=== PATIENT | female | born 1945 | race Caucasian/White ===

== ENCOUNTER → 2016-12-29 | Outpatient (CLI) | payer OTHER ==
[~2016-12-29] MED LIST: ALBUAER2 INH; BP PILL; CALCTAB5 PO; FSMUNK; LVTUNK; MCRKUNK; MULT-506 PO
--- NOTE | 2016-12-29 13:45 | MAMMOGRAPHY REPORT ---
BILATERAL DIGITAL SCREENING MAMMOGRAM WITH CAD: 12/29/2016 CLINICAL HISTORY: Routine screening. Patient has no complaints. TECHNIQUE: Current study was also evaluated with a Computer Aided Detection (CAD) system. Bilatera l CC and MLO views were obtained. COMPARISON: Comparison is made to exams dated: 12/24/2013 mammogram, 12/17/2012 mammogram, 12/14/2011 ma mmogram, and 12/08/2009 mammogram - [facility]. BREAST COMPOSITION: The tissue of both breasts is almost entirely fatty. FINDINGS: No suspicious masses, calcifications, or areas of architectural distortion are noted in e ither breast. There has been no significant interval change compared to prior exams. Scattered bilat eral benign-appearing calcifications are not significantly changed. IMPRESSION: ACR BI-RADS CATEGORY 2: BENIGN There is no mammographic evidence of malignancy. A 1 year screening mammogram is recommended. The p atient will receive written notification of the results. Approximately 10% of breast cancers are not detected with mammography. A negative mammographic repor t should not delay biopsy if a clinically suggestive mass is present. Adrienne Teran M.D. /:12/29/2016 11:15:11 Mangle Operator Garments: Eva Augustin, [facility] letter sent: Normal 1/2 BI-RADS Code: ACR BI-RADS Category 2: Benign
== END | disposition home or self-care (01) ==
LOC: C.MAMM 10:45
PROVIDERS: ATTEND Internal Medicine
DX: Z12.31 Encounter for screening mammogram for malignant neoplasm of breast (principal)

== ENCOUNTER → 2018-01-01 | Outpatient (CLI) | payer OTHER ==
--- NOTE | 2018-01-02 15:25 | MAMMOGRAPHY REPORT ---
BILATERAL DIGITAL SCREENING MAMMOGRAM TOMOSYNTHESIS WITH CAD: 01/01/2018 CLINICAL HISTORY: Routine screening. Patient has no complaints. TECHNIQUE: Breast tomosynthesis in addition to standard 2D mammography was performed. Current study was also evaluated with a Computer Aided Detection (CAD) system. COMPARISON: Comparison is made to exams dated: 12/29/2016 mammogram, 12/25/2014 mammogram, 12/24/2013 m ammogram, 12/17/2012 mammogram, 12/14/2011 mammogram, and 12/08/2009 mammogram - [facility]. BREAST COMPOSITION: The tissue of both breasts is almost entirely fatty. FINDINGS: There are moderate vascular calcifications in the breasts, and scattered benign coarse calc ifications. No suspicious mass, architectural distortion or cluster of suspicious microcalcification s is seen. IMPRESSION: ACR BI-RADS CATEGORY 1: NEGATIVE There is no mammographic evidence of malignancy. A 1 year screening mammogram is recommended. The pa tient will receive written notification of the results. Approximately 10% of breast cancers are not detected with mammography. A negative mammographic report should not delay biopsy if a clinically suggestive mass is present. Steph Leal M.D. ay/:01/01/2018 16:57:17 Plastics Repairer: Brianna SANON(R)(M), [facility] letter sent: Normal 1/2 BI-RADS Code: ACR BI-RADS Category 1: Negative
== END ==
LOC: C.MAMM 12:24
PROVIDERS: ATTEND Internal Medicine
DX: Z12.31 Encounter for screening mammogram for malignant neoplasm of breast (principal)

== ENCOUNTER 2020-06-02 16:35 | Inpatient (IN) ==
[2020-06-02] MEDS ORDERED: ALBUT/IPRATROP 3MG/0.5MG NEB 3 ML VIAL NEB STA (17:10)
[2020-06-02] MEDS ORDERED: methylPREDNISolone 125 MG/2 ML VIAL IV STA (17:12)
--- NOTE | 2020-06-02 17:16 | Emergency Department Note ---
ED Visit Note This patient was seen in concert with Dr. Haddad and we discussed and agreed upon the history, physical, assessment and plan. See attending's note for details. Resident Activity Tracking Resident Involvement: Resident Care Provided Care Provided: Adult ED
--- NOTE | 2020-06-02 17:20 | XRay Report ---
XR chest 1V portable HISTORY: Dyspnea COMPARISON: None. FINDINGS: The heart is normal in size. Mild emphysema. Bibasilar interstitial thickening and hazy air space opacities are noted. The upper lung zones remain clear. No pleural effusions. No pneumothorax. IMPRESSION: 1. Bibasilar interstitial thickening and hazy airspace opacities. This is concerning for a pneumonia and may be secondary to a viral process. 2. Emphysema. ACT 112: Negative or not required by law. Electronically signed by: Juan M Duggan M.D. 06/02/2020 5:18 PM
--- NOTE | 2020-06-02 17:25 | Emergency Department Note ---
Impression & Plan Community acquired pneumonia, Hypoxia ED Provider Note NAME: DARELL LARA AGE: 75 SEX: F : 1945 ARRIVES VIA: Walk-In INFORMANT: Patient ED PROVIDER(S): Nickolas Haddad DO CHIEF COMPLAINT: Shortness of breath HPI: Patient is a 75-year-old female who presents the ER for shortness of breath with past medical history of asthma and bronchiectasis. She notes the shortness of breath has been worsening over the past 3 weeks. She has no cardiac history. She notes she started prednisone about a week ago and did have some improvement but has been getting worse today. She follows-up with her PCP and obtain a chest x-ray with a questionable pneumonia. She was sent in for further evaluation here. She denies any fevers. She does have a cough and some mild congestion but notes that is fairly typical for her. No recent trips or travel. She notes she has been staying home. No exposure to anyone with coronavirus. ROS: See above HPI for pertinent positives & negatives. A total of 10 systems reviewed and were otherwise negative. PAST MEDICAL HISTORY:See Below PAST SURGICAL HISTORY:See Below FAMILY HISTORY:See Below SOCIAL HISTORY:See Below HOME MEDICATIONS:See Below ALLERGIES:See Below VITALS:See Below PHYSICAL EXAMINATION: GENERAL: Sitting up in bed, alert, chronically ill-appearing, disheveled, nontoxic EYE EXAM: normal conjunctiva. OROPHARYNX: no exudate, no erythema, lips, buccal mucosa, and tongue normal and mucous membranes are moist NECK: supple, no nuchal rigidity, no adenopathy, non-tender LUNGS: Diminished at bases. Normal chest wall mechanics HEART: no murmurs, S1 normal and S2 normal ABDOMEN: abdomen soft, non-tender, normo-active bowel sounds, no masses, no rebound or guarding. BACK: Back is symmetrical on inspection and there is no deformity, no midline tenderness, no CVA tenderness. SKIN: no rashes and no bruising UPPER EXTREMITIES: upper extremities are grossly normal. LOWER EXTREMITIES: No pitting edema. Calves are equal bilateral NEURO EXAM: Normal sensorium, cranial nerves II-XII grossly intact, normal speech, no gross weakness of arms, no gross weakness of legs. MEDICAL DECISION MAKING: Patient is a 75-year-old female referred in for shortness of breath which is been worsening for the past 3 weeks. Had an x-ray done as an outpatient which showed a possible pneumonia. Upon arrival here she is found to be hypoxic. She was placed on 2 L nasal cannula. Remainder of vitals are stable. She is not tachycardic. No recent trips or travel, swelling of calves, coughing up blood, history of blood clots, history of clotting disorders. Labs show a mild leukocytosis of 12,000. No significant anemia. INR was unremarkable. BMP with mild hyponatremia. LFTs bilirubin and troponin was negative. Chest x-ray with focal infiltrate. Patient was given IV fluids and IV Levaquin. Patient was given neb treatments. Discussed with hospitalist for admission due to pneumonia and hypoxia. [place] with testing was sent. Triage Nursing notes reviewed. Prior medical records reviewed Vital Signs: reviewed and remarkable for hypoxic Differential diagnosis: Differential diagnoses includes but is not limited to pneumonia, bronchitis, COPD/Asthma exacerbation, pneumothorax, pulmonary embolism, congestive heart failure, acute coronary syndrome ER treatment provided: See below Diagnostics interpreted by me: ECG: Sinus rhythm rate of 62 Left axis No PVCs Normal QTC Poor baseline in the inferior leads Cardiac Monitoring: An order was placed for continuous cardiac monitoring. The monitor shows a rate of 65 with sinus rhythm. Laboratory studies: As stated above and show below. Imaging studies: Portable view of the chest shows infiltrates Consultation(s): Discussed with the hospital this for admission ED COURSE: Procedures: none Critical Care: I have personally spent 32 minutes of critical care time in the direct management of this patient. This includes bedside care, interpretation of diagnostic studies, and testing, discussion with consultants, patient, and family members, and other required patient management activities. This 32 minutes is in excess of all separately billable procedures. Past Med/Surg History Social History Smoking Status: Former smoker Preferred Language: Angolan Feels Safe at Home: Yes Allergies Allergies Allergy/AdvReac Type Severity Reaction Status Date / Time lisinopril AdvReac Intermediate Cough Verified 06/02/20 17:28 Home Meds Home Medications Medication Instructions Recorded Confirmed albuterol sulfate [Ventolin HFA] 2 puff INHALATION Q4H PRN 06/02/20 06/02/20 alendronate 70 mg PO WK 06/02/20 06/02/20 atenolol 100 mg PO QAM 06/02/20 06/02/20 atorvastatin 10 mg PO QAM 06/02/20 06/02/20 calcium carbonate-vitamin D3 1 tab PO BID 06/02/20 06/02/20 [Caltrate 600 plus D] cetirizine 10 mg PO QAM 06/02/20 06/02/20 diltiazem HCl 300 mg PO QAM 06/02/20 06/02/20 famotidine 20 mg PO BID 06/02/20 06/02/20 fluticasone propion-salmeterol 1 inh INHALATION BID 06/02/20 06/02/20 [Wixela Inhub] fluticasone propionate 1 spray INTRANASAL HS 06/02/20 06/02/20 guaifenesin [Mucinex] 600 mg PO QAM 06/02/20 06/02/20 levothyroxine 75 mcg PO DAILYBB 06/02/20 06/02/20 montelukast 10 mg PO QPM 06/02/20 06/02/20 sertraline 25 mg PO QAM 06/02/20 06/02/20 Results & Data (ED) Vital Signs Vital Signs - 24 hr 06/02/20 16:44 06/02/20 16:51 06/02/20 17:14 Temperature 36.5 C Temperature Source Oral Pulse Rate 65 64 Pulse Rate [Right Finger] Pulse Rate from SpO2 Sensor 65 Pulse Rhythm Regular Respiratory Rate 22 22 Respiratory Effort / Characteristics Non-Labored Labored Short of Breath SOB on Exertion Respiratory Depth Normal Normal Respiratory Pattern Regular Tachypnea Blood Pressure 113/70 Blood Pressure Mean 84 Blood Pressure Position Sitting Pulse Oximetry 86 L 94 95 Oxygen Delivery Method Room Air Nasal Cannula Oxygen Flow Rate 2 Sepsis Recent Fever Within 48 Hours No Sepsis New/Unexplained Change in Mental Status No Sepsis Action Taken by Nursing No Action Required 06/02/20 17:15 06/02/20 17:30 06/02/20 17:43 Temperature Temperature Source Pulse Rate 64 61 Pulse Rate [Right Finger] 59 L Pulse Rate from SpO2 Sensor 64 61 Pulse Rhythm Respiratory Rate 24 17 18 Respiratory Effort / Characteristics Non-Labored Spontaneous Respiratory Depth Respiratory Pattern Blood Pressure Blood Pressure Mean Blood Pressure Position Pulse Oximetry 96 94 95 Oxygen Delivery Method Nasal Cannula Oxygen Flow Rate 2 Sepsis Recent Fever Within 48 Hours Sepsis New/Unexplained Change in Mental Status Sepsis Action Taken by Nursing 06/02/20 17:45 Temperature Temperature Source Pulse Rate 59 L Pulse Rate [Right Finger] Pulse Rate from SpO2 Sensor 58 L Pulse Rhythm Respiratory Rate 16 Respiratory Effort / Characteristics Respiratory Depth Respiratory Pattern Blood Pressure Blood Pressure Mean Blood Pressure Position Pulse Oximetry 98 Oxygen Delivery Method Oxygen Flow Rate Sepsis Recent Fever Within 48 Hours Sepsis New/Unexplained Change in Mental Status Sepsis Action Taken by Nursing Laboratory Data Result diagrams: 06/02/20 17:30 06/02/20 17:30 Lab Results 06/02/20 06/02/20 06/02/20 Range/Units 17:30 17:30 17:30 WBC 12.07 H (4.8-10.8) K/uL RBC 4.31 (4.2-5.4) M/uL Hgb 14.1 (12.0-16.0) g/dL Hct 39.6 (37-47) % MCV 91.9 (80-100) fL MCH 32.7 (25-34) pg MCHC 35.6 (32-36) g/dL RDW Std Deviation 43.1 (36.4-46.3) fL RDW Coeff of Fan 12.9 (11.5-14.5) % Plt Count 352 (130-400) K/uL MPV 8.9 (7.4-10.4) fL Immature Gran % (Auto) 0.1 % Neut % (Auto) 73.4 % Lymph % (Auto) 15.1 % [place] % (Auto) 10.9 % Eos % (Auto) 0.3 % Baso % (Auto) 0.2 % Neut # (Auto) 8.86 H (1.4-6.5) K/uL Lymph # (Auto) 1.82 (1.2-3.4) K/uL [place] # (Auto) 1.31 H (0.11-0.59) K/uL Eos # (Auto) 0.04 (0-0.5) K/uL Baso # (Auto) 0.03 (0-0.2) K/uL Immature Gran # (Auto) 0.01 (0.00-0.02) K/uL PT 10.3 (9.0-12.0) Seconds INR 1.0 (0.9-1.1) APTT 26.8 (21.0-31.0) Seconds PTT Ratio 1.0 Sodium 130 L (136-145) mmol/L Potassium 3.9 (3.5-5.1) mmol/L Chloride 98 (98-107) mmol/L Carbon Dioxide 25 (21-32) mmol/L Anion Gap 7.0 (3-11) BUN 14 (7-18) mg/dl Creatinine 0.61 (0.6-1.2) mg/dl Est Cr Clr Drug Dosing 62.2 ml/min Est GFR ( Amer) 102.1 Est GFR (Non-Af Amer) 88.1 BUN/Creatinine Ratio 23.1 H (10-20) Glucose 97 (70-99) mg/dl Calcium 9.3 (8.5-10.1) mg/dl Magnesium 1.9 (1.8-2.4) mg/dl Total Bilirubin 0.5 (0.2-1) mg/dl AST 12 L (15-37) U/L ALT 15 (12-78) U/L Alkaline Phosphatase 57 (45-117) U/L Troponin I < 0.015 (0-0.045) ng/ml NT-Pro-B Natriuret Pep 288 (0-1800) pg/ml Total Protein 8.0 (6.4-8.2) gm/dl Albumin 3.3 L (3.4-5.0) gm/dl Globulin 4.7 H (2.5-4.0) gm/dl Albumin/Globulin Ratio 0.7 L (0.9-2) Administered Medications Discontinued Medications Albuterol (Duoneb) 3 ml NEB NOW STA Stop: 06/02/20 17:11 Last Admin: 06/02/20 17:43 Dose: 3 ml Documented by: [id number] Methylprednisolone (Solumedrol) 125 mg IV NOW STA Stop: 06/02/20 17:13 Last Admin: 06/02/20 17:30 Dose: 125 mg Documented by: [id number] Discharge Plan Visit Data Chief Complaint: Shortness of Breath/Dyspnea Stated Complaint: CHEST IS TIGHT - SENT BY DOC ED Provider: Nickolas Haddad ED Midlevel Provider: Jenny Billy Discharge Problem: Community acquired pneumonia, Hypoxia Forms Stand Alone Forms: My [facility] Prescriptions Prescriptions: No Action cetirizine 10 mg Tablet 10 mg PO QAM RF: 0 atorvastatin 10 mg tablet 10 mg PO QAM RF: 0 atenolol 100 mg tablet 100 mg PO QAM RF: 0 alendronate 70 mg tablet 70 mg PO WK RF: 0 levothyroxine 75 mcg tablet 75 mcg PO DAILYBB RF: 0 famotidine 20 mg tablet 20 mg PO BID RF: 0 diltiazem HCl 300 mg capsule,extended release 24hr 300 mg PO QAM RF: 0 fluticasone propion-salmeterol [Wixela Inhub] 500-50 mcg/dose blister with device 1 inh INHALATION BID RF: 0 sertraline 25 mg tablet 25 mg PO QAM RF: 0 montelukast 10 mg tablet 10 mg PO QPM RF: 0 albuterol sulfate [Ventolin HFA] 90 mcg/actuation Hfa Aerosol Inhaler 2 puff INHALATION Q4H PRN (Reason: Shortness Of Breath Or Wheezing) RF: 0 fluticasone propionate 50 mcg/actuation spray,suspension 1 spray INTRANASAL HS RF: 0 Caltrate 600 plus D 600 mg (1,500 mg)-800 unit Tablet,Chewable 1 tab PO BID RF: 0 guaifenesin [Mucinex] 600 mg Tablet Extended Release 12hr 600 mg PO QAM RF: 0 Discharge Problem: Community acquired pneumonia Qualifiers: Laterality: unspecified laterality Qualified Code(s): J18.9 - Pneumonia, unspecified organism
[2020-06-02 17:44] LABS: Basophils # (auto) 0.03 K/uL (0-0.2); Basophils % (auto) 0.2 %; Eosinophils # (auto) 0.04 K/uL (0-0.5); Eosinophils % (auto) 0.3 %; Hematocrit (blood only) 39.6 % (37-47); Hemoglobin 14.1 g/dL (12.0-16.0); Immature Granulocytes # (auto) 0.01 K/uL (0.00-0.02); Immature Granulocytes % (auto) 0.1 %; Lymphocytes # (auto) 1.82 K/uL (1.2-3.4); Lymphocytes % (auto) 15.1 %; Mean Corpuscular Hemoglobin 32.7 pg (25-34); Mean Corpuscular Hgb Conc 35.6 g/dL (32-36); Mean Corpuscular Volume 91.9 fL (80-100); Mean Platelet Volume 8.9 fL (7.4-10.4); Monocytes # (auto) 1.31 K/uL (0.11-0.59); Monocytes % (auto) 10.9 %; Neutrophils # (auto) 8.86 K/uL (1.4-6.5); Neutrophils % (auto) 73.4 %; Platelet Count 352 K/uL (130-400); RDW Coefficient of Variation 12.9 % (11.5-14.5); RDW Standard Deviation 43.1 fL (36.4-46.3); Red Blood Count 4.31 M/uL (4.2-5.4); White Blood Count 12.07 K/uL (4.8-10.8)
[2020-06-02 17:54] LABS: Partial Thromboplastin Time 26.8 Seconds (21.0-31.0); Prothrombin Time 10.3 Seconds (9.0-12.0)
[2020-06-02 18:05] LABS: Alanine Aminotransferase 15 U/L (12-78); Albumin Level 3.3 gm/dl (3.4-5.0); Aspartate Aminotransferase 12 U/L (15-37); BUN Creatinine Ratio 23.1 (10-20); Blood Urea Nitrogen 14 mg/dl (7-18); Calcium 9.3 mg/dl (8.5-10.1); Carbon Dioxide 25 mmol/L (21-32); Chloride 98 mmol/L (98-107); Creatinine Clr Calc Pharmacy 62.2 ml/min; Est GFR (African American) 102.1; Est GFR (Non-African American) 88.1; Glucose 97 mg/dl (70-99); Magnesium 1.9 mg/dl (1.8-2.4); Potassium 3.9 mmol/L (3.5-5.1); Sodium 130 mmol/L (136-145)
[2020-06-02 18:10] LABS: Albumin Globulin Ratio 0.7 (0.9-2); Alkaline Phosphatase 57 U/L (45-117); Bilirubin,Total 0.5 mg/dl (0.2-1); Globulin 4.7 gm/dl (2.5-4.0); NT Pro B Type Natriuretic Pept 288 pg/ml (0-1800); Troponin I < 0.015 ng/ml (0-0.045)
[2020-06-02] MEDS ORDERED: LEVOFLOXACIN/D5W 750 MG/150 ML BAG IV SCH (18:15)
[2020-06-02] MEDS ORDERED: MAGNESIUM SULFATE / D5W 1 GM/100 ML BAG IV ONE (19:44)
--- NOTE | 2020-06-02 20:20 | History & Physical Report ---
Date of Service June 02, 2020 Assessment & Plan (1) Acute hypoxemic respiratory failure: Secondary to COPD exacerbation (history of bronchiectasis as per records) secondary to CAP Possible sepsis hypertension, stable past tobacco abuse Medical telemetry Supplemental O2 Baseline ABG Levaquin, nebs, prednisone course Pulmonary consult in a.m. if without improvement DVT prophylaxis per Lovenox subcu Full code Text document was generated using [employer] voice recognition software. It may contain grammatical or spelling errors. Kindly contact undersigned for clarification of any documentation item in question. History of Present Illness Chief Complaint: Cough, S OB Primary Care Provider: Sanjana Reyes DO History obtained from patient and records. Medical history significant for COPD/asthma/bronchiectasis, hypertension, past tobacco abuse. 3 weeks history of congestion, junky cough and wheezing. No aspiration. No known COVID-19 sick contacts. Minimal response to outpatient prednisone course prescribed by pulmonology provider. Persistent junky cough symptoms without chest pain. Worsening shortness of breath over the last few weeks. Poor appetite. Patient seen at PCPs office today. O2 sats noted to be 88 on room air. Chest x-ray showed possible pneumonia. Patient sent to the ER for evaluation. Patient received Solu-Medrol, neb treatment, Levaquin for possible COPD exacerbation. Patient currently feeling better. Medical History as above Surgical History : Cataract surgery, breast cyst drainage, tonsillectomy/adenoidectomy, BTL Family History : Heart disease, colon cancer Personal/Social history : Past tobacco abuse, occasional EtOH intake, retired school janitor Allergies Allergy/AdvReac Type Severity Reaction Status Date / Time lisinopril AdvReac Intermediate Cough Verified 06/02/20 17:28 Home Medications Home Medications Medication Instructions Recorded Confirmed Type albuterol sulfate [Ventolin HFA] 2 puff INHALATION Q4H PRN 06/02/20 06/02/20 History alendronate 70 mg PO WK 06/02/20 06/02/20 History atenolol 100 mg PO QAM 06/02/20 06/02/20 History atorvastatin 10 mg PO QAM 06/02/20 06/02/20 History calcium carbonate-vitamin D3 1 tab PO BID 06/02/20 06/02/20 History [Caltrate 600 plus D] cetirizine 10 mg PO QAM 06/02/20 06/02/20 History diltiazem HCl 300 mg PO QAM 06/02/20 06/02/20 History famotidine 20 mg PO BID 06/02/20 06/02/20 History fluticasone propion-salmeterol 1 inh INHALATION BID 06/02/20 06/02/20 History [Wixela Inhub] fluticasone propionate 1 spray INTRANASAL HS 06/02/20 06/02/20 History guaifenesin [Mucinex] 600 mg PO QAM 06/02/20 06/02/20 History levothyroxine 75 mcg PO DAILYBB 06/02/20 06/02/20 History montelukast 10 mg PO QPM 06/02/20 06/02/20 History sertraline 25 mg PO QAM 06/02/20 06/02/20 History Past Med/Surg History Social History Smoking Status: Former smoker Smoking End Date: 1969; Hx Alcohol Use: No Hx Substance Use: No Preferred Language: Australian Type Proof Reproducer Required: No Beliefs That Will Affect Care: None Current Living Situation: Spouse Other Information That Helps Us Care for You: No Feels Safe at Home: Yes Safety Concerns: Feels Safe At This Time Review of Systems Review of Systems: As per HPI, all 10 systems reviewed, all other ROS negative Physical Exam Physical Exam: GENERAL: Slightly uncomfortable, pleasant, minimal respiratory distress SKIN: Normal color, warm HEENT: [place] palpebral conjunctivae, no ptosis, dry buccal mucosa, nasal cannula in place NECK : Supple, no tenderness CHEST : Decreased breath sounds, expiratory wheezes, no tenderness HEART : RRR, no obvious murmurs ABDOMEN: Some distention, nontender EXTREMITIES : No LE swelling/tenderness, no other conspicuous deformities noted NEUROLOGIC : Coherent, no facial asymmetry, no other gross focality Results & Data Results & Data ([facility]) Vital Signs (Past 12 Hours) Vital Signs Temp Pulse Pulse Resp BP BP Pulse Ox 06/02/20 19:13 62 20 158/76 H 93 06/02/20 17:45 59 L 16 98 06/02/20 17:43 59 L 18 95 06/02/20 17:30 61 17 94 06/02/20 17:15 64 24 96 06/02/20 17:14 64 22 95 06/02/20 16:51 94 06/02/20 16:44 36.5 C 65 22 113/70 86 L Laboratory Results Laboratory Results WBC 12.07 K/uL (4.8-10.8) H 06/02/20 17:30 RBC 4.31 M/uL (4.2-5.4) 06/02/20 17:30 Hgb 14.1 g/dL (12.0-16.0) 06/02/20 17:30 Hct 39.6 % (37-47) 06/02/20 17:30 MCV 91.9 fL (80-100) 06/02/20 17:30 MCH 32.7 pg (25-34) 06/02/20 17:30 MCHC 35.6 g/dL (32-36) 06/02/20 17:30 RDW Std Deviation 43.1 fL (36.4-46.3) 06/02/20 17:30 RDW Coeff of Fan 12.9 % (11.5-14.5) 06/02/20 17:30 Plt Count 352 K/uL (130-400) 06/02/20 17:30 MPV 8.9 fL (7.4-10.4) 06/02/20 17:30 Immature Gran % (Auto) 0.1 % 06/02/20 17:30 Neut % (Auto) 73.4 % 06/02/20 17:30 Lymph % (Auto) 15.1 % 06/02/20 17:30 [place] % (Auto) 10.9 % 06/02/20 17:30 Eos % (Auto) 0.3 % 06/02/20 17:30 Baso % (Auto) 0.2 % 06/02/20 17:30 Neut # (Auto) 8.86 K/uL (1.4-6.5) H 06/02/20 17:30 Lymph # (Auto) 1.82 K/uL (1.2-3.4) 06/02/20 17:30 [place] # (Auto) 1.31 K/uL (0.11-0.59) H 06/02/20 17:30 Eos # (Auto) 0.04 K/uL (0-0.5) 06/02/20 17:30 Baso # (Auto) 0.03 K/uL (0-0.2) 06/02/20 17:30 Immature Gran # (Auto) 0.01 K/uL (0.00-0.02) 06/02/20 17:30 PT 10.3 Seconds (9.0-12.0) 06/02/20 17:30 INR 1.0 (0.9-1.1) 06/02/20 17:30 APTT 26.8 Seconds (21.0-31.0) 06/02/20 17:30 PTT Ratio 1.0 06/02/20 17:30 Sodium 130 mmol/L (136-145) L 06/02/20 17:30 Potassium 3.9 mmol/L (3.5-5.1) 06/02/20 17:30 Chloride 98 mmol/L (98-107) 06/02/20 17:30 Carbon Dioxide 25 mmol/L (21-32) 06/02/20 17:30 Anion Gap 7.0 (3-11) 06/02/20 17:30 BUN 14 mg/dl (7-18) 06/02/20 17:30 Creatinine 0.61 mg/dl (0.6-1.2) 06/02/20 17:30 Est Cr Clr Drug Dosing 62.2 ml/min 06/02/20 17:30 Est GFR ( Amer) 102.1 06/02/20 17:30 Est GFR (Non-Af Amer) 88.1 06/02/20 17:30 BUN/Creatinine Ratio 23.1 (10-20) H 06/02/20 17:30 Glucose 97 mg/dl (70-99) 06/02/20 17:30 Osmolality 281 mOsm/kg (280-300) 06/02/20 17:30 Calcium 9.3 mg/dl (8.5-10.1) 06/02/20 17:30 Magnesium 1.9 mg/dl (1.8-2.4) 06/02/20 17:30 Total Bilirubin 0.5 mg/dl (0.2-1) 06/02/20 17:30 AST 12 U/L (15-37) L 06/02/20 17:30 ALT 15 U/L (12-78) 06/02/20 17:30 Alkaline Phosphatase 57 U/L (45-117) 06/02/20 17:30 Troponin I < 0.015 ng/ml (0-0.045) 06/02/20 17:30 NT-Pro-B Natriuret Pep 288 pg/ml (0-1800) 06/02/20 17:30 Total Protein 8.0 gm/dl (6.4-8.2) 06/02/20 17:30 Albumin 3.3 gm/dl (3.4-5.0) L 06/02/20 17:30 Globulin 4.7 gm/dl (2.5-4.0) H 06/02/20 17:30 Albumin/Globulin Ratio 0.7 (0.9-2) L 06/02/20 17:30 TSH 2.770 uIu/ml (0.300-4.500) 06/02/20 17:30 Diagnostic Findings Chest x-ray : 1. Bibasilar interstitial thickening and hazy airspace opacities. This is concerning for a pneumonia and may be secondary to a viral process. 2. Emphysema. EKG as per my interpretation : Rate 60, NSR, LAD, LAFB, no ischemia
[2020-06-02 20:24] LABS: Allen Test Pos (Pos); Base Excess ABG -0.4 mEq/L (-9-1.8); HCO3 ABG 23 mmol/L (19-24); PCO2 ABG 34 mmHg (35-46); PO2 ABG 78 mmHg (80-95); pH ABG 7.45 (7.35-7.45)
[2020-06-02] MEDS ORDERED: NSS + 20MEQ KCL 20 MEQ/1,000 ML BAG IV ONE (21:45)
[2020-06-02] MEDS ORDERED: ACETAMINOPHEN 325 MG TAB PO PRN (21:48)
[2020-06-02] MEDS: MONTELUKAST SODIUM 10 MG TABLET PO SCH (22:26)
[2020-06-02] MEDS: FAMOTIDINE 20 MG TAB PO SCH (22:26)
[2020-06-02] MEDS: FLUTICASONE PROPIONATE NA SPR 16 GM BTL SCH (22:26)
[2020-06-03] MEDS: ALBUT/IPRATROP 3MG/0.5MG NEB 3 ML VIAL NEB SCH ×5 (00:49→19:07)
[2020-06-03 06:05] LABS: Hematocrit (blood only) 37.1 % (37-47); Hemoglobin 12.6 g/dL (12.0-16.0); Immature Granulocytes # (auto) 0.02 K/uL (0.00-0.02); Immature Granulocytes % (auto) 0.3 %; Lymphocytes # (auto) 0.82 K/uL (1.2-3.4); Lymphocytes % (auto) 12.2 %; Mean Corpuscular Volume 91.4 fL (80-100); Mean Platelet Volume 8.9 fL (7.4-10.4); Monocytes # (auto) 0.06 K/uL (0.11-0.59); Monocytes % (auto) 0.9 %; Neutrophils # (auto) 5.82 K/uL (1.4-6.5); Neutrophils % (auto) 86.6 %; Platelet Count 324 K/uL (130-400); RDW Coefficient of Variation 12.7 % (11.5-14.5); RDW Standard Deviation 42.6 fL (36.4-46.3); Red Blood Count 4.06 M/uL (4.2-5.4); White Blood Count 6.72 K/uL (4.8-10.8)
[2020-06-03] MEDS: LEVOTHYROXINE SODIUM 75 MCG TABLET PO SCH (06:18)
[2020-06-03 06:42] LABS: BUN Creatinine Ratio 21.7 (10-20); Calcium 8.3 mg/dl (8.5-10.1); Creatinine Clr Calc Pharmacy 70.2 ml/min; Est GFR (African American) 106.2; Est GFR (Non-African American) 91.7; Potassium 3.9 mmol/L (3.5-5.1)
--- NOTE | 2020-06-03 07:54 | Hospitalist Progress Note ---
Date of Service June 03, 2020 Assessment & Plan (1) Acute hypoxemic respiratory failure: Secondary to COPD exacerbation (history of bronchiectasis as per records) secondary to CAP on Levaquin and Prednisone No sepsis Hypertension, stable Past tobacco abuse Medical telemetry Supplemental O2 Baseline ABG Levaquin, nebs, prednisone course DVT prophylaxis per Lovenox subcu Full code DC home later today or am Labs checked ROS-No Headache, No Visual Changes, No Nausea, No Vomiting, No Fever, No Chills, No Neck Pain or Stiffness, No Chest Pain, No Palpitations, No SOB, No MAHONEY, No Cough, No Sputum, No Wheezing, No Abdominal Pain, No Diarrhea, No Hematemesis, N o Hemoptysis, No Unexpected Weight Loss, No Flank pain, No Melena, No Hematochezia, No Frequency, No Urgency, No Burning, No Hematuria, No Rashes, No Diaphoresis. Appetite is Normal, feels a lot better Physical Exam Gen-AAO x 3, NAD, Afebrile Head-NCAT, EOMI, PERRLA, Anicteric Sclera, No Posterior Pharyngeal Erythema Neck-Supple, No JVD, No Thyromegaly, No Masses, No LAD, No Bruits Lungs-Clear to Auscultation Bilaterally, No Rales, No Rhonchi, No Wheezing, No Crepitus Chest-No S4, +S1, +S2, No S3, No Murmurs, No Rubs, No Gallops, No Ectopy Abdomen-Soft, Bowel Sounds Present, Non Tender, Non Distended, No Hepatomegaly, No Splenomegaly, No Palpable Masses, No Rebound, No Rigidity, No Guarding Musculoskeletal-Full Range of Motion Bilaterally, No CVAT Extremities-No Cyanosis, No Clubbing, No Edema Nuero-Cranial Nerves II-XII grossly intact, Motor WNL, DTRs WNL, Strength WNL, Non Focal Psych-Normal Mood Admission and Anticipated Discharge Date Admission Date: June 02, 2020 Results & Data Results & Data ([facility]) Vital Signs (Past 12 Hours) Vital Signs Temp Pulse Pulse Pulse Resp BP BP 06/03/20 07:34 80 06/03/20 07:22 36.5 C 74 16 06/03/20 07:03 74 14 06/03/20 03:57 36.9 C 73 18 114/67 06/03/20 01:29 63 07/22/20 00:49 65 16 06/02/20 23:00 36.5 C 64 18 110/53 L 06/02/20 22:03 67 06/02/20 21:53 36.4 C L 67 22 06/02/20 21:01 62 20 118/68 BP Pulse Ox 06/03/20 07:34 06/03/20 07:22 142/71 H 92 06/03/20 07:03 92 06/03/20 03:57 94 06/03/20 01:29 06/03/20 00:49 95 06/02/20 23:00 93 06/02/20 22:03 06/02/20 21:53 128/73 91 06/02/20 21:01 94
[2020-06-03] MEDS: predniSONE 20 MG TAB PO SCH (08:55)
[2020-06-03] MEDS: guaiFENesin 600 MG TABCR PO SCH (08:55)
[2020-06-03] MEDS: FAMOTIDINE 20 MG TAB PO SCH ×2 (08:56→20:41)
[2020-06-03] MEDS: dilTIAZem HCL 300 MG CAPCR PO SCH (08:56)
[2020-06-03] MEDS: ATENOLOL 50 MG TABLET PO SCH (08:56)
[2020-06-03] MEDS: ATORVASTATIN 10 MG TAB PO SCH (08:56)
[2020-06-03] MEDS: CETIRIZINE HCL 10 MG TABLET PO SCH (08:56)
[2020-06-03] MEDS: ENOXAPARIN INJ 30 MG/0.3 ML SYR SQ SCH (08:57)
[2020-06-03] MEDS: SERTRALINE HCL 50 MG TABLET PO SCH (09:01)
[2020-06-03] MEDS ORDERED: Nursing to Pharmacy Communication SCH (10:15)
[2020-06-03] MEDS ORDERED: COUGH DROP (SUGAR FREE) LOZ 24 LOZ/1 BOX BUCCAL PRN (10:20)
--- NOTE | 2020-06-03 12:30 | Electrocardiogram Report ---
Test Reason : Blood Pressure : / mmHG Vent. Rate : 062 BPM Atrial Rate : 062 BPM P-R Int : 172 ms QRS Dur : 094 ms QT Int : 406 ms P-R-T Axes : 067 -51 044 degrees QTc Int : 412 ms Poor data quality, interpretation may be adversely affected Normal sinus rhythm Left anterior fascicular block Abnormal ECG No previous ECGs available Confirmed by Tony Aguilar ([id number]) on 06/03/2020 12:29:50 PM Referred By: Maria Luisa Perez Confirmed By:Tony Aguilar
[2020-06-03] MEDS: FLUTICASONE PROPIONATE NA SPR 16 GM BTL SCH (20:41)
[2020-06-03] MEDS: MONTELUKAST SODIUM 10 MG TABLET PO SCH (20:41)
[2020-06-03] MEDS ORDERED: levoFLOXacin 500 MG TAB PO SCH (21:00)
[2020-06-04] MEDS: LEVOTHYROXINE SODIUM 75 MCG TABLET PO SCH (05:44)
[2020-06-04 06:43] LABS: Hematocrit (blood only) 36.1 % (37-47); Hemoglobin 12.2 g/dL (12.0-16.0); Mean Corpuscular Hemoglobin 31.4 pg (25-34); Mean Corpuscular Hgb Conc 33.8 g/dL (32-36); Mean Platelet Volume 8.8 fL (7.4-10.4); Platelet Count 328 K/uL (130-400); RDW Standard Deviation 43.7 fL (36.4-46.3); Red Blood Count 3.88 M/uL (4.2-5.4); White Blood Count 14.92 K/uL (4.8-10.8)
--- NOTE | 2020-06-04 06:52 | Hospitalist Progress Note ---
Date of Service June 04, 2020 Assessment & Plan (1) Acute hypoxemic respiratory failure: Secondary to COPD exacerbation (history of bronchiectasis as per records) secondary to CAP on Levaquin and Prednisone, Sats still low, CTC today, Rocephin and Zmax ordered No sepsis Hypertension, stable Past tobacco abuse Medical/Surg Supplemental O2, 2 Step DVT prophylaxis per Lovenox subcu Full code DC home later today or am Labs checked ROS-No Headache, No Visual Changes, No Nausea, No Vomiting, No Fever, No Chills, No Neck Pain or Stiffness, No Chest Pain, No Palpitations, No SOB, No MAHONEY, No Cough, No Sputum, No Wheezing, No Abdominal Pain, No Diarrhea, No Hematemesis, No Hemoptysis, No Unexpected Weight Loss, No Flank pain, No Melena, No Hematochezia, No Frequency, No Urgency, No Burning, No Hematuria, No Rashes, No Diaphoresis. Appetite is Normal, feels a lot better Physical Exam Gen-AAO x 3, NAD, Afebrile Head-NCAT, EOMI, PERRLA, Anicteric Sclera, No Posterior Pharyngeal Erythema Neck-Supple, No JVD, No Thyromegaly, No Masses, No LAD, No Bruits Lungs-Clear to Auscultation Bilaterally, No Rales, No Rhonchi, No Wheezing, No Crepitus Chest-No S4, +S1, +S2, No S3, No Murmurs, No Rubs, No Gallops, No Ectopy Abdomen-Soft, Bowel Sounds Present, Non Tender, Non Distended, No Hepatomegaly, No Splenomegaly, No Palpable Masses, No Rebound, No Rigidity, No Guarding Musculoskeletal-Full Range of Motion Bilaterally, No CVAT Extremities-No Cyanosis, No Clubbing, No Edema Nuero-Cranial Nerves II-XII grossly intact, Motor WNL, DTRs WNL, Strength WNL, Non Focal Psych-Normal Mood Admission and Anticipated Discharge Date Admission Date: June 02, 2020 Results & Data Results & Data ([facility]) Vital Signs (Past 12 Hours) Vital Signs Temp Pulse Pulse Resp BP BP Pulse Ox 06/04/20 04:00 36.6 C 58 L 18 115/52 L 95 06/03/20 23:30 60 06/03/20 23:00 36.4 C L 55 L 18 122/50 L 92 06/03/20 20:07 36.2 C L 64 18 129/70 95 06/03/20 19:07 69 16 90
[2020-06-04] MEDS ORDERED: AZITHROMYCIN 500 MG in DEXTROSE 5% 250 ML IV SCH (07:00)
[2020-06-04] MEDS: ALBUT/IPRATROP 3MG/0.5MG NEB 3 ML VIAL NEB SCH ×4 (07:07→19:30)
[2020-06-04 07:13] LABS: BUN Creatinine Ratio 18.8 (10-20); Calcium 8.2 mg/dl (8.5-10.1); Creatinine Clr Calc Pharmacy 63.6 ml/min; Est GFR (African American) 102.6; Est GFR (Non-African American) 88.5; Potassium 4.4 mmol/L (3.5-5.1)
[2020-06-04] MEDS: cefTRIAXone SODIUM 1,000 MG in DEXTROSE 5% 50 ML IV SCH (07:51)
[2020-06-04] MEDS: dilTIAZem HCL 300 MG CAPCR PO SCH (07:56)
[2020-06-04] MEDS: CETIRIZINE HCL 10 MG TABLET PO SCH (07:56)
[2020-06-04] MEDS: predniSONE 20 MG TAB PO SCH (07:56)
[2020-06-04] MEDS: FAMOTIDINE 20 MG TAB PO SCH ×2 (07:56→20:57)
[2020-06-04] MEDS: guaiFENesin 600 MG TABCR PO SCH (07:57)
[2020-06-04] MEDS: ENOXAPARIN INJ 30 MG/0.3 ML SYR SQ SCH (07:57)
[2020-06-04] MEDS: ATENOLOL 50 MG TABLET PO SCH (07:57)
[2020-06-04] MEDS: SERTRALINE HCL 50 MG TABLET PO SCH (07:57)
[2020-06-04] MEDS: ATORVASTATIN 10 MG TAB PO SCH (07:57)
--- NOTE | 2020-06-04 08:59 | CT Scan Report ---
CT OF THE CHEST WITHOUT IV CONTRAST CLINICAL HISTORY: Suspected PNA, Hypoxia not improving COMPARISON STUDY: Chest radiograph June 02, 2020. CT DOSE: 329.94 mGycm TECHNIQUE: Axial images of the chest were obtained without IV contrast. Images were reviewed in the axial, sagittal, and coronal planes. IV contrast was not administered for this examination. Automat ed exposure control was utilized for the study. A dose lowering technique was utilized adhering to t he principles of ALARA. FINDINGS: No enlarged axillary, mediastinal or hilar lymph nodes are present. Size of the heart is n ormal. There is no pericardial effusion. There is moderate coronary artery calcification. No pneumoth orax or pleural effusion is noted. Central airways are patent. Note is made of moderate bronchiectasi s within the lower lobes and right middle lobe. Right middle lobe airspace opacity is likely chronic. Extensor tree-in-bud nodules are noted within the lungs, most evident within the bilateral lower lob es. Bilateral lower lobe subpleural opacity favors atelectasis. There is no cavitation. Bony thorax is un remarkable with the exception of several old healed rib fractures. A small hiatal hernia is present. A 2.8 cm left hepatic lobe cyst contains a partially calcified thin septation. A 4.1 cm subcapsular s egment 7 hepatic focus either reflects a corticated cyst or postsurgical change. There is a probable cyst within the midpole of the left kidney which is suboptimally assessed on this unenhanced exam. 2 mm right renal calculus is noted. 1.1 cm cyst focus within the pancreatic neck likely reflects a side branch IPMN. Old T2 and T3 compression fractures are incidentally noted. IMPRESSION: Extensive tree-in-bud nodular opacities throughout the lungs with moderate right middle lobe and bila teral lower lobe bronchiectasis. The findings represent an infectious process and raise the possibili ty of an atypical mycobacterial infection. Right middle lobe airspace opacity is chronic. Subpleural bilateral lower lobe airspace opacities are probably chronic although superimposed consolidation coul d appear similar. ACT 112: Negative or not required by law. Electronically signed by: Devon Valero M.D. 06/04/2020 8:58 AM
[2020-06-04] MEDS ORDERED: cefTRIAXone SODIUM 1,000 MG in DEXTROSE 5% 50 ML IV SCH (09:00)
[2020-06-04] MEDS ORDERED: SODIUM CHLORIDE 0.65% NA SOLN 45 ML (OCEAN) PRN (13:40)
--- NOTE | 2020-06-04 14:07 | Pulmonary Consultation ---
Date of Consultation June 04, 2020 Assessment & Plan (1) Acute hypoxemic respiratory failure: Most likely multifactorial to pneumonia and bronchiectatic exacerbation Patient is currently on azithromycin and Rocephin and 40 mg of prednisone daily No procalcitonin is been collected Will check a sputum culture and Gram stain Check an AFB Continue titrate supplemental oxygen as tolerated (2) Idiopathic bronchiectasis: Follows with [facility] pulmonology team Typically sees DESILVERIZER and has seen Dr. Cisneros in the past Negative IG levels, IGG subtypes, Alpha-AT levels No history of bronchoscopy We will add pulmonary pneumonic vest, flutter valve with nebulizer treatments No indication for bronchoscopy at this time We will need follow-up after discharge with [facility] pulmonary (3) Pulmonary nodule, left: Stable left lower lobe pulmonary nodule being followed by pulmonary group at [facility] (4) Community acquired pneumonia: Check a sputum Gram stain and culture Check an AFB to rule out mycoplasma component Currently on azithromycin and ceftriaxone Afebrile Clinically improved since admission Laterality: unspecified laterality Qualified Code(s): J18.9 - Pneumonia, unspecified organism (5) Moderate persistent asthma: Patient does have bronchospasms at the time my examination Currently on 40 mg daily of prednisone. Would use short term of no more than 5 days and then discontinue without taper Home regimen of medications include Wexela (Fluticasone/Salmeterol), Singulair, nebulizer treatments 2-4 times per day, Flonase, and guaifenesin Patient may either use her Wexela from home or consider adding Breo Ellipta (6) Hypoxia: No history of supplemental home oxygen use May require oxygen for short period after discharge as she continues on 3 L/min via nasal cannula If patient is discharged in the next day or so we will check a 6-minute walk test (two-step) Have patient follow-up with outpatient pulmonary clinic at [facility] Thank you very much for including us in the care of this patient. We will continue to follow along with you. Please refer to Dr. Messer's addendum for further recommendations. Supervising Physician Co-Signing Physician Notes Patient seen and examined. Discussed with NOHEMI. Agree with assessment and plan as noted. Interviewed patient and spouse at bedside. 75-year-old female followed at [facility] pulmonology for diffuse bronchiectasis of unclear etiology. She is admitted with an exacerbation hypoxemia. Prior sputum culture at [facility] showed pansensitive Pseudomonas but this was sometime ago. Last PFTs demonstrated mild restriction. IgG subclasses, alpha-1 antitrypsin unremarkable. The patient appears to be clinically improving currently. It is likely that she may require supplemental oxygen to go home with. Recommend continued aggressive pulmonary toilet including flutter valve, hypertonic saline, and vest therapy. Will recheck sputum culture for AFB/NTM as well as routine respiratory pathogens to see if antibiotics need to be tailored at all. She is currently on prednisone and I would not favor continuing this in the long-term but will defer to her outpatient mathematical physicist. May be appropriate for discharge but again will likely require supplemental oxygen History of Present Illness Attending Physician: Surinder Coon DO History of Present Illness Attending: Dr. Messer This is a 75-year-old female that presented to the emergency department on 06/02/2020 with worsening shortness of breath. She was admitted to the [facility] hospitalist service on telemetry for acute hypoxemic respiratory failure secondary to community-acquired pneumonia and bronchiectasis. The patient has a past medical history including idiopathic bronchiectasis, stable l eft lower lobe pulmonary nodule, hemoptysis, hypothyroidism, moderate persistent asthma, history of tobacco abuse, hypertension, dyslipidemia, nonallergic rhinitis, anxiety and depression, GERD. The patient follows with [facility] pulmonary medicine and was last seen via telemedicine 03/05/2020. Home medications include Wixela,, Flonase, duo nebs, Singulair 10 mg daily, and guaifenesin. Patient uses a flutter valve with each nebulizer treatment for clearance. She has been negative in the past for IgG subclasses as well as hemoglobins and alpha antitrypsin 1. AFB in the past has been negative as well. 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 She has been following with PRAF[facility] Deluca of the pulmonology department. Her last visit with a mathematical physicist was with Dr. Jesus Cisneros 09/19/2018. Patient was on Dulera since that time and then switched to Wixela about 1 year ago secondary to cost. Other than that, medications have not been adjusted. Patient states that she has never had a bronchoscopy in the past. She also denies pneumo vest, [id number], or other pulmonary clearance tools other than flutter valve. She seems to have worsening symptoms in the summer secondary to seasonal allergies. She has never been on home oxygen. She has a 5-pack-year smoking history and quit smoking in 1972. The patient denies any chest pain or tightness. She has no fever chills. Sputum has been thick and whitish to yellow. She denies any green or foul-smel ling sputum. She has no exertional dyspnea with exertion. She denies any significant hemoptysis. She is still requiring 3 L/min via nasal cannula and has not mobilized significantly. She has no other acute complaints. She has no recent travel. She has no sick contacts. She has no contact with any COVID positive patients. She has not been in contact with anyone from an endemic area. Most recent pulmonary function testing was completed 02/02/2017: FVC 2.27 96% of predicted FEV1 1.36 or 77% of predicted FEV1/FVC 60% of predicted FEF 25-75% 0.74 Allergies Allergy/AdvReac Type Severity Reaction Status Date / Time lisinopril AdvReac Intermediate Cough Verified 06/02/20 17:28 Home Medications Home Medications Medication Instructions Recorded Confirmed Type albuterol sulfate [Ventolin HFA] 2 puff INHALATION Q4H PRN 06/02/20 06/02/20 History alendronate 70 mg PO WK 06/02/20 06/02/20 History atenolol 100 mg PO QAM 06/02/20 06/02/20 History atorvastatin 10 mg PO QAM 06/02/20 06/02/20 History calcium carbonate-vitamin D3 1 tab PO BID 06/02/20 06/02/20 History [Caltrate 600 plus D] cetirizine 10 mg PO QAM 06/02/20 06/02/20 History diltiazem HCl 300 mg PO QAM 06/02/20 06/02/20 History famotidine 20 mg PO BID 06/02/20 06/02/20 History fluticasone propion-salmeterol 1 inh INHALATION BID 06/02/20 06/02/20 History [Wixela Inhub] fluticasone propionate 1 spray INTRANASAL HS 06/02/20 06/02/20 History guaifenesin [Mucinex] 600 mg PO QAM 06/02/20 06/02/20 History levothyroxine 75 mcg PO DAILYBB 06/02/20 06/02/20 History montelukast 10 mg PO QPM 06/02/20 06/02/20 History sertraline 25 mg PO QAM 06/02/20 06/02/20 History Patient History Medical History (Updated 06/04/20 @ 14:38 by Nima Samuels PA-C) Acquired hypothyroidism Anxiety and depression Dyslipidemia GERD (gastroesophageal reflux disease) History of tobacco abuse 5-pack-year history Quit smoking in 1972 Hypertension Idiopathic bronchiectasis Moderate persistent asthma Osteoporosis Pulmonary nodule, left Surgical History (Updated 06/04/20 @ 14:41 by Nima Samuels PA-C) H/O cataract removal with insertion of prosthetic lens Bilateral H/O colonoscopy H/O pulmonary function tests S/P tonsillectomy and adenoidectomy Family History (Updated 06/04/20 @ 14:41 by Nima Samuels PA-C) Other Medical history non-contributory Social History (Updated 06/04/20 @ 14:43 by Nima Samuels PA-C) Smoking Status: Former smoker packs per day: 0.5; Years Smoked: 10; Smoking End Date: 11/13/1972; Hx Alcohol Use: No Hx Substance Use: No Preferred Language: [place] Communication Ability: Effective Software Installer Required: No Beliefs That Will Affect Care: None Current Living Situation: Spouse Other Information That Helps Us Care for You: No Feels Safe at Home: Yes Safety Concerns: Feels Safe At This Time Review of Systems Review of Systems: All systems reviewed & are unremarkable except as noted in HPI & below Physical Exam Physical Exam: GENERAL : No acute distress EYES: No icterus, gaze conjugate NOSE: No evidence of epistaxis MOUTH: No lesions or candidiasis NECK: Supple LUNGS: Diffuse bronchospasm. No rhonchi. Good inspiratory effort. HEART: Regular, rate controlled ABDOMEN: Soft, NT, ND, BS Present EXTREMITIES: No LE edema, pedal pulses intact NEURO: A&OX3 Results & Data Results & Data ([facility]) Vital Signs (Past 12 Hours) Vital Signs Temp Pulse Pulse Pulse Resp BP Pulse Ox 06/04/20 11:42 36.3 C L 61 18 128/72 90 06/04/20 10:52 58 L 20 97 06/04/20 07:39 65 07/23/20 07:11 36.7 C 59 L 20 144/68 H 95 06/04/20 07:07 60 18 96 06/04/20 04:00 36.6 C 58 L 18 115/52 L 95 Laboratory Results 06/04/20 06:18 06/04/20 06:[address] OF THE CHEST WITHOUT IV CONTRAST CLINICAL HISTORY: Suspected PNA, Hypoxia not improving COMPARISON STUDY: Chest radiograph June 02, 2020. CT DOSE: 329.94 mGycm TECHNIQUE: Axial images of the chest were obtained without IV contrast. Images were reviewed in the axial, sagittal, and coronal planes. IV contrast was not administered for this examination. Automated exposure control was utilized for the study. A dose lowering technique was utilized adhering to the principles of ALARA. FINDINGS: No enlarged axillary, mediastinal or hilar lymph nodes are present. Size of the heart is normal. There is no pericardial effusion. There is moderate coronary artery calcification. No pneumothorax or pleural effusion is noted. Central airways are patent. Note is made of moderate bronchiectasis within the lower lobes and right middle lobe. Right middle lobe airspace opacity is likely chronic. Extensor tree-in-bud nodules are noted within the lungs, most evident within the bilateral lower lobes. Bilateral lower lobe subpleural opacity favors atelectasis. There is no cavitation. Bony thorax is unremarkable with the exception of several old healed rib fractures. A small hiatal hernia is present. A 2.8 cm left hepatic lobe cyst contains a partially calcified thin septation. A 4.1 cm subcapsular segment 7 hepatic focus either reflects a corticated cyst or postsurgical change. There is a probable cyst within the midpole of the left kidney which is suboptimally assessed on this unenhanced exam. 2 mm right renal calculus is noted. 1.1 cm cyst focus within the pancreatic neck likely reflects a side branch IPMN. Old T2 and T3 compression fractures are incidentally noted. IMPRESSION: Extensive tree-in-bud nodular opacities throughout the lungs with moderate right middle lobe and bilateral lower lobe bronchiectasis. The findings represent an infectious process and raise the possibility of an atypical mycobacterial infection. Right middle lobe airspace opacity is chronic. Subpleural bilateral lower lobe airspace opacities are probably chronic although superimposed consolidation could appear similar. Electronically signed by: Devon Valero M.D. 06/04/2020 8:58 AM PG Care Time/CCT Total # of Minutes Spent Total Time Spent with Patient: Total time spent is greater than 50% in coordination of care (as documented) at patient's floor/unit and/or counseling patient: 50 minutes including discussion with other providers and with patient's Coding Level of Care Code 69251 Inpt Consult Level 5 Diagnoses Acute hypoxemic respiratory failure J96.01 Idiopathic bronchiectasis J47.9 Pulmonary nodule, left R91.1 Community acquired pneumonia J18.9 Laterality: unspecified laterality Moderate persistent asthma J45.40 Hypoxia R09.02
[2020-06-04] MEDS: SODIUM CHLOR 7% 4 ML NEB NEB SCH (19:30)
[2020-06-04] MEDS: FLUTICASONE PROPIONATE NA SPR 16 GM BTL SCH (20:56)
[2020-06-04] MEDS: MONTELUKAST SODIUM 10 MG TABLET PO SCH (20:57)
[2020-06-05 06:23] LABS: Hematocrit (blood only) 37.2 % (37-47); Hemoglobin 12.3 g/dL (12.0-16.0); Mean Corpuscular Hemoglobin 31.1 pg (25-34); Mean Corpuscular Hgb Conc 33.1 g/dL (32-36); Mean Corpuscular Volume 93.9 fL (80-100); Mean Platelet Volume 9.1 fL (7.4-10.4); Platelet Count 332 K/uL (130-400); RDW Coefficient of Variation 13.2 % (11.5-14.5); RDW Standard Deviation 45.2 fL (36.4-46.3); Red Blood Count 3.96 M/uL (4.2-5.4)
[2020-06-05] MEDS: LEVOTHYROXINE SODIUM 75 MCG TABLET PO SCH (06:28)
--- NOTE | 2020-06-05 06:40 | Hospitalist Progress Note ---
Date of Service June 05, 2020 Assessment & Plan (1) Acute hypoxemic respiratory failure: Secondary to COPD exacerbation (history of bronchiectasis as per records) secondary to CAP on Levaquin and Prednisone, Sats still low, CTC revealed Extensive tree-in-bud nodular opacities throughout the lungs with moderate right middle lobe and bilateral lower lobe bronchiectasis. The findings represent an infectious process and raise the possibility of an atypical mycobacterial infection. Right middle lobe airspace opacity is chronic. Subpleural bilateral lower lobe airspace opacities are probably chronic although superimposed consolidation could appear similar. Rocephin and Zmax for now, Sputum C&S AFB smears, Not septic, Pulm on case Hypertension Past tobacco abuse Medical/Surg Supplemental O2, 2 Step DVT prophylaxis per Lovenox subcu Full code DC home 2-3 days Labs checked ROS-No Headache, No Visual Changes, No Nausea, No Vomiting, No Fever, No Chills, No Neck Pain or Stiffness, No Chest Pain, No Palpitations, No SOB, No MAHONEY, No Cough, No Sputum, No Wheezing, No Abdominal Pain, No Diarrhea, No Hematemesis, No Hemoptysis, No Unexpected Weight Loss, No Flank pain, No Melena, No Hematochezia, No Frequency, No Urgency, No Burning, No Hematuria, No Rashes, No Diaphoresis. Appetite is Normal, feels better Physical Exam Gen-AAO x 3, NAD, Afebrile Head-NCAT, EOMI, PERRLA, Anicteric Sclera, No Posterior Pharyngeal Erythema Neck-Supple, No JVD, No Thyromegaly, No Masses, No LAD, No Bruits Lungs-Clear to Auscultation Bilaterally, Faint R Rales, No Rhonchi, No Wheezing, No Crepitus Chest-No S4, +S1, +S2, No S3, No Murmurs, No Rubs, No Gallops, No Ectopy Abdomen-Soft, Bowel Sounds Present, Non Tender, Non Distended, No Hepatomegaly, No Splenomegaly, No Palpable Masses, No Rebound, No Rigidity, No Guarding Musculoskeletal-Full Range of Motion Bilaterally, No CVAT Extremities-No Cyanosis, No Clubbing, No Edema Nuero-Cranial Nerves II-XII grossly intact, Motor WNL, DTRs WNL, Strength WNL, Non Focal Psych-Normal Mood Admission and Anticipated Discharge Date Admission Date: June 02, 2020 Results & Data Results & Data ([facility]) Vital Signs (Past 12 Hours) Vital Signs Temp Pulse Pulse Pulse Resp BP Pulse Ox 06/05/20 04:13 66 06/05/20 03:58 37.0 C 75 19 131/64 90 06/04/20 23:12 36.8 C 57 L 18 131/65 92 06/04/20 19:32 65 18 92 06/04/20 19:18 36.5 C 61 18 127/77 93
[2020-06-05] MEDS: SODIUM CHLOR 7% 4 ML NEB NEB SCH ×2 (06:51→19:16)
[2020-06-05] MEDS: ALBUT/IPRATROP 3MG/0.5MG NEB 3 ML VIAL NEB SCH ×4 (06:51→19:16)
[2020-06-05 07:14] LABS: BUN Creatinine Ratio 28.8 (10-20); Calcium 7.9 mg/dl (8.5-10.1); Creatinine Clr Calc Pharmacy 86.5 ml/min; Est GFR (African American) 113.6; Est GFR (Non-African American) 98.1; Potassium 3.8 mmol/L (3.5-5.1)
[2020-06-05] MEDS: dilTIAZem HCL 300 MG CAPCR PO SCH (08:34)
[2020-06-05] MEDS: ENOXAPARIN INJ 30 MG/0.3 ML SYR SQ SCH (08:34)
[2020-06-05] MEDS: guaiFENesin 600 MG TABCR PO SCH ×2 (08:34→20:07)
[2020-06-05] MEDS: FAMOTIDINE 20 MG TAB PO SCH ×2 (08:35→20:08)
[2020-06-05] MEDS: ATORVASTATIN 10 MG TAB PO SCH (08:35)
[2020-06-05] MEDS: SERTRALINE HCL 50 MG TABLET PO SCH (08:35)
[2020-06-05] MEDS: predniSONE 20 MG TAB PO SCH (08:35)
[2020-06-05] MEDS: AZITHROMYCIN 250 MG TAB PO SCH (08:35)
[2020-06-05] MEDS: CETIRIZINE HCL 10 MG TABLET PO SCH (08:35)
[2020-06-05] MEDS: cefTRIAXone SODIUM 1,000 MG in DEXTROSE 5% 50 ML IV SCH (08:35)
[2020-06-05] MEDS: ATENOLOL 50 MG TABLET PO SCH (08:35)
--- NOTE | 2020-06-05 09:14 | Pulmonology Progress Note ---
Date of Service June 05, 2020 Assessment & Plan (1) Idiopathic bronchiectasis: Impression: 75-year-old female with bronchiectasis of unclear etiology followed at [facility] pulmonology admitted with hypoxemic respiratory failure and possible exacerbation of bronchiectasis. Recommendations: 1. Acute exacerbation of bronchiectasis: The patient sputum production is improving clinically. She is currently receiving duo nebs every 4 hours as well as Rocephin and azithromycin (day #3). Continue Mucinex and hypertonic saline. She is on prednisone at 40 mg daily. We will add Perforomist and budesonide to her regiment. Hopefully can start to wean her prednisone. Await sputum cultures including AFB cultures. Previous cultures through [facility] did demonstrate adams sensitive Pseudomonas. Hold on inhaled tobramycin in light of her clinical improvement and pending sputum culture results. Will defer additional work-up for bronchiectasis as this is apparently been performed in the outpatient setting but those records are not available to review. 2. Hypoxemic respiratory failure: Multifactorial. The patient has significant structural lung disease at baseline. Continue oxygen titrated to keep saturations at or above 88%. It is possible the patient will require supplemental oxygen prior to discharge and will need continued follow-up with her outpatient pulmonary providers at [facility] to determine long-term strategy. 3. Management of patient's sinus issues per primary service. 4. Patient may be eligible to be dismissed home when she feels like she is improving. She may require a more prolonged course of antibiotics depending on clinical course and sputum cultures. (2) Acute hypoxemic respiratory failure: (3) Hypoxia: Admission and Anticipated Discharge Date Admission Date: June 02, 2020 Subjective Patient seen and examined. She is complaining of some nasal congestion today. She is coughing and expectorating small amounts of clear phlegm. No hemoptysis. No chest pain or palpitations. No fevers chills or night sweats. Review of Systems Review of Systems: All systems reviewed & are unremarkable except as noted in HPI & below Physical Exam Constitutional: WD/WN, vitals as above Neck: trachea midline, no thyromegaly Respiratory: normal respiratory effort Auscultation: + rales and + wheezes Cardiovascular: RRR, no murmur, no edema Gastrointestinal (Abdomen): normal bowel sounds, soft, nontender, no hepatosplenomegaly Musculoskeletal: Extremities: extremities normal to inspection Skin: no rashes, warm and dry Neurologic: Nonfocal exam Lymphatic: no cervical lymphadenopathy Results & Data Results & Data ([facility]) Vital Signs (Past 12 Hours) Vital Signs Temp Pulse Pulse Resp BP Pulse Ox 06/05/20 08:33 74 06/05/20 07:44 57 L 06/05/20 07:30 36.7 C 56 L 18 133/75 94 06/05/20 06:53 74 18 95 06/05/20 04:13 66 06/05/20 03:58 37.0 C 75 19 131/64 90 06/04/20 23:12 36.8 C 57 L 18 131/65 92 Laboratory Results 06/05/20 05:15 06/05/20 05:15 Respiratory culture pending Diagnostic Findings No new imaging PG Care Time/CCT Total # of Minutes Spent Total Time Spent with Patient: Total time spent is greater than 50% in coordination of care (as documented) at patient's floor/unit and/or counseling patient: Coding Level of Care Code 54441 Subseq Hosp Care Lvl 3 Diagnoses Idiopathic bronchiectasis J47.9 Acute hypoxemic respiratory failure J96.01 Hypoxia R09.02
[2020-06-05] MEDS: FORMOTEROL 20 MCG/2 ML VIAL NEB SCH ×2 (10:57→19:15)
[2020-06-05] MEDS: BUDESONIDE 0.5 MG/2 ML VIAL (PULMICORT) NEB SCH (19:15)
[2020-06-05] MEDS: FLUTICASONE PROPIONATE NA SPR 16 GM BTL SCH (20:06)
[2020-06-05] MEDS: MONTELUKAST SODIUM 10 MG TABLET PO SCH (20:08)
[2020-06-06] MEDS: LEVOTHYROXINE SODIUM 75 MCG TABLET PO SCH (05:29)
[2020-06-06] MEDS: ALBUT/IPRATROP 3MG/0.5MG NEB 3 ML VIAL NEB SCH ×4 (07:17→19:10)
[2020-06-06] MEDS: FORMOTEROL 20 MCG/2 ML VIAL NEB SCH ×2 (07:17→19:07)
[2020-06-06] MEDS: BUDESONIDE 0.5 MG/2 ML VIAL (PULMICORT) NEB SCH ×2 (07:17→19:07)
[2020-06-06] MEDS: SODIUM CHLOR 7% 4 ML NEB NEB SCH ×2 (07:17→19:07)
--- NOTE | 2020-06-06 07:20 | Hospitalist Progress Note ---
Date of Service June 06, 2020 Assessment & Plan (1) Acute hypoxemic respiratory failure: Secondary to COPD exacerbation (history of bronchiectasis as per records) secondary to CAP was on Levaquin and Prednisone, CTC revealed Extensive tree-in-bud nodular opacities throughout the lungs with moderate right middle lobe and bilateral lower lobe bronchiectasis. The findings represent an infectious process and raise the possibility of an atypical mycobacterial infection. Right middle lobe airspace opacity is chronic. Subpleural bilateral lower lobe airspace opacities are probably chronic although superimposed consolidation could appear similar. Rocephin and Zmax for now, Sputum C&S AFB smears, Not septic, Pulm on case, may need home O2, feeling better Hypertension Past tobacco abuse Medical/Surg Supplemental O2 DVT prophylaxis per Lovenox subcu Full code DC home 1-2 days and f/u c [facility]m Labs checked ROS-No Headache, No Visual Changes, No Nausea, No Vomiting, No Fever, No Chills, No Neck Pain or Stiffness, No Chest Pain, No Palpitations, No SOB, No MAHONEY, No Cough, No Sputum, No Wheezing, No Abdominal Pain, No Diarrhea, No Hematemesis, No Hemoptysis, No Unexpected Weight Loss, No Flank pain, No Melena, No Hematoch ezia, No Frequency, No Urgency, No Burning, No Hematuria, No Rashes, No Diaphoresis. Appetite is Normal, feels better Physical Exam Gen-AAO x 3, NAD, Afebrile Head-NCAT, EOMI, PERRLA, Anicteric Sclera, No Posterior Pharyngeal Erythema Neck-Supple, No JVD, No Thyromegaly, No Masses, No LAD, No Bruits Lungs-Clear to Auscultation Bilaterally, Faint R Rales still present, No Rhonchi, No Wheezing, No Crepitus Chest-No S4, +S1, +S2, No S3, No Murmurs, No Rubs, No Gallops, No Ectopy Abdomen-Soft, Bowel Sounds Present, Non Tender, Non Distended, No Hepatomegaly, No Splenomegaly, No Palpable Masses, No Rebound, No Rigidity, No Guarding Musculoskeletal-Full Range of Motion Bilaterally, No CVAT Extremities-No Cyanosis, No Clubbing, No Edema Nuero-Cranial Nerves II-XII grossly intact, Motor WNL, DTRs WNL, Strength WNL, Non Focal Psych-Normal Mood Admission and Anticipated Discharge Date Admission Date: June 02, 2020 Results & Data Results & Data ([facility]) Vital Signs (Past 12 Hours) Vital Signs Temp Pulse Pulse Resp BP Pulse Ox 06/06/20 03:00 36.7 C 61 19 131/69 95 06/06/20 00:09 58 L 06/05/20 23:22 36.7 C 65 19 128/65 95 06/05/20 19:59 36.5 C 64 20 134/76 93 06/05/20 19:22 71 18 94
[2020-06-06] MEDS: dilTIAZem HCL 300 MG CAPCR PO SCH (08:22)
[2020-06-06] MEDS: ATORVASTATIN 10 MG TAB PO SCH (08:22)
[2020-06-06] MEDS: ENOXAPARIN INJ 30 MG/0.3 ML SYR SQ SCH (08:22)
[2020-06-06] MEDS: ATENOLOL 50 MG TABLET PO SCH (08:23)
[2020-06-06] MEDS: FAMOTIDINE 20 MG TAB PO SCH ×2 (08:23→20:40)
[2020-06-06] MEDS: guaiFENesin 600 MG TABCR PO SCH ×2 (08:23→20:40)
[2020-06-06] MEDS: AZITHROMYCIN 250 MG TAB PO SCH (08:24)
[2020-06-06] MEDS: SERTRALINE HCL 50 MG TABLET PO SCH (08:24)
[2020-06-06] MEDS: CETIRIZINE HCL 10 MG TABLET PO SCH (08:24)
[2020-06-06] MEDS: predniSONE 10 MG TABLET PO SCH (09:06)
[2020-06-06] MEDS: cefTRIAXone SODIUM 1,000 MG in DEXTROSE 5% 50 ML IV SCH (09:07)
[2020-06-06 10:35] LABS: Hematocrit (blood only) 36.6 % (37-47); Mean Corpuscular Hemoglobin 31.2 pg (25-34); Mean Corpuscular Hgb Conc 32.8 g/dL (32-36); Mean Corpuscular Volume 95.1 fL (80-100); Platelet Count 305 K/uL (130-400); RDW Coefficient of Variation 13.3 % (11.5-14.5); RDW Standard Deviation 45.8 fL (36.4-46.3); Red Blood Count 3.85 M/uL (4.2-5.4); White Blood Count 14.71 K/uL (4.8-10.8)
--- NOTE | 2020-06-06 10:41 | Pulmonology Progress Note ---
Date of Service June 06, 2020 Assessment & Plan (1) Idiopathic bronchiectasis: Impression: 75-year-old female with bronchiectasis of unclear etiology followed at [facility] pulmonology admitted with hypoxemic respiratory failure and possible exacerbation of bronchiectasis. Recommendations: 1. Acute exacerbation of bronchiectasis: The patient sputum production is improving clinically. She is currently receiving duo nebs every 4 hours as well as Rocephin and azithromycin (day #4). Continue Mucinex and hypertonic saline. She is on prednisone at 40 mg daily. She appears improved with the addition of Perforomist and budesonide to her regiment. Start prednisone wean, recommend decreasing by 5 mg every 3 days until off. Await sputum cultures including AFB cultures. Previous cultures through [facility] did demonstrate adams sensitive Pseudomonas. Hold on inhaled tobramycin in light of her clinical improvement and pending sputum culture results. Will defer additional work-up for bronchiectasis as this is apparently been performed in the outpatient setting but those records are not available to review. 2. Hypoxemic respiratory failure: Multifactorial. The patient has significant structural lung disease at baseline. Continue oxygen titrated to keep saturations at or above 88%. It is possible the patient will require supplemental oxygen prior to discharge and will need continued follow-up with her outpatient pulmonary providers at [facility] to determine long-term strategy. 3. Management of patient's sinus issues per primary service. Unclear if she has been evaluated for primary ciliary dyskinesia which would be a unifying diagnosis given her bronchiectasis and sinus complaints Patient appears to be approaching hospital discharge. She will require supplemental oxygen and outpatient pulmonary follow-up. Call if we can be of additional assistance (2) Acute hypoxemic respiratory failure: Most likely multifactorial to pneumonia and bronchiectatic exacerbation Patient is currently on azithromycin and Rocephin and 40 mg of prednisone daily No procalcitonin is been collected Will check a sputum culture and Gram stain Check an AFB Continue titrate supplemental oxygen as tolerated (3) Hypoxia: No history of supplemental home oxygen use May require oxygen for short period after discharge as she continues on 3 L/min via nasal cannula If patient is discharged in the next day or so we will check a 6-minute walk test (two-step) Have patient follow-up with outpatient pulmonary clinic at [facility] Thank you very much for including us in the care of this patient. We will continue to follow along with you. Please refer to Dr. Messer's addendum for further recommendations. Admission and Anticipated Discharge Date Admission Date: June 02, 2020 Subjective Patient seen and examined. She states she is feeling better. She is less dyspneic. Her wheezing is resolving. She is not bringing up as much phlegm. No chest pain palpitations. She feels like she is approaching being able to go home. She continues to use supplemental oxygen. No hemoptysis. Review of Systems Review of Systems: All systems reviewed & are unremarkable except as noted in HPI & below Physical Exam Constitutional: WD/WN, vitals as above Neck: trachea midline, no thyromegaly Respiratory: normal respiratory effort Auscultation: no rales and no wheezes Cardiovascular: RRR, no murmur, no edema Gastrointestinal (Abdomen): normal bowel sounds, soft, nontender, no hepatosplenomegaly Musculoskeletal: Extremities: extremities normal to inspection Skin: no rashes, warm and dry Lymphatic: no cervical lymphadenopathy Results & Data Results & Data ([facility]) Vital Signs (Past 12 Hours) Vital Signs Temp Pulse Pulse Resp BP Pulse Ox 06/06/20 07:23 37.2 C 72 22 147/75 H 90 06/06/20 07:21 72 18 98 06/06/20 03:00 36.7 C 61 19 131/69 95 06/06/20 00:09 58 L 06/05/20 23:22 36.7 C 65 19 128/65 95 Laboratory Results 06/06/20 10:18 Sputum culture: Rare white blood cells with rare gram-negative rods and gram- positive cocci Sputum AFB pending Diagnostic Findings No new imaging PG Care Time/CCT Total # of Minutes Spent Total Time Spent with Patient: Total time spent is greater than 50% in coordination of care (as documented) at patient's floor/unit and/or counseling patient: Coding Level of Care Code 95146 Subseq Hosp Care Lvl 2 Diagnoses Idiopathic bronchiectasis J47.9 Acute hypoxemic respiratory failure J96.01 Hypoxia R09.02
[2020-06-06 10:58] LABS: BUN Creatinine Ratio 30.2 (10-20); Calcium 7.9 mg/dl (8.5-10.1); Creatinine Clr Calc Pharmacy 76.1 ml/min; Potassium 3.3 mmol/L (3.5-5.1)
--- NOTE | 2020-06-06 12:35 | Cardiology Consultation ---
Date of Consultation June 06, 2020 Assessment & Plan (1) SVT (supraventricular tachycardia): (2) Acute hypoxemic respiratory failure: (3) Idiopathic bronchiectasis: (4) COPD (chronic obstructive pulmonary disease): The patient is already on atenolol and diltiazem which were home medicatio ns. I would not be inclined to start any additional medications at this time. She had a very brief run of SVT following a breathing treatment and vibration therapy which may have contributed. It was an asymptomatic event and for the most part she has been in sinus rhythm. I will order an echocardiogram to evaluate for pulmonary hypertension and valvular heart disease. Unless she starts to have frequent runs of SVT I would not treat her further. History of Present Illness Attending Physician: Surinder Coon DO History of Present Illness This is a 75-year-old female who was admitted with exacerbation of COPD with a longstanding history of cigarette smoking. She has no prior history of heart disease. She had been doing well and improving daily. This morning she received a breathing treatment followed by vibration therapy. She then had a very brief run of SVT that lasted for a few seconds and then she converted back to sinus rhythm. She was completely asymptomatic and unaware. Reviewing her telemetry she has been in continuous sinus mechanism and no other significant arrhythmias for several days. She has no cardiac complaints today. Allergies Allergy/AdvReac Type Severity Reaction Status Date / Time lisinopril AdvReac Intermediate Cough Verified 06/02/20 17:28 Home Medications Home Medications Medication Instructions Recorded Confirmed Type albuterol sulfate [Ventolin HFA] 2 puff INHALATION Q4H PRN 06/02/20 06/02/20 History alendronate 70 mg PO WK 06/02/20 06/02/20 History atenolol 100 mg PO QAM 06/02/20 06/02/20 History atorvastatin 10 mg PO QAM 06/02/20 06/02/20 History calcium carbonate-vitamin D3 1 tab PO BID 06/02/20 06/02/20 History [Caltrate 600 plus D] cetirizine 10 mg PO QAM 06/02/20 06/02/20 History diltiazem HCl 300 mg PO QAM 06/02/20 06/02/20 History famotidine 20 mg PO BID 06/02/20 06/02/20 History fluticasone propion-salmeterol 1 inh INHALATION BID 06/02/20 06/02/20 History [Wixela Inhub] fluticasone propionate 1 spray INTRANASAL HS 06/02/20 06/02/20 History guaifenesin [Mucinex] 600 mg PO QAM 06/02/20 06/02/20 History levothyroxine 75 mcg PO DAILYBB 06/02/20 06/02/20 History montelukast 10 mg PO QPM 06/02/20 06/02/20 History sertraline 25 mg PO QAM 06/02/20 06/02/20 History Patient History Medical History Acquired hypothyroidism Anxiety and depression Dyslipidemia GERD (gastroesophageal reflux disease) History of tobacco abuse 5-pack-year history Quit smoking in 1972 Hypertension Idiopathic bronchiectasis Moderate persistent asthma Osteoporosis Pulmonary nodule, left Surgical History H/O cataract removal with insertion of prosthetic lens Bilateral H/O colonoscopy H/O pulmonary function tests S/P tonsillectomy and adenoidectomy Family History Other Medical history non-contributory Social History Smoking Status: Former smoker packs per day: 0.5; Years Smoked: 10; Smoking End Date: 11/13/1972; Hx Alcohol Use: No Hx Substance Use: No Preferred Language: Chilean Communication Ability: Effective Bodybuilder Required: No Beliefs That Will Affect Care: None Current Living Situation: Spouse Other Information That Helps Us Care for You: No Feels Safe at Home: Yes Safety Concerns: Feels Safe At This Time Review of Systems Review of Systems: All systems reviewed & are unremarkable except as noted in HPI & below Nothing additional to add. Physical Exam Physical Exam: General: no acute distress and stated age Head: normocephalic, no masses, lesions, tenderness or abnormalities Eyes: conjunctiva are pink and non-injected, sclera clear Neck: supple, no adenopathy, no bruits, normal jugular venous pulse, no hepatojugular reflux Chest: normal shape and normal respiratory effort Lungs: clear to auscultation and percussion Cardiac Exam: - regular rate & rhythm, no murmurs gallops or rubs - normal S1, normal S2 Pulses: 2(+) throughout Abdomen: abdomen soft, non-tender, no abnormal masses and no hepatosplenomegaly Musculoskeletal: no gait disturbance, no joint inflammation, no deforming arthritis Extremities: no edema and no cyanosis Neuro: grossly normal exam Results & Data ([facility]) Vital Signs (Past 12 Hours) Vital Signs Temp Pulse Pulse Resp BP Pulse Ox 06/06/20 11:44 36.4 C L 56 L 18 118/63 95 06/06/20 11:14 87 18 95 06/06/20 09:10 56 L 06/06/20 07:23 37.2 C 72 22 147/75 H 90 06/06/20 07:21 72 18 98 06/06/20 03:00 36.7 C 61 19 131/69 95 Laboratory Results Laboratory Results - last 24 hr 06/06/20 06/06/20 10:18 10:18 WBC 14.71 H RBC 3.85 L Hgb 12.0 Hct 36.6 L MCV 95.1 MCH 31.2 MCHC 32.8 RDW Std Deviation 45.8 RDW Coeff of Fan 13.3 Plt Count 305 MPV 9.0 Sodium 134 L Potassium 3.3 L Chloride 100 Carbon Dioxide 29 Anion Gap 5.0 BUN 15 Creatinine 0.50 L Est Cr Clr Drug Dosing 76.1 Est GFR ( Amer) 109.0 Est GFR (Non-Af Amer) 94.0 BUN/Creatinine Ratio 30.2 H Glucose 116 H Calcium 7.9 L Diagnostic Findings EKG on admission reveals a sinus rhythm with a left anterior hemiblock Medications Administered Current Inpatient Medications Acetaminophen (Tylenol) 650 mg PO Q4H PRN PRN Reason: Pain or Fever Stop: 07/02/20 21:47 Last Admin: 06/03/20 20:41 Dose: 650 mg Documented by: Albuterol (Duoneb) 3 ml NEB Q4RWA [facility] Stop: 07/03/20 18:59 Last Admin: 06/06/20 11:11 Dose: 3 ml Documented by: Atenolol (Tenormin) 100 mg PO QAM [facility] Stop: 07/03/20 08:59 Last Admin: 06/06/20 08:23 Dose: 100 mg Documented by: Atorvastatin Cal[facility]) [facility] [place]: 07/03/20 08:59 Last Admin: 06/06/20 08:22 Dose: 10 mg Documented by: Azithromycin (Zithromax) 250 mg PO QAM [facility] Stop: 06/12/20 08:59 Last Admin: 06/06/20 08:24 Dose: 250 mg Documented by: Budesonide (Pulmicort Respules) 0.5 mg NEB BIDR [facility] Stop: 07/05/20 18:59 Last Admin: 06/06/20 07:17 Dose: 0.5 mg Documented by: Cetirizine HCl (Zyrtec) [facility] Stop: 07/03/20 08:59 Last Admin: 06/06/20 08:24 Dose: 10 mg Documented by: Diltiazem HCl (Cardizem Cd) [facility] Stop: 07/03/20 08:59 Last Admin: 06/06/20 08:22 Dose: 300 mg Documented by: Enoxaparin Sodium (Lovenox) 30 mg SQ [facility] Stop: 07/03/20 08:59 Last Admin: 06/06/20 08:22 Dose: 30 mg Documented by: Famotidine (Pepcid) 20 mg PO BID [facility] Stop: 07/02/20 21:47 Last Admin: 06/06/20 08:23 Dose: 20 mg Documented by: Fluticasone Propionate (Flonase) 1 sprays NA [facility] Stop: 07/02/20 21:47 Last Admin: 06/05/20 20:06 Dose: Not Given Documented by: Formoterol Fumarate (Perforomist) 20 mcg NEB BIDR [facility] Stop: 07/05/20 09:29 Last Admin: 06/06/20 07:17 Dose: 20 mcg Documented by: Guaifenesin (Mucinex) 1,200 mg PO BID [facility] Stop: 07/05/20 20:59 Last Admin: 06/06/20 08:23 Dose: 1,200 mg Documented by: Ceftriaxone Sodium 1,000 mg/ (Dextrose) 60 mls @ 100 mls/hr IV Q24H [facility]; Protocol Stop: 06/11/20 07:59 Last Infusion: 06/06/20 10:49 Dose: Infused Documented by: Levothyroxine Sodium (Synthroid) [facility] Stop: 07/03/20 06:29 Last Admin: 06/06/20 05:29 Dose: 75 mcg Documented by: Menthol (Nice) 1 sol BUCCAL PRN PRN PRN Reason: Cough Stop: 07/03/20 10:19 Last Admin: 06/03/20 10:26 Dose: 1 sol Documented by: Montelukast Sodium (Singulair) 10 mg PO QPM [facility] Stop: 07/02/20 21:47 Last Admin: 06/05/20 20:08 Dose: 10 mg Documented by: Potassium Chloride (Klor-Con M20) 20 meq PO BID [facility] Stop: 07/06/20 20:59 Prednisone (Prednisone) 30 mg PO DAILY [facility] Stop: 06/10/20 08:59 Last Admin: 06/06/20 09:06 Dose: 30 mg Documented by: Sertraline HCl (Zoloft) 25 mg PO QAM [facility] Stop: 07/03/20 08:59 Last Admin: 06/06/20 08:24 Dose: 25 mg Documented by: Sodium Chloride ([place]ford Nasal) 2 sprays NA Q1H PRN PRN Reason: Dryness Stop: 07/04/20 13:39 Sodium Chloride (Sodium Chlor 7% Neb Solution) 4 ml NEB BIDR [facility] Stop: 07/04/20 18:59 Last Admin: 06/06/20 07:17 Dose: 4 ml Documented by:
[2020-06-06] MEDS: FLUTICASONE PROPIONATE NA SPR 16 GM BTL SCH (20:38)
[2020-06-06] MEDS: POTASSIUM CHLORIDE 20 MEQ TABCR PO SCH (20:39)
[2020-06-06] MEDS: MONTELUKAST SODIUM 10 MG TABLET PO SCH (20:39)
[2020-06-07] MEDS ORDERED: CEFDINIR 300 MG CAP PO SCH
[2020-06-07] MEDS ORDERED: predniSONE 10 MG TABLET PO SCH
[2020-06-07 06:04] LABS: Hematocrit (blood only) 37.4 % (37-47); Hemoglobin 12.2 g/dL (12.0-16.0); Mean Corpuscular Hemoglobin 30.7 pg (25-34); Mean Corpuscular Hgb Conc 32.6 g/dL (32-36); Platelet Count 317 K/uL (130-400); RDW Standard Deviation 44.6 fL (36.4-46.3); Red Blood Count 3.98 M/uL (4.2-5.4); White Blood Count 9.05 K/uL (4.8-10.8)
[2020-06-07] MEDS: LEVOTHYROXINE SODIUM 75 MCG TABLET PO SCH (06:04)
[2020-06-07 06:23] LABS: BUN Creatinine Ratio 29.4 (10-20); Calcium 8.2 mg/dl (8.5-10.1); Creatinine Clr Calc Pharmacy 77.3 ml/min; Est GFR (African American) 109.7; Est GFR (Non-African American) 94.6; Potassium 3.6 mmol/L (3.5-5.1)
[2020-06-07] MEDS: BUDESONIDE 0.5 MG/2 ML VIAL (PULMICORT) NEB SCH (07:17)
[2020-06-07] MEDS: FORMOTEROL 20 MCG/2 ML VIAL NEB SCH (07:17)
[2020-06-07] MEDS: ALBUT/IPRATROP 3MG/0.5MG NEB 3 ML VIAL NEB SCH ×3 (07:28→15:13)
[2020-06-07] MEDS: SODIUM CHLOR 7% 4 ML NEB NEB SCH (07:31)
[2020-06-07] MEDS: cefTRIAXone SODIUM 1,000 MG in DEXTROSE 5% 50 ML IV SCH (08:13)
[2020-06-07] MEDS: guaiFENesin 600 MG TABCR PO SCH (08:13)
[2020-06-07] MEDS: predniSONE 10 MG TABLET PO SCH (08:15)
[2020-06-07] MEDS: ATENOLOL 50 MG TABLET PO SCH (08:15)
[2020-06-07] MEDS: POTASSIUM CHLORIDE 20 MEQ TABCR PO SCH (08:15)
[2020-06-07] MEDS: CETIRIZINE HCL 10 MG TABLET PO SCH (08:16)
[2020-06-07] MEDS: SERTRALINE HCL 50 MG TABLET PO SCH (08:16)
[2020-06-07] MEDS: AZITHROMYCIN 250 MG TAB PO SCH (08:17)
[2020-06-07] MEDS: FAMOTIDINE 20 MG TAB PO SCH (08:17)
[2020-06-07] MEDS: dilTIAZem HCL 300 MG CAPCR PO SCH (08:18)
[2020-06-07] MEDS: ENOXAPARIN INJ 30 MG/0.3 ML SYR SQ SCH (08:19)
[2020-06-07] MEDS: ATORVASTATIN 10 MG TAB PO SCH (08:19)
--- NOTE | 2020-06-07 10:10 | Pulmonology Progress Note ---
Date of Service June 07, 2020 Assessment & Plan (1) Idiopathic bronchiectasis: Impression: 75-year-old female with bronchiectasis of unclear etiology followed at [facility] pulmonology admitted with hypoxemic respiratory failure and possible exacerbation of bronchiectasis. Recommendations: 1. Acute exacerbation of bronchiectasis: The patient sputum production is improving clinically. She is completed a course of azithromycin and recommend she transition to Ceftin to complete 10 days total antimicrobial therapy. Continue Mucinex and hypertonic saline. She is on prednisone at 40 mg daily. She appears improved with the addition of Perforomist and budesonide to her regiment. Continue prednisone wean, recommend decreasing by 5 mg every 3 days until off. Sputum cultures here have shown no growth to date. Previous cultures through [facility] did demonstrate adams sensitive Pseudomonas. Hold on inhaled tobramycin in light of her clinical improvement and pending sputum culture results. Will defer additional work-up for bronchiectasis as this is apparently been performed in the outpatient setting but those records are not available to review. 2. Hypoxemic respiratory failure: Multifactorial. The patient has significant structural lung disease at baseline. Continue oxygen titrated to keep saturations at or above 88%. It is likely the patient will require supplemental oxygen prior to discharge and will need continued follow-up with her outpatient pulmonary providers at [facility] to determine long-term strategy. 3. 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 Given the fact that her right ventricle shows normal size and systolic function, not particularly worried about it. At this point time I would recommend correction of her underlying pulmonary issues including hypoxemic respiratory failure with supplemental oxygen and potentially repeating her echocardiogram in 3 to 6 months. 4. SVT: Per cardiology. If the percussive vest therapy is felt to trigger this, it can likely be discontinued and we will continue with flutter valve, hypertonic saline, Mucinex, and incentive spirometry. Ok to discharge from pulmonary perspective. Call if questions. (2) Acute hypoxemic respiratory failure: (3) Hypoxia: Admission and Anticipated Discharge Date Admission Date: June 02, 2020 Subjective Patient reports some cough during the night which resolved with drinking some water. She is not producing any phlegm. No fevers chills or night sweats. She did develop an episode of SVT yesterday associated with percussive chest therapy. This was self-limited. A cardiology consultation was obtained. They recommended continuing her beta-itz and calcium channel itz. Echocardiogram was obtained which demonstrated mild pulmonary hypertension but no other significant abnormalities. Review of Systems Review of Systems: All systems reviewed & are unremarkable except as noted in HPI & below Physical Exam Constitutional: WD/WN, vitals as above Neck: trachea midline, no thyromegaly Respiratory: normal respiratory effort Auscultation: no rales and no wheezes Cardiovascular: RRR, no murmur, no edema Gastrointestinal (Abdomen): normal bowel sounds, soft, nontender, no hepatosplenomegaly Musculoskeletal: Extremities: extremities normal to inspection Skin: no rashes, warm and dry Lymphatic: no cervical lymphadenopathy Results & Data Results & Data ([facility]) Vital Signs (Past 12 Hours) Vital Signs Temp Pulse Pulse Pulse Resp BP BP 06/07/20 07:25 73 18 06/07/20 07:21 36.6 C 68 20 155/81 H 06/07/20 02:51 36.5 C 60 18 136/71 06/06/20 23:40 36.7 C 60 18 146/77 H 06/06/20 23:24 57 L Pulse Ox 06/07/20 07:25 92 06/07/20 07:21 92 06/07/20 02:51 96 06/06/20 23:40 96 06/06/20 23:24 Laboratory Results 06/07/20 05:44 06/07/20 05:44 Diagnostic Findings Echocardiogram from 06/07/2020 showed an EF of 60 to 65% with normal right v entricular size and systolic function. Aortic sclerosis without stenosis was noted. Mild mitral insufficiency with moderate TR and mild pulmonary hypertension PG Care Time/CCT Total # of Minutes Spent Total Time Spent with Patient: Total time spent is greater than 50% in coordination of care (as documented) at patient's floor/unit and/or counseling patient: Coding Level of Care Code 40903 Subseq Hosp Care Lvl 2 Diagnoses Idiopathic bronchiectasis J47.9 Acute hypoxemic respiratory failure J96.01 Hypoxia R09.02
--- NOTE | 2020-06-07 11:35 | Cardiology Progress Note ---
Date of Service June 07, 2020 Assessment & Plan (1) SVT (supraventricular tachycardia): (2) Acute hypoxemic respiratory failure: (3) Idiopathic bronchiectasis: (4) COPD (chronic obstructive pulmonary disease): The patient has had no additional arrhythmias in the past 24 hours on telemetry. She is maintaining sinus rhythm. At this point I would recommend no additional cardiac testing. The patient may be discharged per the hospitalist service. Subjective The patient had an uneventful night. No new cardiac complaints today. Review of Systems Review of Systems: All systems reviewed & are unremarkable except as noted in HPI & below Nothing additional to add. Physical Exam Physical Exam: General: no acute distress and stated age Head: normocephalic, no masses, lesions, tenderness or abnormalities Eyes: conjunctiva are pink and non-injected, sclera clear Neck: supple, no adenopathy, no bruits, normal jugular venous pulse, no hepatojugular reflux Chest: normal shape and normal respiratory effort Lungs: clear to auscultation and percussion Cardiac Exam: - regular rate & rhythm, no murmurs gallops or rubs - normal S1, normal S2 Pulses: 2(+) throughout Abdomen: abdomen soft, non-tender, no abnormal masses and no hepatosplenomegaly Musculoskeletal: no gait disturbance, no joint inflammation, no deforming arthritis Extremities: no edema and no cyanosis Neuro: grossly normal exam Results & Data Vital Signs (Past 12 Hours) Vital Signs Temp Pulse Pulse Resp BP BP Pulse Ox 06/07/20 11:25 67 16 96 06/07/20 07:25 73 18 92 06/07/20 07:21 36.6 C 68 20 155/81 H 92 06/07/20 02:51 36.5 C 60 18 136/71 96 06/06/20 23:40 36.7 C 60 18 146/77 H 96 Laboratory Results Laboratory Results - last 24 hr 06/07/20 06/07/20 05:44 05:44 WBC 9.05 RBC 3.98 L Hgb 12.2 Hct 37.4 MCV 94.0 MCH 30.7 MCHC 32.6 RDW Std Deviation 44.6 RDW Coeff of Fan 13.0 Plt Count 317 MPV 9.0 Sodium 135 L Potassium 3.6 Chloride 101 Carbon Dioxide 30 Anion Gap 4.0 BUN 14 Creatinine 0.49 L Est Cr Clr Drug Dosing 77.3 Est GFR ( Amer) 109.7 Est GFR (Non-Af Amer) 94.6 BUN/Creatinine Ratio 29.4 H Glucose 80 Calcium 8.2 L Medications Administered Current Inpatient Medications Acetaminophen (Tylenol) 650 mg PO Q4H PRN PRN Reason: Pain or Fever Stop: 07/02/20 21:47 Last Admin: 06/03/20 20:41 Dose: 650 mg Documented by: Albuterol (Duoneb) 3 ml NEB Q4RWA [facility] Stop: 07/03/20 18:59 Last Admin: 06/07/20 11:25 Dose: 3 ml Documented by: [facility]ten[facility] ([facility]ormin) [facility] Stop: 07/03/20 08:59 Last Admin: 06/07/20 08:15 Dose: 100 mg Documented by: Atorvastatin Calcium (Lipitor) 10 [facility] Stop: 07/03/20 08:59 Last Admin: 06/07/20 08:19 Dose: 10 mg Documented by: Azithromycin (Zithromax) 250 mg PO [facility] Stop: 06/12/20 08:59 Last Admin: 06/07/20 08:17 Dose: 250 mg Documented by: Budesonide (Pulmicort Respules) 0.5 mg NEB BIDR [facility] Stop: 07/05/20 18:59 Last Admin: 06/07/20 07:17 Dose: 0.5 mg Documented by: Cetirizine HCl (Zyrtec) 10 mg PO [facility] Stop: 07/03/20 08:59 Last Admin: 06/07/20 08:16 Dose: 10 mg Documented by: Diltiazem HCl (Cardizem Cd) 300 mg PO [facility] Stop: 07/03/20 08:59 Last Admin: 06/07/20 08:18 Dose: 300 mg Documented by: Enoxaparin Sodium (Lovenox) 30 mg SQ [facility] Stop: 07/03/20 08:59 Last Admin: 06/07/20 08:19 Dose: 30 mg Documented by: Famotidine (Pepcid) 20 mg PO BID [facility] Stop: 07/02/20 21:47 Last Admin: 06/07/20 08:17 Dose: 20 mg Documented by: Fluticasone Propionate (Flonase) 1 sprays NA [facility] Stop: 07/02/20 21:47 Last Admin: 06/06/20 20:38 Dose: Not Given Documented by: Formoterol Fumarate (Perforomist) 20 mcg NEB BIDR [facility] Stop: 07/05/20 09:29 Last Admin: 06/07/20 07:17 Dose: 20 mcg Documented by: Guaifenesin (Mucinex) 1,200 mg PO BID [facility] Stop: 07/05/20 20:59 Last Admin: 06/07/20 08:13 Dose: 1,200 mg Documented by: Ceftriaxone Sodium 1,000 mg/ (Dextrose) 60 mls @ 100 mls/hr IV Q24H [facility]; Protocol Stop: 06/11/20 07:59 Last Infusion: 06/07/20 09:53 Dose: Infused Documented by: Levothyroxine Sodium (Synthroid) 75 mcg PO DAILYBB [facility] Stop: 07/03/20 06:29 Last Admin: 06/07/20 06:04 Dose: 75 mcg Documented by: Menthol (Nice) 1 sol BUCCAL PRN PRN PRN Reason: Cough Stop: 07/03/20 10:19 Last Admin: 06/03/20 10:26 Dose: 1 sol Documented by: Montelukast Sodium (Singulair) 10 mg PO QPM [facility] Stop: 07/02/20 21:47 Last Admin: 06/06/20 20:39 Dose: 10 mg Documented by: Potassium Chloride (Klor-Con M20) 20 meq PO BID [facility] Stop: 07/06/20 20:59 Last Admin: 06/07/20 08:15 Dose: 20 meq Documented by: Prednisone (Prednisone) 30 mg PO DAILY [facility] Stop: 06/10/20 08:59 Last Admin: 06/07/20 08:15 Dose: 30 mg Documented by: Sertraline HCl (Zoloft) 25 mg PO QAM [facility] Stop: 07/03/20 08:59 Last Admin: 06/07/20 08:16 Dose: 25 mg Documented by: Sodium Chloride (Bailey Nasal) 2 sprays NA Q1H PRN PRN Reason: Dryness Stop: 07/04/20 13:39 Sodium Chloride (Sodium Chlor 7% Neb Solution) 4 ml NEB BIDR [facility] Stop: 07/04/20 18:59 Last Admin: 06/07/20 07:31 Dose: 4 ml Documented by:
--- NOTE | 2020-06-07 16:30 | Discharge Summary ---
Date of Service June 07, 2020 Admission HPI Per Admitting Provider History obtained from patient and records. Medical history significant for COPD/asthma/bronchiectasis, hypertension, past tobacco abuse. 3 weeks history of congestion, junky cough and wheezing. No aspiration. No known COVID-19 sick contacts. Minimal response to outpatient prednisone course prescribed by pulmonology provider. Persistent junky cough symptoms without chest pain. Worsening shortness of breath over the last few weeks. Poor appetite. Patient seen at PCPs office today. O2 sats noted to be 88 on room air. Chest x-ray showed possible pneumonia. Patient sent to the ER for evaluation. Patient received Solu-Medrol, neb treatment, Levaquin for possible COPD exacerbation. Patient currently feeling better. Medical History as above Surgical History : Cataract surgery, breast cyst drainage, tonsillectomy/adenoidectomy, BTL Family History : Heart disease, colon cancer Personal/Social history : Past tobacco abuse, occasional EtOH intake, retired elementary school social worker Admission Exam Per Admitting Provider GENERAL: Slightly uncomfortable, pleasant, minimal respiratory distress SKIN: Normal color, warm HEENT: [place] palpebral conjunctivae, no ptosis, dry buccal mucosa, nasal cannula in place NECK : Supple, no tenderness CHEST : Decreased breath sounds, expiratory wheezes, no tenderness HEART : RRR, no obvious murmurs ABDOMEN: Some distention, nontender EXTREMITIES : No LE swelling/tenderness, no other conspicuous deformities noted NEUROLOGIC : Coherent, no facial asymmetry, no other gross focality Principal Diagnosis Acute hypoxemic respiratory failure Community-acquired pneumonia COPD Pulmonary nodule, left Idiopathic bronchiectasis Moderate persistent asthma Pulmonary Hypertension Discharge Data Allergies Allergy/AdvReac Type Severity Reaction Status Date / Time lisinopril AdvReac Intermediate Cough Verified 06/02/20 17:28 Consultations 06/02/20 18:07 ED Decision to Admit Stat 06/04/20 11:20 Consult Pulmonology Routine 06/06/20 09:09 Consult Cardiology Routine Ordered Studies 06/04/20 08:30 CT chest wo con Urgent Hospital Course (1) Acute hypoxemic respiratory failure: (2) Community acquired pneumonia: (3) COPD (chronic obstructive pulmonary disease): (4) Pulmonary nodule, left: (5) Idiopathic bronchiectasis: (6) Moderate persistent asthma: 75-year-old female presented to the ER with shortness of breath. She notably has a past medical history of asthma and bronchiectasis and had been worsening over the past three weeks despite having an outpatient prednisone course. A follow-up with her primary care doctor prompted a chest x-ray with a question of pneumonia so she was sent to the ER from the primary care doctor's office. In the ER she was found to be hypoxic and was placed on 2 L nasal can nula. The remainder of her vitals were stable and she was not tachycardic. She denied any recent travel swelling of the calves coughing up blood history of blood clots or other clotting disorders. Labs revealed a mild leukocytosis of 12,000 with no significant anemia. INR was unremarkable. BMP revealed mild hyponatremia. LFTs, bilirubin and troponin were negative. Chest x-ray revealed a focal infiltrate and she was given IV fluids and IV Levaquin. She was given neb treatments and admitted to the hospitalist service. She was started on steroids with improvement. Pulmonary was consulted and felt her hypoxemic respiratory failure was most likely multifactorial secondary to pneumonia and bronchiectatic exacerbation. She has been switched to Rocephin and azithromycin and was continued on this in addition to prednisone therapy. Pulmonary toilet including a pulmonary pneumatic vest, flutter valve with nebulizer treatments was started. A sputum Gram stain and culture was collected and negative at time of discharge. An AFB sputum was collected to rule out mycoplasma component. No acid-fast bacilli was seen with the AFB culture pending at time of discharge. Over the next couple of days her sputum production was improving clinically and she had completed a course of azithromycin. She was transitioned to oral Ceftin to complete 10 days total of antimicrobial therapy. Mucinex and hypertonic saline were continued. She appeared improved with the addition of Perforomist and budesonide to her regimen. Her prednisone was tapered with a recommendation to decrease by 5 mg every 3 days until completely off. Additional work-up for bronchiectasis was deferred to the outpatient setting and she is notably followed by [facility] pulmonology. She underwent a formal two-step evaluation and was found to need 2 LPM consistently at rest and with exertion. An echocardiogram was performed during this hospitalization revealing EF of 60%, mild TR, mild pulmonary hypertension. Per pulmonology, the recommendation was to correct her underlying pulmonary issues including hypoxemic respiratory failure with supplemental oxygen and then potentially repeating her echocardiogram in 3 months as opposed to treating the pulmonary hypertension directly at this time. While on telemetry she did have a short episode of SVT that would did not recur. Cardiology evaluated her and felt this may have been secondary to the percussive vest therapy. She was continued to be monitored for another 24 hours without any return of arrhythmia. No further cardiac work-up was recommended at this time. Pulmonary toilet efforts may be continued with flutter valve, hypertonic saline, Mucinex and incentive spirometry. At time of discharge she was mentating and ambulating at baseline and tolerating p.o. Physical and occupational therapy had evaluated her and recommended she was safe to return home. Close primary care follow-up was recommended as well as close [facility] pulmonology follow-up. Total Time Total Time Spent Total Time Spent (In Minutes): 60 Total Time Includes: Examination of the Patient, Discharge Planning, Medication Reconciliation and Communication With Other Providers Discharge Plan Discharge Items Patient Disposition: Home - Self-Care Reason For Visit: RESP FAILURE,COVID NEG,DC ISOL PREC Discharge Diagnosis: Acute hypoxemic respiratory failure Community-acquired pneumonia COPD Pulmonary nodule, left Idiopathic bronchiectasis Moderate persistent asthma Pulmonary Hypertension Condition on Discharge: Good Activity: Resume your previous activity Non-emergency contact: Primary Care Provider Call non-emergency contact if: you have any medication questions Follow-up/Referrals: Sanjana Reyes, [Primary Care Provider] - 06/09/20 12:00 am (With Dr Reyes's Partner) Diet: Regular Addtl Attending Provider Instructions: Please take all medications as instructed on discharge list below. You are being given an antibiotic to continue for another 5 days. You are being continued on PREDNISONE per the following taper instructions: Take the 30mg given to you for tomorrow morning (06/08) Then, on 06/09 start 25mg daily (2.5 pills) Decrease by 5 mg every 3 days until off. It is recommended that you follow-up with your primary care physician within one week of hospital discharge. You are currently scheduled for: 06/09/2020 12:00 PM Jenn Montes De Oca MD Internal Medicine [facility] Please follow-up with [facility] Pulmonology within 4-6 weeks to update them on how you are post-discharge, and review and new medications with them. Please have your primary care physician or plumbing engineering draftsperson repeat an echocardiogram in 3-6 months to re-evaluate your pulmonary hypertension. Repeat chest imaging is recommended in 4 weeks time to ensure you have improved/resolved to baseline. You were found to have a pulmonary nodule that should be followed by your PCP or plumbing engineering draftsperson with repeat imaging. It was a pleasure taking care of you! Please call if you have any questions or problems. You can reach a [facility] hospitalist on duty at [facility] 24 hours a day by calling [phone]. Take care of yourself. Taniya Callejas, [facility] Center[facility] Pending Studies at Discharge: Yes Stand-Alone Forms: My [facility], Smoking Cessation Medications and DC Order Prescriptions: New cefdinir 300 mg capsule 300 mg PO BID Qty: 10 RF: 0 prednisone 10 mg tablet 10 mg PO UD Qty: 25 RF: 0 Continued cetirizine 10 mg Tablet 10 mg PO QAM RF: 0 atorvastatin 10 mg tablet 10 mg PO QAM RF: 0 atenolol 100 mg tablet 100 mg PO QAM RF: 0 alendronate 70 mg tablet 70 mg PO WK RF: 0 levothyroxine 75 mcg tablet 75 mcg PO DAILYBB RF: 0 famotidine 20 mg tablet 20 mg PO BID RF: 0 diltiazem HCl 300 mg capsule,extended release 24hr 300 mg PO QAM RF: 0 fluticasone propion-salmeterol [Wixela Inhub] 500-50 mcg/dose blister with device 1 inh INHALATION BID RF: 0 sertraline 25 mg tablet 25 mg PO QAM RF: 0 montelukast 10 mg tablet 10 mg PO QPM RF: 0 albuterol sulfate [Ventolin HFA] 90 mcg/actuation Hfa Aerosol Inhaler 2 puff INHALATION Q4H PRN (Reason: Shortness Of Breath Or Wheezing) RF: 0 fluticasone propionate 50 mcg/actuation spray,suspension 1 spray INTRANASAL HS RF: 0 Caltrate 600 plus D 600 mg (1,500 mg)-800 unit Tablet,Chewable 1 tab PO BID RF: 0 guaifenesin [Mucinex] 600 mg Tablet Extended Release 12hr 600 mg PO QAM RF: 0 Discharge Orders: Discharge Order (Routine); Ordered 06/07/20 Ordered By: Taniya Callejas Admission Data Admit Date/Time: 06/02/20 20:30 Attending Provider: Taniya Callejas Admit Provider: Jamie Burnett Primary Care Provider: Sanjana Reyes Other Providers: Jose Lorenzo ; Neil Messer ; Dominick Keane ; Kentrell De Jesus ; Ankit Reed ; Tye Cespedes ; Elliot Gilmore ; Raphael Justice ; Kacie Archibald ; Alea Wooten ; Jose Rafael Lopes Other Interventions: Discharge Summary Assessment (RN) Last Done: 06/07/20 17:30 DC Date/Time DO NOT enter until pt leaves facility: 06/07/20 18:36
== END 2020-06-07 18:36 | disposition home or self-care (01) | DRG 193 ==
LOC: ED 16:35 → SUATTDRO 20:30 → 2N 20:30

== ENCOUNTER 2022-05-10 13:48 | Inpatient (IN) ==
--- NOTE | 2022-05-10 13:59 | Emergency Department Note ---
Impression & Plan Respiratory failure, acute, Asthma exacerbation, Acute hyponatremia, Hypomagnesemia ED Provider Note NAME: DARELL LARA AGE: 77 SEX: F : 1945 ARRIVES VIA: Walk-In INFORMANT: Patient, ED PROVIDER(S): Jorge Talley MD Chief Complaint: Shortness of breath HPI: Patient does present with shortness of breath which is been ongoing for several weeks but has been acutely worse since Monday. The patient has complained of exertional dyspnea and increased work of breathing. The patient does have a history of asthma and is a former smoker last smoking 40 years ago. Patient denies any chest pains. The patient has noted some right lower extremity swelling. No prior history of DVT or PE. Patient has been trying her inhalers but this does not seem to improve her symptoms. The patient denies any trauma. The patient does follow with Dr. Peng with pulmonology. The patient states that she had been on steroids and Levaquin at the end of March and that when this was discontinued that is when a lot of her symptoms seem to return. Patient denies any abdominal pain or nausea or vomiting. The patient did take her morning medications. Patient does wear chronic oxygen is typically on 3 L but is increased to 6 L. Patient's most recent echocardiogram from May 2020 showed left ventricle normal size with an EF of 60 to 65%. Aortic valve sclerosis moderate but without significant stenosis. Mild mitral regurg tricuspid regurg and pulmonary hypertension. ROS: See HPI for pertinent positives and negatives. A total of 10 systems were reviewed and otherwise negative. Past medical history: See below Surgical history: See below Social history: See below Physical Exam: GENERAL: Mildly ill in appearance, nasal cannula in place. Tachypneic. EYE EXAM: Normal conjunctiva. PERRL, no anisocoria and EOM's grossly intact w/o pain. [OROPHARYNX: Moist mucus membranes. Grossly normal dentition. No exudate, posterior pharynx is clear, no tonsillar/uvular deviation or swelling. No cervical adenopathy, no submental, submandibular, or sublingual swelling.] NECK: Supple, no nuchal rigidity, no adenopathy, non-tender. No signs of meningismus. FROM of the neck with good chin to chest and neck extension. No stridor. LUNGS: Diffuse wheezing throughout with associated crackles HEART: NSR, no MRG. ABDOMEN: Abdomen soft, non-tender, normo-active bowel sounds, no masses, no rebound or guarding. BACK: No CVA TTP. SKIN: No rashes and no bruising. UPPER EXTREMITIES: Upper extremities are grossly normal. LOWER EXTREMITIES: Mild right greater than left lower extremity swelling but without obvious calf pain, no crepitus and no overlying skin changes or erythema. NEURO EXAM: A&O x3, cranial nerves II-XII grossly intact, normal speech, moves all 4 extremities on command w/o issue. Differential diagnoses: Reactive airway disease, pneumonia, pneumothorax, COPD, CHF, infections, cardiac ischemia, pulmonary embolism, musculoskeletal, gastrointestinal, as well as other pathologies. Course: Patient was seen and evaluated the bedside. Full history physical exam was performed. EKG interpreted by Sinus, rate of 64, normal intervals, left axis deviation, no obvious ST changes. Imaging Studies: See Below Cardiac monitoring: An order was placed for continuous cardiac monitoring. The monitor shows a rate of 72 with sinus rhythm. MDM: Patient did present with obvious conversational dyspnea and was tachypneic with associated wheezing and crackles. Blood work is obtained along with an EKG troponin chest x-ray. The patient was ordered an hour-long DuoNeb in addition to IV fluids and steroids. Magnesium also ordered. Chest x-ray Show concern for chronic lung disease with multifocal patchy airspace consolidation. The patient did have blood cultures Zosyn lactic added. At time of the patient reportedly had been repositioned for x-ray the patient did have an episode of coughing and worsening shortness of breath. Patient was trialed on CPAP. The patient was unsure as well and should tolerate this and was given some Ativan. Patient did have significant work of breathing at the time that she was placed on CPAP. Upon subsequent reassessment thereafter the patient did have improvement in symptoms. The patient had been reassessed multiple times during her period of respiratory distress. Patient does appear much more comfortable and at ease after the Ativan and CPAP. Blood work did show a white count of 13. The patient's hemoglobin is worse than normal with hemoglobin 11.9. Thrombocytosis noted at 513. Kidney function is grossly unremarkable. VBG was obtained with PCO2 of 53 with a compensated pH of 7.4. The patient does have some hyponatremia. Hypomagnesemia is noted but the patient was ordered magnesium for her chronic lung disease. Patient's troponin is not elevated. Did attempt to have the patient undergo a portable right lower extremity venous Doppler but was unable to do this as this was during the bout of her respiratory distress. This was still pending. I did speak the on-call hospitalist PRAFUL Williamson and the patient was admitted by Dr. Guerra. Given the patient's improvement in symptoms believe PE to be less likely at this time. DVT ultrasound still pending at the time of admission. When I did speak with the hospitalist service they stated that I would likely order an ABG, procalcitonin as well as a CT angiography of the chest which may also further help evaluate the patient's chronic lung disease. Critical Care: I have personally spent 75 minutes of critical care time in direct management of this patient. This includes bedside care, interpretation of diagnostic studies, and testing, discussion with consultants, patient, and family members, and other require inpatient management activities. This 75 minutes is in excess of all separately billable procedures. Past Med/Surg History Medical History (Updated 05/10/22 @ 17:14 by Jorge Talley MD) Acquired hypothyroidism Anxiety and depression Dyslipidemia GERD (gastroesophageal reflux disease) History of tobacco abuse 5-pack-year history Quit smoking in 1972 Hypertension Idiopathic bronchiectasis Moderate persistent asthma Osteoporosis Pulmonary nodule, left Surgical History H/O cataract removal with insertion of prosthetic lens Bilateral H/O colonoscopy H/O pulmonary function tests S/P tonsillectomy and adenoidectomy Family History Other Medical history non-contributory Social History Smoking Status: Former smoker packs per day: 0.5; Years Smoked: 10; Hx Alcohol Use: No Hx Substance Use: No Preferred Language: Bermudian Communication Ability: Effective Associate Professor Of Biostatistics Required: No Beliefs That Will Affect Care: None Current Living Situation: Spouse Feels Safe at Home: Yes Assistive Devices: Oxygen - Continuous Allergies Allergies Allergy/AdvReac Type Severity Reaction Status Date / Time lisinopril AdvReac Intermediate Cough Verified 05/10/22 16:20 ENVIRONMENTAL Allergy RUNNY NOSE Uncoded 05/10/22 16:22 & CONGESTION Home Meds Home Medications Medication Instructions Recorded Confirmed albuterol sulfate 90 mcg/actuation 2 puff INHALATION Q4H PRN 06/02/20 05/10/22 aerosol inhaler (Ventolin HFA) alendronate 70 mg tablet 70 mg PO WK 06/02/20 05/10/22 atenolol 100 mg tablet 100 mg PO QAM 06/02/20 05/10/22 atorvastatin 10 mg tablet 10 mg PO QAM 06/02/20 05/10/22 calcium carbonate 600 mg-vitamin 1 tab PO BID 06/02/20 05/10/22 D3 20 mcg (800 unit) chewable tablet (Caltrate 600 plus D) cetirizine 10 mg tablet 10 mg PO QAM 06/02/20 05/10/22 diltiazem HCl 300 mg 300 mg PO QAM 06/02/20 05/10/22 capsule,extended release 24 hr fluticasone 500 mcg-salmeterol 50 1 inh INHALATION BID 06/02/20 05/10/22 mcg/dose blistr powdr for inhalation (Wixela Inhub) guaifenesin 600 mg tablet, 600 mg PO BID 06/02/20 05/10/22 extended release 12 hr (Mucinex) levothyroxine 75 mcg tablet 75 mcg PO DAILYBB 06/02/20 05/10/22 montelukast 10 mg tablet 10 mg PO QPM 06/02/20 05/10/22 sertraline 25 mg tablet 25 mg PO QAM 06/02/20 05/10/22 albuterol sulfate 1.25 mg/3 mL 1.25 mg CONTINUOUS NEBULIZATION Q4 05/10/22 05/10/22 solution for nebulization PRN cimetidine 400 mg tablet 400 mg PO HS 05/10/22 05/10/22 furosemide 20 mg tablet 20 mg PO Q OTHER DAY 05/10/22 05/10/22 tiotropium bromide 2.5 2 puff INHALATION DAILY 05/10/22 05/10/22 mcg/actuation mist for inhalation (Spiriva Respimat) Results & Data (ED) Vital Signs Vital Signs - 24 hr 05/10/22 13:53 05/10/22 14:31 05/10/22 14:33 Temperature 36.5 C Temperature Source Temporal Artery Scan Pulse Rate 62 Pulse Rate [Right Finger] 78 62 Pulse Rhythm [Right Finger] Regular Pulse Strength [Right Finger] Normal Respiratory Rate 20 20 30 H Respiratory Effort / Characteristics Spontaneous Respiratory Depth Respiratory Pattern Blood Pressure 117/68 Blood Pressure [Left Arm] 110/60 Blood Pressure Mean 84 Blood Pressure Mean [Left Arm] 76 Blood Pressure Position Sitting Blood Pressure Position [Left Arm] Lying Pulse Oximetry 95 93 97 Oxygen Delivery Method Nasal Cannula Nasal Cannula Nasal Cannula Oxygen Flow Rate 6 6 5 Fraction of Inspired Oxygen Sepsis Recent Fever Within 48 Hours No Sepsis New/Unexplained Change in Mental Status No Sepsis Action Taken by Nursing No Action Required 05/10/22 14:46 05/10/22 15:38 05/10/22 16:00 Temperature Temperature Source Pulse Rate Pulse Rate [Right Finger] 98 H Pulse Rhythm [Right Finger] Pulse Strength [Right Finger] Respiratory Rate 33 H Respiratory Effort / Characteristics Spontaneous Labored Short of Breath Respiratory Depth Normal Respiratory Pattern Regular Blood Pressure Blood Pressure [Left Arm] 111/76 Blood Pressure Mean Blood Pressure Mean [Left Arm] 87 Blood Pressure Position Blood Pressure Position [Left Arm] Pulse Oximetry 97 99 94 Oxygen Delivery Method Nasal Cannula BiPAP Oxygen Flow Rate 5 Fraction of Inspired Oxygen 35 Sepsis Recent Fever Within 48 Hours Sepsis New/Unexplained Change in Mental Status Sepsis Action Taken by [facility] Medications Current Medication List: was personally reviewed by me Laboratory Data Attestation: I reviewed the patient's lab results. Result diagrams: 05/10/22 14:35 05/10/22 14:35 Lab Results 05/10/22 05/10/22 05/10/22 Range/Units 14:35 14:35 14:37 WBC 13.00 H (4.8-10.8) K/uL RBC 3.90 L (4.2-5.4) M/uL Hgb 11.9 L (12.0-16.0) g/dL Hct 35.1 L (37-47) % MCV 90.0 (80-100) fL MCH 30.5 (25-34) pg MCHC 33.9 (32-36) g/dL RDW Std Deviation 43.1 (36.4-46.3) fL RDW Coeff of Fan 13.4 (11.5-14.5) % Plt Count 513 H (130-400) K/uL MPV 8.9 (7.4-10.4) fL Immature Gran % (Auto) 0.6 % Neut % (Auto) 72.1 % Lymph % (Auto) 15.2 % [place] % (Auto) 11.8 % Eos % (Auto) 0.1 % Baso % (Auto) 0.2 % Neut # (Auto) 9.36 H (1.4-6.5) K/uL Lymph # (Auto) 1.98 (1.2-3.4) K/uL [place] # (Auto) 1.54 H (0.11-0.59) K/uL Eos # (Auto) 0.01 (0-0.5) K/uL Baso # (Auto) 0.03 (0-0.2) K/uL Immature Gran # (Auto) 0.08 H (0.00-0.02) K/uL ABG pH (7.35-7.45) ABG pCO2 (35-46) mmHg ABG pO2 (80-95) mmHg ABG HCO3 (19-24) mmol/L ABG O2 Saturation (90-95) % ABG Base Excess (-9-1.8) mEq/L Edgardo Test (Pos) VBG pH (7.36-7.41) VBG pCO2 (38-50) mmHg VBG pO2 mmHg VBG HCO3 mmol/L VBG O2 Saturation % VBG Base Excess mEq/L Oxygen Given Sodium 128 L (136-145) mmol/L Potassium 3.9 (3.5-5.1) mmol/L Chloride 87 L (98-107) mmol/L Carbon Dioxide 34 H (21-32) mmol/L Anion Gap 7 (3-11) BUN 10 (6-23) mg/dl Creatinine 0.45 L (0.6-1.2) mg/dl Est Cr Clr Drug Dosing Not Reportable Est GFR ( Amer) 111.2 ml/min Est GFR (Non-Af Amer) 96.0 ml/min BUN/Creatinine Ratio 22.2 H (10-20) Glucose 110 H (70-99(Fasting)) mg/dl Lactate (0.4-2.0) mmol/L Calcium 9.4 (8.5-10.1) mg/dl Magnesium 1.6 L (1.7-2.4) mg/dl Total Bilirubin 0.5 (0.2-1.0) mg/dl AST 14 (13-39) U/L ALT 10 (7-52) U/L Alkaline Phosphatase 61 (34-104) U/L Troponin I High Sens 5.6 (0-14) pg/ml Total Protein 7.0 (6.0-8.3) gm/dl Albumin 3.2 L (3.4-5.0) gm/dl Globulin 3.8 (2.5-4.0) gm/dl Albumin/Globulin Ratio 0.8 L (0.9-2) SARS-CoV-2, RNA, NAAT NEGATIVE (NEGATIVE) 05/10/22 05/10/22 05/10/22 Range/Units 15:03 16:17 16:17 WBC (4.8-10.8) K/uL RBC (4.2-5.4) M/uL Hgb (12.0-16.0) g/dL Hct (37-47) % MCV (80-100) fL MCH (25-34) pg MCHC (32-36) g/dL RDW Std Deviation (36.4-46.3) fL RDW Coeff of Fan (11.5-14.5) % Plt Count (130-400) K/uL MPV (7.4-10.4) fL Immature Gran % (Auto) % Neut % (Auto) % Lymph % (Auto) % [place] % (Auto) % Eos % (Auto) % Baso % (Auto) % Neut # (Auto) (1.4-6.5) K/uL Lymph # (Auto) (1.2-3.4) K/uL [place] # (Auto) (0.11-0.59) K/uL Eos # (Auto) (0-0.5) K/uL Baso # (Auto) (0-0.2) K/uL Immature Gran # (Auto) (0.00-0.02) K/uL ABG pH 7.43 (7.35-7.45) ABG pCO2 54 H (35-46) mmHg ABG pO2 81 (80-95) mmHg ABG HCO3 36 H (19-24) mmol/L ABG O2 Saturation 97.4 H (90-95) % ABG Base Excess 9.6 H (-9-1.8) mEq/L Edgardo Test Pos (Pos) VBG pH 7.44 H (7.36-7.41) VBG pCO2 53 H (38-50) mmHg VBG pO2 66 mmHg VBG HCO3 36 mmol/L VBG O2 Saturation 92.7 % VBG Base Excess 9.9 mEq/L Oxygen Given 5 Sodium (136-145) mmol/L Potassium (3.5-5.1) mmol/L Chloride (98-107) mmol/L Carbon Dioxide (21-32) mmol/L Anion Gap (3-11) BUN (6-23) mg/dl Creatinine (0.6-1.2) mg/dl Est Cr Clr Drug Dosing Est GFR ( Amer) ml/min Est GFR (Non-Af Amer) ml/min BUN/Creatinine Ratio (10-20) Glucose (70-99(Fasting)) mg/dl Lactate 0.5 (0.4-2.0) mmol/L Calcium (8.5-10.1) mg/dl Magnesium (1.7-2.4) mg/dl Total Bilirubin (0.2-1.0) mg/dl AST (13-39) U/L ALT (7-52) U/L Alkaline Phosphatase (34-104) U/L Troponin I High Sens (0-14) pg/ml Total Protein (6.0-8.3) gm/dl Albumin (3.4-5.0) gm/dl Globulin (2.5-4.0) gm/dl Albumin/Globulin Ratio (0.9-2) SARS-CoV-2, RNA, NAAT (NEGATIVE) Administered Medications Discontinued Medications Albuterol (Albut/Ipratrop 3mg/0.5mg Neb 3 Ml Vial) 12 ml INH ONE STA Stop: 05/10/22 14:13 Last Admin: 05/10/22 14:31 Dose: 12 ml Documented by: [id number] Sodium Chloride (Nss 1000ml) 1,000 mls @ 999 mls/hr IV .Q1H1M MICAELA Stop: 05/10/22 15:15 Last Admin: 05/10/22 14:32 Dose: 999 mls/hr Documented by: [id number] Magnesium Sulfate/Dextrose (Magnesium Sulfate / D5w) 1 gm in 100 mls @ 100 mls/hr IV NOW STA Stop: 05/10/22 16:03 Last Admin: 05/10/22 15:27 Dose: 100 mls/hr Documented by: [id number] Piperacillin Sod/Tazobactam Sod (Zosyn) 4.5 gm in 120 mls @ 240 mls/hr IV NOW ONE Stop: 05/10/22 15:33 Last Admin: 05/10/22 16:45 Dose: 240 mls/hr Documented by: [id number] Lorazepam 0.5 mg/ Syringe 0.5 mls @ 2 mls/min IV NOW STA Stop: 05/10/22 15:11 Last Admin: 05/10/22 15:26 Dose: 2 mls/min Documented by: [id number] Lorazepam (Lorazepam 2 Mg/1 Ml Vial) Confirm Administered Dose 1 mg .ROUTE .STK- MED ONE Stop: 05/10/22 15:23 Last Admin: 05/10/22 15:29 Dose: Not Given Documented by: [id number] Methylprednisolone (Methylprednisolone 125 Mg/2 Ml Vial) 60 mg IV NOW STA Stop: 05/10/22 14:13 Last Admin: 05/10/22 14:32 Dose: 60 mg Documented by: [id number] Imaging Data Radiologist's Impression: Chest X-Ray 05/10/22 14:13 SINGLE VIEW CHEST CLINICAL HISTORY: Dyspnea. FINDINGS: An AP, portable, upright chest radiograph is compared to study dated 06/02/2020 and correlated with chest CT dated 06/04/2020. The heart is mildly enlarged noting atherosclerotic calcification of the thoracic aorta. The pulmonary vasculature is noncongested. Foci of parenchymal scarring are seen throughout both lungs with a lower lobe bronchiectasis. Multifocal airspace consolidation is seen throughout both lungs, greatest at the lung bases. No large pleural effusion or pneumothorax is identified. The skeletal structures are osteopenic. The bony thorax is grossly intact. IMPRESSION: 1. Findings of chronic lung disease with multifocal patchy airspace consolidation. This is greatest at the lung bases and may represent a superimposed infectious/inflammatory pneumonitis. Clinical correlation will be required and radiographic follow-up to resolution is recommended. 2. No pleural effusion is seen. 3. Cardiomegaly without radiographic evidence of congestive failure. ACT 112: Negative or not required by law. Electronically signed by: Nima Foster M.D. 05/10/2022 3:04 PM Discharge Plan Visit Data Chief Complaint: Respiratory Problems Stated Complaint: HAVING TROUBLE BREATHING, REF BY DOC ED Provider: Jorge Talley Discharge Problem: Respiratory failure, acute, Asthma exacerbation, Acute hyponatremia, Hypomagnesemia Patient Disposition: Admitted As Inpatient Forms Stand Alone Forms: [facility] Prescriptions Prescriptions: No Action cetirizine 10 mg Tablet 10 mg PO QAM RF: 0 atorvastatin 10 mg tablet 10 mg PO QAM RF: 0 atenolol 100 mg tablet 100 mg PO QAM RF: 0 alendronate 70 mg tablet 70 mg PO WK RF: 0 levothyroxine 75 mcg tablet 75 mcg PO DAILYBB RF: 0 diltiazem HCl 300 mg capsule,extended release 24hr 300 mg PO QAM RF: 0 fluticasone propion-salmeterol [Wixela Inhub] 500-50 mcg/dose blister with device 1 inh INHALATION BID RF: 0 sertraline 25 mg tablet 25 mg PO QAM RF: 0 montelukast 10 mg tablet 10 mg PO QPM RF: 0 albuterol sulfate [Ventolin HFA] 90 mcg/actuation Hfa Aerosol Inhaler 2 puff INHALATION Q4H PRN (Reason: Shortness Of Breath Or Wheezing) RF: 0 Caltrate 600 plus D 600 mg (1,500 mg)-800 unit Tablet,Chewable 1 tab PO BID RF: 0 guaifenesin [Mucinex] 600 mg Tablet Extended Release 12hr 600 mg PO BID RF: 0 cimetidine 400 mg tablet 400 mg PO HS RF: 0 albuterol sulfate 1.25 mg/3 mL solution for nebulization 1.25 mg continuous nebulization Q4 PRN (Reason: Wheezing) RF: 0 furosemide 20 mg tablet 20 mg PO Q OTHER DAY RF: 0 Spiriva Respimat 2.5 mcg/actuation mist 2 puff INHALATION DAILY RF: 0 Referrals Referrals: Sanjana Reyes DO [Primary Care Provider] -
[2022-05-10] MEDS ORDERED: ALBUT/IPRATROP 3MG/0.5MG NEB 3 ML VIAL INH STA (14:12)
[2022-05-10] MEDS ORDERED: methylPREDNISolone 125 MG/2 ML VIAL IV STA (14:12)
[2022-05-10] MEDS ORDERED: SODIUM CHLORIDE 0.9% 1000ML 1,000 ML IV SCH (14:15)
[2022-05-10 14:58] LABS: Basophils # (auto) 0.03 K/uL (0-0.2); Basophils % (auto) 0.2 %; Eosinophils # (auto) 0.01 K/uL (0-0.5); Eosinophils % (auto) 0.1 %; Hematocrit (blood only) 35.1 % (37-47); Hemoglobin 11.9 g/dL (12.0-16.0); Immature Granulocytes # (auto) 0.08 K/uL (0.00-0.02); Immature Granulocytes % (auto) 0.6 %; Lymphocytes # (auto) 1.98 K/uL (1.2-3.4); Lymphocytes % (auto) 15.2 %; Mean Corpuscular Hemoglobin 30.5 pg (25-34); Mean Corpuscular Hgb Conc 33.9 g/dL (32-36); Mean Platelet Volume 8.9 fL (7.4-10.4); Monocytes # (auto) 1.54 K/uL (0.11-0.59); Monocytes % (auto) 11.8 %; Neutrophils # (auto) 9.36 K/uL (1.4-6.5); Neutrophils % (auto) 72.1 %; Platelet Count 513 K/uL (130-400); RDW Coefficient of Variation 13.4 % (11.5-14.5); RDW Standard Deviation 43.1 fL (36.4-46.3)
[2022-05-10] MEDS ORDERED: PIPERACILLIN/TAZOBACTAM 4.5 GM/120 ML BAG IV ONE (15:04)
[2022-05-10] MEDS ORDERED: MAGNESIUM SULFATE / D5W 1 GM/100 ML BAG IV STA (15:04)
--- NOTE | 2022-05-10 15:06 | XRay Report ---
SINGLE VIEW CHEST CLINICAL HISTORY: Dyspnea. FINDINGS: An AP, portable, upright chest radiograph is compared to study dated 06/02/2020 and correlat ed with chest CT dated 06/04/2020. The heart is mildly enlarged noting atherosclerotic calcification o f the thoracic aorta. The pulmonary vasculature is noncongested. Foci of parenchymal scarring are see n throughout both lungs with a lower lobe bronchiectasis. Multifocal airspace consolidation is seen t hroughout both lungs, greatest at the lung bases. No large pleural effusion or pneumothorax is identi fied. The skeletal structures are osteopenic. The bony thorax is grossly intact. IMPRESSION: 1. Findings of chronic lung disease with multifocal patchy airspace consolidation. This is greatest a t the lung bases and may represent a superimposed infectious/inflammatory pneumonitis. Clinical corre lation will be required and radiographic follow-up to resolution is recommended. 2. No pleural effusion is seen. 3. Cardiomegaly without radiographic evidence of congestive failure. ACT 112: Negative or not required by law. Electronically signed by: Nima Foster M.D. 05/10/2022 3:04 PM
[2022-05-10] MEDS ORDERED: LORazepam 0.5 MG in SYRINGE 0.25 ML IV STA (15:10)
[2022-05-10 15:17] LABS: Alanine Aminotransferase 10 U/L (7-52); Albumin Globulin Ratio 0.8 (0.9-2); Albumin Level 3.2 gm/dl (3.4-5.0); Alkaline Phosphatase 61 U/L (34-104); Anion Gap 7 (3-11); Aspartate Aminotransferase 14 U/L (13-39); BUN Creatinine Ratio 22.2 (10-20); Bilirubin,Total 0.5 mg/dl (0.2-1.0); Blood Urea Nitrogen 10 mg/dl (6-23); Calcium 9.4 mg/dl (8.5-10.1); Carbon Dioxide 34 mmol/L (21-32); Chloride 87 mmol/L (98-107); Est GFR (African American) 111.2 ml/min; Globulin 3.8 gm/dl (2.5-4.0); Glucose 110 mg/dl (70-99(Fasting)); Magnesium 1.6 mg/dl (1.7-2.4); Potassium 3.9 mmol/L (3.5-5.1); Sodium 128 mmol/L (136-145)
[2022-05-10 15:19] LABS: Base Excess VBG 9.9 mEq/L; HCO3 VBG 36 mmol/L; Oxygen Saturation VBG 92.7 %; PCO2 VBG 53 mmHg (38-50); PO2 VBG 66 mmHg; pH VBG 7.44 (7.36-7.41)
[2022-05-10 15:22] LABS: Troponin I High Sensitivity 5.6 pg/ml (0-14)
[2022-05-10] MEDS ORDERED: LORazepam 2 MG/1 ML VIAL ONE (15:22)
[2022-05-10 16:27] LABS: Allen Test Pos (Pos); Base Excess ABG 9.6 mEq/L (-9-1.8); HCO3 ABG 36 mmol/L (19-24); Oxygen Saturation ABG 97.4 % (90-95); PCO2 ABG 54 mmHg (35-46); PO2 ABG 81 mmHg (80-95); pH ABG 7.43 (7.35-7.45)
[2022-05-10] MEDS ORDERED: OPTIRAY 320 125ml IV ONE (18:19)
[2022-05-10] MEDS ORDERED: ONDANSETRON INJ 2 MG/ML 2 ML VIAL IV PRN (18:41)
--- NOTE | 2022-05-10 19:08 | CT Scan Report ---
CT ANGIOGRAM OF THE CHEST CLINICAL HISTORY: Dyspnea. COMPARISON STUDY: Chest x-ray dated 05/10/2022. Chest CT dated 06/04/2020. TECHNIQUE: Following the IV administration of 119 cc of Optiray 320, CT angiogram of the chest was pe rformed from the upper abdomen to the thoracic inlet utilizing the pulmonary embolus protocol. Images are reviewed in the axial, sagittal, and coronal planes. 3-D MIPS images are created and assessed. I V contrast was administered without complication. A dose lowering technique was utilized adhering to the principles of ALARA. CT DOSE: 251.69 mGy.cm FINDINGS: Thyroid: Atrophic and heterogeneous. Thoracic aorta: There is atherosclerotic calcification of the thoracic aorta, which is normal in [place] and demonstrates bovine variant arch anatomy. No dissection is seen. Pulmonary vasculature: The pulmonary trunk is dilated, measuring 3.6 cm in diameter. This suggests pu lmonary artery hypertension. There are no filling defects identified in main, lobar, or segmental pul monary branches to suggest pulmonary embolus. Evaluation of the segmental and subsegmental branches i s degraded by motion artifact. Heart: The heart is enlarged and and without pericardial effusion. The coronary arteries are densely calcified. Lungs and pleural spaces: Evaluation of the lung parenchyma is degraded by motion artifact. There is moderate bronchiectasis seen throughout both lungs with a lower lobe predominance. Fibrotic changes n oted in the right middle lobe. Extensive mucus plugging/intraluminal debris is seen within the lower lobe airways. The trachea appears clear. Extensive nodularity and groundglass consolidation is seen t hroughout both lungs with a lower lobe predominance. Dense airspace consolidation is seen at the lung bases. There is trace right pleural effusion. Mediastinum: There are numerous mildly enlarged mediastinal lymph nodes. Prevascular nodes measure up to 7 mm in short axis. A precarinal node measures 12 mm in short axis. [place]ir[place]: Mildly enlarged hilar lymph nodes measure up to 12 mm in short axis. Axillae: There is no axillary lymphadenopathy. Upper abdomen: There is a small hiatal hernia. A peripherally calcified lesion in the right lobe of t he liver is unchanged from 2020 and measures up to 3.4 cm. This may represent post surgical change. T here is a 1.2 cm left lobe hepatic cyst. This is decreased in size from 2020. There is a 3 mm nonobst ructing left renal calculus. Reflux of contrast into the IVC and hepatic veins suggests cardiac dysfu nction. Skeletal structures: The skeletal structures are osteopenic. Degenerative change is noted in the shou lders and thoracic spine. No lytic or blastic bony lesions are seen. There are chronic/healed left-si ded rib fractures. IMPRESSION: 1. There is no evidence of pulmonary embolus in the main, lobar, or segmental pulmonary arteries. 2. Cardiomegaly with evidence of pulmonary artery hypertension. 3. There is moderate bronchiectasis throughout both lungs with a lower lobe predominance and signific ant intraluminal debris/mucus plugging. This has progressed from 2020. 4. There is extensive nodularity seen throughout both lungs with mild patchy groundglass change. Ther e is fibrosis of the right middle lobe, with denser consolidation at both lung bases. The appearance favors a chronic infectious/inflammatory process such as atypical mycobacterium. There may be superim posed bibasilar pneumonia/aspiration pneumonitis. Clinical correlation will be essential and [facility]. Nonemergent follow-up with pulmonology is also advised. 5. Trace right pleural effusion. 6. Mildly enlarged mediastinal and hilar lymph nodes are nonspecific and likely related to chronic liliya ng disease. This is similar to previous. 7. Additional findings as above. ACT 112: Negative or not required by law. Electronically signed by: Nima Foster M.D. 05/10/2022 7:06 PM
--- NOTE | 2022-05-10 19:08 | History & Physical Report ---
Date of Service May 10, 2022 Assessment & Plan (1) Respiratory failure, acute: (2) Asthma exacerbation: (3) Idiopathic bronchiectasis: (4) Pneumonia: Plan: Admit to telemetry Patient presenting from home with reports of worsening shortness of breath, cough, sputum production x 3 weeks Typically on 4 L of oxygen at home however increased to 6 L recently, was saturating well on 6 L in the ED however became acutely short of breath and was subsequently placed on CPAP ABG-pH 7.43, PCO2 54, PO2 81, HCO3 36 Possible early sepsis with WBC 13 K, tachypnea. HR and BP stable. Lactic acid normal. Procalcitonin negative CXR showing multifocal airspace opacity. Will obtain CTA chest to r/o pulmonary embolism and to further evaluate for pneumonia S/p Zosyn in the ED, will continue with given history of previous sputum culture positive for Pseudomonas. Add doxycycline for atypical coverage. Follow blood and sputum cultures S/p IV Solu-Medrol in the ED, continue with IV Solu-Medrol 40 mg q8h Attempt to wean off CPAP back to nasal cannula Aggressive pulmonary toilet with DuoNebs, hypertonic saline nebs, flutter valve, incentive spirometer, percussion vest, inhaled corticosteroid Low threshold for pulmonary consult (5) Acute hyponatremia: Plan: Na+ 128, likely hypovolemic hyponatremia due to poor p.o. intake IVF, follow BMP (6) Hypomagnesemia: Plan: Mg +1.6, received replacement in the ED, follow-up in a.m. (7) Acquired hypothyroidism: Plan: Continue levothyroxine (8) Hypertension: Plan: BP controlled, continue diltiazem and atenolol (9) GERD (gastroesophageal reflux disease): Plan: Continue cimetidine (10) Anxiety and depression: Plan: Stable, continue sertraline (11) Dyslipidemia: Plan: Continue statin (12) DVT prophylaxis: Plan: SQ Lovenox Admission and Anticipated Discharge Date Admission Date: May 10, 2022 History of Present Illness Chief Complaint: Cough, shortness of breath Primary Care Provider: Sanjana Reyes DO 77-year-old female with PMH chronic hypoxic respiratory failure on 4 L of oxygen, hypothyroidism, IPMN, bronchiectasis, severe persistent asthma, pulmonary hypertension, HTN, GERD, osteoporosis, anxiety, depression, and other problems listed below who presents to the ED for evaluation of cough and shortness of breath. Patient reports being on a course of Cipro and prednisone in March for pneumonia. Patient reports that she was feeling well for a couple of weeks following the course of those medications. A few weeks ago, patient noted worsening shortness of breath, cough, sputum production. Symptoms have been progressively getting worse. She reports shortness of breath with minimal exertion and has increased her oxygen to 6 L. She reports a cough productive for yellow sputum. She reports that she felt feverish last week however did not take her temperature. Denies chills and rigors. Reports some chest tightness that she attributes to her asthma, no chest pain or palpitations. Reports some occasional episodes of lightheadedness and dizziness with standing however no syncopal event. She has had a very poor appetite with a few episodes of vomiting. Vomiting seems to be triggered by harsh coughing. Denies hematemesis status, coffee-ground emesis, bright red bleeding per rectum, dark tarry stools. No abdominal pain. She denies urinary symptoms. In the ED, patient was saturating well on 6 L of oxygen via nasal cannula. She had an episode where she became acutely short of breath and was subsequently placed on CPAP. Labs show WBC 13 K, Na+ 128, Mg +1.6. CXR shows multifocal patchy airspace consolidation. She was given nebulizer treatment, lorazepam, magnesium replacement, IV Zosyn, IVF. Allergies Allergy/AdvReac Type Severity Reaction Status Date / Time lisinopril AdvReac Intermediate Cough Verified 05/10/22 16:20 ENVIRONMENTAL Allergy RUNNY NOSE Uncoded 05/10/22 16:22 & CONGESTION Home Medications Medication Instructions Recorded Confirmed Type albuterol sulfate 90 mcg/actuation 2 puff INHALATION Q4H PRN 06/02/20 05/10/22 History aerosol inhaler (Ventolin HFA) alendronate 70 mg tablet 70 mg PO WK 06/02/20 05/10/22 History atenolol 100 mg tablet 100 mg PO QAM 06/02/20 05/10/22 History atorvastatin 10 mg tablet 10 mg PO QAM 06/02/20 05/10/22 History calcium carbonate 600 mg-vitamin 1 tab PO BID 06/02/20 05/10/22 History D3 20 mcg (800 unit) chewable tablet (Caltrate 600 plus D) cetirizine 10 mg tablet 10 mg PO QAM 06/02/20 05/10/22 History diltiazem HCl 300 mg 300 mg PO QAM 06/02/20 05/10/22 History capsule,extended release 24 hr fluticasone 500 mcg-salmeterol 50 1 inh INHALATION BID 06/02/20 05/10/22 History mcg/dose blistr powdr for inhalation (Wixela Inhub) guaifenesin 600 mg tablet, 600 mg PO BID 06/02/20 05/10/22 History extended release 12 hr (Mucinex) levothyroxine 75 mcg tablet 75 mcg PO DAILYBB 06/02/20 05/10/22 History montelukast 10 mg tablet 10 mg PO QPM 06/02/20 05/10/22 History sertraline 25 mg tablet 25 mg PO QAM 06/02/20 05/10/22 History albuterol sulfate 1.25 mg/3 mL 1.25 mg CONTINUOUS NEBULIZATION Q4 05/10/22 05/10/22 History solution for nebulization PRN cimetidine 400 mg tablet 400 mg PO HS 05/10/22 05/10/22 History furosemide 20 mg tablet 20 mg PO Q OTHER DAY 05/10/22 05/10/22 History tiotropium bromide 2.5 2 puff INHALATION DAILY 05/10/22 05/10/22 History mcg/actuation mist for inhalation (Spiriva Respimat) Past Med/Surg History Medical History Acquired hypothyroidism Anxiety and depression Dyslipidemia GERD (gastroesophageal reflux disease) History of tobacco abuse 5-pack-year history Quit smoking in 1972 Hypertension Idiopathic bronchiectasis Osteoporosis Pulmonary nodule, left Severe persistent asthma Surgical History H/O cataract removal with insertion of prosthetic lens Bilateral H/O colonoscopy H/O pulmonary function tests S/P tonsillectomy and adenoidectomy Family History Father Heart disease Social History Smoking Status: Former smoker packs per day: 0.5; Years Smoked: 10; Hx Alcohol Use: No Hx Substance Use: No Preferred Language: Sudanese Communication Ability: Effective Heel Sewer Required: No Beliefs That Will Affect Care: None Current Living Situation: Spouse Feels Safe at Home: Yes Safety Concerns: Feels Safe At This Time Assistive Devices: Oxygen - Continuous Review of Systems Review of Systems: ROS per HPI, all other systems reviewed and negative Physical Exam Constitutional: + thin; no acute distress Vitals as above Eyes: PERRL, conjunctivae normal, anicteric sclerae ENMT: external ear and nose normal, oropharynx normal Respiratory: normal respiratory effort; no respiratory distress Auscultation: + diminished lung sounds (Poor air entry noted bilaterally) On CPAP Cardiovascular: Rate/Rhythm: regular rate and regular rhythm Vessels: normal peripheral pulses Extremities: + edema (+2 edema RLE) Gastrointestinal (Abdomen): normal bowel sounds, soft, nontender, no hepatosplenomegaly Musculoskeletal: no cyanosis or clubbing, extremities motor strength 5/5 Skin: no rashes, warm and dry Neurologic: PERRL, EOMI, accommodation nl, no face palsy, no dysarthria Psychiatric: A+Ox3, euthymic affect Results & Data Results & Data ([facility]) Vital Signs (Past 12 Hours) Vital Signs Temp Pulse Pulse Resp BP BP Pulse Ox 05/10/22 18:00 61 23 111/81 93 05/10/22 16:00 98 H 33 H 111/76 94 05/10/22 15:38 99 05/10/22 14:46 97 05/10/22 14:33 62 30 H 110/60 97 05/10/22 14:31 78 20 93 05/10/22 13:53 36.5 C 62 20 117/68 95 Laboratory Results Short CBC 05/10/22 Range/Units 14:35 WBC 13.00 H (4.8-10.8) K/uL Hgb 11.9 L (12.0-16.0) g/dL Hct 35.1 L (37-47) % Plt Count 513 H (130-400) K/uL BMP 05/10/22 14:35 Sodium 128 L Potassium 3.9 Chloride 87 L Carbon Dioxide 34 H BUN 10 Creatinine 0.45 L Glucose 110 H Calcium 9.4 Liver Function 05/10/22 Range/Units 14:35 Total Bilirubin 0.5 (0.2-1.0) mg/dl AST 14 (13-39) U/L ALT 10 (7-52) U/L Alkaline Phosphatase 61 (34-104) U/L Albumin 3.2 L (3.4-5.0) gm/dl Diagnostic Findings Chest X-Ray 05/10/22 14:13 SINGLE VIEW CHEST CLINICAL HISTORY: Dyspnea. FINDINGS: An AP, portable, upright chest radiograph is compared to study dated 06/02/2020 and correlated with chest CT dated 06/04/2020. The heart is mildly enlarged noting atherosclerotic calcification of the thoracic aorta. The pulmonary vasculature is noncongested. Foci of parenchymal scarring are seen throughout both lungs with a lower lobe bronchiectasis. Multifocal airspace consolidation is seen throughout both lungs, greatest at the lung bases. No large pleural effusion or pneumothorax is identified. The skeletal structures a re osteopenic. The bony thorax is grossly intact. IMPRESSION: 1. Findings of chronic lung disease with multifocal patchy airspace consolidation. This is greatest at the lung bases and may represent a superimposed infectious/inflammatory pneumonitis. Clinical correlation will be required and radiographic follow-up to resolution is recommended. 2. No pleural effusion is seen. 3. Cardiomegaly without radiographic evidence of congestive failure. ACT 112: Negative or not required by law. Electronically signed by: Nima Foster M.D. 05/10/2022 3:04 PM Code Status & VTE Plan Code Status Patient is a full code as per my discussion with her. VTE Prophylaxis Plan VTE Prophylaxis will be ordered: Yes Supervising Physician Co-Signing Physician Notes Attending addendum: The patient was seen and examined in telemetry unit in presence of the family members History of COPD on home oxygen has been complaining of increasing shortness of breath for the last 3 weeks Associated with fever and productive of yellowish phlegm without any hemoptysis Has been requiring more oxygen recently without much improvement Denies any chest pain On examination Moderate shortness of breath at rest Hemodynamically stable Chestdiminished breath sounds all over with widespread crackles especially at the bases and wheezing anteriorly and wheezing anteriorly Heart-S1, S2 regular Abdomen-benign Extremities-trace edema bilaterally RADIOLOGY INTERVENTIONAL PHYSICIAN-alert and awake. Cannot finish a sentence with difficulty Her admission labs, EKG and imaging studies reviewed CTA did not show any pulmonary embolism but did show copious secretions Agree with assessment and plan as outlined above by Raquel magana [employer]TER [employer] (CAD) Has been started on intravenous antibiotic with Zosyn and doxycycline Intravenous Solu-Medrol Nebulized bronchodilator Pulmonary consult for possible bronchoscopy Dr Taisha Guerra (1) Asthma exacerbation Asthma persistence: unspecified Asthma severity: severe Qualified Code(s): J45.901 - Unspecified asthma with (acute) exacerbation (2) Respiratory failure, acute Respiratory failure complication: unspecified whether with hypoxia or hypercapnia Qualified Code(s): J96.00 - Acute respiratory failure, unspecified whether with hypoxia or hypercapnia
[2022-05-10] MEDS: ALBUT/IPRATROP 3MG/0.5MG NEB 3 ML VIAL NEB SCH ×2 (19:21→22:43)
[2022-05-10] MEDS: SODIUM CHLORIDE 0.9% 1000ML 1,000 ML IV SCH (19:27)
[2022-05-10] MEDS: DOXYCYCLINE HYCLATE 100 MG in DEXTROSE 5% 100 ML IV SCH (19:37)
[2022-05-10] MEDS: ENOXAPARIN INJ 40 MG/0.4 ML SYR SQ SCH (19:37)
[2022-05-10] MEDS: SODIUM CHLOR 7% 4 ML NEB NEB SCH (19:39)
[2022-05-10] MEDS: FAMOTIDINE 20 MG TAB PO SCH (20:11)
[2022-05-10] MEDS: guaiFENesin 600 MG TABCR PO SCH (20:11)
[2022-05-10] MEDS: MONTELUKAST SODIUM 10 MG TABLET PO SCH (20:12)
--- NOTE | 2022-05-10 20:52 | Ultrasound Report ---
ULTRASOUND RIGHT LOWER EXTREMITY VENOUS CLINICAL HISTORY: Right leg swelling. COMPARISON STUDY: No priors. TECHNIQUE: Real-time, grayscale, and color Doppler sonography of the deep veins of the right lower ex tremity was performed from the inguinal crease to the calf. Compression and augmentation were utilize d. FINDINGS: There is no sonographic evidence of deep venous thrombosis identified in the right lower ex tremity. The common femoral, superficial femoral, and popliteal veins are patent and normally stacey sible. The greater saphenous vein and the profunda femoris vein at the junction with the common femor al vein are clear. The visualized calf veins are patent. A popliteal cyst measures 2.9 x 1.0 x 2.3 cm . IMPRESSION: 1. There is no sonographic evidence of deep venous thrombosis identified in the right lower extremity . 2. Bishop's cyst. ACT 112: Negative or not required by law. Electronically signed by: Nima Foster M.D. 05/10/2022 8:50 PM
[2022-05-10] MEDS ORDERED: CIMETIDINE 400 MG PO SCH (21:00)
[2022-05-10] MEDS: PIPERACILLIN/TAZOBACTAM 3.375 GM in DEXTROSE 5% 100 ML IV SCH (21:51)
[2022-05-10] MEDS: methylPREDNISolone 40 MG in SYRINGE 0 ML IV SCH (21:51)
[2022-05-11] MEDS: ALBUT/IPRATROP 3MG/0.5MG NEB 3 ML VIAL NEB SCH ×6 (03:32→23:00)
[2022-05-11] MEDS: methylPREDNISolone 40 MG in SYRINGE 0 ML IV SCH ×3 (05:11→20:55)
[2022-05-11] MEDS: PIPERACILLIN/TAZOBACTAM 3.375 GM in DEXTROSE 5% 100 ML IV SCH ×3 (05:11→20:57)
[2022-05-11] MEDS: LEVOTHYROXINE SODIUM 75 MCG TABLET PO SCH (05:33)
[2022-05-11 06:25] LABS: Hematocrit (blood only) 31.7 % (37-47); Hemoglobin 10.6 g/dL (12.0-16.0); Mean Corpuscular Hemoglobin 30.1 pg (25-34); Mean Corpuscular Hgb Conc 33.4 g/dL (32-36); Mean Corpuscular Volume 90.1 fL (80-100); Mean Platelet Volume 8.7 fL (7.4-10.4); Platelet Count 453 K/uL (130-400); RDW Coefficient of Variation 13.5 % (11.5-14.5); RDW Standard Deviation 43.5 fL (36.4-46.3); Red Blood Count 3.52 M/uL (4.2-5.4); White Blood Count 7.55 K/uL (4.8-10.8)
[2022-05-11 06:41] LABS: BUN Creatinine Ratio 16.7 (10-20); Calcium 7.9 mg/dl (8.5-10.1); Creatinine Clr Calc Pharmacy 75.3 ml/min; Est GFR (African American) 113.8 ml/min; Est GFR (Non-African American) 98.2 ml/min; Magnesium 1.8 mg/dl (1.7-2.4); Potassium 3.8 mmol/L (3.5-5.1)
[2022-05-11] MEDS: DOXYCYCLINE HYCLATE 100 MG in DEXTROSE 5% 100 ML IV SCH ×2 (06:41→18:22)
[2022-05-11] MEDS: SODIUM CHLOR 7% 4 ML NEB NEB SCH ×2 (07:12→19:37)
[2022-05-11] MEDS: SODIUM CHLORIDE 0.9% 1000ML 1,000 ML IV SCH ×2 (07:37→20:35)
[2022-05-11] MEDS: ATORVASTATIN 10 MG TAB PO SCH (08:36)
[2022-05-11] MEDS: ATENOLOL 50 MG TABLET PO SCH (08:36)
[2022-05-11] MEDS: CETIRIZINE HCL 10 MG TABLET PO SCH (08:36)
[2022-05-11] MEDS: guaiFENesin 600 MG TABCR PO SCH ×2 (08:37→20:54)
[2022-05-11] MEDS: SERTRALINE HCL 50 MG TABLET PO SCH (08:37)
[2022-05-11] MEDS: dilTIAZem HCL 300 MG CAPCR PO SCH (08:37)
[2022-05-11] MEDS: FLUTICASONE/VILANTEROL 200/25MCG 14 PUFFS/INHALER INH SCH (08:38)
[2022-05-11] MEDS ORDERED: FAMOTIDINE 20 MG TAB PO SCH (09:00)
--- NOTE | 2022-05-11 09:48 | Electrocardiogram Report ---
Test Reason : Blood Pressure : / mmHG Vent. Rate : 064 BPM Atrial Rate : 061 BPM P-R Int : 000 ms QRS Dur : 080 ms QT Int : 398 ms P-R-T Axes : 000 -61 079 degrees QTc Int : 410 ms Poor data quality, interpretation may be adversely affected Sinus rhythm Left anterior fascicular block Possible Old Septal infarct Abnormal ECG When compared with ECG of 02-JUN-2020 17:12, Borderline Criteria for Septal infarct now present Otherwise no significant change Confirmed by Aleksander Mendes ([id number]) on 05/11/2022 9:47:38 AM Referred By: Sury Lovell Confirmed By:Aleksander Mendes
--- NOTE | 2022-05-11 12:50 | Pulmonary Consultation ---
Date of Consultation May 11, 2022 Assessment & Plan (1) Idiopathic bronchiectasis: (2) Pneumonia: (3) Pulmonary nodule, left: (4) Acute and chronic respiratory failure with hypoxia: Attending: Dr. Garces Impression: 77-year-old female followed by [facility] pulmonary group for chronic bronchiectasis and severe persistent asthma. Patient with no history of bronchoscopy. As required hospitalization in the past for mucoid impaction. Patient does have flutter valve and percussion vest at home. Has required multiple courses of antibiotics and steroids in the past for shortness of breath. Most recent visit with [facility] pulmonology was March 2022. Patient was feeling ill and requested outpatient appointment with pulmonology this week but they were unable to fit her in. They proposed a video appointment. Patient was unable to facilitate that from a technological standpoint. Patient presented to the emergency department and was admitted for shortness of breath and acute on chronic respiratory failure with increased oxygen requirements. Patient does use 4 L of supplemental oxygen at home at rest and 5 to 6 L with exertion. Patient is currently oxygenating well on 5 L/min via nasal cannula. She denies any fever. She denies any hemoptysis. Complaints are similar to prior acute exacerbation of bronchiectasis. Recommendations: 1. Exacerbation of bronchiectasis * Continue with flutter valve and percussion vest * Patient will be started on hypertonic saline. Continue doxycycline and Zosyn for now. Trend procalcitonin. * Will check a AFB in the morning to rule out YULIYA or MAC * Will increase Mucinex from 600 mg p.o. twice daily to 1200 mg p.o. twice daily * Continue with steroids and plan on taper upon discharge * No indication for bronchoscopy at this time. We will repeat chest x-ray in the morning. 2. Acute on chronic respiratory failure with hypoxia * Continue with supplemental oxygen to maintain SPO2 greater than 90% * Patient reports that she follows SaO2 at home. The lowest it has been has been 85% and quickly corrected to above 90% * Continue with bronchodilators and treatment as above for bronchiectasis * Arterial blood gas shows stable pH at 7.43. PCO2 slightly elevated at 54 mmHg PaO2 adequate at 81 mmHg 3. Severe persistent asthma: * Pulmonary function testing in 2020 as above in HPI * Patient on Wixela and Spiriva as an outpatient * Continue inpatient and discharge on home meds 4. Pneumonia: * Continue antibiotics including Doxy and Zosyn (Day # 2) * Hx of pansensitive pseudomonas 05/20/21 with sputum culture * No AFB on sputum culture 05/20/2021 * Calcitonin is negative at less than 0.05 * Patient is afebrile Thank you for including us in the care of this patient. We will continue to follow along with you at this time. Please refer to Dr. Garces's addendum for further recommendations. Pulmonary function testing 07/21/2021: * FVC 1.56 L, 71% * FEV1 0.75 L, 44% * FEV1/FVC 48% * TLC 6.01 L, 139% * RV 4.5 L, 216% * RV/TLC 75% * DLCO 47% Supervising Physician Co-Signing Physician Notes I saw and evaluated the patient with Nima Samuels, and agree with findings and plan as documented in the note. 77-year-old female with known history of chronic bronchiectasis presented to the hospital for worsening shortness of breath CT chest which was personally reviewed by me showed diffuse bilateral tree-in-bud opacities along with patchy groundglass opacities on top of chronic bronchiectatic changes that the patient has Patient is chronically on 3 L oxygen at home but she was using 4-5 L recently. At the time of examination patient was saturating 87% while talking to the family. It went up to 93-94% on 5 L and he was able to gradually titrate down to 4 L. She says she is feeling better after coming to the hospital Denies any chest pain Having difficulty bringing up the phlegm. Constitutional: No acute distress, frail-appearing HEENT: EOMI, PERRLA Respiratory system: Decreased air entry bilaterally, no rhonchi, positive crackles bilaterally, mild expiratory wheeze CVS: S1-S2 positive, no murmurs or gallops Abdomen: Soft, nontender, nondistended, positive bowel sounds x4 Extremities: +2 pulses bilaterally radialis/ dorsalis pedis, no cyanosis, no edema Neuro: Awake alert oriented x3 Psych: Normal mood and affect G/U: No Anderson Plan: Patient has history of pansensitive Pseudomonas in the phlegm. Continue with Zosyn to cover for pseudomonal infection. Sputum culture as well as AFB sputum culture to see if the patient has YULIYA Interestingly patient has never had a bronchoscopy done in the past. No indication for bronchoscopy right now. Will defer to outpatient trim master operator Add hypertonic saline nebulized twice a day, increased guaifenesin to 1200 mg twice daily Change nasal cannula to humidified oxygen as she is complaining of nasal congestion Plan was discussed with RN as well as family Please note the above document was generated using voice recognition software. It may contain grammatical, syntax or spelling errors.Any formal questions or concerns about the content, text or information contained within the body of this dictation should be directly addressed to the provider for clarification. History of Present Illness Reason for Consultation: Bronchiectasis, mucoid impaction, hypoxia Attending Physician: Taniya Callejas DO History of Present Illness Attending: Dr. Garces This is a 77-year-old female with idiopathic bronchiectasis and follows with [facility] pulmonology. Patient reports that she has had worsening shortness of breath for the last several days. She contacted [facility] pulmonology and requested an antibiotic and steroid pack. Patient was told that she could do a video conference with PRAFUL Pantoja but instead presented to the emergency department at [facility] where she was admitted. CTA of the chest was completed to rule out pulmonary emboli. Patient was found to have bronchiectasis and was started on IV Solu-Medrol, doxycycline, Zosyn. Patient was also started on guaifenesin 600 mg p.o. twice daily and placed on Breo Ellipta. Home medications include Spiriva and Wixela. A pneumo vest was also ordered twice daily for chest percussion. Patient does have a past medical history of bronchiectasis and was most recently admitted at [facility] 2 years ago in 2019 for similar symptoms. The patient follows with Dr. Peng at [facility] pulmonology. She also sees PRAFUL Desai. Most recent appointment was 03/30/2022 for similar complaints. At that time the patient had recently seen PCP and was placed on Cipro and prednisone taper for similar complaints. Pulmonary work-up at [facility] includes: * 2015 alpha-1 negative * 2020 positive any RAST to grasses and dust mites, he was signed and feels 210, IgE 41.7 * 2020 positive for Pseudomonas sputum culture * Patient is on oxygen 4 L/min at rest and 5 to 6 L with exertion * Patient is a former smoker. She has a 69-[id number] history * Patient does have a flutter valve and chest percussion vest at home that she uses regularly * Home medications include Wixela 500 and Spiriva Respimat. Pulmonary function tests performed in July [address] Reid shows severe obstructive ventilatory import impairment. Lung volumes suggestive of hyperinflation. Severe decrease in uncorrected diffusion capacity. Echocardiogram in December 2021 shows preserved left ventricular ejection fraction of 60 to 64%. Estimated pulmonary artery systolic pressure is 40 mmHg No significant valvular abnormality. No change as compared to echocardiogram from 09/10/2020 Patient is also being followed for multiple lung nodules which are less than 6 mm. Notes indicate that these are unchanged and stable as compared to previous CT scans Patient follows with rheumatology with Dr. Chino for osteoporosis. No other rheumatological findings reported No evidence of previous bronchoscopy on epic report Allergies Allergy/AdvReac Type Severity Reaction Status Date / Time lisinopril AdvReac Intermediate Cough Verified 05/10/22 16:20 ENVIRONMENTAL Allergy RUNNY NOSE Uncoded 05/10/22 16:22 & CONGESTION Home Medications Medication Instructions Recorded Confirmed Type albuterol sulfate 90 mcg/actuation 2 puff INHALATION Q4H PRN 06/02/20 05/10/22 History aerosol inhaler (Ventolin HFA) alendronate 70 mg tablet 70 mg PO WK 06/02/20 05/10/22 History atenolol 100 mg tablet 100 mg PO QAM 06/02/20 05/10/22 History atorvastatin 10 mg tablet 10 mg PO QAM 06/02/20 05/10/22 History calcium carbonate 600 mg-vitamin 1 tab PO BID 06/02/20 05/10/22 History D3 20 mcg (800 unit) chewable tablet (Caltrate 600 plus D) cetirizine 10 mg tablet 10 mg PO QAM 06/02/20 05/10/22 History diltiazem HCl 300 mg 300 mg PO QAM 06/02/20 05/10/22 History capsule,extended release 24 hr fluticasone 500 mcg-salmeterol 50 1 inh INHALATION BID 06/02/20 05/10/22 History mcg/dose blistr powdr for inhalation (Wixela Inhub) guaifenesin 600 mg tablet, 600 mg PO BID 06/02/20 05/10/22 History extended release 12 hr (Mucinex) levothyroxine 75 mcg tablet 75 mcg PO DAILYBB 06/02/20 05/10/22 History montelukast 10 mg tablet 10 mg PO QPM 06/02/20 05/10/22 History sertraline 25 mg tablet 25 mg PO QAM 06/02/20 05/10/22 History albuterol sulfate 1.25 mg/3 mL 1.25 mg CONTINUOUS NEBULIZATION Q4 05/10/22 05/10/22 History solution for nebulization PRN cimetidine 400 mg tablet 400 mg PO HS 05/10/22 05/10/22 History furosemide 20 mg tablet 20 mg PO Q OTHER DAY 05/10/22 05/10/22 History tiotropium bromide 2.5 2 puff INHALATION DAILY 05/10/22 05/10/22 History mcg/actuation mist for inhalation (Spiriva Respimat) Patient History Medical History (Updated 05/11/22 @ 16:23 by Nima Samuels PA-C) Acquired hypothyroidism Acute and chronic respiratory failure with hypoxia Anxiety and depression Dyslipidemia GERD (gastroesophageal reflux disease) History of tobacco abuse 5-pack-year history Quit smoking in 1972 Hypertension Idiopathic bronchiectasis Osteoporosis Pulmonary nodule, left Severe persistent asthma Surgical History H/O cataract removal with insertion of prosthetic lens Bilateral H/O colonoscopy H/O pulmonary function tests S/P tonsillectomy and adenoidectomy Family History Father Heart disease Social History Smoking Status: Former smoker packs per day: 0.5; Years Smoked: 10; Hx Alcohol Use: No Hx Substance Use: No Preferred Language: Arabic Communication Ability: Effective Geomorphology Teacher Required: No Beliefs That Will Affect Care: None marital status: Current Living Situation: Spouse Feels Safe at Home: Yes Safety Concerns: Feels Safe At This Time Assistive Devices: Cane, Nebulizer, Oxygen - Continuous and Walker Review of Systems Review of Systems: A total of 10 systems was reviewed and is negative other than as listed in the HPI Physical Exam Physical Exam: GENERAL : No acute distress EYES: No icterus, gaze conjugate NOSE: No evidence of epistaxis MOUTH: No lesions or candidiasis NECK: Supple LUNGS: Patient with diffuse bronchospasm. No overt rales or rhonchi. HEART: Regular, rate controlled ABDOMEN: Soft, NT, ND, BS Present EXTREMITIES: No LE edema, pedal pulses intact and equal bilaterally NEURO: A&OX3 Results & Data Results & Data ([facility]) Vital Signs (Past 12 Hours) Vital Signs Temp Pulse Resp BP Pulse Ox 05/11/22 10:53 72 18 94 05/11/22 08:16 36.5 C 85 20 120/71 93 05/11/22 07:12 80 22 91 05/11/22 03:33 65 18 95 05/11/22 02:57 36.5 C 68 18 119/64 95 Critical Care Results & Data Vital Signs (Past 12 Hours) Vital Signs Temp Pulse Resp BP Pulse Ox 05/11/22 15:14 36.7 C 79 20 128/77 95 05/11/22 10:53 72 18 94 05/11/22 08:16 36.5 C 85 20 120/71 93 05/11/22 07:12 80 22 91 05/11/22 03:33 65 18 95 Lab & Micro Results (Past 24 Hours) RBC 3.52 M/uL (4.2-5.4) L 05/11/22 WBC 7.55 K/uL (4.8-10.8) 05/11/22 Hgb 10.6 g/dL (12.0-16.0) L 05/11/22 Hct 31.7 % (37-47) L 05/11/22 MCV 90.1 fL (80-100) 05/11/22 MCH 30.1 pg (25-34) 05/11/22 MCHC 33.4 g/dL (32-36) 05/11/22 RDW Standard Deviation 43.5 fL (36.4-46.3) 05/11/22 RDW Coefficient of Variation 13.5 % (11.5-14.5) 05/11/22 Plt Count 453 K/uL (130-400) H 05/11/22 MPV 8.7 fL (7.4-10.4) 05/11/22 Na 129 mmol/L (136-145) L 05/11/22 K 3.8 mmol/L (3.5-5.1) 05/11/22 Cl 93 mmol/L (98-107) L 05/11/22 CO2 30 mmol/L (21-32) 05/11/22 Anion Gap 6 (3-11) 05/11/22 BUN 7 mg/dl (6-23) 05/11/22 Creatinine 0.42 mg/dl (0.6-1.2) L 05/11/22 Estimated GFR ( Amer) 113.8 ml/min 05/11/22 Estimated GFR (Non-Af Amer) 98.2 ml/min 05/11/22 BUN/Creatinine Ratio 16.7 (10-20) 05/11/22 Glu 129 mg/dl (70-99(Fasting)) H 05/11/22 Ca 7.9 mg/dl (8.5-10.1) L 05/11/22 Mg 1.8 mg/dl (1.7-2.4) 05/11/22 05:41 05/11/22 Calcium Level 7.9 mg/dl (8.5-10.1) L 05/11/22 05:41 05/11/22 Microbiology 05/11/22 05:15 Gram Stain - Final Sputum, Expectorated Diagnostic Findings (Past 24 Hours) Venous Doppler Study 05/10/22 14:13 ULTRASOUND RIGHT LOWER EXTREMITY VENOUS CLINICAL HISTORY: Right leg swelling. COMPARISON STUDY: No priors. TECHNIQUE: Real-time, grayscale, and color Doppler sonography of the deep veins of the right lower extremity was performed from the inguinal crease to the calf. Compression and augmentation were utilized. FINDINGS: There is no sonographic evidence of deep venous thrombosis identified in the right lower extremity. The common femoral, superficial femoral, and popliteal veins are patent and normally compressible. The greater saphenous vein and the profunda femoris vein at the junction with the common femoral vein are clear. The visualized calf veins are patent. A popliteal cyst measures 2.9 x 1.0 x 2.3 cm. IMPRESSION: 1. There is no sonographic evidence of deep venous thrombosis identified in the right lower extremity. 2. Bishop's cyst. ACT 112: Negative or not required by law. Electronically signed by: Nima Foster M.D. 05/10/2022 8:50 PM Chest CTA 05/10/22 16:56 CT ANGIOGRAM OF THE CHEST CLINICAL HISTORY: Dyspnea. COMPARISON STUDY: Chest x-ray dated 05/10/2022. Chest CT dated 06/04/2020. TECHNIQUE: Following the IV administration of 119 cc of Optiray 320, CT angiogram of the chest was performed from the upper abdomen to the thoracic inlet utilizing the pulmonary embolus protocol. Images are reviewed in the axial, sagittal, and coronal planes. 3-D MIPS images are created and assessed. IV contrast was administered without complication. A dose lowering technique was utilized adhering to the principles of ALARA. CT DOSE: 251.69 mGy.cm FINDINGS: Thyroid: Atrophic and heterogeneous. Thoracic aorta: There is atherosclerotic calcification of the thoracic aorta, which is normal in caliber and demonstrates bovine variant arch anatomy. No dissection is seen. Pulmonary vasculature: The pulmonary trunk is dilated, measuring 3.6 cm in diameter. This suggests pulmonary artery hypertension. There are no filling defects identified in main, lobar, or segmental pulmonary branches to suggest pulmonary embolus. Evaluation of the segmental and subsegmental branches is degraded by motion artifact. Heart: The heart is enlarged and and without pericardial effusion. The coronary arteries are densely calcified. Lungs and pleural spaces: Evaluation of the lung parenchyma is degraded by motion artifact. There is moderate bronchiectasis seen throughout both lungs with a lower lobe predominance. Fibrotic changes noted in the right middle lobe. Extensive mucus plugging/intraluminal debris is seen within the lower lobe airways. The trachea appears clear. Extensive nodularity and groundglass consolidation is seen throughout both lungs with a lower lobe predominance. Dense airspace consolidation is seen at the lung bases. There is trace right pleural effusion. Mediastinum: There are numerous mildly enlarged mediastinal lymph nodes. Prevascular nodes measure up to 7 mm in short axis. A precarinal node measures 12 mm in short axis. Amirah: Mildly enlarged hilar lymph nodes measure up to 12 mm in short axis. Axillae: There is no axillary lymphadenopathy. Upper abdomen: There is a small hiatal hernia. A peripherally calcified lesion in the right lobe of the liver is unchanged from 2019 and measures up to 3.4 cm. This may represent post surgical change. There is a 1.2 cm left lobe hepatic cyst. This is decreased in size from 2020. There is a 3 mm nonobstructing left renal calculus. Reflux of contrast into the IVC and hepatic veins suggests cardiac dysfunction. Skeletal structures: The skeletal structures are osteopenic. Degenerative change is noted in the shoulders and thoracic spine. No lytic or blastic bony lesions are seen. There are chronic/healed left-sided rib fractures. IMPRESSION: 1. There is no evidence of pulmonary embolus in the main, lobar, or segmental pulmonary arteries. 2. Cardiomegaly with evidence of pulmonary artery hypertension. 3. There is moderate bronchiectasis throughout both lungs with a lower lobe predominance and significant intraluminal debris/mucus plugging. This has progressed from 2020. 4. There is extensive nodularity seen throughout both lungs with mild patchy groundglass change. There is fibrosis of the right middle lobe, with denser consolidation at both lung bases. The appearance favors a chronic infectious/inflammatory process such as atypical mycobacterium. There may be superimposed bibasilar pneumonia/aspiration pneumonitis. Clinical correlation will be essential and radiographic follow-up is recommended. Nonemergent follow- up with pulmonology is also advised. 5. Trace right pleural effusion. 6. Mildly enlarged mediastinal and hilar lymph nodes are nonspecific and likely related to chronic lung disease. This is similar to previous. 7. Additional findings as above. ACT 112: Negative or not required by law. Electronically signed by: Nima Foster M.D. 05/10/2022 7:06 PM I & O Totals 24 Hours 05/10/22 05/11/22 05/12/22 06:59 06:59 06:59 Intake Total 1545 / 1545 1678.333 / 1678.333 Balance 1545 / 1545 1678.333 / 1678.333 Cumulative 05/10/22 13:48 thru 05/11/22 15:11 Intake Total 3223.333 Balance 3223.333 RT Ventilator Mngmt (Last Documented) Ventilator Ordered Settings Respiratory Rate 20 05/11/22 15:14 Fraction of Inspired Oxygen 6 05/11/22 10:53 Ventilator - PT Measurements Respiratory Rate 20 PG Care Time/CCT Total # of Minutes Spent Total Time Spent with Patient: Total time spent is greater than 50% in coordination of care (as documented) at patient's floor/unit and/or counseling patient: 50 minutes Coding Level of Care Code 92795 Inpt Consult Level 5 Diagnoses Idiopathic bronchiectasis J47.9 Pneumonia J18.9 Pulmonary nodule, left R91.1 Acute and chronic respiratory failure with hypoxia J96.21 Time Spent (min) 50
--- NOTE | 2022-05-11 15:09 | Hospitalist Progress Note ---
Date of Service May 11, 2022 Assessment & Plan (1) Respiratory failure, acute: (2) Asthma exacerbation: (3) Idiopathic bronchiectasis: (4) Pneumonia: Plan: Admit to telemetry Patient presenting from home with reports of worsening shortness of breath, cough, sputum production x 3 weeks Typically on 4 L of oxygen at home however increased to 6 L recently, was saturating well on 6 L in the ED however became acutely short of breath and was subsequently placed on CPAP ABG-pH 7.43, PCO2 54, PO2 81, HCO3 36 Possible early sepsis with WBC 13 K, tachypnea. HR and BP stable. Lactic acid normal. Procalcitonin negative CXR showing multifocal airspace opacity. CTA chest was negative for pulmonary embolism S/p Zosyn in the ED, will continue with given history of previous sputum culture positive for Pseudomonas. Add doxycycline for atypical coverage. Follow blood and sputum cultures S/p IV Solu-Medrol in the ED, continue with IV Solu-Medrol 40 mg q8h Currently on nasal canula at her baseline settings. Aggressive pulmonary toilet with DuoNebs, hypertonic saline nebs, flutter valve, incentive spirometer, percussion vest, inhaled corticosteroid Pulm consulted and doing additional workup. (5) Acute hyponatremia: Plan: Na+ 128, likely hypovolemic hyponatremia due to poor p.o. intake IVF, follow BMP (6) Acquired hypothyroidism: Plan: chronic, stable-Continue levothyroxine (7) Hypertension: Plan: BP controlled, continue diltiazem and atenolol (8) Anxiety and depression: Plan: Stable, continue sertraline (9) DVT prophylaxis: Plan: SQ Lovenox Full Dispo-cont PCU for now. Taniya Callejas DO [facility] Hospitalist Admission and Anticipated Discharge Date Admission Date: May 10, 2022 Subjective 77 yo F with h/o chronic bronchiectasis and severe persistent asthma on home oxygen presents with progressively worsened shortness of breeath over 3 weeks time. she is improving on abx started yesterday she is still coughing a productive yellow cough denies chest pain maintains at baseline oxygen needs including 4LPM continuously and more for exertion Review of Systems Review of Systems: All systems were reviewed and negative except as indicated on subjective above. Physical Exam Physical Exam: CONSTITUTIONAL: WNWD, vitals as above, generally NAD EYES: normal conjunctivae ENT: external ear and nose normal, MMM NECK: trachea midline, RESPIRATORY: +rales in bilateral bases, no crackles or rales. normal respiratory effort CARDIOVASCULAR: regular rate and rhythm, S1 and 2 heard without murmurs, gallops or rubs, no JVD, no peripheral edema, GASTROINTESTINAL: soft, nontender, no guarding MUSCULOSKELETAL: strength 5/5 throughout, no gross focal deficits. SKIN: warm and dry NEUROLOGIC: no facial palsy, no dysarthria. CN 2-12 grossly intact, no sensory deficit, normal cognition, normal speech, no tremor, no gross focal deficits. PSYCHIATRIC: alert cooperative and oriented to person, place and time. Results & Data Results & Data ([facility]) Vital Signs (Past 12 Hours) Vital Signs Temp Pulse Resp BP Pulse Ox 05/11/22 10:53 72 18 94 05/11/22 08:16 36.5 C 85 20 120/71 93 05/11/22 07:12 80 22 91 05/11/22 03:33 65 18 95 Laboratory Results Short CBC 05/11/22 Range/Units 05:41 WBC 7.55 (4.8-10.8) K/uL Hgb 10.6 L (12.0-16.0) g/dL Hct 31.7 L (37-47) % Plt Count 453 H (130-400) K/uL BMP 05/10/22 05/11/22 14:35 05:41 Sodium 128 L 129 L Potassium 3.9 3.8 Chloride 87 L 93 L Carbon Dioxide 34 H 30 BUN 10 7 Creatinine 0.45 L 0.42 L Glucose 110 H 129 H Calcium 9.4 7.9 L Liver Function 05/10/22 Range/Units 14:35 Total Bilirubin 0.5 (0.2-1.0) mg/dl AST 14 (13-39) U/L ALT 10 (7-52) U/L Alkaline Phosphatase 61 (34-104) U/L Albumin 3.2 L (3.4-5.0) gm/dl Medications Administered Current Inpatient Medications Acetaminophen (Acetaminophen 325 Mg Tab) 650 mg PO Q4H PRN PRN Reason: Pain or Fever Stop: 06/09/22 18:40 Albuterol (Albut/Ipratrop 3mg/0.5mg Neb 3 Ml Vial) 3 ml NEB Q4R [facility]; Protocol Stop: 06/09/22 18:59 Last Admin: 05/11/22 10:51 Dose: 3 ml Documented by: Atenolol (Atenolol 50 Mg Tablet) 100 mg PO QAM [facility] Stop: 06/10/22 08:59 Last Admin: 05/11/22 08:36 Dose: 100 mg Documented by: Atorvastatin Calcium (Atorvastatin 10 Mg Tab) 10 mg PO QAM [facility] Stop: 06/10/22 08:59 Last Admin: 05/11/22 08:36 Dose: 10 mg Documented by: Cetirizine HCl (Cetirizine Hcl 10 Mg Tablet) 10 mg PO QAM [facility] Stop: 06/10/22 08:59 Last Admin: 05/11/22 08:36 Dose: 10 mg Documented by: Diltiazem HCl (Diltiazem Hcl 300 Mg Capcr) [facility] Stop: 06/10/22 08:59 Last Admin: 05/11/22 08:37 Dose: 300 mg Documented by: Enoxaparin Sodium (Enoxaparin Inj 40 Mg/0.4 Ml Syr) 40 mg SQ Q24H [facility] Stop: 06/09/22 18:59 Last Admin: 05/10/22 19:37 Dose: 40 mg Documented by: Famotidine (Famotidine 20 Mg Tab) 20 mg PO HS [facility]; Protocol Stop: 06/09/22 20:59 Last Admin: 05/10/22 20:11 Dose: 20 mg Documented by: Fluticasone/Vilanterol (Fluticasone/Vilanterol 200/25mcg 14 Puffs/Inhaler) 1 puffs INH DAILY [facility]; Protocol Stop: 06/10/22 08:59 Last Admin: 05/11/22 08:38 Dose: 1 puffs Documented by: Guaifenesin (Guaifenesin 600 Mg Tabcr) 1,200 mg PO BID [facility] Stop: 06/10/22 20:59 Sodium Chloride (Nss 1000ml) 1,000 mls @ 80 mls/hr IV .[id number] [facility] Stop: 06/09/22 18:40 Last Admin: 05/11/22 07:37 Dose: 80 mls/hr Documented by: Piperacillin Sod/Tazobactam (Sod 3.375 gm/ Dextrose) 115 mls @ 28.75 mls/hr IV Q8H [facility]; Protocol Stop: 05/17/22 21:59 Last Admin: 05/11/22 14:52 Dose: 28.8 mls/hr Documented by: Doxycycline Hyclate 100 mg/ (Dextrose) 110 mls @ 50 mls/hr IV Q12H [facility] Stop: 05/17/22 18:59 Last Infusion: 05/11/22 08:53 Dose: Infused Documented by: Methylprednisolone 40 mg/ (Syringe) 0.64 mls @ 1.5 mls/min IV Q8H [facility] Stop: 06/09/22 21:59 Last Admin: 05/11/22 14:52 Dose: 1.5 mls/min Documented by: Levothyroxine Sodium (Levothyroxine Sodium 75 Mcg Tablet) 75 mcg PO DAILYBB [facility] Stop: 06/10/22 06:29 Last Admin: 05/11/22 05:33 Dose: 75 mcg Documented by: Montelukast Sodium (Montelukast Sodium 10 Mg Tablet) 10 mg PO QPM [facility] Stop: 06/09/22 20:59 Last Admin: 05/10/22 20:12 Dose: 10 mg Documented by: Ondansetron HCl (Ondansetron Inj 2 Mg/Ml 2 Ml Vial) 4 mg IV Q6H PRN PRN Reason: Nausea Stop: 06/09/22 18:40 Sertraline HCl (Sertraline Hcl 50 Mg Tablet) 25 mg PO QAM [facility] Stop: 06/10/22 08:59 Last Admin: 05/11/22 08:37 Dose: 25 mg Documented by: Sodium Chloride (Sodium Chlor 7% 4 Ml Neb) 4 ml NEB BIDR [facility] Stop: 06/09/22 18:59 Last Admin: 05/11/22 07:12 Dose: 4 ml Documented by: (1) Asthma exacerbation Asthma persistence: unspecified Asthma severity: severe Qualified Code(s): J45.901 - Unspecified asthma with (acute) exacerbation (2) Respiratory failure, acute Respiratory failure complication: unspecified whether with hypoxia or hypercapnia Qualified Code(s): J96.00 - Acute respiratory failure, unspecified whether with hypoxia or hypercapnia
[2022-05-11] MEDS ORDERED: SALINE NASAL 225 SPRAYS, GENTAMICIN SULFATE 60 MG, BARCODE IDENTIFIER 0 EACH PRN (17:09)
[2022-05-11] MEDS ORDERED: SODIUM CHLORIDE 0.65% NA SOLN 45 ML (OCEAN) ONE (17:12)
[2022-05-11] MEDS ORDERED: SODIUM CHLORIDE 0.65% NA SOLN 45 ML (OCEAN) PRN (18:27)
[2022-05-11] MEDS ORDERED: SODIUM CHLOR 7% 4 ML NEB NEB SCH (19:00)
[2022-05-11] MEDS: ENOXAPARIN INJ 40 MG/0.4 ML SYR SQ SCH (20:53)
[2022-05-11] MEDS: MONTELUKAST SODIUM 10 MG TABLET PO SCH (20:54)
[2022-05-11] MEDS: FAMOTIDINE 20 MG TAB PO SCH (20:55)
[2022-05-12] MEDS: PIPERACILLIN/TAZOBACTAM 3.375 GM in DEXTROSE 5% 100 ML IV SCH ×3 (05:40→21:10)
[2022-05-12] MEDS: DOXYCYCLINE HYCLATE 100 MG in DEXTROSE 5% 100 ML IV SCH (05:43)
[2022-05-12] MEDS: LEVOTHYROXINE SODIUM 75 MCG TABLET PO SCH (05:44)
[2022-05-12] MEDS: methylPREDNISolone 40 MG in SYRINGE 0 ML IV SCH ×3 (06:12→21:03)
[2022-05-12] MEDS: SODIUM CHLOR 7% 4 ML NEB NEB SCH ×2 (06:57→23:19)
[2022-05-12] MEDS: ALBUT/IPRATROP 3MG/0.5MG NEB 3 ML VIAL NEB SCH ×2 (07:13→11:07)
[2022-05-12] MEDS: FLUTICASONE/VILANTEROL 200/25MCG 14 PUFFS/INHALER INH SCH (08:25)
[2022-05-12] MEDS: SERTRALINE HCL 50 MG TABLET PO SCH (08:26)
[2022-05-12] MEDS: guaiFENesin 600 MG TABCR PO SCH ×2 (08:26→21:04)
[2022-05-12] MEDS: dilTIAZem HCL 300 MG CAPCR PO SCH (08:26)
[2022-05-12] MEDS: ATORVASTATIN 10 MG TAB PO SCH (08:26)
[2022-05-12] MEDS: CETIRIZINE HCL 10 MG TABLET PO SCH (08:26)
[2022-05-12] MEDS: ATENOLOL 50 MG TABLET PO SCH (08:27)
--- NOTE | 2022-05-12 13:11 | Hospitalist Progress Note ---
Date of Service May 12, 2022 Assessment & Plan (1) Acute and chronic respiratory failure with hypoxia: (2) Idiopathic bronchiectasis: (3) Pneumonia: Plan: Patient presenting from home with reports of worsening shortness of breath, cough, sputum production x 3 weeks Typically on 4 L of oxygen at home however increased to 6 L recently, was saturating well on 6 L in the ED however became acutely short of breath and was subsequently placed on CPAP Possible early sepsis with WBC 13 K, tachypnea. HR and BP stable. Lactic acid normal. Procalcitonin negative CXR showing multifocal airspace opacity. CTA chest was negative for pulmonary embolism S/p Zosyn in the ED, will continue with given history of previous sputum culture positive for Pseudomonas. Add doxycycline for atypical coverage. Follow blood and sputum cultures--sputum now growing GNB, cont Zosyn Will de-escalate solumedrol to prednisone as patient has improved and taper this down Currently on nasal canula at her baseline settings. Aggressive pulmonary toilet with DuoNebs, hypertonic saline nebs, flutter valve, incentive spirometer, percussion vest, inhaled corticosteroid Pulm consulted and doing additional workup. (4) Acute hyponatremia: Plan: Na+ 128, likely hypovolemic hyponatremia due to poor p.o. intake She is eating better and now off IVF. Na still <130. Normal Na last September per outpatient records review. Urine studies in am and trend BMP. SSRI may be contributing. (5) Acquired hypothyroidism: Plan: chronic, stable-Continue levothyroxine (6) Hypertension: Plan: BP controlled, continue diltiazem and atenolol (7) Anxiety and depression: Plan: Stable, continue sertraline (8) DVT prophylaxis: Plan: SQ Lovenox Full Dispo-cont PCU for now. DO [facility] Admission and Anticipated Discharge Date Admission Date: May 10, 2022 Subjective 77 yo F with h/o chronic bronchiectasis and severe persistent asthma on home oxygen presents with progressively worsened shortness of breeath over 3 weeks time. she is improving on abx and steroids coughing is improved and so is her wheezing she reports ambulating with assistance today and still with some dyspnea on exertion denies chest pain afebrile Review of Systems Review of Systems: All systems were reviewed and negative except as indicated on subjective above. Physical Exam Physical Exam: CONSTITUTIONAL: WNWD, vitals as above, generally NAD EYES: normal conjunctivae ENT: external ear and nose normal, MMM NECK: trachea midline, RESPIRATORY: +wheezes in bilateral bases, no crackles or rales. normal respiratory effort, NC in place. CARDIOVASCULAR: regular rate and rhythm, S1 and 2 heard without murmurs, gallops or rubs, no JVD, no peripheral edema, GASTROINTESTINAL: soft, nontender, no guarding MUSCULOSKELETAL: strength 5/5 throughout, no gross focal deficits. SKIN: warm and dry NEUROLOGIC: no facial palsy, no dysarthria. CN 2-12 grossly intact, no sensory deficit, normal cognition, normal speech, no tremor, no gross focal deficits. PSYCHIATRIC: alert cooperative and oriented to person, place and time. Results & Data Results & Data ([facility]) Vital Signs (Past 12 Hours) Vital Signs Temp Pulse Resp BP BP Pulse Ox 05/12/22 11:32 36.6 C 60 22 109/65 97 05/12/22 11:08 60 18 94 05/12/22 08:12 36.3 C L 66 22 119/58 L 92 05/12/22 06:59 65 18 96 05/12/22 03:55 36.8 C 62 18 110/58 L 93 Medications Administered Current Inpatient Medications Acetaminophen (Acetaminophen 325 Mg Tab) 650 mg PO Q4H PRN PRN Reason: Pain or Fever Stop: 06/09/22 18:40 Albuterol (Albut/Ipratrop 3mg/0.5mg Neb 3 Ml Vial) 3 ml NEB QIDR [facility]; Protocol Stop: 06/11/22 06:59 Last Admin: 05/12/22 11:07 Dose: 3 ml Documented by: Atenolol (Atenolol 50 Mg Tablet) 100 mg PO [facility] Stop: 06/10/22 08:59 Last Admin: 05/12/22 08:27 Dose: 100 mg Documented by: Atorvastatin Calcium (Atorvastatin 10 Mg Tab) 10 mg PO [facility] Stop: 06/10/22 08:59 Last Admin: 05/12/22 08:26 Dose: 10 mg Documented by: Benzonatate (Benzonatate 100 Mg Capsule) 100 mg PO TID PRN PRN Reason: Cough Stop: 06/11/22 00:39 Cetirizine HCl (Cetirizine Hcl 10 Mg Tablet) 10 mg PO QAM [facility] Stop: 06/10/22 08:59 Last Admin: 05/12/22 08:26 Dose: 10 mg Documented by: Diltiazem HCl (Diltiazem Hcl 300 Mg Capcr) 300 mg PO QAM [facility] Stop: 06/10/22 08:59 Last Admin: 05/12/22 08:26 Dose: 300 mg Documented by: Enoxaparin Sodium (Enoxaparin Inj 40 Mg/0.4 Ml Syr) 40 mg SQ Q24H [facility] Stop: 06/09/22 18:59 Last Admin: 05/11/22 20:53 Dose: 40 mg Documented by: Famotidine (Famotidine 20 Mg Tab) 20 mg PO HS [facility]; Protocol Stop: 06/09/22 20:59 Last Admin: 05/11/22 20:55 Dose: 20 mg Documented by: Fluticasone/Vilanterol (Fluticasone/Vilanterol 200/25mcg 14 Puffs/Inhaler) 1 puffs INH DAILY [facility]; Protocol Stop: 06/10/22 08:59 Last Admin: 05/12/22 08:25 Dose: 1 puffs Documented by: Guaifenesin (Guaifenesin 600 Mg Tabcr) 1,200 mg PO BID [facility] Stop: 06/10/22 20:59 Last Admin: 05/12/22 08:26 Dose: 1,200 mg Documented by: Piperacillin Sod/Tazobactam (Sod 3.375 gm/ Dextrose) 115 mls @ 28.75 mls/hr IV Q8H [facility]; Protocol Stop: 05/17/22 21:59 Last Infusion: 05/12/22 09:47 Dose: Infused Documented by: Doxycycline Hyclate 100 mg/ (Dextrose) 110 mls @ 50 mls/hr IV Q12H [facility] Stop: 05/17/22 18:59 Last Infusion: 05/12/22 08:43 Dose: Infused Documented by: Methylprednisolone 40 mg/ (Syringe) 0.64 mls @ 1.5 mls/min IV Q8H [facility] Stop: 06/09/22 21:59 Last Admin: 05/12/22 06:12 Dose: 1.5 mls/min Documented by: Levothyroxine Sodium (Levothyroxine Sodium 75 Mcg Tablet) 75 mcg PO DAILYBB [facility] Stop: 06/10/22 06:29 Last Admin: 05/12/22 05:44 Dose: 75 mcg Documented by: Montelukast Sodium (Montelukast Sodium 10 Mg Tablet) 10 mg PO QPM [facility] Stop: 06/09/22 20:59 Last Admin: 05/11/22 20:54 Dose: 10 mg Documented by: Ondansetron HCl (Ondansetron Inj 2 Mg/Ml 2 Ml Vial) 4 mg IV Q6H PRN PRN Reason: Nausea Stop: 06/09/22 18:40 Sertraline HCl (Sertraline Hcl 50 Mg Tablet) 25 mg PO QAM [facility] Stop: 06/10/22 08:59 Last Admin: 05/12/22 08:26 Dose: 25 mg Documented by: Sodium Chloride (Sodium Chlor 7% 4 Ml Neb) 4 ml NEB BIDR [facility] Stop: 06/09/22 18:59 Last Admin: 05/12/22 06:57 Dose: 4 ml Documented by: Sodium Chloride (Sodium Chloride 0.65% Na Soln 45 Ml (Merna)) 1 sprays NA NOW PRN PRN Reason: Nasal Congestion Stop: 06/10/22 18:26
--- NOTE | 2022-05-12 17:37 | Pulmonology Progress Note ---
Date of Service May 12, 2022 Assessment & Plan (1) Idiopathic bronchiectasis: (2) Pneumonia: (3) Pulmonary nodule, left: (4) Acute and chronic respiratory failure with hypoxia: Plan: Attending: Dr. Garces Impression: 77-year-old female followed by [facility] pulmonary group for chronic bronchiectasis and severe persistent asthma. Patient with no history of bronchoscopy. As required hospitalization in the past for mucoid impaction. Patient does have flutter valve and percussion vest at home. Has required multiple courses of antibiotics and steroids in the past for shortness of breath. Most recent visit with [facility] pulmonology was March 2022. Patient was feeling ill and requested outpatient appointment with pulmonology this week but they were unable to fit her in. They proposed a video appointment. Patient was unable to facilitate that from a technological standpoint. Patient presented to the emergency department and was admitted for shortness of breath and acute on chronic respiratory failure with increased oxygen requirements. Patient does use 4 L of supplemental oxygen at home at rest and 5 to 6 L with exertion. Patient is currently oxygenating well on 5 L/min via nasal cannula. She denies any fever. She denies any hemoptysis. Complaints are similar to prior acute exacerbation of bronchiectasis. Recommendations: 1. Exacerbation of bronchiectasis * Continue with flutter valve and percussion vest * Continue on hypertonic saline. Continue doxycycline and Zosyn. Trend procalcitonin. * AFB is pending to rule out YULIYA or MAC. AFB at [facility] in 05/2021 was negative * Continue Mucinex 1200 mg p.o. twice daily * Continue with steroids and plan on taper upon discharge * No indication for bronchoscopy at this time. We will repeat chest x-ray in the morning. 2. Acute on chronic respiratory failure with hypoxia * Continue with supplemental oxygen to maintain SPO2 greater than 90% * Patient reports that she follows SaO2 at home. The lowest it has been has been 85% and quickly corrected to above 90% * Continue with bronchodilators and treatment as above for bronchiectasis * Arterial blood gas shows stable pH at 7.43. PCO2 slightly elevated at 54 mmHg PaO2 adequate at 81 mmHg 3. Severe persistent asthma: * Pulmonary function testing in 2020 as above in HPI * Patient on Wixela and Spiriva as an outpatient * Continue inpatient and discharge on home meds 4. Pneumonia: * Continue antibiotics including Doxy and Zosyn (Day # 3) * Hx of pansensitive pseudomonas 05/20/21 with sputum culture * No AFB on sputum culture 05/20/2021. Repeat sputum is pending * Calcitonin is negative at less than 0.05 * Patient is afebrile Thank you for including us in the care of this patient. We will sign off at this time. Patient appears to be at baseline. Please call with any other questions or needs. Pulmonary function testing 07/21/2021: * FVC 1.56 L, 71% * FEV1 0.75 L, 44% * FEV1/FVC 48% * TLC 6.01 L, 139% * RV 4.5 L, 216% * RV/TLC 75% * DLCO 47% Admission and Anticipated Discharge Date Admission Date: May 10, 2022 Supervising Physician Co-Signing Physician Notes I saw and evaluated the patient with Nima Samuels, and agree with findings and plan as documented in the note. Patient seen and examined at bedside. No acute distress, no delusions overnight She was saturating 95-96% on 5 L nasal cannula I was able to go down to 4 L he was still saturating 92-93% Says that she is doing better. Has been getting hypertonic saline nebulized and is able to bring up the phlegm Denies any chest pain No headache Fair appetite Constitutional: No acute distress, frail-appearing HEENT: EOMI, PERRLA Respiratory system: Decreased air entry bilaterally, no rhonchi, positive crackles bilaterally, minimal expiratory wheeze bilaterally improved from yesterday CVS: S1-S2 positive, no murmurs or gallops Abdomen: Soft, nontender, nondistended, positive bowel sounds x4 Extremities: +2 pulses bilaterally radialis/ dorsalis pedis, no cyanosis, no edema Neuro: Awake alert oriented x3 Psych: Normal mood and affect G/U: No Anderson Plan: Continue with airway clearance technique with hypertonic saline, flutter valve as well as chest vest therapy Continue with antibiotics with antipseudomonal coverage Follow-up AFB sputum Clinically patient is improving Recommend tapering off prednisone. No further recommendation from pulmonary perspective. We will sign off. Call directly with any questions Please note the above document was generated using voice recognition software. It may contain grammatical, syntax or spelling errors.Any formal questions or concerns about the content, text or information contained within the body of this dictation should be directly addressed to the provider for clarification. Subjective Attending: Dr. Garces Patient seen and examined in room 208. She seems to be doing much better regarding her breathing. She still does have some cough but her production of sputum was decreased. She has no chest pain or tightness. She denies any fever. She appears to be back to her baseline supplemental oxygen requirements. No other acute complaints. Review of Systems Review of Systems: A total of 10 systems was reviewed and is negative other than as listed above in the HPI Physical Exam Physical Exam: GENERAL : No acute distress EYES: No icterus, gaze conjugate NOSE: No evidence of epistaxis MOUTH: No lesions or candidiasis NECK: Supple LUNGS: Continues with mild scattered bronchospasm. Some minimal rales in the bases. No rhonchi. Deep breath induces cough. HEART: Regular, rate controlled ABDOMEN: Soft, NT, ND, BS Present EXTREMITIES: Slight right lower extremity edema secondary to leg hanging over bed. Patient states that frequently she has edema of the legs but when she puts them up at night swelling resolves. No calf tenderness. Resolves. pedal pulses intact and equal bilaterally NEURO: A&OX3 Results & Data Results & Data ([facility]) Vital Signs (Past 12 Hours) Vital Signs Temp Pulse Resp BP Pulse Ox 05/12/22 15:40 36.7 C 61 24 137/62 93 05/12/22 11:32 36.6 C 60 22 109/65 97 05/12/22 11:08 60 18 94 05/12/22 08:12 36.3 C L 66 22 119/58 L 92 05/12/22 06:59 65 18 96 Critical Care Results & Data Vital Signs (Past 12 Hours) Vital Signs Temp Pulse Resp BP Pulse Ox 05/12/22 15:40 36.7 C 61 24 137/62 93 05/12/22 11:32 36.6 C 60 22 109/65 97 05/12/22 11:08 60 18 94 05/12/22 08:12 36.3 C L 66 22 119/58 L 92 05/12/22 06:59 65 18 96 Lab & Micro Results (Past 24 Hours) No Data to Display No Data to Display No Data to Display Microbiology 05/10/22 15:57 Aerobic Blood Culture - Preliminary Blood No growth in Aerobic bottle after 48 hours. Anaerobic Blood Culture - Preliminary No growth in Anaerobic bottle after 48 hours. 05/10/22 16:17 Aerobic Blood Culture - Preliminary Blood No growth in Aerobic bottle after 48 hours. Anaerobic Blood Culture - Preliminary No growth in Anaerobic bottle after 48 hours. 05/11/22 05:15 Gram Stain - Final Sputum, Expectorated Sputum Culture - Preliminary Gram negative bacilli Gram negative bacilli#2 I & O Totals 24 Hours 05/11/22 05/12/22 05/13/22 06:59 06:59 06:59 Intake Total 1545 / 1545 3186.666 / 3186.666 225 / 225 Balance 1545 / 1545 3186.666 / 3186.666 225 / 225 Cumulative 05/10/22 13:48 thru 05/12/22 10:54 Intake Total 4956.666 Balance 4956.666 RT Ventilator Mngmt (Last Documented) Ventilator Ordered Settings Respiratory Rate 24 05/12/22 15:40 Fraction of Inspired Oxygen 6 05/11/22 10:53 Ventilator - PT Measurements Respiratory Rate 24 PG Care Time/CCT Total # of Minutes Spent Total Time Spent with Patient: Total time spent is greater than 50% in coordination of care (as documented) at patient's floor/unit and/or counseling patient:20 minutes Coding Level of Care Code 24210 Subseq Hosp Care Lvl 2 Diagnoses Idiopathic bronchiectasis J47.9 Pneumonia J18.9 Pulmonary nodule, left R91.1 Acute and chronic respiratory failure with hypoxia J96.21
[2022-05-12] MEDS: ENOXAPARIN INJ 40 MG/0.4 ML SYR SQ SCH (18:07)
[2022-05-12] MEDS: DOXYCYCLINE HYCLATE 100 MG CAP PO SCH (21:03)
[2022-05-12] MEDS: FAMOTIDINE 20 MG TAB PO SCH (21:04)
[2022-05-12] MEDS: MONTELUKAST SODIUM 10 MG TABLET PO SCH (21:07)
[2022-05-12] MEDS: ALBUT/IPRATROP 3MG/0.5MG NEB 3 ML VIAL NEB PRN (22:56)
[2022-05-13] MEDS: LEVOTHYROXINE SODIUM 75 MCG TABLET PO SCH (05:51)
[2022-05-13] MEDS: PIPERACILLIN/TAZOBACTAM 3.375 GM in DEXTROSE 5% 100 ML IV SCH ×3 (05:51→21:06)
[2022-05-13 06:32] LABS: Hematocrit (blood only) 30.1 % (37-47); Mean Corpuscular Hgb Conc 33.2 g/dL (32-36); Mean Corpuscular Volume 90.4 fL (80-100); Mean Platelet Volume 8.6 fL (7.4-10.4); Platelet Count 384 K/uL (130-400); RDW Coefficient of Variation 13.5 % (11.5-14.5); RDW Standard Deviation 44.1 fL (36.4-46.3); Red Blood Count 3.33 M/uL (4.2-5.4); White Blood Count 11.38 K/uL (4.8-10.8)
[2022-05-13 06:47] LABS: BUN Creatinine Ratio 34.1 (10-20); Calcium 7.7 mg/dl (8.5-10.1); Creatinine Clr Calc Pharmacy 84.8 ml/min; Est GFR (African American) 114.7 ml/min; Magnesium 1.9 mg/dl (1.7-2.4); Potassium 3.4 mmol/L (3.5-5.1)
[2022-05-13] MEDS: ALBUT/IPRATROP 3MG/0.5MG NEB 3 ML VIAL NEB PRN ×2 (07:08→19:43)
[2022-05-13] MEDS: SODIUM CHLOR 7% 4 ML NEB NEB SCH (07:11)
--- NOTE | 2022-05-13 07:15 | XRay Report ---
XR chest 1V portable HISTORY: 77 years-old Female Bronchiectasis follow-up study in a patient with shortness of breath COMPARISON: CTA chest and chest radiograph study 05/10/2022 TECHNIQUE: AP view of the chest FINDINGS: Cardiac silhouette is enlarged. No pneumothorax. Trace right pleural effusion. Atherosclerosis of the thoracic aorta. Saccular nodular opacities with right greater than left bibasilar consolidation. The right basilar consolidation appears to have mildly progressed. Right basilar predominant bronchiecta sis. Degenerative changes of the shoulders and spine. IMPRESSION: 1. Diffuse reticular nodular opacities redemonstrated with mildly progressed right basilar consolidat ion. These findings in conjunction with bronchiectasis are suggestive of a chronic infectious or infl ammatory pneumonitis such as atypical mycobacterium. 2. Trace right pleural effusion. ACT 112: Negative or not required by law. The above report was generated using voice recognition software. It may contain grammatical, syntax o r spelling errors. Electronically signed by: Efrem Norwood M.D. 05/13/2022 7:14 AM
[2022-05-13 07:56] LABS: Creatinine Urine Random 26.9 mg/dl
[2022-05-13] MEDS ORDERED: COUGH DROP (SUGAR FREE) LOZ 24 LOZ/1 BOX BUCCAL STA (09:31)
[2022-05-13] MEDS: CETIRIZINE HCL 10 MG TABLET PO SCH (09:32)
[2022-05-13] MEDS: ATORVASTATIN 10 MG TAB PO SCH (09:32)
[2022-05-13] MEDS: predniSONE 20 MG TAB PO SCH (09:33)
[2022-05-13] MEDS: DOXYCYCLINE HYCLATE 100 MG CAP PO SCH ×2 (09:33→21:05)
[2022-05-13] MEDS: dilTIAZem HCL 300 MG CAPCR PO SCH (09:33)
[2022-05-13] MEDS: SERTRALINE HCL 50 MG TABLET PO SCH (09:33)
[2022-05-13] MEDS: FLUTICASONE/VILANTEROL 200/25MCG 14 PUFFS/INHALER INH SCH (09:34)
[2022-05-13] MEDS: guaiFENesin 600 MG TABCR PO SCH ×2 (09:34→21:05)
[2022-05-13] MEDS: ATENOLOL 50 MG TABLET PO SCH (09:34)
[2022-05-13] MEDS ORDERED: POTASSIUM CHLORIDE CRTAB 20 MEQ TABCR PO ONE (11:36)
[2022-05-13] MEDS ORDERED: BENZONATATE 100 MG CAPSULE PO ONE (14:12)
[2022-05-13] MEDS ORDERED: CALCIUM CARBONATE 500 MG CHEWABLE TAB PO ONE (14:12)
--- NOTE | 2022-05-13 15:33 | Pulmonology Progress Note ---
Date of Service May 13, 2022 Assessment & Plan (1) Idiopathic bronchiectasis: (2) Pneumonia: (3) Pulmonary nodule, left: (4) Acute and chronic respiratory failure with hypoxia: Plan: Attending: Dr. Garces Impression: 77-year-old female followed by [facility] pulmonary group for chronic bronchiectasis and severe persistent asthma. Patient with no history of bronchoscopy. As required hospitalization in the past for mucoid impaction. Patient does have flutter valve and percussion vest at home. Has required multiple courses of antibiotics and steroids in the past for shortness of breath. Most recent visit with [facility] pulmonology was March 2022. Patient was feeling ill and requested outpatient appointment with pulmonology this week but they were unable to fit her in. They proposed a video appointment. Patient was unable to facilitate that from a technological standpoint. Patient presented to the emergency department and was admitted for shortness of breath and acute on chronic respiratory failure with increased oxygen requirements. P atient does use 4 L of supplemental oxygen at home at rest and 5 to 6 L with exertion. Patient is currently oxygenating well on 5 L/min via nasal cannula. She denies any fever. She denies any hemoptysis. Complaints are similar to prior acute exacerbation of bronchiectasis. Recommendations: 1. Exacerbation of bronchiectasis * Continue with flutter valve and percussion vest * We will discontinue hypertonic saline as patient was unable to tolerate. * Patient continues on doxycycline and Zosyn. * Sputum culture grew pansensitive Pseudomonas in the setting of negative procalcitonin but elevated white blood cells * Can de-escalate antibiotics but continue for total 7 to 10 days of total treatment * AFB smear is negative. Culture is pending to rule out YULIYA or MAC. (AFB at [facility] in 05/2021 was negative) * Continue Mucinex 1200 mg p.o. twice daily * Continue with steroids and plan on taper upon discharge * Patient seems to be back to baseline with oxygen requirements and seems to be improved. No bronchoscopy at this time. 2. Acute on chronic respiratory failure with hypoxia * Continue with supplemental oxygen to maintain SPO2 greater than 90% * Continue with bronchodilators and treatment as above for bronchiectasis * Arterial blood gas shows stable pH at 7.43. PCO2 slightly elevated at 54 mmHg PaO2 adequate at 81 mmHg 3. Severe persistent asthma: * Pulmonary function testing in 2020 as above in HPI * Patient on Wixela and Spiriva as an outpatient * Continue inpatient bronchodilators and discharge on home meds 4. Pneumonia: * Day #4 Doxy and Zosyn. Can de-escalate and treat for an additional 7 days * Hx of pansensitive pseudomonas 05/20/21 with sputum culture * No AFB on sputum culture 05/20/2021. Repeat sputum is negative for AFB smear. Cultures pending * Calcitonin is negative at less than 0.05 * Patient is afebrile Thank you for including us in the care of this patient. We will sign off at this time. Patient appears to be at baseline. We will continue to be available if patient is status changes Pulmonary function testing 07/21/2021: * FVC 1.56 L, 71% * FEV1 0.75 L, 44% * FEV1/FVC 48% * TLC 6.01 L, 139% * RV 4.5 L, 216% * RV/TLC 75% * DLCO 47% Admission and Anticipated Discharge Date Admission Date: May 10, 2022 Supervising Physician Co-Signing Physician Notes I saw and evaluated the patient with Nima Samuels, and agree with findings and plan as documented in the note. Patient seen and examined at bedside. No acute distress, no adverse events overnight. Patient says she is doing better when it comes to her breathing She did have fit of coughing when she got the hypertonic saline. No hemoptysis. Denies any chest pain. Fair appetite. Constitutional: No acute distress, frail-appearing HEENT: EOMI, PERRLA Respiratory system: Decreased air entry bilaterally, no rhonchi, positive crackles bilaterally, no wheezing CVS: S1-S2 positive, no murmurs or gallops Abdomen: Soft, nontender, nondistended, positive bowel sounds x4 Extremities: +2 pulses bilaterally radialis/ dorsalis pedis, no cyanosis, no edema Neuro: Awake alert oriented x3 Psych: Normal mood and affect G/U: No Anderson Plan: Continue with flutter valve and chest vest therapy. DC hypertonic saline Continue with Mucinex Continue with tapering prednisone No further recommendation from pulmonary perspective. We will sign off. Call directly with any questions Please note the above document was generated using voice recognition software. It may contain grammatical, syntax or spelling errors.Any formal questions or concerns about the content, text or information contained within the body of this dictation should be directly addressed to the provider for clarification. Subjective Attending: Dr. Garces Patient seen and examined in room 208. She reports that this morning she had further exacerbation of her cough with mucus "trapping" after using hypertonic nebulizer treatments. She denies any hemoptysis. Sputum continues to be yellow to barr. It seems to be thinner. Aside from cough with hypertonic nebs, patient feels that she is improving. No fever. No other acute complaints Review of Systems Review of Systems: A total of 10 systems was reviewed and is negative other than as listed above in the HPI Physical Exam Physical Exam: GENERAL : No acute distress EYES: No icterus, gaze conjugate NOSE: No evidence of epistaxis MOUTH: No lesions or candidiasis NECK: Supple LUNGS: Improved aeration. Wheezes appreciated in the left basilar region. These dissipated with forced cough. HEART: Regular, rate controlled ABDOMEN: Soft, NT, ND, BS Present EXTREMITIES: No LE edema, pedal pulses intact NEURO: A&OX3 Results & Data Results & Data ([facility]) Vital Signs (Past 12 Hours) Vital Signs Temp Pulse Pulse Resp BP Pulse Ox 05/13/22 11:40 36.4 C L 62 12 121/71 98 05/13/22 07:15 36.5 C 61 16 147/62 H 96 05/13/22 07:11 67 26 H 89 L 05/13/22 06:15 64 05/13/22 05:47 61 17 134/78 98 Critical Care Results & Data Vital Signs (Past 12 Hours) Vital Signs Temp Pulse Pulse Resp BP Pulse Ox 05/13/22 11:40 36.4 C L 62 12 121/71 98 05/13/22 07:15 36.5 C 61 16 147/62 H 96 05/13/22 07:11 67 26 H 89 L 05/13/22 06:15 64 05/13/22 05:47 61 17 134/78 98 Lab & Micro Results (Past 24 Hours) RBC 3.33 M/uL (4.2-5.4) L 05/13/22 WBC 11.38 K/uL (4.8-10.8) H 05/13/22 Hgb 10.0 g/dL (12.0-16.0) L 05/13/22 Hct 30.1 % (37-47) L 05/13/22 MCV 90.4 fL (80-100) 05/13/22 MCH 30.0 pg (25-34) 05/13/22 MCHC 33.2 g/dL (32-36) 05/13/22 RDW Standard Deviation 44.1 fL (36.4-46.3) 05/13/22 RDW Coefficient of Variation 13.5 % (11.5-14.5) 05/13/22 Plt Count 384 K/uL (130-400) 05/13/22 MPV 8.6 fL (7.4-10.4) 05/13/22 Na 134 mmol/L (136-145) L 05/13/22 K 3.4 mmol/L (3.5-5.1) L 05/13/22 Cl 96 mmol/L (98-107) L 05/13/22 CO2 33 mmol/L (21-32) H 05/13/22 Anion Gap 5 (3-11) 05/13/22 BUN 14 mg/dl (6-23) 05/13/22 Creatinine 0.41 mg/dl (0.6-1.2) L 05/13/22 Estimated GFR ( Amer) 114.7 ml/min 05/13/22 Estimated GFR (Non-Af Amer) 99.0 ml/min 05/13/22 BUN/Creatinine Ratio 34.1 (10-20) H 05/13/22 Glu 117 mg/dl (70-99(Fasting)) H 05/13/22 Ca 7.7 mg/dl (8.5-10.1) L 05/13/22 Mg 1.9 mg/dl (1.7-2.4) 05/13/22 05:51 05/13/22 Calcium Level 7.7 mg/dl (8.5-10.1) L 05/13/22 05:51 05/13/22 Microbiology 05/11/22 14:55 Acid Fast Bacilli Smear - Final Sputum, Expectorated 05/11/22 05:15 Gram Stain - Final Sputum, Expectorated Sputum Culture - Preliminary Gram negative bacilli Pseudomonas aeruginosa 05/10/22 15:57 Aerobic Blood Culture - Preliminary Blood No growth in Aerobic bottle after 48 hours. Anaerobic Blood Culture - Preliminary No growth in Anaerobic bottle after 48 hours. 05/10/22 16:17 Aerobic Blood Culture - Preliminary Blood No growth in Aerobic bottle after 48 hours. Anaerobic Blood Culture - Preliminary No growth in Anaerobic bottle after 48 hours. Diagnostic Findings (Past 24 Hours) Chest X-Ray 05/13/22 07:00 XR chest 1V portable HISTORY: 77 years-old Female Bronchiectasis follow-up study in a patient with shortness of breath COMPARISON: CTA chest and chest radiograph study 05/10/2022 TECHNIQUE: AP view of the chest FINDINGS: Cardiac silhouette is enlarged. No pneumothorax. Trace right pleural effusion. Atherosclerosis of the thoracic aorta. Saccular nodular opacities with right greater than left bibasilar consolidation. The right basilar consolidation appears to have mildly progressed. Right basilar predominant bronchiectasis. Degenerative changes of the shoulders and spine. IMPRESSION: 1. Diffuse reticular nodular opacities redemonstrated with mildly progressed right basilar consolidation. These findings in conjunction with bronchiectasis are suggestive of a chronic infectious or inflammatory pneumonitis such as atypical mycobacterium. 2. Trace right pleural effusion. ACT 112: Negative or not required by law. The above report was generated using voice recognition software. It may contain grammatical, syntax or spelling errors. Electronically signed by: Efrem Norwood M.D. 05/13/2022 7:14 AM I & O Totals 24 Hours 05/12/22 05/13/22 05/14/22 06:59 06:59 06:59 Intake Total 3186.666 / 3186.666 455 / 455 630 / 630 Output Total 200 / 200 500 / 500 Balance 3186.666 / 3186.666 255 / 255 130 / 130 Cumulative 05/10/22 13:48 thru 05/13/22 14:23 Intake Total 5816.666 Output Total 700 Balance 5116.666 RT Ventilator Mngmt (Last Documented) Ventilator Ordered Settings Respiratory Rate 12 05/13/22 11:40 Fraction of Inspired Oxygen 05/11/22 10:53 Ventilator - PT Measurements Respiratory Rate 12 PG Care Time/CCT Total # of Minutes Spent Total Time Spent with Patient: Total time spent is greater than 50% in coordination of care (as documented) at patient's floor/unit and/or counseling patient:20 minutes Coding Level of Care Code 50065 Subseq Hosp Care Lvl 2 Diagnoses Idiopathic bronchiectasis J47.9 Pneumonia J18.9 Pulmonary nodule, left R91.1 Acute and chronic respiratory failure with hypoxia J96.21
[2022-05-13] MEDS: ENOXAPARIN INJ 40 MG/0.4 ML SYR SQ SCH (18:27)
--- NOTE | 2022-05-13 20:41 | Hospitalist Progress Note ---
Date of Service May 13, 2022 Assessment & Plan (1) Acute and chronic respiratory failure with hypoxia: (2) Idiopathic bronchiectasis: (3) Pneumonia: Plan: Patient presenting from home with reports of worsening shortness of breath, cough, sputum production x 3 weeks Typically on 4 L of oxygen at home however increased to 6 L recently, was saturating well on 6 L in the ED however became acutely short of breath and was subsequently placed on CPAP Possible early sepsis with WBC 13 K, tachypnea. HR and BP stable. Lactic acid normal. Procalcitonin negative CXR showing multifocal airspace opacity. CTA chest was negative for pulmonary embolism S/p Zosyn in the ED, will continue with given history of previous sputum culture positive for Pseudomonas. Add doxycycline for atypical coverage. Follow blood and sputum cultures--sputum now growing GNB, cont Zosyn Will de-escalate solumedrol to prednisone as patient has improved and taper this down Currently on nasal canula at her baseline settings. Aggressive pulmonary toilet with DuoNebs, hypertonic saline nebs, flutter valve, incentive spirometer, percussion vest, inhaled corticosteroid Pulm following-no bronchoscopy indicated at this time. (4) Acute hyponatremia: Plan: resolved, Na 134 today., likely hypovolemic hyponatremia due to poor p.o. intake She is eating better and now off IVF. (5) Acquired hypothyroidism: Plan: chronic, stable-Continue levothyroxine (6) Hypertension: Plan: BP controlled, continue diltiazem and atenolol (7) Anxiety and depression: Plan: Stable, continue sertraline (8) DVT prophylaxis: Plan: SQ Lovenox Full Dispo-cont PCU for now. DO Tulio Tuttle Hospitalist Admission and Anticipated Discharge Date Admission Date: May 10, 2022 Subjective 77 yo F with h/o chronic bronchiectasis and severe persistent asthma on home oxygen presents with progressively worsened shortness of breath over 3 weeks time. feels worse today increased coughing after hypertonic nebulizer therapy min to no wheezing no chest pain gave trial benzonatate and hypertonic saline nebs stopped by pulmonary although she was initially more hypoxic, shee is now back to her baseline oxygen needs Shee is speaking in full sentences and laughing/joking around Review of Systems Review of Systems: All systems were reviewed and negative except as indicated on subjective above. Physical Exam Physical Exam: CONSTITUTIONAL: WNWD, vitals as above, generally NAD EYES: normal conjunctivae ENT: external ear and nose normal, MMM NECK: trachea midline, RESPIRATORY: +wheezes in bilateral bases, no crackles or rales. normal respiratory effort, NC in place. CARDIOVASCULAR: regular rate and rhythm, S1 and 2 heard without murmurs, gallops or rubs, no JVD, no peripheral edema, GASTROINTESTINAL: soft, nontender, no guarding MUSCULOSKELETAL: strength 5/5 throughout, no gross focal deficits. SKIN: warm and dry NEUROLOGIC: no facial palsy, no dysarthria. CN 2-12 grossly intact, no sensory deficit, normal cognition, normal speech, no tremor, no gross focal deficits. PSYCHIATRIC: alert cooperative and oriented to person, place and time. Results & Data Results & Data ([facility]) Vital Signs (Past 12 Hours) Vital Signs Temp Pulse Pulse Resp BP Pulse Ox Pulse Ox 05/13/22 19:58 36.6 C 70 23 93 05/13/22 19:44 67 18 93 05/13/22 18:00 95 05/13/22 15:54 36.7 C 66 18 137/70 97 05/13/22 14:11 61 05/13/22 11:40 36.4 C L 62 12 121/71 98 Laboratory Results Short CBC 05/13/22 Range/Units 05:51 WBC 11.38 H (4.8-10.8) K/uL Hgb 10.0 L (12.0-16.0) g/dL Hct 30.1 L (37-47) % Plt Count 384 (130-400) K/uL BMP 05/13/22 05:51 Sodium 134 L Potassium 3.4 L Chloride 96 L Carbon Dioxide 33 H BUN 14 Creatinine 0.41 L Glucose 117 H Calcium 7.7 L Medications Administered Current Inpatient Medications Acetaminophen (Acetaminophen 325 Mg Tab) 650 mg PO Q4H PRN PRN Reason: Pain or Fever Stop: 06/09/22 18:40 Albuterol (Albut/Ipratrop 3mg/0.5mg Neb 3 Ml Vial) 3 ml NEB QIDR PRN; Protocol PRN Reason: SOB/wheezing Stop: 06/11/22 06:59 Last Admin: 05/13/22 19:43 Dose: 3 ml Documented by: Atenolol (Atenolol 50 Mg Tablet) [facility] [place]: 06/10/22 08:59 Last Admin: 05/13/22 09:34 Dose: 100 mg Documented by: Atorvastatin Calcium (Atorvastatin 10 Mg Tab) 10 mg PO QAM [facility] Stop: 06/10/22 08:59 Last Admin: 05/13/22 09:32 Dose: 10 mg Documented by: Benzonatate (Benzonatate 100 Mg Capsule) 100 mg PO TID PRN PRN Reason: Cough Stop: 06/11/22 00:39 Cetirizine HCl (Cetirizine Hcl 10 Mg Tablet) 10 mg PO [facility] Stop: 06/10/22 08:59 Last Admin: 05/13/22 09:32 Dose: 10 mg Documented by: Diltiazem HCl (Diltiazem Hcl 300 Mg Capcr) 300 mg PO [facility] Stop: 06/10/22 08:59 Last Admin: 05/13/22 09:33 Dose: 300 mg Documented by: Doxycycline Hyclate (Doxycycline Hyclate 100 Mg Cap) 100 mg PO BID [facility] Stop: 05/19/22 20:59 Last Admin: 05/13/22 09:33 Dose: 100 mg Documented by: Enoxaparin Sodium (Enoxaparin Inj 40 Mg/0.4 Ml Syr) 40 mg SQ Q24H [facility] Stop: 06/09/22 18:59 Last Admin: 05/13/22 18:27 Dose: 40 mg Documented by: Famotidine (Famotidine 20 Mg Tab) 20 mg PO HS [facility]; Protocol Stop: 06/09/22 20:59 Last Admin: 05/12/22 21:04 Dose: 20 mg Documented by: Fluticasone/Vilanterol (Fluticasone/Vilanterol 200/25mcg 14 Puffs/Inhaler) 1 puffs INH DAILY [facility]; Protocol Stop: 06/10/22 08:59 Last Admin: 05/13/22 09:34 Dose: 1 puffs Documented by: Guaifenesin (Guaifenesin 600 Mg Tabcr) 1,200 mg PO BID [facility] Stop: 06/10/22 20:59 Last Admin: 05/13/22 09:34 Dose: 1,200 mg Documented by: Piperacillin Sod/Tazobactam (Sod 3.375 gm/ Dextrose) 115 mls @ 28.75 mls/hr IV Q8H [facility]; Protocol Stop: 05/17/22 21:59 Last Infusion: 05/13/22 18:34 Dose: Infused Documented by: Levothyroxine Sodium (Levothyroxine Sodium 75 Mcg Tablet) 75 mcg PO DAILYBB [facility] Stop: 06/10/22 06:29 Last Admin: 05/13/22 05:51 Dose: 75 mcg Documented by: Montelukast Sodium (Montelukast Sodium 10 Mg Tablet) 10 mg PO QPM [facility] Stop: 06/09/22 20:59 Last Admin: 05/12/22 21:07 Dose: 10 mg Documented by: Ondansetron HCl (Ondansetron Inj 2 Mg/Ml 2 Ml Vial) 4 mg IV Q6H PRN PRN Reason: Nausea Stop: 06/09/22 18:40 Prednisone (Prednisone 20 Mg Tab) 40 mg PO [facility] Stop: 06/12/22 08:59 Last Admin: 05/13/22 09:33 Dose: 40 mg Documented by: Sertraline HCl (Sertraline Hcl 50 Mg Tablet) 25 mg PO [facility] Stop: 06/10/22 08:59 Last Admin: 05/13/22 09:33 Dose: 25 mg Documented by: Sodium Chloride (Sodium Chloride 0.65% Na Soln 45 Ml ([place])) 1 sprays NA NOW PRN PRN Reason: Nasal Congestion Stop: 06/10/22 18:26
[2022-05-13] MEDS: MONTELUKAST SODIUM 10 MG TABLET PO SCH (21:05)
[2022-05-13] MEDS: FAMOTIDINE 20 MG TAB PO SCH (21:05)
[2022-05-13] MEDS: BENZONATATE 100 MG CAPSULE PO PRN (21:06)
[2022-05-14] MEDS: LEVOTHYROXINE SODIUM 75 MCG TABLET PO SCH (05:37)
[2022-05-14] MEDS: PIPERACILLIN/TAZOBACTAM 3.375 GM in DEXTROSE 5% 100 ML IV SCH ×3 (05:38→22:34)
[2022-05-14] MEDS: CETIRIZINE HCL 10 MG TABLET PO SCH (08:05)
[2022-05-14] MEDS: ATENOLOL 50 MG TABLET PO SCH (08:05)
[2022-05-14] MEDS: predniSONE 20 MG TAB PO SCH (08:06)
[2022-05-14] MEDS: dilTIAZem HCL 300 MG CAPCR PO SCH (08:06)
[2022-05-14] MEDS: guaiFENesin 600 MG TABCR PO SCH ×2 (08:06→20:18)
[2022-05-14] MEDS: SERTRALINE HCL 50 MG TABLET PO SCH (08:06)
[2022-05-14] MEDS: DOXYCYCLINE HYCLATE 100 MG CAP PO SCH ×2 (08:07→20:19)
[2022-05-14] MEDS: ATORVASTATIN 10 MG TAB PO SCH (08:07)
[2022-05-14] MEDS: FLUTICASONE/VILANTEROL 200/25MCG 14 PUFFS/INHALER INH SCH (08:08)
[2022-05-14 10:08] LABS: Hematocrit (blood only) 34.6 % (37-47); Hemoglobin 11.1 g/dL (12.0-16.0); Mean Corpuscular Hemoglobin 28.8 pg (25-34); Mean Corpuscular Hgb Conc 32.1 g/dL (32-36); Mean Corpuscular Volume 89.9 fL (80-100); Mean Platelet Volume 8.6 fL (7.4-10.4); Platelet Count 381 K/uL (130-400); RDW Coefficient of Variation 14.1 % (11.5-14.5); RDW Standard Deviation 45.7 fL (36.4-46.3); Red Blood Count 3.85 M/uL (4.2-5.4); White Blood Count 17.52 K/uL (4.8-10.8)
[2022-05-14 10:34] LABS: BUN Creatinine Ratio 39.5 (10-20); Creatinine Clr Calc Pharmacy 92.5 ml/min; Est GFR (African American) 117.6 ml/min; Est GFR (Non-African American) 101.5 ml/min; Potassium 3.5 mmol/L (3.5-5.1)
--- NOTE | 2022-05-14 14:35 | Hospitalist Progress Note ---
Date of Service May 14, 2022 Assessment & Plan (1) Acute and chronic respiratory failure with hypoxia: (2) Idiopathic bronchiectasis: (3) Pneumonia: Plan: Patient presenting from home with reports of worsening shortness of breath, cough, sputum production x 3 weeks Typically on 4 L of oxygen at home however increased to 6 L recently, was saturating well on 6 L in the ED however became acutely short of breath and was subsequently placed on CPAP Possible early sepsis with WBC 13 K, tachypnea. HR and BP stable. Lactic acid normal. Procalcitonin negative CXR showing multifocal airspace opacity. CTA chest was negative for pulmonary embolism S/p Zosyn in the ED, will continue with given history of previous sputum culture positive for Pseudomonas. Add doxycycline for atypical coverage. Follow blood and sputum cultures--sputum now growing GNB, cont Zosyn Cont prednisone Currently on nasal canula at her baseline settings. Aggressive pulmonary toilet with DuoNebs, flutter valve, incentive spirometer, percussion vest, inhaled corticosteroid Pulm following-no bronchoscopy indicated at this time. (4) Acute hyponatremia: Plan: resolved, Na 134 today., likely hypovolemic hyponatremia due to poor p.o. intake She is eating better and now off IVF. (5) Acquired hypothyroidism: Plan: chronic, stable-Continue levothyroxine (6) Hypertension: Plan: BP controlled, continue diltiazem and atenolol (7) Anxiety and depression: Plan: Stable, continue sertraline (8) DVT prophylaxis: Plan: SQ Lovenox Full Dispo-cont PCU for now. Plan for home in next 1-2 days. Taniya Callejas DO [facility] Hospitalist Admission and Anticipated Discharge Date Admission Date: May 10, 2022 Subjective 77 yo F with h/o chronic bronchiectasis and severe persistent asthma on home oxygen presents with progressively worsened shortness of breath over 3 weeks time. reports still feeling bad today because she is fatigued sitting up on side of bed and moves around the bed with ease no chest pain benzonatate is helping her. although she was initially more hypoxic, she is now back to her baseline oxygen needs Review of Systems Review of Systems: All systems were reviewed and negative except as indicated on subjective above. Physical Exam Physical Exam: CONSTITUTIONAL: WNWD, vitals as above, generally NAD EYES: normal conjunctivae ENT: external ear and nose normal, MMM NECK: trachea midline, RESPIRATORY: CTA throughout, no crackles or rales. normal respiratory effort, NC in place. CARDIOVASCULAR: regular rate and rhythm, S1 and 2 heard without murmurs, gallops or rubs, no JVD, no peripheral edema, GASTROINTESTINAL: soft, nontender, no guarding MUSCULOSKELETAL: strength 5/5 throughout, no gross focal deficits. SKIN: warm and dry NEUROLOGIC: no facial palsy, no dysarthria. CN 2-12 grossly intact, no sensory deficit, normal cognition, normal speech, no tremor, no gross focal deficits. PSYCHIATRIC: alert cooperative and oriented to person, place and time. Results & Data Results & Data ([facility]) Vital Signs (Past 12 Hours) Vital Signs Temp Pulse Pulse Resp BP Pulse Ox 05/14/22 12:47 61 05/14/22 11:10 36.7 C 20 131/65 92 05/14/22 08:39 90 05/14/22 07:59 65 20 86 L 05/14/22 07:00 36.5 C 80 20 136/64 90 05/14/22 03:57 37.0 C 68 18 132/62 92 Laboratory Results Short CBC 05/14/22 Range/Units 09:49 WBC 17.52 H (4.8-10.8) K/uL Hgb 11.1 L (12.0-16.0) g/dL Hct 34.6 L (37-47) % Plt Count 381 (130-400) K/uL BMP 05/14/22 09:49 Sodium 134 L Potassium 3.5 Chloride 94 L Carbon Dioxide 38 H BUN 15 Creatinine 0.38 L Glucose 77 Calcium 8.0 L Medications Administered Current Inpatient Medications Acetaminophen (Acetaminophen 325 Mg Tab) 650 mg PO Q4H PRN PRN Reason: Pain or Fever Stop: 06/09/22 18:40 Albuterol (Albut/Ipratrop 3mg/0.5mg Neb 3 Ml Vial) 3 ml NEB QIDR PRN; Protocol PRN Reason: SOB/wheezing Stop: 06/11/22 06:59 Last Admin: 05/13/22 19:43 Dose: 3 ml Documented by: Atenolol (Atenolol 50 Mg Tablet) 100 mg PO QAM [facility] Stop: 06/10/22 08:59 Last Admin: 05/14/22 08:05 Dose: 100 mg Documented by: Atorvastatin Calcium (Atorvastatin 10 Mg Tab) 10 mg PO QAM [facility] Stop: 06/10/22 08:59 Last Admin: 05/14/22 08:07 Dose: 10 mg Documented by: Benzonatate (Benzonatate 100 Mg Capsule) 100 mg PO TID PRN PRN Reason: Cough Stop: 06/11/22 00:39 Last Admin: 05/13/22 21:06 Dose: 100 mg Documented by: Cetirizine HCl (Cetirizine Hcl 10 Mg Tablet) [facility] [place] Stop: 06/10/22 08:59 Last Admin: 05/14/22 08:05 Dose: 10 mg Documented by: Diltiazem HCl (Diltiazem Hcl 300 Mg Capcr) 300 mg PO [facility] Stop: 06/10/22 08:59 Last Admin: 05/14/22 08:06 Dose: 300 mg Documented by: Doxycycline Hyclate (Doxycycline Hyclate 100 Mg Cap) 100 mg PO BID [facility] Stop: 05/19/22 20:59 Last Admin: 05/14/22 08:07 Dose: 100 mg Documented by: Enoxaparin Sodium (Enoxaparin Inj 40 Mg/0.4 Ml Syr) 40 mg SQ Q24H [facility] Stop: 06/09/22 18:59 Last Admin: 05/13/22 18:27 Dose: 40 mg Documented by: Famotidine (Famotidine 20 Mg Tab) 20 mg PO HS [facility]; Protocol Stop: 06/09/22 20:59 Last Admin: 05/13/22 21:05 Dose: 20 mg Documented by: Fluticasone/Vilanterol (Fluticasone/Vilanterol 200/25mcg 14 Puffs/Inhaler) 1 puffs INH DAILY [facility]; Protocol Stop: 06/10/22 08:59 Last Admin: 05/14/22 08:08 Dose: 1 puffs Documented by: Guaifenesin (Guaifenesin 600 Mg Tabcr) 1,200 mg PO BID [facility] Stop: 06/10/22 20:59 Last Admin: 05/14/22 08:06 Dose: 1,200 mg Documented by: Piperacillin Sod/Tazobactam (Sod 3.375 gm/ Dextrose) 115 mls @ 28.75 mls/hr IV Q8H [facility]; Protocol Stop: 05/17/22 21:59 Last Infusion: 05/14/22 09:38 Dose: Infused Documented by: Levothyroxine Sodium (Levothyroxine Sodium 75 Mcg Tablet) [facility] Stop: 06/10/22 06:29 Last Admin: 05/14/22 05:37 Dose: 75 mcg Documented by: Montelukast Sodium (Montelukast Sodium 10 Mg Tablet) 10 mg PO QPM [facility] Stop: 06/09/22 20:59 Last Admin: 05/13/22 21:05 Dose: 10 mg Documented by: Ondansetron HCl (Ondansetron Inj 2 Mg/Ml 2 Ml Vial) 4 mg IV Q6H PRN PRN Reason: Nausea Stop: 06/09/22 18:40 Prednisone (Prednisone 20 Mg Tab) 40 mg PO [facility] Stop: 06/12/22 08:59 Last Admin: 05/14/22 08:06 Dose: 40 mg Documented by: Sertraline HCl (Sertraline Hcl 50 Mg Tablet) 25 mg PO [facility] Stop: 06/10/22 08:59 Last Admin: 05/14/22 08:06 Dose: 25 mg Documented by: Sodium Chloride (Sodium Chloride 0.65% Na Soln 45 Ml ([place])) 1 sprays NA NOW PRN PRN Reason: Nasal Congestion Stop: 06/10/22 18:26
[2022-05-14] MEDS ORDERED: CALCIUM CARBONATE 500 MG CHEWABLE TAB PO PRN (15:36)
[2022-05-14] MEDS: ENOXAPARIN INJ 40 MG/0.4 ML SYR SQ SCH (18:17)
[2022-05-14] MEDS: ALBUT/IPRATROP 3MG/0.5MG NEB 3 ML VIAL NEB PRN (19:39)
[2022-05-14] MEDS: BENZONATATE 100 MG CAPSULE PO PRN (20:18)
[2022-05-14] MEDS: MONTELUKAST SODIUM 10 MG TABLET PO SCH (20:19)
[2022-05-14] MEDS: FAMOTIDINE 20 MG TAB PO SCH (20:19)
[2022-05-15] MEDS: PIPERACILLIN/TAZOBACTAM 3.375 GM in DEXTROSE 5% 100 ML IV SCH ×3 (05:51→21:29)
[2022-05-15] MEDS: LEVOTHYROXINE SODIUM 75 MCG TABLET PO SCH (05:51)
[2022-05-15] MEDS: ALBUT/IPRATROP 3MG/0.5MG NEB 3 ML VIAL NEB PRN ×2 (07:19→19:19)
[2022-05-15] MEDS: BENZONATATE 100 MG CAPSULE PO PRN ×2 (08:00→21:24)
[2022-05-15] MEDS: DOXYCYCLINE HYCLATE 100 MG CAP PO SCH ×2 (08:36→21:25)
[2022-05-15] MEDS: ATORVASTATIN 10 MG TAB PO SCH (08:37)
[2022-05-15] MEDS: ATENOLOL 50 MG TABLET PO SCH (08:37)
[2022-05-15] MEDS: predniSONE 20 MG TAB PO SCH (08:37)
[2022-05-15] MEDS: CETIRIZINE HCL 10 MG TABLET PO SCH (08:37)
[2022-05-15] MEDS: SERTRALINE HCL 50 MG TABLET PO SCH (08:37)
[2022-05-15] MEDS: guaiFENesin 600 MG TABCR PO SCH ×2 (08:37→21:24)
[2022-05-15] MEDS: dilTIAZem HCL 300 MG CAPCR PO SCH (08:38)
[2022-05-15] MEDS: FLUTICASONE/VILANTEROL 200/25MCG 14 PUFFS/INHALER INH SCH (08:38)
[2022-05-15 09:28] LABS: Basophils # (auto) 0.01 K/uL (0-0.2); Basophils % (auto) 0.1 %; Eosinophils # (auto) 0.03 K/uL (0-0.5); Eosinophils % (auto) 0.2 %; Hematocrit (blood only) 34.8 % (37-47); Hemoglobin 11.4 g/dL (12.0-16.0); Immature Granulocytes # (auto) 0.16 K/uL (0.00-0.02); Immature Granulocytes % (auto) 1.3 %; Lymphocytes # (auto) 3.11 K/uL (1.2-3.4); Lymphocytes % (auto) 24.7 %; Mean Corpuscular Hemoglobin 29.9 pg (25-34); Mean Corpuscular Hgb Conc 32.8 g/dL (32-36); Mean Corpuscular Volume 91.3 fL (80-100); Mean Platelet Volume 8.8 fL (7.4-10.4); Monocytes # (auto) 1.39 K/uL (0.11-0.59); Neutrophils % (auto) 62.7 %; Platelet Count 374 K/uL (130-400); RDW Coefficient of Variation 14.1 % (11.5-14.5); RDW Standard Deviation 46.3 fL (36.4-46.3); Red Blood Count 3.81 M/uL (4.2-5.4)
[2022-05-15 09:37] LABS: BUN Creatinine Ratio 35.3 (10-20); Calcium 8.5 mg/dl (8.5-10.1); Creatinine Clr Calc Pharmacy 68.7 ml/min; Est GFR (African American) 106.7 ml/min; Est GFR (Non-African American) 92.1 ml/min; Potassium 3.3 mmol/L (3.5-5.1)
[2022-05-15 15:25] LABS: Appearance Urine Clear (Clear); Bacteria Urine Automated Negative (Negative); Bilirubin Urine Negative (Negative); Blood Urine Trace (Negative); Cast Urine Automated 0 /lpf (0-5); Color Urine Yellow; Epithelial Cell Urine Auto >30 /lpf (0-5); Glucose Urine UA Negative (Negative); Ketones Urine Negative (Negative); Leukocyte Esterase Urine Negative (Negative); Nitrite Urine Negative (Negative); Protein Urine Negative (Negative); RBC Urine Automated 0-4 /hpf (0-4); Specific Gravity Urine 1.011 (1.000-1.030); Urobilinogen Urine Negative (Negative)
[2022-05-15] MEDS: ENOXAPARIN INJ 40 MG/0.4 ML SYR SQ SCH (19:52)
[2022-05-15] MEDS: FAMOTIDINE 20 MG TAB PO SCH (21:26)
[2022-05-15] MEDS: MONTELUKAST SODIUM 10 MG TABLET PO SCH (21:26)
[2022-05-16] MEDS: PIPERACILLIN/TAZOBACTAM 3.375 GM in DEXTROSE 5% 100 ML IV SCH ×3 (05:50→22:24)
[2022-05-16] MEDS: LEVOTHYROXINE SODIUM 75 MCG TABLET PO SCH (05:50)
[2022-05-16] MEDS: ALBUT/IPRATROP 3MG/0.5MG NEB 3 ML VIAL NEB PRN ×2 (06:55→19:08)
[2022-05-16] MEDS: dilTIAZem HCL 300 MG CAPCR PO SCH (08:18)
[2022-05-16] MEDS: ATORVASTATIN 10 MG TAB PO SCH (08:19)
[2022-05-16] MEDS: ATENOLOL 50 MG TABLET PO SCH (08:19)
[2022-05-16] MEDS: predniSONE 20 MG TAB PO SCH (08:19)
[2022-05-16] MEDS: SERTRALINE HCL 50 MG TABLET PO SCH (08:19)
[2022-05-16] MEDS: guaiFENesin 600 MG TABCR PO SCH ×2 (08:19→19:44)
[2022-05-16] MEDS: CETIRIZINE HCL 10 MG TABLET PO SCH (08:19)
[2022-05-16] MEDS: DOXYCYCLINE HYCLATE 100 MG CAP PO SCH ×2 (08:19→19:45)
[2022-05-16] MEDS: FLUTICASONE/VILANTEROL 200/25MCG 14 PUFFS/INHALER INH SCH (08:20)
[2022-05-16] MEDS: ACETAMINOPHEN 325 MG TAB PO PRN (08:21)
[2022-05-16] MEDS ORDERED: POTASSIUM CHLORIDE CRTAB 20 MEQ TABCR PO STA (08:55)
--- NOTE | 2022-05-16 12:22 | Hospitalist Progress Note ---
Date of Service May 16, 2022 Assessment & Plan (1) Acute and chronic respiratory failure with hypoxia: Plan: Secondary to asthma exacerbation caused by pneumonia with history of bronchiectasis Typically on 4 L of oxygen at home however increased to 6 L recently, was saturating well on 6 L in the ED however became acutely short of breath and was subsequently placed on CPAP Possible early sepsis with WBC 13 K, tachypnea. HR and BP stable. Lactic acid normal. Procalcitonin negative Still requiring about 4 L of nasal cannula oxygen to maintain saturation Clinically not any better to be discharged (2) Idiopathic bronchiectasis: (3) Pneumonia: Plan: Patient presenting from home with reports of worsening shortness of breath, cough, sputum production x 3 weeks CXR showing multifocal airspace opacity. CTA chest was negative for pulmonary embolism S/p Zosyn in the ED, will continue with given history of previous sputum culture positive for Pseudomonas. Add doxycycline for atypical coverage. Follow blood and sputum cultures--sputum is growing Pseudomonas-continue with intravenous Zosyn for now Cont prednisone Currently on nasal canula at her baseline settings. Aggressive pulmonary toilet with DuoNebs, flutter valve, incentive spirometer, percussion vest, inhaled corticosteroid Pulm following-no bronchoscopy indicated at this time. Clinically not much better (4) Acute hyponatremia: Plan: resolved, Na 134 today., likely hypovolemic hyponatremia due to poor p.o. intake She is eating better and now off IVF. Sodium level has been around 133 (5) Acquired hypothyroidism: Plan: chronic, stable-Continue levothyroxine (6) Hypertension: Plan: BP controlled, continue diltiazem and atenolol (7) Anxiety and depression: Plan: Stable, continue sertraline (8) DVT prophylaxis: Plan: SQ Lovenox Full Dispo-cont PCU for now. Plan for home in next 1-2 days. Admission and Anticipated Discharge Date Admission Date: May 10, 2022 Subjective 05/16/2022 The patient was seen and examined in telemetry unit She remains very short of breath at rest and with minimal exertion Denies any chest pain and or palpitation No fever no chills Review of Systems Review of Systems: All systems reviewed and are unremarkable except as noted below Respiratory: Moderate shortness of breath at rest and with minimal exertion Physical Exam Physical Exam: Sitting at the edge of the bed with moderate shortness of breath Constitutional: well developed, well nourished, + ill appearing and average body habitus Eyes: PERRL, conjunctivae normal, anicteric sclerae ENMT: external ear and nose normal, oropharynx normal Neck: trachea midline, no thyromegaly Respiratory: + respiratory distress (Moderate shortness of breath at rest) Auscultation: + diminished lung sounds and + crackles (Minimal bibasilar crackles) Cardiovascular: Rate/Rhythm: regular rate and regular rhythm; not tachycardic Heart Sounds: normal S1 and normal S2; no murmur Extremities: no edema Gastrointestinal (Abdomen): Inspection/Auscultation: normal bowel sounds; abdomen not distended Percussion/Palpation: abdomen soft; abdomen nontender Musculoskeletal: No acute arthritis in any joint Neurologic: normal touch/pain/proprioception and moves all extremities Psychiatric: A+Ox3, euthymic affect Lymphatic: no cervical or axillary lymphadenopathy Results & Data Results & Data ([facility]) Vital Signs (Past 12 Hours) Vital Signs Temp Pulse Pulse Resp BP BP Pulse Ox 05/16/22 11:07 36.7 C 18 102/60 96 05/16/22 07:55 36.8 C 75 18 128/66 91 05/16/22 07:00 67 16 94 05/16/22 04:36 36.9 C 56 L 16 135/65 99 05/16/22 03:30 57 L Laboratory Results Urine 05/15/22 Range/Units 15:05 Urine Color Yellow Urine Appearance Clear (Clear) Urine pH 8.0 H (4.5-7.5) Ur Specific [place] 1.011 (1.000-1.030) Urine Protein Negative (Negative) Urine Glucose (UA) Negative (Negative) Medications Administered Current Inpatient Medications Acetaminophen (Acetaminophen 325 Mg Tab) 650 mg PO Q4H PRN PRN Reason: Pain or Fever Stop: 06/09/22 18:40 Last Admin: 05/16/22 08:21 Dose: 650 mg Documented by: Albuterol (Albut/Ipratrop 3mg/0.5mg Neb 3 Ml Vial) 3 ml NEB QIDR PRN; Protocol PRN Reason: SOB/wheezing Stop: 06/11/22 06:59 Last Admin: 05/16/22 06:55 Dose: 3 ml Documented by: Atenolol (Atenolol 50 Mg Tablet) 100 mg PO QAM [facility] Stop: 06/10/22 08:59 Last Admin: 05/16/22 08:19 Dose: 100 mg Documented by: Atorvastatin Calcium (Atorvastatin 10 Mg Tab) 10 mg PO QAM [facility] Stop: 06/10/22 08:59 Last Admin: 05/16/22 08:19 Dose: 10 mg Documented by: Benzonatate (Benzonatate 100 Mg Capsule) 100 mg PO TID PRN PRN Reason: Cough Stop: 06/11/22 00:39 Last Admin: 05/15/22 21:24 Dose: 100 mg Documented by: Calcium Carbonate (Calcium Carbonate 500 Mg Chewable Tab) 1,000 mg PO Q8H PRN PRN Reason: Indigestion Stop: 06/13/22 15:35 Cetirizine HCl (Cetirizine Hcl 10 Mg Tablet) 10 mg PO [facility] Stop: 06/10/22 08:59 Last Admin: 05/16/22 08:19 Dose: 10 mg Documented by: Diltiazem HCl (Diltiazem Hcl 300 Mg Capcr) 300 mg PO [facility] Stop: 06/10/22 08:59 Last Admin: 05/16/22 08:18 Dose: 300 mg Documented by: Doxycycline Hyclate (Doxycycline Hyclate 100 Mg Cap) 100 mg PO BID [facility] Stop: 05/19/22 20:59 Last Admin: 05/16/22 08:19 Dose: 100 mg Documented by: Enoxaparin Sodium (Enoxaparin Inj 40 Mg/0.4 Ml Syr) 40 mg SQ Q24H [facility] Stop: 06/09/22 18:59 Last Admin: 05/15/22 19:52 Dose: 40 mg Documented by: Famotidine (Famotidine 20 Mg Tab) 20 mg PO HS [facility]; Protocol Stop: 06/09/22 20:59 Last Admin: 05/15/22 21:26 Dose: 20 mg Documented by: Fluticasone/Vilanterol (Fluticasone/Vilanterol 200/25mcg 14 Puffs/Inhaler) 1 puffs INH DAILY [facility]; Protocol Stop: 06/10/22 08:59 Last Admin: 05/16/22 08:20 Dose: 1 puffs Documented by: Guaifenesin (Guaifenesin 600 Mg Tabcr) 1,200 mg PO BID [facility] Stop: 06/10/22 20:59 Last Admin: 05/16/22 08:19 Dose: 1,200 mg Documented by: Piperacillin Sod/Tazobactam (Sod 3.375 gm/ Dextrose) 115 mls @ 28.75 mls/hr IV Q8H [facility]; Protocol Stop: 05/17/22 21:59 Last Infusion: 05/16/22 09:38 Dose: Infused Documented by: Levothyroxine Sodium (Levothyroxine Sodium 75 Mcg Tablet) 75 mcg PO DAILYBB [facility] Stop: 06/10/22 06:29 Last Admin: 05/16/22 05:50 Dose: 75 mcg Documented by: Montelukast Sodium (Montelukast Sodium 10 Mg Tablet) 10 mg PO QPM [facility] Stop: 06/09/22 20:59 Last Admin: 05/15/22 21:26 Dose: 10 mg Documented by: Ondansetron HCl (Ondansetron Inj 2 Mg/Ml 2 Ml Vial) 4 mg IV Q6H PRN PRN Reason: Nausea Stop: 06/09/22 18:40 Prednisone (Prednisone 20 Mg Tab) 40 mg PO [facility] Stop: 06/12/22 08:59 Last Admin: 05/16/22 08:19 Dose: 40 mg Documented by: Sertraline HCl (Sertraline Hcl 50 Mg Tablet) 25 mg PO [facility] Stop: 06/10/22 08:59 Last Admin: 05/16/22 08:19 Dose: 25 mg Documented by: Sodium Chloride (Sodium Chloride 0.65% Na Soln 45 Ml ([place])) 1 sprays NA NOW PRN PRN Reason: Nasal Congestion Stop: 06/10/22 18:26
[2022-05-16] MEDS: ENOXAPARIN INJ 40 MG/0.4 ML SYR SQ SCH (18:08)
[2022-05-16] MEDS: FAMOTIDINE 20 MG TAB PO SCH (19:45)
[2022-05-16] MEDS: MONTELUKAST SODIUM 10 MG TABLET PO SCH (19:45)
[2022-05-17] MEDS: BENZONATATE 100 MG CAPSULE PO PRN ×2 (02:14→10:16)
[2022-05-17] MEDS: LEVOTHYROXINE SODIUM 75 MCG TABLET PO SCH (05:44)
[2022-05-17] MEDS: ACETAMINOPHEN 325 MG TAB PO PRN (05:44)
[2022-05-17] MEDS: PIPERACILLIN/TAZOBACTAM 3.375 GM in DEXTROSE 5% 100 ML IV SCH ×2 (05:45→14:08)
[2022-05-17] MEDS: ALBUT/IPRATROP 3MG/0.5MG NEB 3 ML VIAL NEB PRN ×2 (07:02→19:26)
[2022-05-17 07:42] LABS: Basophils # (auto) 0.01 K/uL (0-0.2); Basophils % (auto) 0.1 %; Eosinophils # (auto) 0.05 K/uL (0-0.5); Eosinophils % (auto) 0.5 %; Hematocrit (blood only) 34.1 % (37-47); Immature Granulocytes # (auto) 0.12 K/uL (0.00-0.02); Immature Granulocytes % (auto) 1.3 %; Lymphocytes % (auto) 23.7 %; Mean Corpuscular Hemoglobin 28.6 pg (25-34); Mean Corpuscular Hgb Conc 32.3 g/dL (32-36); Mean Corpuscular Volume 88.8 fL (80-100); Mean Platelet Volume 9.3 fL (7.4-10.4); Monocytes # (auto) 1.48 K/uL (0.11-0.59); Monocytes % (auto) 15.9 %; Neutrophils # (auto) 5.43 K/uL (1.4-6.5); Neutrophils % (auto) 58.5 %; Platelet Count 364 K/uL (130-400); RDW Coefficient of Variation 14.3 % (11.5-14.5); RDW Standard Deviation 44.9 fL (36.4-46.3); Red Blood Count 3.84 M/uL (4.2-5.4); White Blood Count 9.29 K/uL (4.8-10.8)
[2022-05-17 08:13] LABS: BUN Creatinine Ratio 42.9 (10-20); Calcium 8.5 mg/dl (8.5-10.1); Creatinine Clr Calc Pharmacy 70.4 ml/min; Est GFR (African American) 108.2 ml/min; Est GFR (Non-African American) 93.3 ml/min; Magnesium 1.7 mg/dl (1.7-2.4); Phosphorus 3.2 mg/dl (2.5-4.9); Potassium 3.7 mmol/L (3.5-5.1)
[2022-05-17] MEDS: predniSONE 20 MG TAB PO SCH (08:26)
[2022-05-17] MEDS: DOXYCYCLINE HYCLATE 100 MG CAP PO SCH (08:26)
[2022-05-17] MEDS: dilTIAZem HCL 300 MG CAPCR PO SCH (08:27)
[2022-05-17] MEDS: guaiFENesin 600 MG TABCR PO SCH ×2 (08:27→20:15)
[2022-05-17] MEDS: FLUTICASONE/VILANTEROL 200/25MCG 14 PUFFS/INHALER INH SCH (08:27)
[2022-05-17] MEDS: ATORVASTATIN 10 MG TAB PO SCH (08:27)
[2022-05-17] MEDS: SERTRALINE HCL 50 MG TABLET PO SCH (08:27)
[2022-05-17] MEDS: CETIRIZINE HCL 10 MG TABLET PO SCH (08:27)
[2022-05-17] MEDS: ATENOLOL 50 MG TABLET PO SCH (08:28)
--- NOTE | 2022-05-17 14:23 | Hospitalist Progress Note ---
Date of Service May 17, 2022 Assessment & Plan (1) Acute and chronic respiratory failure with hypoxia: Plan: Secondary to asthma exacerbation caused by pneumonia with history of bronchiectasis Typically on 4 L of oxygen at home however increased to 6 L recently, was saturating well on 6 L in the ED however became acutely short of breath and was subsequently placed on CPAP Possible early sepsis with WBC 13 K, tachypnea. HR and BP stable. Lactic acid normal. Procalcitonin negative Still requiring about 4 L of nasal cannula oxygen to maintain saturation Clinically not any better to be discharged A little bit better today and will ask for PT and OT evaluation (2) Idiopathic bronchiectasis: (3) Pneumonia: Plan: Patient presenting from home with reports of worsening shortness of breath, co ugh, sputum production x 3 weeks CXR showing multifocal airspace opacity. CTA chest was negative for pulmonary embolism S/p Zosyn in the ED, will continue with given history of previous sputum culture positive for Pseudomonas. Add doxycycline for atypical coverage. Follow blood and sputum cultures--sputum is growing Pseudomonas-continue with intravenous Zosyn for now Cont prednisone Currently on nasal canula at her baseline settings. Aggressive pulmonary toilet with DuoNebs, flutter valve, incentive spirometer, percussion vest, inhaled corticosteroid Pulm following-no bronchoscopy indicated at this time. Clinically not much better Doxycycline has been discontinued and will continue Zosyn for today She may be going home tomorrow (4) Acute hyponatremia: Plan: resolved, Na 134 today., likely hypovolemic hyponatremia due to poor p.o. intake She is eating better and now off IVF. Sodium level has been around 133 Sodium level remains around 131 (5) Acquired hypothyroidism: Plan: chronic, stable-Continue levothyroxine (6) Hypertension: Plan: BP controlled, continue diltiazem and atenolol (7) Anxiety and depression: Plan: Stable, continue sertraline (8) DVT prophylaxis: Plan: SQ Lovenox Full Dispo-cont PCU for now. Plan for home in next 1-2 days. Likely be discharged tomorrow Admission and Anticipated Discharge Date Admission Date: May 10, 2022 Subjective 05/16/2022 The patient was seen and examined in telemetry unit She remains very short of breath at rest and with minimal exertion Denies any chest pain and or palpitation No fever no chills 05/17/2022 The patient was seen and examined in telemetry unit She feels a little better but he still has severe cough with shortness of breath on exertion Denies any chest pain and/or palpitation Review of Systems Review of Systems: All systems reviewed and are unremarkable except as noted below Respiratory: Moderate shortness of breath at rest and with minimal exertion Physical Exam Physical Exam: Sitting at the edge of the bed with moderate shortness of breath Constitutional: well developed, well nourished, + ill appearing and average body habitus Eyes: PERRL, conjunctivae normal, anicteric sclerae ENMT: external ear and nose normal, oropharynx normal Neck: trachea midline, no thyromegaly Respiratory: + respiratory distress (Moderate shortness of breath at rest) Auscultation: + diminished lung sounds and + crackles (Minimal bibasilar crackles) Cardiovascular: Rate/Rhythm: regular rate and regular rhythm; not tachycardic Heart Sounds: normal S1 and normal S2; no murmur Extremities: no edema Gastrointestinal (Abdomen): Inspection/Auscultation: normal bowel sounds; abdomen not distended Percussion/Palpation: abdomen soft; abdomen nontender Musculoskeletal: No acute arthritis in any joint Neurologic: normal touch/pain/proprioception and moves all extremities Psychiatric: A+Ox3, euthymic affect Lymphatic: no cervical or axillary lymphadenopathy Results & Data Results & Data ([facility]) Vital Signs (Past 12 Hours) Vital Signs Temp Pulse Pulse Resp BP BP Pulse Ox 05/17/22 11:36 36.6 C 65 19 139/73 93 05/17/22 08:00 50 L 05/17/22 07:59 36.8 C 61 20 127/73 93 05/17/22 07:04 58 L 18 98 05/17/22 03:10 36.6 C 53 L 16 141/66 H 100 Laboratory Results Short CBC 05/17/22 Range/Units 06:49 WBC 9.29 (4.8-10.8) K/uL Hgb 11.0 L (12.0-16.0) g/dL Hct 34.1 L (37-47) % Plt Count 364 (130-400) K/uL BMP 05/17/22 06:49 Sodium 132 L Potassium 3.7 Chloride 93 L Carbon Dioxide 34 H BUN 21 Creatinine 0.49 L Glucose 85 Calcium 8.5 Medications Administered Current Inpatient Medications Acetaminophen (Acetaminophen 325 Mg Tab) 650 mg PO Q4H PRN PRN Reason: Pain or Fever Stop: 06/09/22 18:40 Last Admin: 05/17/22 05:44 Dose: 650 mg Documented by: Albuterol (Albut/Ipratrop 3mg/0.5mg Neb 3 Ml Vial) 3 ml NEB QIDR PRN; Protocol PRN Reason: SOB/wheezing Stop: 06/11/22 06:59 Last Admin: 05/17/22 07:02 Dose: 3 ml Documented by: Atenolol (Atenolol 50 Mg Tablet) 100 mg PO [facility] Stop: 06/10/22 08:59 Last Admin: 05/17/22 08:28 Dose: Not Given Documented by: Atorvastatin Calcium (Atorvastatin 10 Mg Tab) 10 mg PO [facility] Stop: 06/10/22 08:59 Last Admin: 05/17/22 08:27 Dose: 10 mg Documented by: Benzonatate (Benzonatate 100 Mg Capsule) 100 mg PO TID PRN PRN Reason: Cough Stop: 06/11/22 00:39 Last Admin: 05/17/22 10:16 Dose: 100 mg Documented by: Calcium Carbonate (Calcium Carbonate 500 Mg Chewable Tab) 1,000 mg PO Q8H PRN PRN Reason: Indigestion Stop: 06/13/22 15:35 Last Admin: 05/16/22 13:31 Dose: 1,000 mg Documented by: Cetirizine HCl (Cetirizine Hcl 10 Mg Tablet) 10 mg PO [facility] Stop: 06/10/22 08:59 Last Admin: 05/17/22 08:27 Dose: 10 mg Documented by: Diltiazem HCl (Diltiazem Hcl 300 Mg Capcr) 300 mg PO [facility] Stop: 06/10/22 08:59 Last Admin: 05/17/22 08:27 Dose: Not Given Documented by: Enoxaparin Sodium (Enoxaparin Inj 40 Mg/0.4 Ml Syr) 40 mg SQ Q24H [facility] Stop: 06/09/22 18:59 Last Admin: 05/16/22 18:08 Dose: 40 mg Documented by: Famotidine (Famotidine 20 Mg Tab) 20 mg PO [facility]; Protocol Stop: 06/09/22 20:59 Last Admin: 05/16/22 19:45 Dose: 20 mg Documented by: Fluticasone/Vilanterol (Fluticasone/Vilanterol 200/25mcg 14 Puffs/Inhaler) 1 puffs INH DAILY [facility]; Protocol Stop: 06/10/22 08:59 Last Admin: 05/17/22 08:27 Dose: 1 puffs Documented by: Guaifenesin (Guaifenesin 600 Mg Tabcr) 1,200 mg PO BID [facility] Stop: 06/10/22 20:59 Last Admin: 05/17/22 08:27 Dose: 1,200 mg Documented by: Piperacillin Sod/Tazobactam (Sod 3.375 gm/ Dextrose) 115 mls @ 28.75 mls/hr IV Q8H [facility]; Protocol Stop: 05/17/22 21:59 Last Admin: 05/17/22 14:08 Dose: 28.8 mls/hr Documented by: Levothyroxine Sodium (Levothyroxine Sodium 75 Mcg Tablet) [facility] Stop: 06/10/22 06:29 Last Admin: 05/17/22 05:44 Dose: 75 mcg Documented by: Montelukast Sodium (Montelukast Sodium 10 Mg Tablet) 10 mg PO QPM [facility] Stop: 06/09/22 20:59 Last Admin: 05/16/22 19:45 Dose: 10 mg Documented by: Ondansetron HCl (Ondansetron Inj 2 Mg/Ml 2 Ml Vial) 4 mg IV Q6H PRN PRN Reason: Nausea Stop: 06/09/22 18:40 Prednisone (Prednisone 20 Mg Tab) 40 mg PO [facility] Stop: 06/12/22 08:59 Last Admin: 05/17/22 08:26 Dose: 40 mg Documented by: Sertraline HCl (Sertraline Hcl 50 Mg Tablet) [facility] Stop: 06/10/22 08:59 Last Admin: 05/17/22 08:27 Dose: 25 mg Documented by: Sodium Chloride (Sodium Chloride 0.65% Na Soln 45 Ml ([place])) 1 sprays NA NOW PRN PRN Reason: Nasal Congestion Stop: 06/10/22 18:26
[2022-05-17] MEDS: ENOXAPARIN INJ 40 MG/0.4 ML SYR SQ SCH (18:36)
[2022-05-17] MEDS: MONTELUKAST SODIUM 10 MG TABLET PO SCH (20:18)
[2022-05-17] MEDS: FAMOTIDINE 20 MG TAB PO SCH (20:18)
[2022-05-18] MEDS: LEVOTHYROXINE SODIUM 75 MCG TABLET PO SCH (06:01)
[2022-05-18] MEDS: ALBUT/IPRATROP 3MG/0.5MG NEB 3 ML VIAL NEB PRN (07:07)
[2022-05-18] MEDS: ACETAMINOPHEN 325 MG TAB PO PRN (07:50)
[2022-05-18] MEDS: SERTRALINE HCL 50 MG TABLET PO SCH (07:51)
[2022-05-18] MEDS: ATENOLOL 50 MG TABLET PO SCH (07:52)
[2022-05-18] MEDS: ATORVASTATIN 10 MG TAB PO SCH (07:52)
[2022-05-18] MEDS: dilTIAZem HCL 300 MG CAPCR PO SCH (07:52)
[2022-05-18] MEDS: CETIRIZINE HCL 10 MG TABLET PO SCH (07:52)
[2022-05-18] MEDS: FLUTICASONE/VILANTEROL 200/25MCG 14 PUFFS/INHALER INH SCH (07:53)
[2022-05-18] MEDS: guaiFENesin 600 MG TABCR PO SCH (07:53)
[2022-05-18] MEDS: predniSONE 20 MG TAB PO SCH (07:53)
--- NOTE | 2022-05-18 14:29 | Hospitalist Progress Note ---
Date of Service May 18, 2022 Assessment & Plan (1) Acute and chronic respiratory failure with hypoxia: Plan: Secondary to asthma exacerbation caused by pneumonia with history of bronchiectasis Typically on 4 L of oxygen at home however increased to 6 L recently, was saturating well on 6 L in the ED however became acutely short of breath and was subsequently placed on CPAP Possible early sepsis with WBC 13 K, tachypnea. HR and BP stable. Lactic acid normal. Procalcitonin negative Still requiring about 4 L of nasal cannula oxygen to maintain saturation Clinically not any better to be discharged A little bit better today and will ask for PT and OT evaluation Clinically much better today and is back to her baseline Likely discharge this afternoon following PT and OT evaluation (2) Idiopathic bronchiectasis: (3) Pneumonia: Plan: Patient presenting from home with reports of worsening shortness of breath, cough, sputum production x 3 weeks CXR showing multifocal airspace opacity. CTA chest was negative for pulmonary embolism S/p Zosyn in the ED, will continue with given history of previous sputum culture positive for Pseudomonas. Add doxycycline for atypical coverage. Follow blood and sputum cultures--sputum is growing Pseudomonas-continue with intravenous Zosyn for now Cont prednisone Currently on nasal canula at her baseline settings. Aggressive pulmonary toilet with DuoNebs, flutter valve, incentive spirometer, percussion vest, inhaled corticosteroid Pulm following-no bronchoscopy indicated at this time. Clinically not much better Doxycycline has been discontinued and will continue Zosyn for today No fever and no chills and the cough has improved and no increasing shortness of breath Will discharge home this afternoon (4) Acute hyponatremia: Plan: resolved, Na 134 today., likely hypovolemic hyponatremia due to poor p.o. intake She is eating better and now off IVF. Sodium level has been around 133 Sodium level remains around 132 (5) Acquired hypothyroidism: Plan: chronic, stable-Continue levothyroxine (6) Hypertension: Plan: BP controlled, continue diltiazem and atenolol (7) Anxiety and depression: Plan: Stable, continue sertraline (8) DVT prophylaxis: Plan: SQ Lovenox Full Dispo-cont PCU for now. Plan for home in next 1-2 days. Likely be discharged today Admission and Anticipated Discharge Date Admission Date: May 10, 2022 Subjective 05/16/2022 The patient was seen and examined in telemetry unit She remains very short of breath at rest and with minimal exertion Denies any chest pain and or palpitation No fever no chills 05/17/2022 The patient was seen and examined in telemetry unit She feels a little better but he still has severe cough with shortness of breath on exertion Denies any chest pain and/or palpitation 05/18/2022 The patient was seen and examined in telemetry unit She has been feeling much better and back to her baseline He denies any other symptoms She will have PT and OT evaluation prior to discharge may be this evening Review of Systems Review of Systems: All systems reviewed and are unremarkable except as noted below Respiratory: Minimal shortness of breath at rest and with minimal exertion Physical Exam Physical Exam: Sitting at the edge of the bed with moderate shortness of breath Constitutional: well developed, well nourished, + ill appearing and average body habitus Eyes: PERRL, conjunctivae normal, anicteric sclerae ENMT: external ear and nose normal, oropharynx normal Neck: trachea midline, no thyromegaly Respiratory: + respiratory distress (Moderate shortness of breath at rest) Auscultation: + diminished lung sounds; no crackles (Minimal bibasilar crackles) Cardiovascular: Rate/Rhythm: regular rate and regular rhythm; not tachycardic Heart Sounds: normal S1 and normal S2; no murmur Extremities: no edema Gastrointestinal (Abdomen): Inspection/Auscultation: normal bowel sounds; abdomen not distended Percussion/Palpation: abdomen soft; abdomen nontender Musculoskeletal: No acute arthritis involving any joint Neurologic: normal touch/pain/proprioception and moves all extremities Psychiatric: A+Ox3, euthymic affect Lymphatic: no cervical or axillary lymphadenopathy Results & Data Results & Data ([facility]) Vital Signs (Past 12 Hours) Vital Signs Temp Pulse Pulse Resp BP BP Pulse Ox 05/18/22 12:13 36.8 C 61 22 95/46 L 93 05/18/22 09:36 70 05/18/22 07:37 36.8 C 75 20 124/79 93 05/18/22 07:08 64 17 94 05/18/22 03:18 36.6 C 68 16 155/86 H 99 Medications Administered Current Inpatient Medications Acetaminophen (Acetaminophen 325 Mg Tab) 650 mg PO Q4H PRN PRN Reason: Pain or Fever Stop: 06/09/22 18:40 Last Admin: 05/18/22 07:50 Dose: 650 mg Documented by: Albuterol (Albut/Ipratrop 3mg/0.5mg Neb 3 Ml Vial) 3 ml NEB QIDR PRN; Protocol PRN Reason: SOB/wheezing Stop: 06/11/22 06:59 Last Admin: 05/18/22 07:07 Dose: 3 ml Documented by: Atenolol (Atenolol 50 Mg Tablet) 100 mg PO [facility] Stop: 06/10/22 08:59 Last Admin: 05/18/22 07:52 Dose: 100 mg Documented by: Atorvastatin Calcium (Atorvastatin 10 Mg Tab) 10 mg PO [facility] Stop: 06/10/22 08:59 Last Admin: 05/18/22 07:52 Dose: 10 mg Documented by: Benzonatate (Benzonatate 100 Mg Capsule) 100 mg PO TID PRN PRN Reason: Cough Stop: 06/11/22 00:39 Last Admin: 05/17/22 10:16 Dose: 100 mg Documented by: Calcium Carbonate (Calcium Carbonate 500 Mg Chewable Tab) 1,000 mg PO Q8H PRN PRN Reason: Indigestion Stop: 06/13/22 15:35 Last Admin: 05/16/22 13:31 Dose: 1,000 mg Documented by: Cetirizine HCl (Cetirizine Hcl 10 Mg Tablet) 10 mg PO [facility] Stop: 06/10/22 08:59 Last Admin: 05/18/22 07:52 Dose: 10 mg Documented by: Diltiazem HCl (Diltiazem Hcl 300 Mg Capcr) 300 mg PO [facility] Stop: 06/10/22 08:59 Last Admin: 05/18/22 07:52 Dose: 300 mg Documented by: Enoxaparin Sodium (Enoxaparin Inj 40 Mg/0.4 Ml Syr) 40 mg SQ Q24H [facility] Stop: 06/09/22 18:59 Last Admin: 05/17/22 18:36 Dose: 40 mg Documented by: Famotidine (Famotidine 20 Mg Tab) 20 mg PO [facility]; Protocol Stop: 06/09/22 20:59 Last Admin: 05/17/22 20:18 Dose: 20 mg Documented by: Fluticasone/Vilanterol (Fluticasone/Vilanterol 200/25mcg 14 Puffs/Inhaler) 1 puffs INH DAILY [facility]; Protocol Stop: 06/10/22 08:59 Last Admin: 05/18/22 07:53 Dose: 1 puffs Documented by: Guaifenesin (Guaifenesin 600 Mg Tabcr) 1,200 mg PO BID [facility] Stop: 06/10/22 20:59 Last Admin: 05/18/22 07:53 Dose: 1,200 mg Documented by: Levothyroxine Sodium (Levothyroxine Sodium 75 Mcg Tablet) 75 mcg PO DAILYBB [facility] Stop: 06/10/22 06:29 Last Admin: 05/18/22 06:01 Dose: 75 mcg Documented by: Montelukast Sodium (Montelukast Sodium 10 Mg Tablet) 10 mg PO QPM [facility] Stop: 06/09/22 20:59 Last Admin: 05/17/22 20:18 Dose: 10 mg Documented by: Ondansetron HCl (Ondansetron Inj 2 Mg/Ml 2 Ml Vial) 4 mg IV Q6H PRN PRN Reason: Nausea Stop: 06/09/22 18:40 Prednisone (Prednisone 20 Mg Tab) 40 mg PO [facility] Stop: 06/12/22 08:59 Last Admin: 05/18/22 07:53 Dose: 40 mg Documented by: Sertraline HCl (Sertraline Hcl 50 Mg Tablet) [facility] [place] Stop: 06/10/22 08:59 Last Admin: 05/18/22 07:51 Dose: 25 mg Documented by: Sodium Chloride (Sodium Chloride 0.65% Na Soln 45 Ml ([place])) 1 sprays NA NOW PRN PRN Reason: Nasal Congestion Stop: 06/10/22 18:26
--- NOTE | 2022-05-18 18:38 | Discharge Summary ---
Date of Service May 18, 2022 Admission HPI Per Admitting Provider 77-year-old female with PMH chronic hypoxic respiratory failure on 4 L of oxygen, hypothyroidism, IPMN, bronchiectasis, severe persistent asthma, pulmonary hypertension, HTN, GERD, osteoporosis, anxiety, depression, and other problems listed below who presents to the ED for evaluation of cough and shortness of breath. Patient reports being on a course of Cipro and prednisone in March for pneumonia. Patient reports that she was feeling well for a couple of weeks following the course of those medications. A few weeks ago, patient noted worsening shortness of breath, cough, sputum production. Symptoms have been pro gressively getting worse. She reports shortness of breath with minimal exertion and has increased her oxygen to 6 L. She reports a cough productive for yellow sputum. She reports that she felt feverish last week however did not take her temperature. Denies chills and rigors. Reports some chest tightness that she attributes to her asthma, no chest pain or palpitations. Reports some occasional episodes of lightheadedness and dizziness with standing however no syncopal event. She has had a very poor appetite with a few episodes of vomiting. Vomiting seems to be triggered by harsh coughing. Denies hematemesis status, coffee-ground emesis, bright red bleeding per rectum, dark tarry stools. No abdominal pain. She denies urinary symptoms. In the ED, patient was saturating well on 6 L of oxygen via nasal cannula. She had an episode where she became acutely short of breath and was subsequently placed on CPAP. Labs show WBC 13 K, Na+ 128, Mg +1.6. CXR shows multifocal patchy airspace consolidation. She was given nebulizer treatment, lorazepam, magnesium replacement, IV Zosyn, IVF. Admission Exam Per Admitting Provider Constitutional: + thin; no acute distress Vitals as abo ve Eyes: PERRL, conjunctivae normal, anicteric sclerae ENMT: external ear and nose normal, oropharynx normal Respiratory: normal respiratory effort; no respiratory distress Auscultation: + diminished lung sounds (Poor air entry noted bilaterally) On CPAP Cardiovascular: Rate/Rhythm: regular rate and regular rhythm Vessels: normal peripheral pulses Extremities: + edema (+2 edema RLE) Gastrointestinal (Abdomen): normal bowel sounds, soft, nontender, no hepatosplenomegaly Musculoskeletal: no cyanosis or clubbing, extremities motor strength 5/5 Skin: no rashes, warm and dry Neurologic: PERRL, EOMI, accommodation nl, no face palsy, no dysarthria Psychiatric: A+Ox3, euthymic affect Principal Diagnosis Acute on chronic respiratory failure with bronchiectasis, community-acquired pneumonia, acute hyponatremia, hypertension, anxiety/depression Discharge Exam Sitting at the edge of the bed with moderate shortness of breath Constitutional well developed, well nourished, + ill appearing and average body habitus Eyes PERRL, conjunctivae normal, anicteric sclerae ENMT external ear and nose normal, oropharynx normal Neck trachea midline, no thyromegaly Respiratory + respiratory distress (Moderate shortness of breath at rest) Auscultation: + diminished lung sounds; no crackles (Minimal bibasilar crackles) Cardiovascular Rate/Rhythm: regular rate and regular rhythm; not tachycardic Heart Sounds: normal S1 and normal S2; no murmur Extremities: no edema Gastrointestinal (Abdomen) Inspection/Auscultation: normal bowel sounds; abdomen not distended Percussion/Palpation: abdomen soft; abdomen nontender Neurologic normal touch/pain/proprioception and moves all extremities Psychiatric A+Ox3, euthymic affect Lymphatic no cervical or axillary lymphadenopathy Discharge Data Allergies Allergy/AdvReac Type Severity Reaction Status Date / Time lisinopril AdvReac Intermediate Cough Verified 05/10/22 16:20 levofloxacin [From Levaquin] AdvReac Unknown numbness Verified 05/12/22 22:26 in hands and arms Consultations 05/10/22 16:05 ED Decision to Admit Stat 05/10/22 19:45 Consult Pulmonology Routine Ordered Studies 05/10/22 14:13 US venous doppler LE RT Stat 05/10/22 16:56 CT angio chest PE protocol Urgent Hospital Course (1) Acute and chronic respiratory failure with hypoxia: Secondary to asthma exacerbation caused by pneumonia with history of bronchiectasis Typically on 4 L of oxygen at home however increased to 6 L recently, was saturating well on 6 L in the ED however became acutely short of breath and was subsequently placed on CPAP Possible early sepsis with WBC 13 K, tachypnea. HR and BP stable. Lactic acid normal. Procalcitonin negative Still requiring about 4 L of nasal cannula oxygen to maintain saturation Clinically not any better to be discharged A little bit better today and will ask for PT and OT evaluation Clinically much better today and is back to her baseline Likely discharge this afternoon following PT and OT evaluation (2) Idiopathic bronchiectasis: (3) Pneumonia: Patient presenting from home with reports of worsening shortness of breath, cough, sputum production x 3 weeks CXR showing multifocal airspace opacity. CTA chest was negative for pulmonary embolism S/p Zosyn in the ED, will continue with given history of previous sputum culture positive for Pseudomonas. Add doxycycline for atypical coverage. Follow blood and sputum cultures--sputum is growing Pseudomonas-continue with intravenous Zosyn for now Cont prednisone Currently on nasal canula at her baseline settings. Aggressive pulmonary toilet with DuoNebs, flutter valve, incentive spirometer, percussion vest, inhaled corticosteroid Pulm following-no bronchoscopy indicated at this time. Clinically not much better Doxycycline has been discontinued and will continue Zosyn for today No fever and no chills and the cough has improved and no increasing shortness of breath Will discharge home this afternoon (4) Acute hyponatremia: resolved, Na 134 today., likely hypovolemic hyponatremia due to poor p.o. intake She is eating better and now off IVF. Sodium level has been around 133 Sodium level remains around 132 (5) Acquired hypothyroidism: chronic, stable-Continue levothyroxine (6) Hypertension: BP controlled, continue diltiazem and atenolol (7) Anxiety and depression: Stable, continue sertraline (8) DVT prophylaxis: SQ Lovenox Full Dispo-cont PCU for now. Plan for home in next 1-2 days. Likely be discharged today Total Time Total Time Spent Total Time Spent (In Minutes): 35 minutes Discharge Plan Discharge Items Patient Disposition: Home - Self-Care Reason For Visit: RESP FAILURE Discharge Diagnosis: Acute on chronic respiratory failure with bronchiectasis, community-acquired pneumonia, acute hyponatremia, hypertension, anxiety/depression Condition on Discharge: Fair Activity: Resume your previous activity Non-emergency contact: Primary Care Provider Call non-emergency contact if: you have any medication questions and your symptoms worsen Follow-up/Referrals: Sanjana Reyes DO [Primary Care Provider] - 05/20/22 11:50 am (Date & Time 05/20/2022 11:50 AM Provider Sanjana Reyes DO Department Family [facility] ) Diet: Heart Healthy Addtl Attending Provider Instructions: Please take precautions to avoid fall No change in new medications except prednisone to be tapered gradually as advised Please try to avoid the stimulants for bronchospasm as discussed Please keep appointments with your healthcare providers Pending Studies at Discharge: No Stand-Alone Forms: My [facility], Smoking Cessation Medications and DC Order Prescriptions: New prednisone 10 mg tablet 10 mg PO UD Qty: 42 RF: 0 Continued cetirizine 10 mg Tablet 10 mg PO QAM RF: 0 atorvastatin 10 mg tablet 10 mg PO QAM RF: 0 atenolol 100 mg tablet 100 mg PO QAM RF: 0 alendronate 70 mg tablet 70 mg PO WK RF: 0 levothyroxine 75 mcg tablet 75 mcg PO DAILYBB RF: 0 diltiazem HCl 300 mg capsule,extended release 24hr 300 mg PO QAM RF: 0 fluticasone propion-salmeterol [Wixela Inhub] 500-50 mcg/dose blister with device 1 inh INHALATION BID RF: 0 sertraline 25 mg tablet 25 mg PO QAM RF: 0 montelukast 10 mg tablet 10 mg PO QPM RF: 0 albuterol sulfate [Ventolin HFA] 90 mcg/actuation Hfa Aerosol Inhaler 2 puff INHALATION Q4H PRN (Reason: Shortness Of Breath Or Wheezing) RF: 0 Caltrate 600 plus D 600 mg (1,500 mg)-800 unit Tablet,Chewable 1 tab PO BID RF: 0 guaifenesin [Mucinex] 600 mg Tablet Extended Release 12hr 600 mg PO BID RF: 0 cimetidine 400 mg tablet 400 mg PO HS RF: 0 albuterol sulfate 1.25 mg/3 mL solution for nebulization 1.25 mg continuous nebulization Q4 PRN (Reason: Wheezing) RF: 0 furosemide 20 mg tablet 20 mg PO Q OTHER DAY RF: 0 Spiriva Respimat 2.5 mcg/actuation mist 2 puff INHALATION DAILY RF: 0 Discharge Orders: Discharge Order (Routine); Ordered 05/18/22 Ordered By: Warren Guerra Admission Data Admit Date/Time: 05/10/22 16:55 Attending Provider: Warren Guerra Admit Provider: Warren Guerra Primary Care Provider: Sanjana Reyes Other Providers: Warren Guerra ; Neil Messer ; Taniya Callejas Other Interventions: Discharge Summary Assessment (RN) Last Done: 05/18/22 16:16
--- NOTE | 2022-05-20 06:10 | Coding Query ---
Need to discuss. SEPSIS To promote full compliance with coding requirements relating to patient care, physician participation is requested in all cases of health care marketing manager uncertainty. Please assist us with the question(s) below: In responding to this query, please exercise your independent professional judgement. The fact that a question is asked does not imply that any particular answer is desired or expected. We appreciate your clarification on this issue. Throughout the medical record, you have clearly documented a localized infection and your patient has clinical evidence of a generalized sepsis or severe sepsis. The term urosepsis is a nonspecific entity and is coded as an UTI. If the patient has sepsis, severe sepsis, from an urinary source or some other source, please clarify in your response below. The medical record reflects the following clinical findings: Pt with severe persistent asthma admitted in exacerbation d/t pneumonia. DS & (05/17 )progress notes mention possible early sepsis. Please check below the phrase that applies. Thank you . [facility] ____ ( )Bacteremia (Nonspecific laboratory finding of bacteria in the blood) Specify Organism ( ) Present on Admission ( ) Not present on admission ( ) Unable to clinically determine ( ) Septicemia (Systemic disease associated with the presence of pathogenic microorganisms in the blood): Specify Organism ( ) Present on Admission ( ) Not present on admission ( ) Unable to clinically determine ( ) Sepsis Specify Organism Specify Associated Condition/Diagnosis ( ) Present on Admission ( ) Not present on admission ( ) Unable to clinically determine ( ) Severe Sepsis (Sepsis associated with acute organ dysfunction) Specify Organism Specify Associated Condition/Diagnosis ( ) Present on Admission ( ) Not present on admission ( ) Unable to clinically determine ( ) Septic Shock (Severe sepsis with acute circulatory failure, unexplained by other causes) ( ) Present on Admission ( ) Not present on admission ( ) Unable to clinically determine ( ) Other, patient has: ( ) Patient did not have Sepsis MTDD
== END 2022-05-18 17:56 | disposition home or self-care (01) | DRG 193 ==
LOC: ED 13:48 → 2E 16:55 → SUATTDRO 16:55 → 2E 18:35

== ENCOUNTER 2022-06-12 10:15 | Inpatient (IN) ==
[2022-06-12] MEDS ORDERED: ALBUT/IPRATROP 3MG/0.5MG NEB 3 ML VIAL ONE (10:23)
[2022-06-12] MEDS ORDERED: SODIUM CHLORIDE 0.9% 1000ML 1,000 ML IV SCH (10:30)
[2022-06-12 10:51] LABS: Hematocrit (blood only) 32.5 % (34.1-44.9); Hemoglobin 11.3 g/dl (12.0-16.0); Mean Corpuscular Hemoglobin 32.1 pg (25.0-34.0); Mean Corpuscular Hgb Conc 34.8 g/dL (32.0-36.0); Mean Corpuscular Volume 92.3 fL (80.0-100.0); Mean Platelet Volume 8.7 fL (9.4-12.3); Platelet Count 425 K/uL (130-400); RDW Coefficient of Variation 15.7 % (11.5-14.5); RDW Standard Deviation 51.8 fL (36.4-46.3); Red Blood Count 3.52 M/uL (3.93-5.22); White Blood Count 24.41 K/ul (4.8-10.8)
--- NOTE | 2022-06-12 11:02 | Emergency Department Note ---
History of Present Illness General Chief complaint: Respiratory Distress History of Present Illness Maximum Pain Intensity: 0 77-year-old female presents via EMS. The patient was brought in on BiPAP for shortness of breath. She received 2 nebulizer treatments in route as well as some IV Solu-Medrol by EMS. The patient states that she has been feeling short of breath for the past week as well as had a productive cough for brown sputum for a few weeks off and on. The patient denies any sick contacts. She denies any chest pains. Reports some occasional nausea but none now. She does use home oxygen for COPD at 4 L/h. The patient states that her symptoms are worse with exertion. She has had no appetite for 2 days. Home Medications Medication Instructions Recorded Confirmed Type albuterol sulfate 90 mcg/actuation 2 puff inhalation Q4H PRN 06/02/20 05/10/22 History aerosol inhaler (Ventolin HFA) Shortness Of Breath Or Wheezing alendronate 70 mg tablet 70 mg PO WK 06/02/20 05/10/22 History atenolol 100 mg tablet 100 mg PO QAM 06/02/20 05/10/22 History atorvastatin 10 mg tablet 10 mg PO QAM 06/02/20 05/10/22 History calcium carbonate 600 mg-vitamin 1 tab PO BID 06/02/20 05/10/22 History D3 20 mcg (800 unit) chewable tablet (Caltrate 600 plus D) cetirizine 10 mg tablet 10 mg PO QAM 06/02/20 05/10/22 History diltiazem HCl 300 mg 300 mg PO QAM 06/02/20 05/10/22 History capsule,extended release 24 hr fluticasone 500 mcg-salmeterol 50 1 inh inhalation BID 06/02/20 05/10/22 History mcg/dose blistr powdr for inhalation (Wixela Inhub) guaifenesin 600 mg tablet, 600 mg PO BID 06/02/20 05/10/22 History extended release 12 hr (Mucinex) levothyroxine 75 mcg tablet 75 mcg PO DAILYBB 06/02/20 05/10/22 History montelukast 10 mg tablet 10 mg PO QPM 06/02/20 05/10/22 History sertraline 25 mg tablet 25 mg PO QAM 06/02/20 05/10/22 History albuterol sulfate 1.25 mg/3 mL 1.25 mg continuous nebulization Q4 05/10/22 05/10/22 History solution for nebulization PRN Wheezing cimetidine 400 mg tablet 400 mg PO HS 05/10/22 05/10/22 History furosemide 20 mg tablet 20 mg PO Q OTHER DAY 05/10/22 05/10/22 History tiotropium bromide 2.5 2 puff inhalation DAILY 05/10/22 05/10/22 History mcg/actuation mist for inhalation (Spiriva Respimat) prednisone 10 mg tablet 10 mg PO UD #42 tabs 05/18/22 Rx Allergies Allergy/AdvReac Type Severity Reaction Status Date / Time lisinopril AdvReac Intermediate Cough Verified 05/10/22 16:20 levofloxacin [From Levaquin] AdvReac Unknown numbness Verified 05/12/22 22:26 in hands and arms Past Med/Surg History Medical History Acquired hypothyroidism Acute and chronic respiratory failure with hypoxia Anxiety and depression Dyslipidemia GERD (gastroesophageal reflux disease) History of tobacco abuse 5-pack-year history Quit smoking in 1972 Hypertension Idiopathic bronchiectasis Osteoporosis Pulmonary nodule, left Severe persistent asthma Surgical History H/O cataract removal with insertion of prosthetic lens Bilateral H/O colonoscopy H/O pulmonary function tests S/P tonsillectomy and adenoidectomy Family History Father Heart disease Social History Smoking Status: Former smoker packs per day: 0.5; Years Smoked: 10; Hx Alcohol Use: No Hx Substance Use: No Preferred Language: Wolof Communication Ability: Effective 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 Beliefs That Will Affect Care: None marital status: Current Living Situation: Spouse Feels Safe at Home: Yes Assistive Devices: Cane, Nebulizer, Oxygen - Continuous and Walker Review of Systems A total of 10 systems reviewed and were otherwise negative Physical Exam Vital Signs Vital Signs - 24 hr 06/12/22 10:20 06/12/22 10:20 06/12/22 10:26 Temperature 37.1 C Temperature Source Oral Pulse Rate 98 H 102 H Pulse Rate [Apical] Pulse Rate from SpO2 Sensor Respiratory Rate 26 H 45 H Respiratory Effort / Characteristics Labored Retracting Short of Breath Labored Spontaneous Accessory Muscle Use Labored Short of Breath Respiratory Depth Deep Respiratory Pattern Rapid/Shallow Tachypnea Blood Pressure 131/84 Blood Pressure [Right Arm] Blood Pressure Mean 99 Blood Pressure Mean [Right Arm] Pulse Oximetry 98 95 Oxygen Delivery Method BiPAP BiPAP Fraction of Inspired Oxygen 50 Sepsis Recent Fever Within 48 Hours No Sepsis New/Unexplained Change in Mental Status No Sepsis Action Taken by Nursing No Action Required End-Tidal CO2 06/12/22 10:45 06/12/22 10:21 06/12/22 10:21 Temperature Temperature Source Pulse Rate 106 H Pulse Rate [Apical] 104 H 105 H Pulse Rate from SpO2 Sensor Respiratory Rate 45 H 50 H 50 H Respiratory Effort / Characteristics Spontaneous Accessory Muscle Use Labored Short of Breath Respiratory Depth Respiratory Pattern Blood Pressure Blood Pressure [Right Arm] 133/69 Blood Pressure Mean Blood Pressure Mean [Right Arm] 90 Pulse Oximetry 95 95 96 Oxygen Delivery Method CPAP CPAP CPAP Fraction of Inspired Oxygen 50 Sepsis Recent Fever Within 48 Hours Sepsis New/Unexplained Change in Mental Status Sepsis Action Taken by Nursing End-Tidal CO2 06/12/22 10:32 06/12/22 10:17 06/12/22 10:18 Temperature Temperature Source Pulse Rate 104 H Pulse Rate [Apical] 98 H Pulse Rate from SpO2 Sensor Respiratory Rate 45 H 17 Respiratory Effort / Characteristics Labored Respiratory Depth Respiratory Pattern Blood Pressure 131/84 Blood Pressure [Right Arm] 146/88 H Blood Pressure Mean 99 Blood Pressure Mean [Right Arm] 107 Pulse Oximetry 95 Oxygen Delivery Method CPAP Fraction of Inspired Oxygen Sepsis Recent Fever Within 48 Hours Sepsis New/Unexplained Change in Mental Status Sepsis Action Taken by Nursing End-Tidal CO2 06/12/22 10:20 06/12/22 10:30 06/12/22 10:40 Temperature Temperature Source Pulse Rate 103 H 103 H 104 H Pulse Rate [Apical] Pulse Rate from SpO2 Sensor 100 H 99 H 104 H Respiratory Rate 17 24 19 Respiratory Effort / Characteristics Respiratory Depth Respiratory Pattern Blood Pressure Blood Pressure [Right Arm] Blood Pressure Mean Blood Pressure Mean [Right Arm] Pulse Oximetry 99 97 95 Oxygen Delivery Method Fraction of Inspired Oxygen Sepsis Recent Fever Within 48 Hours Sepsis New/Unexplained Change in Mental Status Sepsis Action Taken by Nursing End-Tidal CO2 06/12/22 10:48 06/12/22 10:48 06/12/22 10:50 Temperature Temperature Source Pulse Rate 106 H 103 H Pulse Rate [Apical] Pulse Rate from SpO2 Sensor 101 H 99 H Respiratory Rate 25 H 20 Respiratory Effort / Characteristics Respiratory Depth Respiratory Pattern Blood Pressure 133/69 Blood Pressure [Right Arm] Blood Pressure Mean 90 Blood Pressure Mean [Right Arm] Pulse Oximetry 96 96 Oxygen Delivery Method Fraction of Inspired Oxygen Sepsis Recent Fever Within 48 Hours Sepsis New/Unexplained Change in Mental Status Sepsis Action Taken by Nursing End-Tidal CO2 06/12/22 11:00 06/12/22 11:00 06/12/22 11:10 Temperature Temperature Source Pulse Rate 107 H 105 H Pulse Rate [Apical] Pulse Rate from SpO2 Sensor 105 H 102 H Respiratory Rate 28 H Respiratory Effort / Characteristics Respiratory Depth Respiratory Pattern Blood Pressure 146/88 H Blood Pressure [Right Arm] Blood Pressure Mean 107 Blood Pressure Mean [Right Arm] Pulse Oximetry 93 93 Oxygen Delivery Method Fraction of Inspired Oxygen Sepsis Recent Fever Within 48 Hours Sepsis New/Unexplained Change in Mental Status Sepsis Action Taken by Nursing End-Tidal CO2 06/12/22 11:11 06/12/22 11:11 06/12/22 11:20 Temperature Temperature Source Pulse Rate 109 H Pulse Rate [Apical] Pulse Rate from SpO2 Sensor 106 H Respiratory Rate 44 H Respiratory Effort / Characteristics Respiratory Depth Respiratory Pattern Blood Pressure 111/70 120/86 Blood Pressure [Right Arm] Blood Pressure Mean 83 97 Blood Pressure Mean [Right Arm] Pulse Oximetry 96 Oxygen Delivery Method Fraction of Inspired Oxygen Sepsis Recent Fever Within 48 Hours Sepsis New/Unexplained Change in Mental Status Sepsis Action Taken by Nursing End-Tidal CO2 06/12/22 11:20 06/12/22 11:30 06/12/22 11:30 Temperature Temperature Source Pulse Rate 105 H 93 H Pulse Rate [Apical] Pulse Rate from SpO2 Sensor 103 H 92 H Respiratory Rate 31 H 21 Respiratory Effort / Characteristics Respiratory Depth Respiratory Pattern Blood Pressure 126/73 Blood Pressure [Right Arm] Blood Pressure Mean 90 Blood Pressure Mean [Right Arm] Pulse Oximetry 93 98 Oxygen Delivery Method Fraction of Inspired Oxygen Sepsis Recent Fever Within 48 Hours Sepsis New/Unexplained Change in Mental Status Sepsis Action Taken by Nursing End-Tidal CO2 32 06/12/22 11:40 06/12/22 11:40 06/12/22 11:28 Temperature Temperature Source Pulse Rate 97 H 94 H Pulse Rate [Apical] Pulse Rate from SpO2 Sensor 111 H Respiratory Rate 17 21 Respiratory Effort / Characteristics Respiratory Depth Respiratory Pattern Blood Pressure 105/74 Blood Pressure [Right Arm] Blood Pressure Mean 84 Blood Pressure Mean [Right Arm] Pulse Oximetry 100 98 Oxygen Delivery Method Fraction of Inspired Oxygen 50 Sepsis Recent Fever Within 48 Hours Sepsis New/Unexplained Change in Mental Status Sepsis Action Taken by Nursing End-Tidal CO2 55 43 06/12/22 12:10 06/12/22 12:50 06/12/22 13:31 Temperature Temperature Source Pulse Rate 82 Pulse Rate [Apical] Pulse Rate from SpO2 Sensor Respiratory Rate 28 H 29 H Respiratory Effort / Characteristics Respiratory Depth Respiratory Pattern Blood Pressure Blood Pressure [Right Arm] Blood Pressure Mean Blood Pressure Mean [Right Arm] Pulse Oximetry 99 Oxygen Delivery Method Fraction of Inspired Oxygen 70 60 Sepsis Recent Fever Within 48 Hours Sepsis New/Unexplained Change in Mental Status Sepsis Action Taken by Nursing End-Tidal CO2 42 06/12/22 13:31 06/12/22 12:03 06/12/22 12:03 Temperature Temperature Source Pulse Rate 89 Pulse Rate [Apical] 82 Pulse Rate from SpO2 Sensor 88 Respiratory Rate 29 H 23 Respiratory Effort / Characteristics Mechanically Ventilated Respiratory Depth Respiratory Pattern Blood Pressure 82/57 L Blood Pressure [Right Arm] Blood Pressure Mean 65 Blood Pressure Mean [Right Arm] Pulse Oximetry 98 97 Oxygen Delivery Method Mechanical Vent Fraction of Inspired Oxygen 50 Sepsis Recent Fever Within 48 Hours Sepsis New/Unexplained Change in Mental Status Sepsis Action Taken by Nursing End-Tidal CO2 42 06/12/22 12:04 06/12/22 12:04 06/12/22 12:05 Temperature Temperature Source Pulse Rate 89 85 Pulse Rate [Apical] Pulse Rate from SpO2 Sensor 84 Respiratory Rate 22 24 Respiratory Effort / Characteristics Respiratory Depth Respiratory Pattern Blood Pressure 85/38 L Blood Pressure [Right Arm] Blood Pressure Mean 53 Blood Pressure Mean [Right Arm] Pulse Oximetry 97 Oxygen Delivery Method Fraction of Inspired Oxygen Sepsis Recent Fever Within 48 Hours Sepsis New/Unexplained Change in Mental Status Sepsis Action Taken by Nursing End-Tidal CO2 35 59 06/12/22 12:10 06/12/22 12:11 06/12/22 12:11 Temperature Temperature Source Pulse Rate 100 H 96 H Pulse Rate [Apical] Pulse Rate from SpO2 Sensor 92 H Respiratory Rate 24 18 Respiratory Effort / Characteristics Respiratory Depth Respiratory Pattern Blood Pressure 126/74 Blood Pressure [Right Arm] Blood Pressure Mean 91 Blood Pressure Mean [Right Arm] Pulse Oximetry 91 Oxygen Delivery Method Fraction of Inspired Oxygen Sepsis Recent Fever Within 48 Hours Sepsis New/Unexplained Change in Mental Status Sepsis Action Taken by Nursing End-Tidal CO2 77 51 06/12/22 12:15 06/12/22 12:20 06/12/22 12:20 Temperature Temperature Source Pulse Rate 95 H 91 H Pulse Rate [Apical] Pulse Rate from SpO2 Sensor 95 H 89 Respiratory Rate 28 H 29 H Respiratory Effort / Characteristics Respiratory Depth Respiratory Pattern Blood Pressure 120/69 Blood Pressure [Right Arm] Blood Pressure Mean 86 Blood Pressure Mean [Right Arm] Pulse Oximetry 89 L 87 L Oxygen Delivery Method Fraction of Inspired Oxygen Sepsis Recent Fever Within 48 Hours Sepsis New/Unexplained Change in Mental Status Sepsis Action Taken by Nursing End-Tidal CO2 44 45 06/12/22 12:25 06/12/22 12:27 06/12/22 12:27 Temperature Temperature Source Pulse Rate 86 87 Pulse Rate [Apical] Pulse Rate from SpO2 Sensor 86 Respiratory Rate 19 21 Respiratory Effort / Characteristics Respiratory Depth Respiratory Pattern Blood Pressure 101/68 Blood Pressure [Right Arm] Blood Pressure Mean 79 Blood Pressure Mean [Right Arm] Pulse Oximetry 89 L Oxygen Delivery Method Fraction of Inspired Oxygen Sepsis Recent Fever Within 48 Hours Sepsis New/Unexplained Change in Mental Status Sepsis Action Taken by Nursing End-Tidal CO2 48 50 06/12/22 12:30 06/12/22 12:30 06/12/22 12:35 Temperature Temperature Source Pulse Rate 84 Pulse Rate [Apical] Pulse Rate from SpO2 Sensor 86 Respiratory Rate 24 Respiratory Effort / Characteristics Respiratory Depth Respiratory Pattern Blood Pressure 90/60 L 87/56 L Blood Pressure [Right Arm] Blood Pressure Mean 70 66 Blood Pressure Mean [Right Arm] Pulse Oximetry 91 Oxygen Delivery Method Fraction of Inspired Oxygen Sepsis Recent Fever Within 48 Hours Sepsis New/Unexplained Change in Mental Status Sepsis Action Taken by Nursing End-Tidal CO2 44 06/12/22 12:35 06/12/22 12:40 06/12/22 12:40 Temperature Temperature Source Pulse Rate 87 83 Pulse Rate [Apical] Pulse Rate from SpO2 Sensor 81 83 Respiratory Rate 32 H 16 Respiratory Effort / Characteristics Respiratory Depth Respiratory Pattern Blood Pressure 79/50 L Blood Pressure [Right Arm] Blood Pressure Mean 59 Blood Pressure Mean [Right Arm] Pulse Oximetry 92 94 Oxygen Delivery Method Fraction of Inspired Oxygen Sepsis Recent Fever Within 48 Hours Sepsis New/Unexplained Change in Mental Status Sepsis Action Taken by Nursing End-Tidal CO2 35 41 06/12/22 12:43 06/12/22 12:43 06/12/22 12:45 Temperature Temperature Source Pulse Rate 83 Pulse Rate [Apical] Pulse Rate from SpO2 Sensor Respiratory Rate 28 H Respiratory Effort / Characteristics Respiratory Depth Respiratory Pattern Blood Pressure 87/57 L 75/55 L Blood Pressure [Right Arm] Blood Pressure Mean 67 61 Blood Pressure Mean [Right Arm] Pulse Oximetry Oxygen Delivery Method Fraction of Inspired Oxygen Sepsis Recent Fever Within 48 Hours Sepsis New/Unexplained Change in Mental Status Sepsis Action Taken by Nursing End-Tidal CO2 37 06/12/22 12:45 06/12/22 12:47 06/12/22 12:47 Temperature Temperature Source Pulse Rate 82 82 Pulse Rate [Apical] Pulse Rate from SpO2 Sensor 82 84 Respiratory Rate 30 H 28 H Respiratory Effort / Characteristics Respiratory Depth Respiratory Pattern Blood Pressure 100/65 Blood Pressure [Right Arm] Blood Pressure Mean 76 Blood Pressure Mean [Right Arm] Pulse Oximetry 96 94 Oxygen Delivery Method Fraction of Inspired Oxygen Sepsis Recent Fever Within 48 Hours Sepsis New/Unexplained Change in Mental Status Sepsis Action Taken by Nursing End-Tidal CO2 36 37 06/12/22 12:50 06/12/22 12:52 06/12/22 12:52 Temperature Temperature Source Pulse Rate 75 87 Pulse Rate [Apical] Pulse Rate from SpO2 Sensor 82 82 Respiratory Rate 6 L 30 H Respiratory Effort / Characteristics Respiratory Depth Respiratory Pattern Blood Pressure 97/70 L Blood Pressure [Right Arm] Blood Pressure Mean 79 Blood Pressure Mean [Right Arm] Pulse Oximetry 91 96 Oxygen Delivery Method Fraction of Inspired Oxygen Sepsis Recent Fever Within 48 Hours Sepsis New/Unexplained Change in Mental Status Sepsis Action Taken by Nursing End-Tidal CO2 43 39 06/12/22 12:55 06/12/22 12:57 06/12/22 12:57 Temperature Temperature Source Pulse Rate 88 86 Pulse Rate [Apical] Pulse Rate from SpO2 Sensor 85 87 Respiratory Rate 9 L 28 H Respiratory Effort / Characteristics Respiratory Depth Respiratory Pattern Blood Pressure 134/76 Blood Pressure [Right Arm] Blood Pressure Mean 95 Blood Pressure Mean [Right Arm] Pulse Oximetry 93 96 Oxygen Delivery Method Fraction of Inspired Oxygen Sepsis Recent Fever Within 48 Hours Sepsis New/Unexplained Change in Mental Status Sepsis Action Taken by Nursing End-Tidal CO2 47 48 06/12/22 13:00 06/12/22 13:01 06/12/22 13:01 Temperature Temperature Source Pulse Rate 86 85 Pulse Rate [Apical] Pulse Rate from SpO2 Sensor 87 85 Respiratory Rate 29 H 28 H Respiratory Effort / Characteristics Respiratory Depth Respiratory Pattern Blood Pressure 132/91 Blood Pressure [Right Arm] Blood Pressure Mean 104 Blood Pressure Mean [Right Arm] Pulse Oximetry 92 96 Oxygen Delivery Method Fraction of Inspired Oxygen Sepsis Recent Fever Within 48 Hours Sepsis New/Unexplained Change in Mental Status Sepsis Action Taken by Nursing End-Tidal CO2 56 48 06/12/22 13:05 06/12/22 13:05 06/12/22 13:10 Temperature Temperature Source Pulse Rate 84 Pulse Rate [Apical] Pulse Rate from SpO2 Sensor Respiratory Rate 28 H Respiratory Effort / Characteristics Respiratory Depth Respiratory Pattern Blood Pressure 115/66 103/63 Blood Pressure [Right Arm] Blood Pressure Mean 82 76 Blood Pressure Mean [Right Arm] Pulse Oximetry Oxygen Delivery Method Fraction of Inspired Oxygen Sepsis Recent Fever Within 48 Hours Sepsis New/Unexplained Change in Mental Status Sepsis Action Taken by Nursing End-Tidal CO2 42 06/12/22 13:10 06/12/22 13:12 06/12/22 13:12 Temperature Temperature Source Pulse Rate 83 83 Pulse Rate [Apical] Pulse Rate from SpO2 Sensor 81 78 Respiratory Rate 28 H 28 H Respiratory Effort / Characteristics Respiratory Depth Respiratory Pattern Blood Pressure 112/65 Blood Pressure [Right Arm] Blood Pressure Mean 80 Blood Pressure Mean [Right Arm] Pulse Oximetry 98 98 Oxygen Delivery Method Fraction of Inspired Oxygen Sepsis Recent Fever Within 48 Hours Sepsis New/Unexplained Change in Mental Status Sepsis Action Taken by Nursing End-Tidal CO2 44 45 06/12/22 13:15 06/12/22 13:15 06/12/22 13:20 Temperature Temperature Source Pulse Rate 83 Pulse Rate [Apical] Pulse Rate from SpO2 Sensor 82 Respiratory Rate 28 H Respiratory Effort / Characteristics Respiratory Depth Respiratory Pattern Blood Pressure 105/67 121/67 Blood Pressure [Right Arm] Blood Pressure Mean 79 85 Blood Pressure Mean [Right Arm] Pulse Oximetry 98 Oxygen Delivery Method Fraction of Inspired Oxygen Sepsis Recent Fever Within 48 Hours Sepsis New/Unexplained Change in Mental Status Sepsis Action Taken by Nursing End-Tidal CO2 44 06/12/22 13:20 06/12/22 13:25 06/12/22 13:25 Temperature Temperature Source Pulse Rate 83 84 Pulse Rate [Apical] Pulse Rate from SpO2 Sensor 78 83 Respiratory Rate 28 H 30 H Respiratory Effort / Characteristics Respiratory Depth Respiratory Pattern Blood Pressure 122/71 Blood Pressure [Right Arm] Blood Pressure Mean 88 Blood Pressure Mean [Right Arm] Pulse Oximetry 98 98 Oxygen Delivery Method Fraction of Inspired Oxygen Sepsis Recent Fever Within 48 Hours Sepsis New/Unexplained Change in Mental Status Sepsis Action Taken by Nursing End-Tidal CO2 44 47 06/12/22 13:30 06/12/22 13:30 06/12/22 13:35 Temperature Temperature Source Pulse Rate 83 82 Pulse Rate [Apical] Pulse Rate from SpO2 Sensor 82 Respiratory Rate 21 30 H Respiratory Effort / Characteristics Respiratory Depth Respiratory Pattern Blood Pressure 109/65 123/71 Blood Pressure [Right Arm] Blood Pressure Mean 79 88 Blood Pressure Mean [Right Arm] Pulse Oximetry 95 Oxygen Delivery Method Fraction of Inspired Oxygen Sepsis Recent Fever Within 48 Hours Sepsis New/Unexplained Change in Mental Status Sepsis Action Taken by Nursing End-Tidal CO2 47 40 CONSTITUTIONAL/VITAL SIGNS: Reviewed / noted above. GENERAL: Non-toxic in appearance. INTEGUMENTARY: Warm, dry, and [place]. HEAD: Normocephalic. EYES: without scleral icterus or trauma. ENT/OROPHARYNX: clear and moist. LYMPHADENOPATHY/NECK: Is supple without lymphadenopathy or meningismus. RESPIRATORY: The patient's lung sounds are diminished bilaterally with some wheezing and crackles as well as there is some increased work of breathing. CARDIOVASCULAR: Regular rate and rhythm. GI/ABDOMEN: Soft and nontender. No organomegaly or pulsatile mass. EXTREMITIES: Warm and well perfused. BACK: No CVA tenderness. NEUROLOGICAL: Intact without focal deficits. PSYCHIATRIC: normal affect. MUSCULOSKELETAL: Normally developed with good muscle tone. TRIAGE NURSING DOCUMENTATION REVIEWED. Procedures ABG Interpretation ABG Interpretation 1: ABG Results: Interpretation: respiratory acidosis Intubation Time out performed: Yes sedative: Etomidate Mg Given: 20 paralytic: Succinylcholine Mg Given: 100 Laryngoscope: fiber optic video scope (Odonnell scope) ET Tube Size: 7 ET Tube Uncuffed: No Tube Secured Depth (cm): 22 Tube Secured Location: teeth Tube Placement Confirmation: visualized tube passing through cords, equal breath sounds bilaterally, no breath sounds over epigastrium and confirmation by capnometry Patient Tolerated Procedure: well and no complications Intubation Complications: none Course Administered Medications Albuterol (Albut/Ipratrop 3mg/0.5mg Neb 3 Ml Vial) 3 ml NEB Q6R [facility] [place]; Protocol Stop: 07/12/22 12:59 Last Admin: 06/12/22 13:31 Dose: 3 ml Documented By: EM Fentanyl Citrate (Fentanyl Citrate 100 Mcg/2 Ml Vial) 25 mcg IV Q1H PRN PRN Reason: Pain Stop: 06/26/22 12:47 Last Admin: 06/12/22 13:07 Dose: 25 mcg Documented By: HORACE Propofol (Diprivan) 1,000 mg in 100 mls @ 5.448 mls/hr IV .[id number] MICAELA; Protocol Stop: 06/15/22 11:29 Last Titration: 06/12/22 12:16 Dose: 20 mcg/kg/min, 5.4 mls/hr Documented By: Titration: 06/12/22 12:01 Dose: 0 mcg/kg/min, 0 mls/hr Documented By: Admin: 06/12/22 11:57 Dose: 25 mcg/kg/min, 6.8 mls/hr Documented By: DUNIA Co-signed By: HORACE Titration: 06/12/22 11:57 Dose: 25 mcg/kg/min, 6.8 mls/hr Documented By: DUNIA Co-signed By: HORACE Titration: 06/12/22 11:55 Dose: 25 mcg/kg/min, 6.8 mls/hr Documented By: Titration: 06/12/22 11:51 Dose: 20 mcg/kg/min, 5.4 mls/hr Documented By: Titration: 06/12/22 11:50 Dose: 10 mcg/kg/min, 2.7 mls/hr Documented By: Admin: 06/12/22 11:37 Dose: 5 mcg/kg/min, 1.4 mls/hr Documented By: DUNIA Co-signed By: HORACE Titration: 06/12/22 11:37 Dose: 5 mcg/kg/min, 1.4 mls/hr Documented By: DUNIA Co-signed By: HORACE Admin: 06/12/22 11:36 Dose: 5 mcg/kg/min, 1.4 mls/hr Documented By: DUNIA Co-signed By: HORACE Propofol (Propofol Bolus From Bag) 20 mg IV Q5M PRN PRN Reason: Sedation Stop: 06/15/22 11:25 Last Admin: 06/12/22 11:45 Dose: 20 mg Documented By: DUNIA Co-signed By: HORACE Discontinued Medications Albuterol (Albut/Ipratrop 3mg/0.5mg Neb 3 Ml Vial) Confirm Administered Dose 3 ml .ROUTE .STK-MED ONE Stop: 06/12/22 10:24 Last Admin: 06/12/22 10:43 Dose: 3 ml Documented By: LILIANE Sodium Chloride (Nss 1000ml) 1,000 mls @ 999 mls/hr IV .Q1H1M MICAELA Stop: 06/12/22 11:30 Last Admin: 06/12/22 11:38 Dose: 999 mls/hr Documented By: DUNIA Cefepime HCl (Maxipime) 2,000 mg in 20 mls @ 5 mls/min IV NOW STA; Protocol Stop: 06/12/22 12:01 Last Admin: 06/12/22 12:07 Dose: 5 mls/min Documented By: DUNIA Sodium Chloride (Nss 1000ml) 1,000 mls @ 999 mls/hr IV .Q1H1M ONE Stop: 06/12/22 12:59 Last Admin: 06/12/22 12:15 Dose: 999 mls/hr Documented By: DUNIA Ketamine HCl (Ketamine Hcl Inj 50 Mg/Ml 10 Ml Vial) 100 mg IV NOW STA Stop: 06/12/22 12:12 Last Admin: 06/12/22 12:15 Dose: 100 mg Documented By: DUNIA Lorazepam (Lorazepam 2 Mg/1 Ml Vial) Confirm Administered Dose 1 mg .ROUTE .STK- MED ONE Stop: 06/12/22 11:28 Last Admin: 06/12/22 11:41 Dose: Not Given Documented By: DUNIA Lorazepam (Lorazepam 2 Mg/1 Ml Vial) 1 mg IV NOW STA; Protocol Stop: 06/12/22 11:27 Last Admin: 06/12/22 11:25 Dose: 1 mg Documented By: DUNIA Lorazepam (Lorazepam 2 Mg/1 Ml Vial) 1 mg IV NOW STA; Protocol Stop: 06/12/22 12:00 Last Admin: 06/12/22 12:12 Dose: 1 mg Documented By: DUNIA Schmittaneous (Rapid Sequence Induction Bag) Confirm Administered Dose 1 each .ROUTE .STK-MED ONE Stop: 06/12/22 11:15 Last Admin: 06/12/22 11:24 Dose: 1 each Documented By: DUNIA Sylvester (Stat Iv Infusion Titration Per Protocol) 1 each N/A NOW STA Stop: 06/12/22 11:27 Last Admin: 06/12/22 11:25 Dose: 1 each Documented By: DUNIA Propofol (Propofol Iv Emulsion 10 Mg/Ml 100 Ml Vial) Confirm Administered Dose 1,000 mg IV .STK-MED ONE Stop: 06/12/22 11:26 Last Admin: 06/12/22 11:39 Dose: Not Given Documented By: DUNIA Critical Care Time Critical Care Time: Yes Total Critical Care Time: 65 I have personally spent 65 minutes of critical care time in the direct management of this patient. This includes bedside care, interpretation of diagnostic studies, and testing, discussion with consultants, patient, and family members, and other required patient management activities. This 65 minutes is in excess of all separately billable procedures. Medical Decision Making Differential Diagnosis The differential was considered includes acute myocardial infarction, acute coronary syndrome, myocarditis, pericarditis, pericardial effusions /tamponad, esophageal perforation, pulmonary embolism, pneumonia, pneumothorax, cardiomyopathy, congestive heart, anemia , COPD/asthma exacerbation. Medical Records Attestation: I reviewed the patient's medical records. Home Medications Current Medication List: was personally reviewed by me Laboratory Data Attestation: I reviewed the patient's lab results. Result diagrams: 06/12/22 10:32 06/12/22 10:32 Lab Results 06/12/22 06/12/22 06/12/22 Range/Units 10:32 10:32 10:32 WBC 24.41 H (4.8-10.8) K/ul RBC 3.52 L (3.93-5.22) M/uL Hgb 11.3 L (12.0-16.0) g/dl Hct 32.5 L (34.1-44.9) % MCV 92.3 (80.0-100.0) fL MCH 32.1 (25.0-34.0) pg MCHC 34.8 (32.0-36.0) g/dL RDW Std Deviation 51.8 H (36.4-46.3) fL RDW Coeff of Fan 15.7 H (11.5-14.5) % Plt Count 425 H (130-400) K/uL MPV 8.7 L (9.4-12.3) fL Immature Gran % (Auto) 0.8 % Neut % (Auto) 90.9 % Lymph % (Auto) 2.2 % [place] % (Auto) 5.9 % Eos % (Auto) 0.0 % Baso % (Auto) 0.2 % Neut # (Auto) 22.18 H (1.4-6.5) K/uL Lymph # (Auto) 0.54 L (1.2-3.4) K/uL [place] # (Auto) 1.43 H (0.24-0.82) K/uL Eos # (Auto) 0.00 (0-0.50) K/uL Baso # (Auto) 0.06 (0-0.2) K/uL Immature Gran # (Auto) 0.20 H (0.00-0.02) K/uL PT 11.0 (9.0-12.0) Seconds INR 1.0 (0.9-1.1) APTT 24.1 (21.0-31.0) Seconds PTT Ratio 0.9 VBG pH (7.36-7.41) VBG pCO2 (38-50) mmHg VBG pO2 mmHg VBG HCO3 mmol/L VBG O2 Saturation % VBG Base Excess mEq/L Sodium 133 L (136-145) mmol/L Potassium 3.6 (3.5-5.1) mmol/L Chloride 92 L (98-107) mmol/L Carbon Dioxide 30 (21-32) mmol/L Anion Gap 11 (3-11) BUN 10 (6-23) mg/dl Creatinine 0.53 L (0.6-1.2) mg/dl Est Cr Clr Drug Dosing 62.7 ml/min Est GFR ( Amer) 105.4 ml/min Est GFR (Non-Af Amer) 90.9 ml/min BUN/Creatinine Ratio 18.9 (10-20) Glucose 136 H (70-99(Fasting)) mg/dl Lactate (0.4-2.0) mmol/L Calcium 9.9 (8.5-10.1) mg/dl Magnesium 1.5 L (1.7-2.4) mg/dl Total Bilirubin 0.5 (0.2-1.0) mg/dl AST 10 L (13-39) U/L ALT 7 (7-52) U/L Alkaline Phosphatase 57 (34-104) U/L Troponin I High Sens 23.6 H D (0-14) pg/ml Total Protein 7.0 (6.0-8.3) gm/dl Albumin 3.4 (3.4-5.0) gm/dl Globulin 3.6 (2.5-4.0) gm/dl Albumin/Globulin Ratio 0.9 (0.9-2) Procalcitonin (0-0.5) ng/ml Urine Color Urine Appearance (Clear) Urine pH (4.5-7.5) Ur Specific [place] (1.000-1.030) Urine Protein (Negative) Urine Glucose (UA) (Negative) Urine Ketones (Negative) Urine Blood (Negative) Urine Nitrite (Negative) Urine Bilirubin (Negative) Urine Urobilinogen (Negative) Ur Leukocyte Esterase (Negative) Urine WBC (Auto) (0-5) /hpf Urine RBC (Auto) (0-4) /hpf U Hyaline Cast (Auto) (0-5) /lpf U Epithel Cells (Auto) (0-5) /lpf Urine Bacteria (Auto) (Negative) Adenovirus (PCR) (NotDetected) B. pertussis DNA (PCR) (NotDetected) B.parapertussis DNA PCR (NotDetected) C. pneumoniae DNA (PCR) (NotDetected) Coronavirus OC43 (PCR) (NotDetected) Coronavirus HKU1 (PCR) (NotDetected) Coronavirus 229E (PCR) (NotDetected) SARS-CoV-2 (PCR) (NotDetected) Coronavirus NL63 (PCR) (NotDetected) Human Metapneumovir PCR (NotDetected) Influenza Type A (PCR) (NotDetected) Influenza Type B (PCR) (NotDetected) M. pneumoniae (PCR) (NotDetected) Parainfluenza 1 (PCR) (NotDetected) Parainfluenza 2 (PCR) (NotDetected) Parainfluenza 3 (PCR) (NotDetected) Parainfluenza 4 (PCR) (NotDetected) RSV (PCR) (NotDetected) Entero/Rhino (PCR) (NotDetected) 06/12/22 06/12/22 06/12/22 Range/Units 10:32 10:32 10:37 WBC (4.8-10.8) K/ul RBC (3.93-5.22) M/uL Hgb (12.0-16.0) g/dl Hct (34.1-44.9) % MCV (80.0-100.0) fL MCH (25.0-34.0) pg MCHC (32.0-36.0) g/dL RDW Std Deviation (36.4-46.3) fL RDW Coeff of Fan (11.5-14.5) % Plt Count (130-400) K/uL MPV (9.4-12.3) fL Immature Gran % (Auto) % Neut % (Auto) % Lymph % (Auto) % [place] % (Auto) % Eos % (Auto) % Baso % (Auto) % Neut # (Auto) (1.4-6.5) K/uL Lymph # (Auto) (1.2-3.4) K/uL [place] # (Auto) (0.24-0.82) K/uL Eos # (Auto) (0-0.50) K/uL Baso # (Auto) (0-0.2) K/uL Immature Gran # (Auto) (0.00-0.02) K/uL PT (9.0-12.0) Seconds INR (0.9-1.1) APTT (21.0-31.0) Seconds PTT Ratio VBG pH (7.36-7.41) VBG pCO2 (38-50) mmHg VBG pO2 mmHg VBG HCO3 mmol/L VBG O2 Saturation % VBG Base Excess mEq/L Sodium (136-145) mmol/L Potassium (3.5-5.1) mmol/L Chloride (98-107) mmol/L Carbon Dioxide (21-32) mmol/L Anion Gap (3-11) BUN (6-23) mg/dl Creatinine (0.6-1.2) mg/dl Est Cr Clr Drug Dosing ml/min Est GFR ( Amer) ml/min Est GFR (Non-Af Amer) ml/min BUN/Creatinine Ratio (10-20) Glucose (70-99(Fasting)) mg/dl Lactate 1.3 (0.4-2.0) mmol/L Calcium (8.5-10.1) mg/dl Magnesium (1.7-2.4) mg/dl Total Bilirubin (0.2-1.0) mg/dl AST (13-39) U/L ALT (7-52) U/L Alkaline Phosphatase (34-104) U/L Troponin I High Sens (0-14) pg/ml Total Protein (6.0-8.3) gm/dl Albumin (3.4-5.0) gm/dl Globulin (2.5-4.0) gm/dl Albumin/Globulin Ratio (0.9-2) Procalcitonin 0.24 (0-0.5) ng/ml Urine Color Urine Appearance (Clear) Urine pH (4.5-7.5) Ur Specific [place] (1.000-1.030) Urine Protein (Negative) Urine Glucose (UA) (Negative) Urine Ketones (Negative) Urine Blood (Negative) Urine Nitrite (Negative) Urine Bilirubin (Negative) Urine Urobilinogen (Negative) Ur Leukocyte Esterase (Negative) Urine WBC (Auto) (0-5) /hpf Urine RBC (Auto) (0-4) /hpf U Hyaline Cast (Auto) (0-5) /lpf U Epithel Cells (Auto) (0-5) /lpf Urine Bacteria (Auto) (Negative) Adenovirus (PCR) Not Detected (NotDetected) B. pertussis DNA (PCR) Not Detected (NotDetected) B.parapertussis DNA PCR Not Detected (NotDetected) C. pneumoniae DNA (PCR) Not Detected (NotDetected) Coronavirus OC43 (PCR) Not Detected (NotDetected) Coronavirus HKU1 (PCR) Not Detected (NotDetected) Coronavirus 229E (PCR) Not Detected (NotDetected) SARS-CoV-2 (PCR) Not Detected (NotDetected) Coronavirus NL63 (PCR) Not Detected (NotDetected) Human Metapneumovir PCR Not Detected (NotDetected) Influenza Type A (PCR) Not Detected (NotDetected) Influenza Type B (PCR) Not Detected (NotDetected) M. pneumoniae (PCR) Not Detected (NotDetected) Parainfluenza 1 (PCR) Not Detected (NotDetected) Parainfluenza 2 (PCR) Not Detected (NotDetected) Parainfluenza 3 (PCR) Not Detected (NotDetected) Parainfluenza 4 (PCR) Not Detected (NotDetected) RSV (PCR) Not Detected (NotDetected) Entero/Rhino (PCR) Not Detected (NotDetected) 06/12/22 06/12/22 Range/Units 10:59 Unknown WBC (4.8-10.8) K/ul RBC (3.93-5.22) M/uL Hgb (12.0-16.0) g/dl Hct (34.1-44.9) % MCV (80.0-100.0) fL MCH (25.0-34.0) pg MCHC (32.0-36.0) g/dL RDW Std Deviation (36.4-46.3) fL RDW Coeff of Fan (11.5-14.5) % Plt Count (130-400) K/uL MPV (9.4-12.3) fL Immature Gran % (Auto) % Neut % (Auto) % Lymph % (Auto) % [place] % (Auto) % Eos % (Auto) % Baso % (Auto) % Neut # (Auto) (1.4-6.5) K/uL Lymph # (Auto) (1.2-3.4) K/uL [place] # (Auto) (0.24-0.82) K/uL Eos # (Auto) (0-0.50) K/uL Baso # (Auto) (0-0.2) K/uL Immature Gran # (Auto) (0.00-0.02) K/uL PT (9.0-12.0) Seconds INR (0.9-1.1) APTT (21.0-31.0) Seconds PTT Ratio VBG pH 7.40 (7.36-7.41) VBG pCO2 55 H (38-50) mmHg VBG pO2 54 mmHg VBG HCO3 34 mmol/L VBG O2 Saturation 85.1 % VBG Base Excess 7.5 mEq/L Sodium (136-145) mmol/L Potassium (3.5-5.1) mmol/L Chloride (98-107) mmol/L Carbon Dioxide (21-32) mmol/L Anion Gap (3-11) BUN (6-23) mg/dl Creatinine (0.6-1.2) mg/dl Est Cr Clr Drug Dosing ml/min Est GFR ( Amer) ml/min Est GFR (Non-Af Amer) ml/min BUN/Creatinine Ratio (10-20) Glucose (70-99(Fasting)) mg/dl Lactate (0.4-2.0) mmol/L Calcium (8.5-10.1) mg/dl Magnesium (1.7-2.4) mg/dl Total Bilirubin (0.2-1.0) mg/dl AST (13-39) U/L ALT (7-52) U/L Alkaline Phosphatase (34-104) U/L Troponin I High Sens (0-14) pg/ml Total Protein (6.0-8.3) gm/dl Albumin (3.4-5.0) gm/dl Globulin (2.5-4.0) gm/dl Albumin/Globulin Ratio (0.9-2) Procalcitonin (0-0.5) ng/ml Urine Color Yellow Urine Appearance Clear (Clear) Urine pH 7.0 (4.5-7.5) Ur Specific [place] 1.013 (1.000-1.030) Urine Protein Trace H (Negative) Urine Glucose (UA) Negative (Negative) Urine Ketones Trace H (Negative) Urine Blood 3+ H (Negative) Urine Nitrite Negative (Negative) Urine Bilirubin Negative (Negative) Urine Urobilinogen Negative (Negative) Ur Leukocyte Esterase Negative (Negative) Urine WBC (Auto) 1-5 (0-5) /hpf Urine RBC (Auto) >30 H (0-4) /hpf U Hyaline Cast (Auto) 1-5 (0-5) /lpf U Epithel Cells (Auto) 5-10 H (0-5) /lpf Urine Bacteria (Auto) Negative (Negative) Adenovirus (PCR) (NotDetected) B. pertussis DNA (PCR) (NotDetected) B.parapertussis DNA PCR (NotDetected) C. pneumoniae DNA (PCR) (NotDetected) Coronavirus OC43 (PCR) (NotDetected) Coronavirus HKU1 (PCR) (NotDetected) Coronavirus 229E (PCR) (NotDetected) SARS-CoV-2 (PCR) (NotDetected) Coronavirus NL63 (PCR) (NotDetected) Human Metapneumovir PCR (NotDetected) Influenza Type A (PCR) (NotDetected) Influenza Type B (PCR) (NotDetected) M. pneumoniae (PCR) (NotDetected) Parainfluenza 1 (PCR) (NotDetected) Parainfluenza 2 (PCR) (NotDetected) Parainfluenza 3 (PCR) (NotDetected) Parainfluenza 4 (PCR) (NotDetected) RSV (PCR) (NotDetected) Entero/Rhino (PCR) (NotDetected) Imaging Data My Impression: Chest x-ray: Per my interpretation there is a bilateral lower lobe infiltrate right greater than left.No pneumothorax. Radiologist's Impression: Chest X-Ray 06/12/22 10:22 XR chest 1V portable CLINICAL HISTORY: SEPSIS COMPARISON STUDY: Chest radiograph May 10, 2022. Chest radiograph May 13, 2022. FINDINGS: There is no pneumothorax. Trace left pleural effusion. Cardiac size is normal. Mediastinal contours are normal. Underlying bronchiectasis is better depicted on prior chest CT. Lower lung predominant reticulonodular interstitial thickening is similar to prior exam. Right middle lobe airspace opacity is also similar to prior study. IMPRESSION: Bronchiectasis with lower lung predominant airspace opacities and reticulonodular interstitial thickening. Findings similar to prior chest radiograph and chest CT and favor an infectious process, possibly chronic. ACT 112: Negative or not required by law. Electronically signed by: Devon Valero M.D. 06/12/2022 11:04 AM Chest X-Ray 06/12/22 11:37 XR chest 1V portable CLINICAL HISTORY: s/p intubation COMPARISON STUDY: Chest radiograph performed earlier today. FINDINGS: Patient is rotated. Tip of endotracheal tube is obscured but may be approximately 1.4 cm above the anjana. There is no pneumothorax or pleural effusion. Diffuse reticulonodular interstitial thickening with lower lung airspace opacities are again noted. Cardiomediastinal silhouette is stable. IMPRESSION: 1. Tip of endotracheal tube obscured but approximately 1.4 cm above the anjana. 2. Reticulonodular interstitial thickening with lower lung airspace opacities. The findings favor an infectious process. ACT 112: Negative or not required by law. Electronically signed by: Devon Valero M.D. 06/12/2022 11:52 AM ECG Data Attestation: I personally reviewed and interpreted this ECG as follows: Additional Comments: EKG: Per my interpretation there is a sinus tach at a rate of 105. No ST elevation. No PVCs. Normal QTC. MDM Narrative 77-year-old female with a productive cough for the past several weeks presenting with increased shortness of breath despite home oxygen. A twelve-lead EKG shows a sinus tach at a rate of 105. X-ray shows right greater than left bilateral lower lobe pneumonias. Impression & Plan Pneumonia of both lower lobes, Respiratory failure, Acute exacerbation of chronic obstructive pulmonary disease Discharge Plan Visit Data Chief Complaint: Respiratory Distress ED Provider: Varinder Zamorano Discharge Problem: Pneumonia of both lower lobes, Respiratory failure, Acute exacerbation of chronic obstructive pulmonary disease Patient Disposition: Being Evaluated by Hospitalist Forms Stand Alone Forms: My [facility] Prescriptions Prescriptions: No Action cetirizine 10 mg Tablet 10 mg PO QAM atorvastatin 10 mg tablet 10 mg PO QAM atenolol 100 mg tablet 100 mg PO QAM alendronate 70 mg tablet 70 mg PO WK Rx Instructions: TAKES ON MONDAY. levothyroxine 75 mcg tablet 75 mcg PO DAILYBB diltiazem HCl 300 mg capsule,extended release 24hr 300 mg PO QAM fluticasone propion-salmeterol [Wixela Inhub] 500-50 mcg/dose blister with device 1 inh INHALATION BID sertraline 25 mg tablet 25 mg PO QAM montelukast 10 mg tablet 10 mg PO QPM albuterol sulfate [Ventolin HFA] 90 mcg/actuation Hfa Aerosol Inhaler 2 puff INHALATION Q4H PRN (Reason: Shortness Of Breath Or Wheezing) Caltrate 600 plus D 600 mg (1,500 mg)-800 unit Tablet,Chewable 1 tab PO BID guaifenesin [Mucinex] 600 mg Tablet Extended Release 12hr 600 mg PO BID cimetidine 400 mg tablet 400 mg PO HS albuterol sulfate 1.25 mg/3 mL solution for nebulization 1.25 mg continuous nebulization Q4 PRN (Reason: Wheezing) furosemide 20 mg tablet 20 mg PO Q OTHER DAY Spiriva Respimat 2.5 mcg/actuation mist 2 puff INHALATION DAILY prednisone 10 mg tablet 10 mg PO UD Qty: 42 0RF Rx Instructions: 3 p.o. daily for 7 days, 2 p.o. daily for next 7 days, 1 p.o. daily for 7 days to finish Referrals Referrals: Sanjana Reyes DO [Primary Care Provider] -
[2022-06-12 11:04] LABS: Partial Thromboplastin Ratio 0.9; Partial Thromboplastin Time 24.1 Seconds (21.0-31.0)
--- NOTE | 2022-06-12 11:06 | XRay Report ---
XR chest 1V portable CLINICAL HISTORY: SEPSIS COMPARISON STUDY: Chest radiograph May 10, 2022. Chest radiograph May 13, 2022. FINDINGS: There is no pneumothorax. Trace left pleural effusion. Cardiac size is normal. Mediastinal contours are normal. Underlying bronchiectasis is better depicted on prior chest CT. Lower lung predo minant reticulonodular interstitial thickening is similar to prior exam. Right middle lobe airspace o pacity is also similar to prior study. IMPRESSION: Bronchiectasis with lower lung predominant airspace opacities and reticulonodular interst itial thickening. Findings similar to prior chest radiograph and chest CT and favor an infectious pro cess, possibly chronic. ACT 112: Negative or not required by law. Electronically signed by: Devon Valero M.D. 06/12/2022 11:04 AM
[2022-06-12 11:09] LABS: Albumin Globulin Ratio 0.9 (0.9-2); Albumin Level 3.4 gm/dl (3.4-5.0); BUN Creatinine Ratio 18.9 (10-20); Basophils # (auto) 0.06 K/uL (0-0.2); Basophils % (auto) 0.2 %; Bilirubin,Total 0.5 mg/dl (0.2-1.0); Calcium 9.9 mg/dl (8.5-10.1); Creatinine Clr Calc Pharmacy 62.7 ml/min; Est GFR (African American) 105.4 ml/min; Est GFR (Non-African American) 90.9 ml/min; Globulin 3.6 gm/dl (2.5-4.0); Immature Granulocytes % (auto) 0.8 %; Lymphocytes # (auto) 0.54 K/uL (1.2-3.4); Lymphocytes % (auto) 2.2 %; Magnesium 1.5 mg/dl (1.7-2.4); Monocytes # (auto) 1.43 K/uL (0.24-0.82); Monocytes % (auto) 5.9 %; Neutrophils # (auto) 22.18 K/uL (1.4-6.5); Neutrophils % (auto) 90.9 %; Potassium 3.6 mmol/L (3.5-5.1)
[2022-06-12] MEDS ORDERED: RAPID SEQUENCE INDUCTION BAG ONE (11:14)
[2022-06-12 11:16] LABS: Base Excess VBG 7.5 mEq/L; HCO3 VBG 34 mmol/L; Oxygen Saturation VBG 85.1 %; PCO2 VBG 55 mmHg (38-50); PO2 VBG 54 mmHg
[2022-06-12] MEDS ORDERED: PROPOFOL IV EMULSION 10 MG/ML 100 ML VIAL IV ONE (11:25)
[2022-06-12] MEDS ORDERED: STAT IV Infusion **Titration per Protocol STA ×2 (11:26→12:48)
[2022-06-12] MEDS ORDERED: LORazepam 2 MG/1 ML VIAL IV STA ×2 (11:26→11:59)
[2022-06-12] MEDS ORDERED: LORazepam 2 MG/1 ML VIAL ONE (11:27)
[2022-06-12 11:31] LABS: Troponin I High Sensitivity 23.6 pg/ml (0-14)
[2022-06-12] MEDS: propofoL 1,000 MG/100 ML VIAL IV SCH ×3 (11:36→11:57)
[2022-06-12] MEDS: PROPOFOL BOLUS FROM BAG IV PRN ×2 (11:45→18:08)
--- NOTE | 2022-06-12 11:53 | XRay Report ---
XR chest 1V portable CLINICAL HISTORY: s/p intubation COMPARISON STUDY: Chest radiograph performed earlier today. FINDINGS: Patient is rotated. Tip of endotracheal tube is obscured but may be approximately 1.4 cm ab ove the anjana. There is no pneumothorax or pleural effusion. Diffuse reticulonodular interstitial th ickening with lower lung airspace opacities are again noted. Cardiomediastinal silhouette is stable. IMPRESSION: 1. Tip of endotracheal tube obscured but approximately 1.4 cm above the anjana. 2. Reticulonodular interstitial thickening with lower lung airspace opacities. The findings favor an infectious process. ACT 112: Negative or not required by law. Electronically signed by: Devon Valero M.D. 06/12/2022 11:52 AM
[2022-06-12] MEDS ORDERED: ETOMIDATE 2 MG/ML 20 ML VIAL IV ONE (11:55)
[2022-06-12] MEDS ORDERED: SUCCINYLCHOLINE CHLORIDE 20 MG/ML 10 ML VIAL IV ONE (11:55)
[2022-06-12] MEDS ORDERED: VANCOMYCIN CONSULT ACTIVE PRN (11:58)
[2022-06-12] MEDS ORDERED: VANCOMYCIN HCL 1,250 MG in SODIUM CHLORIDE 0.9% 500 ML IV ONE (11:58)
[2022-06-12] MEDS ORDERED: CEFEPIME 2,000 MG/20 ML VIAL IV STA (11:58)
[2022-06-12] MEDS ORDERED: SODIUM CHLORIDE 0.9% 1000ML 1,000 ML IV ONE (11:59)
[2022-06-12 12:09] LABS: Adenovirus PCR Not Detected (NotDetected); Bordetella parapertussis PCR Not Detected (NotDetected); Bordetella pertussis PCR Not Detected (NotDetected); Chlamydia pneumoniae PCR Not Detected (NotDetected); Coronavirus 229E PCR Not Detected (NotDetected); Coronavirus CoV-2 (COVID19)PCR Not Detected (NotDetected); Coronavirus HKU1 PCR Not Detected (NotDetected); Coronavirus NL63 PCR Not Detected (NotDetected); Coronavirus OC43PCR Not Detected (NotDetected); Human Metapneumovirus PCR Not Detected (NotDetected); Influenza A PCR Not Detected (NotDetected); Influenza B PCR Not Detected (NotDetected); Mycoplasma pneumoniae PCR Not Detected (NotDetected); Parainfluenza Virus 1 PCR Not Detected (NotDetected); Parainfluenza Virus 2 PCR Not Detected (NotDetected); Parainfluenza Virus 3 PCR Not Detected (NotDetected); Parainfluenza Virus 4 PCR Not Detected (NotDetected); Respiratory Syncytial VirusPCR Not Detected (NotDetected); Rhinovirus/Enterovirus PCR Not Detected (NotDetected)
[2022-06-12] MEDS ORDERED: KETAMINE HCL INJ 50 MG/ML 10 ML VIAL IV STA (12:11)
[2022-06-12] MEDS ORDERED: NOREPINEPHRINE/D5W 4 MG/250 ML PLCT IV SCH (13:00)
--- NOTE | 2022-06-12 13:01 | Critical Care Consultation ---
Date of Consultation June 12, 2022 Assessment & Plan (1) Acute and chronic respiratory failure with hypoxia: (2) Respiratory failure, acute: (3) Idiopathic bronchiectasis: (4) Endotracheally intubated: Plan Chest x-ray 06/12/2022 personally reviewed: Portable film, hyperinflated, opacities appreciated bilateral lower lobes. No significant change compared to before. CT chest 05/10/2022 personally reviewed: Significant bronchiectasis of the right middle as well as the lingula, there is bronchiectasis in bilateral lower lobes Tree-in-bud opacities appreciated bilaterally upper and lower lobes No mediastinal lymphadenopathy Reason Critically Ill: 77-year-old female past medical history of bronchiectasis, chronic hypoxic respiratory failure, asthma-COPD overlap syndrome was admitted in the ED for shortness of breath. Patient in the ICU for further management Neuro - [facility] ICU: Negative Intubated sedated Cardiac - -- Transient hypotension Combination of possible sepsis along with sedation S/p 30 mill per KG of IV fluids Vasopressor support if need be to keep MAP greater than 65 --Elevated troponin EKG: Sinus tachycardia with PVCs, no ST-T wave changes appreciated. LVH, left anterior fascicular block. Poor study Likely demand ischemia Continue to trend Respiratory - -- VDRF Secondary to acute on chronic hypercapnic hypoxic respiratory failure Likely secondary to underlying bronchiectasis and asthma exacerbation Continue with ventilatory support History of pansensitive Pseudomonas in the past. Keep RASS -1 Daily sedation holidays and SBT's Chlorhexidine mouthwash --Asthma COPD overlap syndrome Severe obstructive lung dysfunction on the PFTs done July 2021 On Wixela and Spiriva at home. Pulmonary function testing 07/21/2021: * FVC 1.56 L, 71% * FEV1 0.75 L, 44% * FEV1/FVC 48% * TLC 6.01 L, 139% * RV 4.5 L, 216% * RV/TLC 75% * DLCO 47% * GI - N.p.o. RENAL/LYTES - Monitor electrolytes Avoid nephrotoxic medications ENDO - ICU hypoglycemia protocol HEME - Monitor H&H ID - Continue with antibiotics Follow-up procalcitonin, blood culture and sputum culture --Prophylaxis VTE: Heparin GI: Protonix Lines: Peripheral Diet: N.p.o. Plan: AB./123 on 70% FiO2, PEEP of 5, respiratory 22 Increased respiratory to 28. Decrease FiO2 60% and gradually go down. Electrolytes being replaced. Continue with cefepime This is third time patient has been admitted in the last month. Recommend discussion of goals of care discussion once she is extubated. I have personally spent 62 minutes of critical care time in the direct management of this patient. This is a life/limb threatening event. This includes time spent evaluating patient, direct bedside care, chart review, placing orders, interpretation of diagnostic studies, discussion with consultants, patient, and family members, as well as other required patient management activities. This time is exclusive of all separately billable procedures, and teaching time and separate from and in addition to any other critical care service time. Please note the above document was generated using voice recognition software. It may contain grammatical, syntax or spelling errors. History of Present Illness History of Present Illness 77-year-old female presented to the hospital with shortness of breath and respite distress. She was intubated in the ED Past medical history: Chronic bronchiectasis, asthma-COPD overlap syndrome, chronic hypoxic respiratory failure on 3 L at home at rest, 5 L on exertion. Patient is coming to ICU for further management after intubation History obtained from previous chart At the time of examination patient was breathing over the vent Had a systolic blood pressure was 120 diastolic in the high 60s. Map of 75. She was on propofol 20 Respiratory rate was set at 28, 70% FiO2 and PEEP of 5 Occasional coughing. Not following any commands. Moving extremities spontaneously Social history: Approximately 5-pack-year smoking history quit long time ago. Allergies Allergy/AdvReac Type Severity Reaction Status Date / Time lisinopril AdvReac Intermediate Cough Verified 05/10/22 16:20 levofloxacin [From Levaquin] AdvReac Unknown numbness Verified 05/12/22 22:26 in hands and arms Home Medications Medication Instructions Recorded Confirmed Type albuterol sulfate 90 mcg/actuation 2 puff inhalation Q4H PRN 06/02/20 06/12/22 History aerosol inhaler (Ventolin HFA) Shortness Of Breath Or Wheezing alendronate 70 mg tablet 70 mg PO WK 06/02/20 06/12/22 History atenolol 100 mg tablet 100 mg PO QAM 06/02/20 06/12/22 History atorvastatin 10 mg tablet 10 mg PO QAM 06/02/20 06/12/22 History calcium carbonate 600 mg-vitamin 1 tab PO BID 06/02/20 06/12/22 History D3 20 mcg (800 unit) chewable tablet (Caltrate 600 plus D) cetirizine 10 mg tablet 10 mg PO QAM 06/02/20 06/12/22 History diltiazem HCl 300 mg 300 mg PO QAM 06/02/20 06/12/22 History capsule,extended release 24 hr fluticasone 500 mcg-salmeterol 50 1 inh inhalation BID 06/02/20 06/12/22 History mcg/dose blistr powdr for inhalation (Wixela Inhub) guaifenesin 600 mg tablet, 600 mg PO BID 06/02/20 06/12/22 History extended release 12 hr (Mucinex) levothyroxine 75 mcg tablet 75 mcg PO DAILYBB 06/02/20 06/12/22 History montelukast 10 mg tablet 10 mg PO QPM 06/02/20 06/12/22 History sertraline 25 mg tablet 25 mg PO QAM 06/02/20 06/12/22 History albuterol sulfate 1.25 mg/3 mL 1.25 mg continuous nebulization Q4 05/10/22 06/12/22 History solution for nebulization PRN Wheezing cimetidine 400 mg tablet 400 mg PO HS 05/10/22 06/12/22 History furosemide 20 mg tablet 20 mg PO Q OTHER DAY 05/10/22 06/12/22 History tiotropium bromide 2.5 2 puff inhalation DAILY 05/10/22 06/12/22 History mcg/actuation mist for inhalation (Spiriva Respimat) Patient History Medical History Acquired hypothyroidism Acute and chronic respiratory failure with hypoxia Anxiety and depression Dyslipidemia GERD (gastroesophageal reflux disease) History of tobacco abuse 5-pack-year history Quit smoking in 1972 Hypertension Idiopathic bronchiectasis Osteoporosis Pulmonary nodule, left Severe persistent asthma Surgical History H/O cataract removal with insertion of prosthetic lens Bilateral H/O colonoscopy H/O pulmonary function tests S/P tonsillectomy and adenoidectomy Family History Father Heart disease Social History Smoking Status: Former smoker packs per day: 0.5; Years Smoked: 10; Hx Alcohol Use: No Hx Substance Use: No Preferred Language: Guyanese Communication Ability: Effective Licensed Direct Entry Midwife Required: No Beliefs That Will Affect Care: None marital status: Current Living Situation: Spouse Feels Safe at Home: Yes Assistive Devices: Cane, Nebulizer, Oxygen - Continuous and Walker Review of Systems Review of Systems: Unobtainable due to endotracheal tube Physical Exam Physical Exam: Constitutional: No acute distress HEENT: PERRLA, intubated, positive ETT Respiratory system: Decreased air entry bilaterally, no wheeze, rhonchi, positive crackles bilateral lower lobes CVS: S1-S2 positive, no murmurs or gallops Abdomen: Soft, nontender, nondistended, positive bowel sounds x4 Extremities: +2 pulses bilaterally radialis/ dorsalis pedis, no cyanosis, no edema Neuro: Sedated, breathing over the vent Psych: Unable to assess G/U: Positive Anderson Skin: no rashes, warm and dry Lymphatic: no cervical or axillary lymphadenopathy Results & Data Results & Data ([facility]) Vital Signs (Past 12 Hours) Vital Signs Temp Pulse Pulse Resp BP BP Pulse Ox 06/12/22 11:28 94 H 21 98 06/12/22 11:40 97 H 17 100 06/12/22 11:40 105/74 06/12/22 11:30 93 H 21 98 06/12/22 11:30 126/73 06/12/22 11:20 105 H 31 H 93 06/12/22 11:20 120/86 06/12/22 11:11 109 H 44 H 96 06/12/22 11:11 111/70 06/12/22 11:10 105 H 28 H 93 06/12/22 11:00 107 H 93 06/12/22 11:00 146/88 H 06/12/22 10:50 103 H 20 96 06/12/22 10:48 106 H 25 H 96 06/12/22 10:48 133/69 06/12/22 10:40 104 H 19 95 06/12/22 10:30 103 H 24 97 06/12/22 10:20 103 H 17 99 06/12/22 10:18 104 H 17 06/12/22 10:17 131/84 06/12/22 10:32 98 H 45 H 146/88 H 95 06/12/22 10:21 105 H 50 H 133/69 96 06/12/22 10:21 106 H 50 H 95 06/12/22 10:45 104 H 45 H 95 06/12/22 10:26 102 H 45 H 95 06/12/22 10:20 37.1 C 98 H 26 H 131/84 98 06/12/22 10:20 O2 Del Method FiO2 06/12/22 11:28 50 06/12/22 11:40 06/12/22 11:40 06/12/22 11:30 06/12/22 11:30 06/12/22 11:20 06/12/22 11:20 06/12/22 11:11 06/12/22 11:11 06/12/22 11:10 06/12/22 11:00 06/12/22 11:00 06/12/22 10:50 06/12/22 10:48 06/12/22 10:48 06/12/22 10:40 06/12/22 10:30 06/12/22 10:20 06/12/22 10:18 06/12/22 10:17 06/12/22 10:32 CPAP 06/12/22 10:21 CPAP 06/12/22 10:21 CPAP 06/12/22 10:45 CPAP 50 06/12/22 10:26 50 06/12/22 10:20 BiPAP 06/12/22 10:20 BiPAP Laboratory Results 06/12/22 10:32 06/12/22 10:32 Coding Level of Care Code Critical Care 1st 30-74 mins Diagnoses Acute and chronic respiratory failure with hypoxia J96.21 Respiratory failure, acute J96.00 Respiratory failure complication: unspecified whether with hypoxia or hypercapnia Idiopathic bronchiectasis J47.9 Endotracheally intubated Z97.8 Time Spent (min) 62 (1) Respiratory failure, acute Respiratory failure complication: unspecified whether with hypoxia or hypercapnia Qualified Code(s): J96.00 - Acute respiratory failure, unspecified whether with hypoxia or hypercapnia
[2022-06-12] MEDS: fentaNYL citrate 100 MCG/2 ML VIAL IV PRN (13:07)
[2022-06-12 13:18] LABS: Appearance Urine Clear (Clear); Bacteria Urine Automated Negative (Negative); Bilirubin Urine Negative (Negative); Blood Urine 3+ (Negative); Color Urine Yellow; Glucose Urine UA Negative (Negative); Ketones Urine Trace (Negative); Leukocyte Esterase Urine Negative (Negative); Nitrite Urine Negative (Negative); Protein Urine Trace (Negative); RBC Urine Automated >30 /hpf (0-4); Specific Gravity Urine 1.013 (1.000-1.030); Urobilinogen Urine Negative (Negative)
[2022-06-12] MEDS: ALBUT/IPRATROP 3MG/0.5MG NEB 3 ML VIAL NEB SCH ×2 (13:31→19:20)
[2022-06-12] MEDS ORDERED: ICU PROTOCOL FOR HYPERGLYCEMIA PRN (14:32)
[2022-06-12] MEDS: SODIUM CHLORIDE 0.9% 1000ML 1,000 ML IV SCH ×2 (14:40→15:44)
--- NOTE | 2022-06-12 14:43 | History & Physical Report ---
Date of Service June 12, 2022 Assessment & Plan (1) Acute and chronic respiratory failure with hypoxia: (2) Endotracheally intubated: (3) Acute exacerbation of chronic obstructive pulmonary disease: (4) Pneumonia of both lower lobes: (5) Idiopathic bronchiectasis: Plan: Admit to ICU Patient presenting from home with reports of worsening shortness of breath and cough. Recently admitted to [facility] 05/10 through 05/18 for acute on chronic hypoxic respiratory failure due to pneumonia with history of asthma and bronchiectasis. Patient completed antibiotic course while admitted. Patient was discharged on prednisone taper. Upon arrival to the ED, patient was in severe respiratory distress and did not tolerate BiPAP, patient was subsequently intubated. Had some transient hypotension that was likely due to sedation. BP improved with IVF. Will complete appropriate IVF resuscitation for possible sepsis. Received IV cefepime and Vanco in the ED, continue with. Recent sputum culture from 05/11 grew Pseudomonas. Case discussed with Dr. Garces Further management as per director of cath lab (6) Hypertension: Plan: On atenolol and diltiazem, hold for now (7) Acquired hypothyroidism: Plan: Consider IV levothyroxine while intubated (8) GERD (gastroesophageal reflux disease): Plan: IV PPI while intubated (9) Anxiety and depression: Plan: Controlled with sertraline, hold for now (10) DVT prophylaxis: Plan: SQ heparin Admission and Anticipated Discharge Date Admission Date: June 12, 2022 History of Present Illness Chief Complaint: Shortness of breath Primary Care Provider: Sanjana Reyes DO 77-year-old female with PMH chronic hypoxic respiratory failure on 4 L of oxygen, hypothyroidism, IPMN, bronchiectasis, severe persistent asthma, pulmonary hypertension, HTN, GERD, osteoporosis, anxiety, depression, and other problems listed below who presents to the ED for evaluation of cough and s hortness of breath. Patient recently admitted to [facility] 05/10 through 05/18 for acute on chronic hypoxic respiratory failure due to pneumonia and asthma and bronchiectasis exacerbation. Patient completed antibiotic course while admitted. Patient was discharged on prednisone taper. History obtained from family. They report that patient completed her prednisone taper about 6 days ago. Shortly after stopping prednisone, patient developed worsening cough and shortness of breath. Patient typically wears 4 L of oxygen at all times however this morning patient was requiring 8 L of oxygen at home. reports the patient had a very poor appetite yesterday. No reports of abdominal pain, vomiting, diarrhea. No fevers. Cough has been productive for a thick, dark diaz sputum. EMS was called and patient was brought to the ED for further evaluation. While in the ED, patient was placed on BiPAP however due to worsening respiratory distress, patient did not tolerate and was subsequently in tubated. Patient received IV cefepime and IV Vanco for suspected pneumonia. Patient developed hypotension after intubation and use of propofol, BP improved with IVF. Allergies Allergy/AdvReac Type Severity Reaction Status Date / Time lisinopril AdvReac Intermediate Cough Verified 05/10/22 16:20 levofloxacin [From Levaquin] AdvReac Unknown numbness Verified 05/12/22 22:26 in hands and arms Home Medications Medication Instructions Recorded Confirmed Type albuterol sulfate 90 mcg/actuation 2 puff inhalation Q4H PRN 06/02/20 06/12/22 History aerosol inhaler (Ventolin HFA) Shortness Of Breath Or Wheezing alendronate 70 mg tablet 70 mg PO WK 06/02/20 06/12/22 History atenolol 100 mg tablet 100 mg PO QAM 06/02/20 06/12/22 History atorvastatin 10 mg tablet 10 mg PO QAM 06/02/20 06/12/22 History calcium carbonate 600 mg-vitamin 1 tab PO BID 06/02/20 06/12/22 History D3 20 mcg (800 unit) chewable tablet (Caltrate 600 plus D) cetirizine 10 mg tablet 10 mg PO QAM 06/02/20 06/12/22 History diltiazem HCl 300 mg 300 mg PO QAM 06/02/20 06/12/22 History capsule,extended release 24 hr fluticasone 500 mcg-salmeterol 50 1 inh inhalation BID 06/02/20 06/12/22 History mcg/dose blistr powdr for inhalation (Pat Inhub) guaifenesin 600 mg tablet, 600 mg PO BID 06/02/20 06/12/22 History extended release 12 hr (Mucinex) levothyroxine 75 mcg tablet 75 mcg PO DAILYBB 06/02/20 06/12/22 History montelukast 10 mg tablet 10 mg PO QPM 06/02/20 06/12/22 History sertraline 25 mg tablet 25 mg PO QAM 06/02/20 06/12/22 History albuterol sulfate 1.25 mg/3 mL 1.25 mg continuous nebulization Q4 05/10/22 06/12/22 History solution for nebulization PRN Wheezing cimetidine 400 mg tablet 400 mg PO HS 05/10/22 06/12/22 History furosemide 20 mg tablet 20 mg PO Q OTHER DAY 05/10/22 06/12/22 History tiotropium bromide 2.5 2 puff inhalation DAILY 05/10/22 06/12/22 History mcg/actuation mist for inhalation (Spiriva Respimat) Past Med/Surg History Medical History Acquired hypothyroidism Acute and chronic respiratory failure with hypoxia Anxiety and depression Dyslipidemia GERD (gastroesophageal reflux disease) History of tobacco abuse 5-pack-year history Quit smoking in 1972 Hypertension Idiopathic bronchiectasis Osteoporosis Pulmonary nodule, left Severe persistent asthma Surgical History H/O cataract removal with insertion of prosthetic lens Bilateral H/O colonoscopy H/O pulmonary function tests S/P tonsillectomy and adenoidectomy Family History Father Heart disease Social History Smoking Status: Former smoker packs per day: 0.5; Years Smoked: 10; Hx Alcohol Use: No Hx Substance Use: No Preferred Language: Uruguayan Communication Ability: Impaired 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 Beliefs That Will Affect Care: None marital status: Current Living Situation: Spouse Feels Safe at Home: Yes Assistive Devices: Cane, Nebulizer, Oxygen - Continuous and Walker Review of Systems Review of Systems: Unobtainable due to endotracheal tube Physical Exam Constitutional: WD/WN, vitals as above + ill appearing and + mechanically ventilated ENMT: external ear and nose normal, oropharynx normal Respiratory: Auscultation: + diminished lung sounds, + rhonchi (Bilateral) and + wheezes (Bilateral, expiratory) Cardiovascular: Rate/Rhythm: regular rate and regular rhythm Vessels: normal peripheral pulses Extremities: no edema Gastrointestinal (Abdomen): normal bowel sounds, soft, nontender, no hepatosplenomegaly Musculoskeletal: Extremities: no cyanosis and no clubbing Sedated, unable to assess strength Skin: no rashes, warm and dry Neurologic: Sedated Psychiatric: Sedated Results & Data Results & Data ([facility]) Vital Signs (Past 12 Hours) Vital Signs Temp Pulse Pulse Resp BP BP Pulse Ox 06/12/22 14:15 85 28 H 95 06/12/22 14:10 83 25 H 92 06/12/22 14:09 87 16 91 06/12/22 14:09 126/73 06/12/22 14:05 27 H 06/12/22 14:04 3 L 06/12/22 13:50 83 15 90 06/12/22 13:50 102/66 06/12/22 13:45 84 28 H 06/12/22 13:45 126/72 06/12/22 13:40 82 14 96 06/12/22 13:40 123/71 06/12/22 14:00 06/12/22 14:10 81 30 H 93 06/12/22 13:35 82 30 H 123/71 95 06/12/22 13:30 83 21 06/12/22 13:30 109/65 06/12/22 13:25 84 30 H 98 06/12/22 13:25 122/71 06/12/22 13:20 83 28 H 98 06/12/22 13:20 121/67 06/12/22 13:15 83 28 H 98 06/12/22 13:15 105/67 06/12/22 13:12 83 28 H 98 06/12/22 13:12 112/65 06/12/22 13:10 83 28 H 98 06/12/22 13:10 103/63 06/12/22 13:05 84 28 H 06/12/22 13:05 115/66 06/12/22 13:01 85 28 H 96 06/12/22 13:01 132/91 06/12/22 13:00 86 29 H 92 06/12/22 12:57 86 28 H 96 06/12/22 12:57 134/76 06/12/22 12:55 88 9 L 93 06/12/22 12:52 87 30 H 96 06/12/22 12:52 97/70 L 06/12/22 12:50 75 6 L 91 06/12/22 12:47 100/65 07/31/22 12:47 82 28 H 94 06/12/22 12:45 82 30 H 96 06/12/22 12:45 75/55 L 06/12/22 12:43 87/57 L 06/12/22 12:43 83 28 H 06/12/22 12:40 83 16 94 06/12/22 12:40 79/50 L 06/12/22 12:35 87 32 H 92 06/12/22 12:35 87/56 L 06/12/22 12:30 84 24 91 06/12/22 12:30 90/60 L 06/12/22 12:27 101/68 06/12/22 12:27 87 21 06/12/22 12:25 86 19 89 L 06/12/22 12:20 91 H 29 H 87 L 06/12/22 12:20 120/69 06/12/22 12:15 95 H 28 H 89 L 06/12/22 12:11 126/74 06/12/22 12:11 96 H 18 06/12/22 12:10 100 H 24 91 06/12/22 12:05 85 24 97 06/12/22 12:04 85/38 L 06/12/22 12:04 89 22 06/12/22 12:03 89 23 97 06/12/22 12:03 82/57 L 06/12/22 13:31 82 29 H 98 06/12/22 13:31 82 29 H 99 06/12/22 12:50 06/12/22 12:10 28 H 06/12/22 11:28 94 H 21 98 06/12/22 11:40 97 H 17 100 06/12/22 11:40 105/74 06/12/22 11:30 93 H 21 98 06/12/22 11:30 126/73 06/12/22 11:20 105 H 31 H 93 06/12/22 11:20 120/86 06/12/22 11:11 109 H 44 H 96 06/12/22 11:11 111/70 06/12/22 11:10 105 H 28 H 93 06/12/22 11:00 107 H 93 06/12/22 11:00 146/88 H 06/12/22 10:50 103 H 20 96 06/12/22 10:48 106 H 25 H 96 07/31/22 10:48 133/69 06/12/22 10:40 104 H 19 95 06/12/22 10:30 103 H 24 97 06/12/22 10:20 103 H 17 99 06/12/22 10:18 104 H 17 06/12/22 10:17 131/84 06/12/22 10:32 98 H 45 H 146/88 H 95 06/12/22 10:21 105 H 50 H 133/69 96 06/12/22 10:21 106 H 50 H 95 06/12/22 10:45 104 H 45 H 95 06/12/22 10:26 102 H 45 H 95 06/12/22 10:20 37.1 C 98 H 26 H 131/84 98 06/12/22 10:20 O2 Del Method FiO2 06/12/22 14:15 06/12/22 14:10 06/12/22 14:09 06/12/22 14:09 06/12/22 14:05 06/12/22 14:04 06/12/22 13:50 06/12/22 13:50 06/12/22 13:45 06/12/22 13:45 06/12/22 13:40 06/12/22 13:40 06/12/22 14:00 Mechanical Vent 06/12/22 14:10 70 06/12/22 13:35 06/12/22 13:30 06/12/22 13:30 06/12/22 13:25 06/12/22 13:25 06/12/22 13:20 06/12/22 13:20 06/12/22 13:15 06/12/22 13:15 06/12/22 13:12 06/12/22 13:12 06/12/22 13:10 06/12/22 13:10 06/12/22 13:05 06/12/22 13:05 06/12/22 13:01 06/12/22 13:01 06/12/22 13:00 06/12/22 12:57 06/12/22 12:57 06/12/22 12:55 06/12/22 12:52 06/12/22 12:52 06/12/22 12:50 06/12/22 12:47 06/12/22 12:47 06/12/22 12:45 06/12/22 12:45 06/12/22 12:43 06/12/22 12:43 06/12/22 12:40 06/12/22 12:40 06/12/22 12:35 06/12/22 12:35 06/12/22 12:30 06/12/22 12:30 06/12/22 12:27 06/12/22 12:27 06/12/22 12:25 06/12/22 12:20 06/12/22 12:20 06/12/22 12:15 06/12/22 12:11 06/12/22 12:11 06/12/22 12:10 06/12/22 12:05 06/12/22 12:04 06/12/22 12:04 06/12/22 12:03 06/12/22 12:03 06/12/22 13:31 Mechanical Vent 50 06/12/22 13:31 60 06/12/22 12:50 70 06/12/22 12:10 06/12/22 11:28 50 06/12/22 11:40 06/12/22 11:40 06/12/22 11:30 06/12/22 11:30 06/12/22 11:20 06/12/22 11:20 06/12/22 11:11 06/12/22 11:11 06/12/22 11:10 06/12/22 11:00 06/12/22 11:00 06/12/22 10:50 06/12/22 10:48 06/12/22 10:48 06/12/22 10:40 06/12/22 10:30 06/12/22 10:20 06/12/22 10:18 06/12/22 10:17 06/12/22 10:32 CPAP 06/12/22 10:21 CPAP 06/12/22 10:21 CPAP 06/12/22 10:45 CPAP 50 06/12/22 10:26 50 06/12/22 10:20 BiPAP 06/12/22 10:20 BiPAP Laboratory Results Short CBC 06/12/22 Range/Units 10:32 WBC 24.41 H (4.8-10.8) K/ul Hgb 11.3 L (12.0-16.0) g/dl Hct 32.5 L (34.1-44.9) % Plt Count 425 H (130-400) K/uL BMP 06/12/22 10:32 Sodium 133 L Potassium 3.6 Chloride 92 L Carbon Dioxide 30 BUN 10 Creatinine 0.53 L Glucose 136 H Calcium 9.9 Liver Function 06/12/22 Range/Units 10:32 Total Bilirubin 0.5 (0.2-1.0) mg/dl AST 10 L (13-39) U/L ALT 7 (7-52) U/L Alkaline Phosphatase 57 (34-104) U/L Albumin 3.4 (3.4-5.0) gm/dl Urine 06/12/22 Range/Units Unknown Urine Color Yellow Urine Appearance Clear (Clear) Urine pH 7.0 (4.5-7.5) Ur Specific [place] 1.013 (1.000-1.030) Urine Protein Trace H (Negative) Urine Glucose (UA) Negative (Negative) Diagnostic Findings Chest X-Ray 06/12/22 10:22 XR chest 1V portable CLINICAL HISTORY: SEPSIS COMPARISON STUDY: Chest radiograph May 10, 2022. Chest radiograph May 13, 2022. FINDINGS: There is no pneumothorax. Trace left pleural effusion. Cardiac size is normal. Mediastinal contours are normal. Underlying bronchiectasis is better depicted on prior chest CT. Lower lung predominant reticulonodular interstitial thickening is similar to prior exam. Right middle lobe airspace opacity is also similar to prior study. IMPRESSION: Bronchiectasis with lower lung predominant airspace opacities and reticulonodular interstitial thickening. Findings similar to prior chest radiograph and chest CT and favor an infectious process, possibly chronic. ACT 112: Negative or not required by law. Electronically signed by: Devon Valero M.D. 06/12/2022 11:04 AM Chest X-Ray 06/12/22 11:37 XR chest 1V portable CLINICAL HISTORY: s/p intubation COMPARISON STUDY: Chest radiograph performed earlier today. FINDINGS: Patient is rotated. Tip of endotracheal tube is obscured but may be approximately 1.4 cm above the anjana. There is no pneumothorax or pleural effusion. Diffuse reticulonodular interstitial thickening with lower lung airspace opacities are again noted. Cardiomediastinal silhouette is stable. IMPRESSION: 1. Tip of endotracheal tube obscured but approximately 1.4 cm above the anjana. 2. Reticulonodular interstitial thickening with lower lung airspace opacities. The findings favor an infectious process. ACT 112: Negative or not required by law. Electronically signed by: Devon Valero M.D. 06/12/2022 11:52 AM Code Status & VTE Plan VTE Prophylaxis Plan VTE Prophylaxis will be ordered: Yes Supervising Physician Co-Signing Physician Notes 77-year-old female with PMH of chronic hypoxic respiratory failure on 4 L oxygen, hypothyroidism, IPMN, bronchiectasis, severe persistent asthma, pulmonary hypertension, HTN, GERD, osteoporosis, anxiety, depression presented to our ED 06/12 with complaint of shortness of breath and received BiPAP treatment while in route, patient was restless with BiPAP/didn't tolerate it and was intubated in the ED. She is intubated. She is currently being managed in the ICU for acute exacerbation of COPD/asthma overlap syndrome, acute on chronic respiratory failure with hypoxia and pneumonia of both lower lobes, Sepsis, elevated trop. Further management per ICU protocol. Upon examination: GENERAL: intubated, sedated, MV (400/8cm/60%/rr28). HEENT: No pallor, no icterus. Pupils equal, round and reactive to light. Oral mucosa moist. NECK: No JVD, no neck masses. HEART: S1 and S2 heard. Regular rate and rhythm. No murmur, no gallop. RESPIRATORY SYSTEM: crackles and wheezes diffuse and bilateral. ABDOMEN: Soft, bowel sounds present, no distention. CENTRAL NERVOUS SYSTEM: No facial droop. Speech is clear. Obeys simple commands. Moves extremities. EXTREMITIES: No edema, no erythema seen. I have seen and examined the patient and have discussed the case with the provider above. I agree with the assessment and plan as stated.
[2022-06-12 14:47] LABS: iSTAT Allen Test Pass; iSTAT Art Bld Gas pCO2 Correct 68 mmHg (35-46); iSTAT Art Bld Gas pH Corrected 7.209 (7.35-7.45); iSTAT Arterial Blood Gas HCO3 27 meg/L (19-24); iSTAT Arterial Blood Gas pCO2 65 mmHg (35-46); iSTAT Arterial Blood Gas pH 7.22 (7.35-7.45); iSTAT Arterial Blood Gas pO2 123 mmHg (80-95); iSTAT Arterial Blood Gas pO2 C 128; iSTAT Carbon Dioxide 29 mmol/L (24-31); iSTAT FiO2 70 %; iSTAT Hematocrit 28 % (37-47); iSTAT Hemoglobin 9.5 g/dl (12.0-16.0); iSTAT Potassium 3.5 mmol/L (3.3-5.0); iSTAT Site L Radial; iSTAT Sodium 134 mmol/L (135-144)
--- NOTE | 2022-06-12 14:55 | Pharmacy Report ---
Pharmacy Vanc AUC Short Note - Date of Service June 12, 2022 - Assessment & Plan Assessment 77 year old F receiving IV Vancomycin and Cefepime for treatment of respiratory failure. Day # 1 of antimicrobial therapy. * Patient received Vancomycin 1250mg (~27mg/kg) IV x 1 as a loading dose in the ED * Renal function appears at baseline; sCr = 0.53 mg/dL with estimated CrCl ~63 mL/min. Estimated pharmacokinetic parameters: * Ke ~0.057/hr, T1/2 ~12.1 hrs Plan Vancomycin * AUC/JEREMIE is the preferred PK/PD target for vancomycin * AUC guided dosing is effective and associated with decreased risk of nephrotoxicity compared to traditional trough targets * According to [employer], Vancomycin regimen of 750mg (~16mg/kg) IV q12 is predicted to achieve target AUC/JEREMIE of 400-600 mg/L.hr and may be associated with a 12 % risk of nephrotoxicity * Trough level ordered for: 06/14/22 @ 0330 to assess estimated pharmacokinetics * Awaiting MRSA nasal swab to determine potential de-escalation Pharmacy will continue to follow and will adjust dose/frequency as necessary. Thank you.
[2022-06-12] MEDS: MAGNESIUM SULFATE / D5W 1 GM/100 ML BAG IV SCH ×2 (15:15→16:03)
[2022-06-12] MEDS: HEPARIN SOD 5,000 UNIT/0.5 ML VIAL SQ SCH ×2 (16:03→22:26)
[2022-06-12] MEDS: D5W AND NSS 1,000 ML IV SCH (16:03)
[2022-06-12 16:07] LABS: iSTAT Allen Test Pass; iSTAT Arterial Blood Gas HCO3 25 meg/L (19-24); iSTAT Arterial Blood Gas pCO2 45 mmHg (35-46); iSTAT Arterial Blood Gas pH 7.36 (7.35-7.45); iSTAT Arterial Blood Gas pO2 85 mmHg (80-95); iSTAT Carbon Dioxide 26 mmol/L (24-31); iSTAT FiO2 50 %; iSTAT Site L Radial
[2022-06-12] MEDS: SODIUM CHLOR 7% 4 ML NEB NEB SCH (19:20)
[2022-06-12] MEDS: CEFEPIME 2,000 MG in SYRINGE 0 ML IV SCH (19:35)
[2022-06-13] MEDS: ALBUT/IPRATROP 3MG/0.5MG NEB 3 ML VIAL NEB SCH ×4 (00:12→19:36)
[2022-06-13] MEDS: propofoL 1,000 MG/100 ML VIAL IV SCH (02:06)
[2022-06-13] MEDS: CEFEPIME 2,000 MG in SYRINGE 0 ML IV SCH (03:47)
[2022-06-13] MEDS ORDERED: VANCOMYCIN HCL 750 MG in SODIUM CHLORIDE 0.9% 250 ML IV SCH (04:00)
[2022-06-13 04:58] LABS: Basophils # (auto) 0.02 K/uL (0-0.2); Basophils % (auto) 0.1 %; Hematocrit (blood only) 28.1 % (34.1-44.9); Hemoglobin 9.2 g/dl (12.0-16.0); Immature Granulocytes # (auto) 0.16 K/uL (0.00-0.02); Lymphocytes # (auto) 0.78 K/uL (1.2-3.4); Lymphocytes % (auto) 5.1 %; Mean Corpuscular Hemoglobin 31.1 pg (25.0-34.0); Mean Corpuscular Hgb Conc 32.7 g/dL (32.0-36.0); Mean Corpuscular Volume 94.9 fL (80.0-100.0); Mean Platelet Volume 8.8 fL (9.4-12.3); Monocytes # (auto) 0.79 K/uL (0.24-0.82); Monocytes % (auto) 5.2 %; Neutrophils # (auto) 13.53 K/uL (1.4-6.5); Neutrophils % (auto) 88.6 %; Platelet Count 356 K/uL (130-400); RDW Coefficient of Variation 15.9 % (11.5-14.5); RDW Standard Deviation 54.1 fL (36.4-46.3); Red Blood Count 2.96 M/uL (3.93-5.22); White Blood Count 15.28 K/ul (4.8-10.8)
[2022-06-13 05:00] LABS: iSTAT Allen Test Pass; iSTAT Art Bld Gas pCO2 Correct 40 mmHg (35-46); iSTAT Art Bld Gas pH Corrected 7.402 (7.35-7.45); iSTAT Arterial Blood Gas HCO3 25 meg/L (19-24); iSTAT Arterial Blood Gas pCO2 40 mmHg (35-46); iSTAT Arterial Blood Gas pO2 76 mmHg (80-95); iSTAT Arterial Blood Gas pO2 C 76; iSTAT Carbon Dioxide 26 mmol/L (24-31); iSTAT FiO2 40 %; iSTAT Hematocrit 29 % (37-47); iSTAT Hemoglobin 9.9 g/dl (12.0-16.0); iSTAT Potassium 3.2 mmol/L (3.3-5.0); iSTAT Site L Radial; iSTAT Sodium 135 mmol/L (135-144)
[2022-06-13 05:35] LABS: BUN Creatinine Ratio 26.5 (10-20); Calcium 7.5 mg/dl (8.5-10.1); Est GFR (African American) 108.2 ml/min; Est GFR (Non-African American) 93.3 ml/min; Phosphorus 2.4 mg/dl (2.5-4.9); Potassium 3.6 mmol/L (3.5-5.1)
--- NOTE | 2022-06-13 05:45 | Electrocardiogram Report ---
Test Reason : Blood Pressure : / mmHG Vent. Rate : 105 BPM Atrial Rate : 105 BPM P-R Int : 146 ms QRS Dur : 078 ms QT Int : 308 ms P-R-T Axes : 056 -69 093 degrees QTc Int : 407 ms Poor data quality, interpretation may be adversely affected Sinus tachycardia with occasional Premature ventricular complexes Biatrial enlargement Left anterior fascicular block Nonspecific ST and T wave abnormality Abnormal ECG When compared with ECG of 10-MAY-2022 14:32, Premature ventricular complexes are now Present Vent. rate has increased BY 41 BPM Criteria for Septal infarct are no longer Present Confirmed by Anjum López ([id number]) on 06/13/2022 5:44:51 AM Referred By: REFERRED SELF Confirmed By:Anjum López
[2022-06-13] MEDS ORDERED: POTASSIUM PHOS 3 MMOL/1 ML INFUSION IV STA (06:33)
[2022-06-13] MEDS: HEPARIN SOD 5,000 UNIT/0.5 ML VIAL SQ SCH ×3 (06:44→22:05)
[2022-06-13] MEDS: SODIUM CHLOR 7% 4 ML NEB NEB SCH (07:04)
[2022-06-13] MEDS: PROPOFOL BOLUS FROM BAG IV PRN (07:13)
[2022-06-13] MEDS ORDERED: POTASSIUM PHOSPHATE 15 MMOL in SODIUM CHLORIDE 0.9% 250 ML IV ONE (07:15)
--- NOTE | 2022-06-13 07:39 | Critical Care Progress Note ---
Date of Service June 13, 2022 Assessment & Plan (1) Respiratory failure: (2) Acute exacerbation of chronic obstructive pulmonary disease: (3) Acute and chronic respiratory failure with hypoxia: (4) Pneumonia: (5) Asthma exacerbation: (6) Dyslipidemia: (7) Anxiety and depression: Plan 77 year old female w/ PmHx chronic hypoxic respiratory failure on 4 L of oxygen, bronchiectasis, severe persistent asthma, pulmonary hypertension admitted to ICU for acutely worsening respiratory failure, intubated. Neuro CAM ICU: Negative, trial of extubation this AM. Cardiac Transient hypotension -Short episode of hypotension, responded well to fluid. -Most likely secondary to sepsis from pulmonary source -Continue to monitor vitals, can add pressor if non-responsive to fluid. Elevated troponin -EKG tachycardic w/ PVCs, no acute ST changes, LVH, left anterior fascicular block. -Trop 23.6 -> 24.5. -Most likely demand ischemia. Continue to monitor vitals. Respiratory Acute hypoxic respiratory failure 2/2 chronic infection -Patient previously hospitalized for PNA 05/10-05/18, sputum at that time grew Pseudomonas. -Sputum culture this admission growing Gram negative bacilli. -Findings on XR similar to previous admission, bronchiectasis favoring infectious process, possibly chronic. -Switched from Cefepime/Vanc to Levofloxacin 750mg q24h -Added on prednisone 40mg x5days for severe PNA. -Trial of extubation this morning, patient currently on oxymask 6L. Asthma/COPD overlap -On Wixela and Spiriva at home. GI NPO for now. Renal/Electrolytes Monitor electrolytes and kidney function, avoid nephrotoxic medications. Strict I&O's. Endo ICU hypoglycemia protocol Heme Monitor H&H. ID Pulmonary infection -Findings as above. -Continue with Levofloxacin as above. -Monitor vitals. Lines/IV Access Peripheral. DVT Prophylaxis Heparin Dispo: ICU Admission and Anticipated Discharge Date Admission Date: June 12, 2022 Supervising Physician Co-Signing Physician Notes Dr. Valle was resident physician during care of patient. I separately evaluated patient for castano portions of the history and the exam. I was present during the critical portion of medical decision making, and I discussed the case with the resident. I generally agree with the findings and plan. Chronic pulmonary disease, when I evaluated the patient this morning she shook her head that she was ready to have the breathing tube removed. Has been tolerating a spontaneous breathing trial. History of pansensitive Pseudomonas, bronchoscopy not indicated as she appears to be improving bio fire panel negative. Patient noted for allergy: Numbness and tingling secondary to Levaquin, I feel Levaquin is the most appropriate agent for her given that she has a history of Pseudomonas and we can achieve single agent therapy at this time. QTC 407, extubation this morning. Proceed with 40 mg prednisone x5 days for severe pneumonia. I have personally spent 45 minutes of critical care time in the direct management of this patient. This is a life/limb threatening event. This includes time spent evaluating patient, direct bedside care, chart review, placing orders, interpretation of diagnostic studies, discussion with strategic consultant s, patient, and/or family members regarding treatment decisions, as well as other required patient management activities. This time is exclusive of all separately billable procedures, and teaching time and separate from and in addition to any other critical care service time. Subjective Patient seen at the bedside this morning, nonverbal due to intubation however follows commands well and opens eyes to verbal stimuli. Review of Systems Constitutional: as per Subjective / HPI Physical Exam Constitutional: WD/WN, vitals as above Respiratory: Mildly coarse to auscultation bilaterally, good aeration. Cardiovascular: Rate/Rhythm: + tachycardic Heart Sounds: normal S1 and normal S2 Gastrointestinal (Abdomen): normal bowel sounds, soft, nontender, no hepatosplenomegaly Results & Data Results & Data ([facility]) Vital Signs (Past 12 Hours) Vital Signs Temp Pulse Pulse Resp BP Pulse Ox O2 Del Method 06/13/22 07:00 82 23 97 06/13/22 07:00 161/109 H 06/13/22 06:45 146/89 H 06/13/22 06:45 79 26 H 97 06/13/22 06:30 79 27 H 95 06/13/22 06:30 136/73 06/13/22 06:00 79 26 H 95 06/13/22 06:00 136/86 06/13/22 05:30 79 28 H 95 06/13/22 05:30 138/87 06/13/22 05:15 157/119 H 06/13/22 05:15 81 23 95 06/13/22 05:00 83 26 H 96 06/13/22 05:00 160/110 H 06/13/22 07:05 82 26 H 97 06/13/22 04:40 79 27 H 94 06/13/22 04:00 06/13/22 04:30 82 24 94 06/13/22 04:00 82 26 H 94 06/13/22 04:00 121/68 06/13/22 03:45 119/80 06/13/22 03:45 78 13 95 06/13/22 03:30 80 26 H 95 06/13/22 03:30 141/88 H 06/13/22 03:15 79 26 H 95 06/13/22 03:15 129/81 06/13/22 03:00 81 26 H 95 06/13/22 02:45 131/88 06/13/22 02:45 82 26 H 95 06/13/22 02:30 81 26 H 95 06/13/22 02:30 129/83 06/13/22 02:15 83 26 H 93 06/13/22 02:15 123/85 06/13/22 02:00 85 20 92 06/13/22 02:00 125/76 06/13/22 01:45 86 26 H 92 06/13/22 01:45 126/78 06/13/22 01:30 87 26 H 93 06/13/22 01:30 120/75 06/13/22 01:15 87 26 H 92 06/13/22 01:15 119/75 06/13/22 01:00 87 26 H 93 06/13/22 01:00 117/79 06/13/22 00:30 85 26 H 95 06/13/22 00:30 126/69 06/13/22 00:15 74 27 H 91 06/13/22 00:15 36.6 C 127/103 H 06/12/22 23:45 79 26 H 94 06/12/22 23:45 124/83 06/12/22 23:30 78 26 H 94 06/12/22 23:15 126/79 06/12/22 23:15 81 26 H 94 06/12/22 23:00 80 26 H 95 06/12/22 23:00 119/88 06/12/22 22:30 74 15 95 06/12/22 22:30 123/77 06/12/22 22:15 75 20 95 06/12/22 22:15 117/75 07/31/22 22:00 75 26 H 96 06/12/22 21:30 76 26 H 94 06/12/22 21:00 75 26 H 93 06/12/22 21:00 36.6 C 111/66 06/12/22 20:45 78 26 H 92 06/12/22 20:45 108/66 06/12/22 20:30 79 26 H 92 06/12/22 20:30 116/69 06/12/22 20:15 107/67 06/12/22 20:15 78 26 H 92 06/12/22 20:00 79 26 H 92 06/12/22 20:00 109/69 06/13/22 00:15 80 26 H 95 Mechanical Vent 06/13/22 00:00 79 06/13/22 00:00 06/12/22 20:00 06/12/22 22:54 80 26 H 94 FiO2 06/13/22 07:00 06/13/22 07:00 06/13/22 06:45 06/13/22 06:45 06/13/22 06:30 06/13/22 06:30 06/13/22 06:00 06/13/22 06:00 06/13/22 05:30 06/13/22 05:30 06/13/22 05:15 06/13/22 05:15 06/13/22 05:00 06/13/22 05:00 06/13/22 07:05 40 06/13/22 04:40 40 06/13/22 04:00 40 06/13/22 04:30 06/13/22 04:00 06/13/22 04:00 06/13/22 03:45 06/13/22 03:45 06/13/22 03:30 06/13/22 03:30 06/13/22 03:15 06/13/22 03:15 06/13/22 03:00 06/13/22 02:45 06/13/22 02:45 06/13/22 02:30 06/13/22 02:30 06/13/22 02:15 06/13/22 02:15 06/13/22 02:00 06/13/22 02:00 06/13/22 01:45 06/13/22 01:45 06/13/22 01:30 06/13/22 01:30 06/13/22 01:15 06/13/22 01:15 06/13/22 01:00 06/13/22 01:00 06/13/22 00:30 06/13/22 00:30 06/13/22 00:15 06/13/22 00:15 06/12/22 23:45 06/12/22 23:45 06/12/22 23:30 06/12/22 23:15 06/12/22 23:15 06/12/22 23:00 06/12/22 23:00 06/12/22 22:30 06/12/22 22:30 06/12/22 22:15 06/12/22 22:15 06/12/22 22:00 06/12/22 21:30 06/12/22 21:00 06/12/22 21:00 06/12/22 20:45 06/12/22 20:45 06/12/22 20:30 06/12/22 20:30 06/12/22 20:15 06/12/22 20:15 06/12/22 20:00 06/12/22 20:00 06/13/22 00:15 40 06/13/22 00:00 06/13/22 00:00 40 06/12/22 20:00 40 06/12/22 22:54 40 Resident Activity Tracking Resident Involvement: Resident Care Provided Care Provided: Adult Hospital Medicine (1) Asthma exacerbation Asthma persistence: unspecified Asthma severity: severe Qualified Code(s): J45.901 - Unspecified asthma with (acute) exacerbation
[2022-06-13] MEDS: fentaNYL citrate 100 MCG/2 ML VIAL IV PRN (08:32)
--- NOTE | 2022-06-13 09:50 | Billing Data ---
Date of Service June 13, 2022 Coding Level of Care Code Critical Care 12 12- mins
[2022-06-13] MEDS ORDERED: RAPID SEQUENCE INDUCTION BAG ONE (10:15)
[2022-06-13] MEDS ORDERED: POTASSIUM CHLORIDE 20 MEQ/15 ML UDC PO ONE (11:15)
--- NOTE | 2022-06-13 11:50 | XRay Report ---
XR chest 1V portable CLINICAL HISTORY: hypoxia, respiratory failure COMPARISON STUDY: Chest radiograph June 12, 2022. FINDINGS: There is no pneumothorax or pleural fusion. Diffuse reticulonodular interstitial thickening with bilateral airspace opacities are again noted. Endotracheal tube has been removed. Cardiomediast inal silhouette is stable. IMPRESSION: Diffuse reticulonodular residual thickening with bibasilar opacities. The findings have slightly progressed and are consistent with an infectious process. ACT 112: Negative or not required by law. Electronically signed by: Devon Valero M.D. 06/13/2022 11:49 AM
[2022-06-13] MEDS ORDERED: levoFLOXacin/D5W 750 MG/150 ML BAG IV SCH (12:00)
[2022-06-13] MEDS: PANTOprazole 40 MG in SYRINGE 0 ML IV SCH (12:33)
[2022-06-13] MEDS: predniSONE 20 MG TAB PO SCH (12:33)
[2022-06-13] MEDS: D5W AND NSS 1,000 ML IV SCH (12:33)
[2022-06-13] MEDS ORDERED: ALBUT/IPRATROP 3MG/0.5MG NEB 3 ML VIAL NEB PRN (13:04)
--- NOTE | 2022-06-13 13:20 | Hospitalist Progress Note ---
Date of Service June 13, 2022 Assessment & Plan (1) Acute exacerbation of chronic obstructive pulmonary disease: Plan 77-year-old female with PMH of chronic hypoxic respiratory failure on 4 L oxygen, hypothyroidism, IPMN, bronchiectasis, severe persistent asthma, pulmonary hypertension, HTN, GERD, osteoporosis, anxiety, depression presented to our ED 06/12 with complaint of shortness of breath and received BiPAP treatment while in route, patient was restless with BiPAP/didn't tolerate it and was intubated in the ED. She is being managed for the following: #. Acute and chronic respiratory failure with hypoxia and hypercapnia requiring intubation: extubated 06/13 around 10:40 am to OM 6L. #. Pneumonia of bother lower lobes/ Sepsis #. Ac Exacerbation of COPD-astham overlap syndrome #. h/o Idiopathic bronchiectasis Patient presenting from home with reports of worsening shortness of breath and cough. Recently admitted ([facility]) 05/10-05/18 for Ac on Chr RF d/t Pneumonia/asthma-copd exacerbation on the background of brochiectasis. S/p antbiotic and DC'd on prednisone taper. Admitted to ICU, intubated 06/12 in ED (see above) and extubated 06/13 to OM 6L. Received IV cefepime and Vanco in the ED 06/12---->levaquin 06/13. Recent sputum culture from 05/11 grew Pseudomonas. Awaiting admitting microbio labs. Admitting resp biofire negative. Extubated, in mild resp distress at bedside exam, tachicardic, wheezes/crackles b/l, on prednisone, Being managed in ICU. Monitor and replete electrolytes. #. Elevated trop at presentation: likely demand ischemia. Pt w/ no chest pain. #. Hypertension: On atenolol and diltiazem, resume as able #. Acquired hypothyroidism: resume home med. #. GERD (gastroesophageal reflux disease): IV PPI while intubated, can change to PO once able, can continue for duration of steroid. #. Anxiety and depression: Controlled with sertraline, hold for now #. Other conditions: resume home meds as able. #. DVT prophylaxis: SQ heparin #. Full Code Admission and Anticipated Discharge Date Admission Date: June 12, 2022 Subjective Patient seen and examined at bedside as a follow-up of acute exacerbation of COPDasthma overlap, status postintubation extubated 06/13, pneumonia, sepsis. Patient was lying in bed, on oxymask at 6 L, in mild distress and reports trouble breathing, had wheezes/crackles diffuse and bilateral, was tachycardic at bedside, was extubated today around 10:40 AM to oxygen mask 6 L. Patient denies pain. Patient denies belly pain. Patient not able to lie still and flat on the bed, was slightly propped up even at semiupright position of bed. Would like the patient to be monitored in the ICU and reevaluate her tomorrow for possible downgrade. Physical Exam Physical Exam: GENERAL: Alert and oriented x3. Mild distress, on 6L O2 via OM. HEENT: No pallor, no icterus. Pupils equal, round and reactive to light. Oral mucosa moist. NECK: No JVD, no neck masses. HEART: S1 and S2 heard. Regular rate and rhythm. No murmur, no gallop. RESPIRATORY SYSTEM: Normal AP diameter. ? accessory muscle use. Crackles and wheeze diffuse and b/l. ABDOMEN: Soft, bowel sounds present, nontender, no distention. CENTRAL NERVOUS SYSTEM: No facial droop. Speech is clear. Obeys simple commands. Moves extremities. EXTREMITIES: No edema, no erythema seen. Results & Data Results & Data ([facility]) Vital Signs (Past 12 Hours) Vital Signs Temp Pulse Pulse Resp BP Pulse Ox O2 Del Method 06/13/22 10:45 101 H 24 93 Oxymask 06/13/22 10:15 98 H 16 92 06/13/22 10:15 130/76 06/13/22 10:00 97 H 17 93 06/13/22 10:00 118/70 06/13/22 09:46 103 H 18 90 06/13/22 09:46 145/86 H 06/13/22 09:45 104 H 16 88 L 06/13/22 09:30 94 H 17 93 06/13/22 09:16 101 H 19 91 06/13/22 09:16 110/60 06/13/22 09:15 98 H 21 91 06/13/22 09:00 90 14 93 06/13/22 09:00 109/67 06/13/22 09:00 37.1 C 06/13/22 11:00 Oxymask 06/13/22 08:00 Mechanical Vent 06/13/22 08:00 37.4 C 06/13/22 08:00 06/13/22 08:00 Mechanical Vent 06/13/22 08:00 79 06/13/22 08:45 93 H 23 91 06/13/22 08:45 92/58 L 06/13/22 08:30 95 H 23 94 06/13/22 08:30 106/61 06/13/22 08:16 108 H 21 98 06/13/22 08:16 121/72 06/13/22 08:15 105 H 18 97 06/13/22 08:01 104/70 06/13/22 08:01 100 H 26 H 94 06/13/22 08:00 99 H 26 H 95 06/13/22 07:46 105 H 28 H 95 06/13/22 07:46 125/80 06/13/22 07:45 100 H 27 H 95 06/13/22 07:31 112/80 06/13/22 07:31 103 H 10 L 95 06/13/22 07:30 94 H 20 95 06/13/22 07:16 92 H 26 H 97 06/13/22 07:16 119/75 06/13/22 07:15 91 H 30 H 97 06/13/22 07:00 82 23 97 06/13/22 07:00 161/109 H 06/13/22 06:45 146/89 H 06/13/22 06:45 79 26 H 97 06/13/22 06:30 79 27 H 95 06/13/22 06:30 136/73 06/13/22 06:00 79 26 H 95 06/13/22 06:00 136/86 06/13/22 05:30 79 28 H 95 06/13/22 05:30 138/87 06/13/22 05:15 157/119 H 06/13/22 05:15 81 23 95 06/13/22 05:00 83 26 H 96 06/13/22 05:00 160/110 H 06/13/22 07:05 82 26 H 97 06/13/22 04:40 79 27 H 94 06/13/22 04:00 06/13/22 04:30 82 24 94 06/13/22 04:00 82 26 H 94 06/13/22 04:00 121/68 06/13/22 03:45 119/80 06/13/22 03:45 78 13 95 06/13/22 03:30 80 26 H 95 06/13/22 03:30 141/88 H 06/13/22 03:15 79 26 H 95 06/13/22 03:15 129/81 06/13/22 03:00 81 26 H 95 06/13/22 02:45 131/88 06/13/22 02:45 82 26 H 95 06/13/22 02:30 81 26 H 95 06/13/22 02:30 129/83 06/13/22 02:15 83 26 H 93 06/13/22 02:15 123/85 06/13/22 02:00 85 20 92 06/13/22 02:00 125/76 06/13/22 01:45 86 26 H 92 06/13/22 01:45 126/78 06/13/22 01:30 87 26 H 93 06/13/22 01:30 120/75 06/13/22 01:15 87 26 H 92 06/13/22 01:15 119/75 O2 Flow Rate FiO2 06/13/22 10:45 6 06/13/22 10:15 06/13/22 10:15 06/13/22 10:00 06/13/22 10:00 06/13/22 09:46 06/13/22 09:46 06/13/22 09:45 06/13/22 09:30 06/13/22 09:16 06/13/22 09:16 06/13/22 09:15 06/13/22 09:00 06/13/22 09:00 06/13/22 09:00 06/13/22 11:00 6 06/13/22 08:00 40 06/13/22 08:00 06/13/22 08:00 40 06/13/22 08:00 06/13/22 08:00 06/13/22 08:45 06/13/22 08:45 06/13/22 08:30 06/13/22 08:30 06/13/22 08:16 06/13/22 08:16 06/13/22 08:15 06/13/22 08:01 06/13/22 08:01 06/13/22 08:00 06/13/22 07:46 06/13/22 07:46 06/13/22 07:45 06/13/22 07:31 06/13/22 07:31 06/13/22 07:30 06/13/22 07:16 06/13/22 07:16 06/13/22 07:15 06/13/22 07:00 06/13/22 07:00 06/13/22 06:45 06/13/22 06:45 06/13/22 06:30 06/13/22 06:30 06/13/22 06:00 06/13/22 06:00 06/13/22 05:30 06/13/22 05:30 06/13/22 05:15 06/13/22 05:15 06/13/22 05:00 06/13/22 05:00 06/13/22 07:05 40 06/13/22 04:40 40 06/13/22 04:00 40 06/13/22 04:30 06/13/22 04:00 06/13/22 04:00 06/13/22 03:45 06/13/22 03:45 06/13/22 03:30 06/13/22 03:30 06/13/22 03:15 06/13/22 03:15 06/13/22 03:00 06/13/22 02:45 06/13/22 02:45 06/13/22 02:30 06/13/22 02:30 06/13/22 02:15 06/13/22 02:15 06/13/22 02:00 06/13/22 02:00 06/13/22 01:45 06/13/22 01:45 06/13/22 01:30 06/13/22 01:30 06/13/22 01:15 06/13/22 01:15
[2022-06-13] MEDS ORDERED: MoRPHine SULFATE 2 MG/ML CARP IV STA (15:35)
[2022-06-13] MEDS ORDERED: MELATONIN 3 MG TAB PO PRN (23:56)
[2022-06-14] MEDS: ALBUT/IPRATROP 3MG/0.5MG NEB 3 ML VIAL NEB SCH ×4 (00:01→19:01)
[2022-06-14] MEDS ORDERED: VANCOMYCIN LEVEL ONE (03:30)
[2022-06-14] MEDS: guaiFENesin/DEXTROM SYRUP 100MG/10MG 5ML UDC PO PRN ×2 (03:50→11:14)
[2022-06-14 05:52] LABS: Basophils # (auto) 0.03 K/uL (0-0.2); Basophils % (auto) 0.1 %; Hematocrit (blood only) 27.5 % (34.1-44.9); Hemoglobin 9.6 g/dl (12.0-16.0); Immature Granulocytes # (auto) 0.17 K/uL (0.00-0.02); Immature Granulocytes % (auto) 0.8 %; Lymphocytes # (auto) 1.35 K/uL (1.2-3.4); Lymphocytes % (auto) 6.1 %; Mean Corpuscular Hemoglobin 33.1 pg (25.0-34.0); Mean Corpuscular Hgb Conc 34.9 g/dL (32.0-36.0); Mean Corpuscular Volume 94.8 fL (80.0-100.0); Monocytes # (auto) 1.89 K/uL (0.24-0.82); Monocytes % (auto) 8.6 %; Neutrophils # (auto) 18.66 K/uL (1.4-6.5); Neutrophils % (auto) 84.4 %; Platelet Count 413 K/uL (130-400); RDW Coefficient of Variation 15.9 % (11.5-14.5); RDW Standard Deviation 52.9 fL (36.4-46.3)
[2022-06-14] MEDS: HEPARIN SOD 5,000 UNIT/0.5 ML VIAL SQ SCH ×3 (06:06→20:38)
[2022-06-14] MEDS: D5W AND NSS 1,000 ML IV SCH (06:08)
[2022-06-14 06:18] LABS: BUN Creatinine Ratio 15.6 (10-20); Calcium 7.4 mg/dl (8.5-10.1); Creatinine Clr Calc Pharmacy 104.1 ml/min; Est GFR (African American) 124.4 ml/min; Est GFR (Non-African American) 107.4 ml/min; Magnesium 1.8 mg/dl (1.7-2.4); Phosphorus 1.1 mg/dl (2.5-4.9); Potassium 3.4 mmol/L (3.5-5.1)
[2022-06-14] MEDS ORDERED: POTASSIUM PHOS 3 MMOL/1 ML INFUSION IV STA (06:26)
[2022-06-14] MEDS ORDERED: POTASSIUM PHOSPHATE 30 MMOL in SODIUM CHLORIDE 0.9% 500 ML IV ONE (06:45)
--- NOTE | 2022-06-14 06:53 | Critical Care Progress Note ---
Date of Service June 14, 2022 Assessment & Plan (1) Respiratory failure: (2) Acute exacerbation of chronic obstructive pulmonary disease: (3) Acute and chronic respiratory failure with hypoxia: (4) Pneumonia: (5) Asthma exacerbation: (6) Dyslipidemia: (7) Anxiety and depression: Plan 77 year old female w/ PmHx chronic hypoxic respiratory failure on 4 L of oxygen, bronchiectasis, severe persistent asthma, pulmonary hypertension admitted to ICU for acutely worsening respiratory failure requiring intubation. Neuro CAM ICU: Negative. Cardiac Transient hypotension -Short episode of hypotension, responded well to fluid. -Most likely secondary to sepsis from pulmonary source -Continue to monitor vitals. Elevated troponin -EKG tachycardic w/ PVCs, no acute ST changes, LVH, left anterior fascicular block. -Trop 23.6 -> 24.5. -Most likely demand ischemia. Continue to monitor vitals. Respiratory Acute hypoxic respiratory failure 2/2 chronic infection -Patient previously hospitalized for PNA 05/10-05/18, sputum at that time grew Pseudomonas. -Sputum culture this admission growing Pseudomonas. -Findings on XR similar to previous admission, bronchiectasis favoring infectious process, possibly chronic. -Switched from Cefepime/Vanc to Levofloxacin 750mg q24h - can transition to oral Levofloxacin. -Added on prednisone 40mg x5days for severe PNA. -Patient extubated 06/13, on 6-8L oxymask. Asthma/COPD overlap -On Wixela and Spiriva at home. GI Can restart diet, progress as tolerated. Renal/Electrolytes Monitor electrolytes and kidney function, avoid nephrotoxic medications. Strict I&O's. Endo ICU hypoglycemia protocol Hypophosphatemia: -Phos 1.1 this AM, replenished 30mmol KPhos. -Repeat AM BMP. Heme Monitor H&H. ID Pulmonary infection -Findings as above. -Continue with Levofloxacin as above. -Monitor vitals. Lines/IV Access Peripheral. DVT Prophylaxis Heparin Dispo: ICU, stable for downgrade. Admission and Anticipated Discharge Date Admission Date: June 12, 2022 Supervising Physician Co-Signing Physician Notes Dr. Valle was resident physician during care of patient. I separately evaluated patient for castano portions of the history and the exam. I was present during the critical portion of medical decision making, and I discussed the case with the resident. I generally agree with the findings and plan. Start diet, transition from IV Levaquin to oral. Stable for downgrade out of ICU. Subjective Patient seen at the bedside this morning saying she feels she didn't sleep to well last night. She's had bouts of coughing here and there with sputum production but she says her sputum has been getting team lead in color. She denies any nausea, vomiting, fevers, chills. Review of Systems Constitutional: as per Subjective / HPI Physical Exam Constitutional: WD/WN, vitals as above Respiratory: Clear to auscultation in the bilateral lung ayoub. Cardiovascular: Rate/Rhythm: + tachycardic Heart Sounds: normal S1 and normal S2 Gastrointestinal (Abdomen): normal bowel sounds, soft, nontender, no hepatosplenomegaly Results & Data Results & Data ([facility]) Vital Signs (Past 12 Hours) Vital Signs Temp Pulse Pulse Resp BP Pulse Ox O2 Del Method 06/14/22 06:30 98 H 30 H 124/93 93 06/14/22 06:00 89 17 06/14/22 00:00 Oxymask 06/14/22 04:00 36.5 C 06/14/22 00:00 36.5 C 06/14/22 05:30 91 H 19 151/101 H 92 06/14/22 05:00 123/75 06/14/22 04:30 91 H 16 157/83 H 94 06/14/22 04:00 98 H 18 168/94 H 95 06/14/22 03:31 102 H 18 171/92 H 95 06/14/22 03:00 96 H 16 148/92 H 95 06/14/22 02:30 91 H 24 147/75 H 91 06/14/22 02:00 97 H 19 144/83 H 95 06/13/22 19:15 36.5 C 06/14/22 05:59 36.5 C 06/14/22 01:30 102 H 26 H 149/91 H 92 06/14/22 01:00 91 H 23 139/79 96 06/14/22 00:30 102 H 26 H 132/86 95 06/14/22 00:00 94 H 29 H 164/93 H 98 06/13/22 23:30 85 21 142/86 H 98 06/13/22 23:00 95 H 26 H 148/97 H 96 06/13/22 22:30 101 H 21 157/101 H 96 06/13/22 22:00 95 H 41 H 96 06/13/22 21:45 95 H 20 151/91 H 97 06/14/22 00:00 97 H 06/14/22 00:01 95 H 20 98 Oxymask 06/13/22 21:30 100 H 25 H 155/92 H 97 06/13/22 21:00 98 H 19 06/13/22 20:45 100 H 17 154/92 H 95 06/13/22 20:00 102 H 21 147/82 H 93 06/13/22 19:30 98 H 18 141/84 H 91 06/13/22 19:00 100 H 17 154/97 H 88 L 06/13/22 20:00 95 H 06/13/22 20:00 Oxymask 06/13/22 19:36 96 H 20 93 Oxymask O2 Flow Rate 06/14/22 06:30 06/14/22 06:00 06/14/22 00:00 9 06/14/22 04:00 06/14/22 00:00 06/14/22 05:30 06/14/22 05:00 06/14/22 04:30 06/14/22 04:00 06/14/22 03:31 06/14/22 03:00 06/14/22 02:30 06/14/22 02:00 06/13/22 19:15 06/14/22 05:59 06/14/22 01:30 06/14/22 01:00 06/14/22 00:30 06/14/22 00:00 06/13/22 23:30 06/13/22 23:00 06/13/22 22:30 06/13/22 22:00 06/13/22 21:45 06/14/22 00:00 06/14/22 00:01 8 06/13/22 21:30 06/13/22 21:00 06/13/22 20:45 06/13/22 20:00 06/13/22 19:30 06/13/22 19:00 06/13/22 20:00 06/13/22 20:00 8 06/13/22 19:36 5 Resident Activity Tracking Resident Involvement: Resident Care Provided Care Provided: Adult Hospital Medicine (1) Asthma exacerbation Asthma persistence: unspecified Asthma severity: severe Qualified Code(s): J45.901 - Unspecified asthma with (acute) exacerbation
[2022-06-14] MEDS ORDERED: COUGH DROP (SUGAR FREE) LOZ 24 LOZ/1 BOX BUCCAL ONE (07:25)
--- NOTE | 2022-06-14 10:08 | Billing Data ---
Date of Service June 14, 2022 Coding Level of Care Code 34977 Subseq Obs Care Lvl 3
[2022-06-14] MEDS: FLUTICASONE/VILANTEROL 200/25MCG 14 PUFFS/INHALER INH SCH (11:10)
[2022-06-14] MEDS: levoFLOXacin 750 MG TAB PO SCH (11:10)
[2022-06-14] MEDS: predniSONE 20 MG TAB PO SCH (11:10)
[2022-06-14] MEDS: ATENOLOL 50 MG TABLET PO SCH (11:10)
[2022-06-14] MEDS: PANTOprazole 40 MG in SYRINGE 0 ML IV SCH (11:13)
--- NOTE | 2022-06-14 18:05 | Hospitalist Progress Note ---
Date of Service June 14, 2022 Assessment & Plan (1) Acute exacerbation of chronic obstructive pulmonary disease: Plan 77-year-old female with PMH of chronic hypoxic respiratory failure on 4 L oxygen, hypothyroidism, IPMN, bronchiectasis, severe persistent asthma, pulmonary hypertension, HTN, GERD, osteoporosis, anxiety, depression presented to our ED 06/12 with complaint of shortness of breath and received BiPAP treatment while in route, patient was restless with BiPAP/didn't tolerate it and was intubated in the ED. She is being managed for the following: #. Acute and chronic respiratory failure with hypoxia and hypercapnia requiring intubation: extubated 06/13 around 10:40 am to OM 6L. #. Pneumonia of bother lower lobes/ Sepsis #. Ac Exacerbation of COPD-astham overlap syndrome #. h/o Idiopathic bronchiectasis Patient presenting from home with reports of worsening shortness of breath and cough. Recently admitted ([facility]) 05/10-05/18 for Ac on Chr RF d/t Pneumonia/asthma-copd exacerbation on the background of brochiectasis. S/p antbiotic and DC'd on prednisone taper. Admitted to ICU, intubated 06/12 in ED (see above) and extubated 06/13 to OM 6L. Received IV cefepime and Vanco in the ED 06/12---->levaquin 06/13. 06/12 sputum Cx w/ Ps. aeruginosa. 06/12 Bl Cx no growth so far. Follow final C/S. Admitting resp biofire negative. On 6 L OM, improving wheezes/crackles b/l, on prednisone, DG out of ICU. Monitor and replete electrolytes. #. Elevated trop at presentation: likely demand ischemia. Pt w/ no chest pain. #. Hypertension: On atenolol and diltiazem, resume as able #. Acquired hypothyroidism: resume home med. #. GERD (gastroesophageal reflux disease): IV PPI while intubated, can change to PO once able, can continue for duration of steroid. #. Anxiety and depression: Controlled with sertraline. #. Other conditions: resume home meds as able. #. DVT prophylaxis: SQ heparin #. DNR/DNI D/w with patient and her Dtr and her Grand dtr at bedside during the day about code status, pt chose DNR/DNI going forward and verbalized understanding w/ f amily at bedside. Also update the family about patient's current status and answered all their questions. They would like to d/w palliative care for goals of care discussion. Admission and Anticipated Discharge Date Admission Date: June 12, 2022 Subjective Patient seen and examined at bedside as a follow-up of acute exacerbation of COPDasthma overlap, status postintubation & extubated 06/13, pneumonia, sepsis. Patient was lying in bed, on oxymask at 6 L, NAD, subjectively looks better than yesterday, no resp distress, trying to eat pudding, reports decreased appetite, denies pain, sore throat. Denies BM. Reports feeling tired and weak. Denies nausea, vomiting, fever. Pt was extubated 06/13/22 around 10:40 AM to oxygen mask 6 L. Physical Exam Physical Exam: GENERAL: Alert and oriented x3. NAD, on 6L O2 via OM. HEENT: No pallor, no icterus. Pupils equal, round and reactive to light. Oral mucosa moist. NECK: No JVD, no neck masses. HEART: S1 and S2 heard. Regular rate and rhythm. No murmur, no gallop. RESPIRATORY SYSTEM: Normal AP diameter. ? accessory muscle use. Crackles and wheeze diffuse and b/l --> improving today. ABDOMEN: Soft, bowel sounds present, nontender, no distention. CENTRAL NERVOUS SYSTEM: No facial droop. Speech is clear. Obeys simple commands. Moves extremities. EXTREMITIES: No edema, no erythema seen. Results & Data Results & Data ([facility]) Vital Signs (Past 12 Hours) Vital Signs Temp Pulse Pulse Resp BP Pulse Ox O2 Del Method 06/14/22 12:00 111 H 24 138/80 91 06/14/22 11:00 96 H 40 H 167/93 H 91 06/14/22 10:01 104 H 36 H 121/79 91 06/14/22 11:48 24 90 Oxymask 06/14/22 08:00 Oxymask 06/14/22 09:00 99 H 32 H 138/81 91 06/14/22 08:00 96 H 21 114/68 94 06/14/22 08:00 114/68 06/14/22 07:30 91 H 23 134/75 95 06/14/22 07:00 87 20 140/77 96 06/14/22 07:27 92 H 22 92 Oxymask 06/14/22 06:30 98 H 30 H 124/93 93 06/14/22 06:00 89 17 06/14/22 05:59 36.5 C O2 Flow Rate 06/14/22 12:00 06/14/22 11:00 06/14/22 10:01 06/14/22 11:48 6 06/14/22 08:00 10 06/14/22 09:00 06/14/22 08:00 06/14/22 08:00 06/14/22 07:30 06/14/22 07:00 06/14/22 07:27 10 06/14/22 06:30 06/14/22 06:00 06/14/22 05:59
[2022-06-14] MEDS: MONTELUKAST SODIUM 10 MG TABLET PO SCH (20:38)
[2022-06-15] MEDS: ALBUT/IPRATROP 3MG/0.5MG NEB 3 ML VIAL NEB SCH ×4 (01:28→18:56)
[2022-06-15 06:14] LABS: Basophils # (auto) 0.02 K/uL (0-0.2); Basophils % (auto) 0.2 %; Hematocrit (blood only) 31.6 % (34.1-44.9); Hemoglobin 10.4 g/dl (12.0-16.0); Immature Granulocytes # (auto) 0.11 K/uL (0.00-0.02); Immature Granulocytes % (auto) 0.9 %; Lymphocytes # (auto) 1.56 K/uL (1.2-3.4); Lymphocytes % (auto) 12.9 %; Mean Corpuscular Hgb Conc 32.9 g/dL (32.0-36.0); Mean Corpuscular Volume 94.3 fL (80.0-100.0); Mean Platelet Volume 8.5 fL (9.4-12.3); Monocytes # (auto) 1.37 K/uL (0.24-0.82); Monocytes % (auto) 11.3 %; Neutrophils # (auto) 9.08 K/uL (1.4-6.5); Neutrophils % (auto) 74.7 %; Platelet Count 372 K/uL (130-400); RDW Coefficient of Variation 15.6 % (11.5-14.5); Red Blood Count 3.35 M/uL (3.93-5.22); White Blood Count 12.14 K/ul (4.8-10.8)
[2022-06-15] MEDS: HEPARIN SOD 5,000 UNIT/0.5 ML VIAL SQ SCH ×3 (06:19→20:20)
[2022-06-15] MEDS: LEVOTHYROXINE SODIUM 75 MCG TABLET PO SCH (06:20)
[2022-06-15 06:35] LABS: BUN Creatinine Ratio 19.4 (10-20); Calcium 7.8 mg/dl (8.5-10.1); Creatinine Clr Calc Pharmacy 107.4 ml/min; Est GFR (African American) 125.7 ml/min; Est GFR (Non-African American) 108.5 ml/min; Potassium 3.4 mmol/L (3.5-5.1)
[2022-06-15 06:49] LABS: Magnesium 1.7 mg/dl (1.7-2.4); Phosphorus 1.2 mg/dl (2.5-4.9)
[2022-06-15] MEDS ORDERED: POTASSIUM PHOS 3 MMOL/1 ML INFUSION IV STA ×2 (06:54→07:39)
[2022-06-15] MEDS: BENZONATATE 100 MG CAPSULE PO PRN (07:31)
[2022-06-15] MEDS ORDERED: MAGNESIUM SULFATE / D5W 1 GM/100 ML BAG IV ONE (07:39)
[2022-06-15] MEDS ORDERED: POTASSIUM CHLORIDE CRTAB 20 MEQ TABCR PO STA (07:39)
[2022-06-15] MEDS ORDERED: POTASSIUM PHOSPHATE 30 MMOL in SODIUM CHLORIDE 0.9% 500 ML IV ONE (08:00)
[2022-06-15] MEDS: hydrOXYzine HCl 10 MG TAB PO PRN ×2 (08:24→21:02)
[2022-06-15] MEDS: ATENOLOL 50 MG TABLET PO SCH (09:22)
[2022-06-15] MEDS: FLUTICASONE/VILANTEROL 200/25MCG 14 PUFFS/INHALER INH SCH (09:23)
[2022-06-15] MEDS: dilTIAZem HCL 300 MG CAPCR PO SCH (09:23)
[2022-06-15] MEDS: predniSONE 20 MG TAB PO SCH (09:24)
[2022-06-15] MEDS: PANTOprazole 40 MG TAB PO SCH (09:24)
[2022-06-15] MEDS: SERTRALINE HCL 50 MG TABLET PO SCH (09:24)
[2022-06-15] MEDS: levoFLOXacin 750 MG TAB PO SCH (11:34)
--- NOTE | 2022-06-15 14:08 | Hospitalist Progress Note ---
Date of Service June 15, 2022 Assessment & Plan (1) Acute exacerbation of chronic obstructive pulmonary disease: Plan 77-year-old female with PMH of chronic hypoxic respiratory failure on 4 L oxygen, hypothyroidism, IPMN, bronchiectasis, severe persistent asthma, pulmonary hypertension, HTN, GERD, osteoporosis, anxiety, depression presented to our ED 06/12 with complaint of shortness of breath and received BiPAP treatment while in route, patient was restless with BiPAP/didn't tolerate it and was intubated in the ED. She is being managed for the following: #. Acute and chronic respiratory failure with hypoxia and hypercapnia requiring intubation: extubated 06/13 around 10:40 am to OM 6L. #. Pneumonia of bother lower lobes/ Sepsis #. Ac Exacerbation of COPD-astham overlap syndrome #. h/o Idiopathic bronchiectasis Patient presenting from home with reports of worsening shortness of breath and cough. Recently admitted ([facility]) 05/10-05/18 for Ac on Chr RF d/t Pneumonia/asthma-copd exacerbation on the background of brochiectasis. S/p antbiotic and DC'd on prednisone taper. Admitted to ICU, intubated 06/12 in ED (see above) and extubated 06/13 to OM 6L. Received IV cefepime and Vanco in the ED 06/12---->levaquin 06/13. 06/12 sputum Cx w/ Ps. aeruginosa. 06/12 Bl Cx no growth so far. Follow final C/S. continue O2 by NC - titrate as tolerated - continue prednisone - palliative care consult for GOC discussion per family request #. Elevated trop at presentation: likely demand ischemia. Pt w/ no chest pain. #. Hypertension: On atenolol and diltiazem, resume as able #. Acquired hypothyroidism: resume home med. #. GERD (gastroesophageal reflux disease): PO PPI daily #. Anxiety and depression: Controlled with sertraline. #. Other conditions: resume home meds as able. #. DVT prophylaxis: SQ heparin #. DNR/DNI Palliative care consult placed for GOC discussion. Jamin Bartholomew MD [facility] Medicine Admission and Anticipated Discharge Date Admission Date: June 12, 2022 Subjective The patient is a 77 year old woman with pmh COPD/Asthma with chronic hypoxic respiratory failure on 4L home O2 NC, hypothyroidism, IPMN, bronchiectasis, pHTN, GERD, HTN, osteoporosis, anxiety, depression who presented for shortness of breath found ot have hypoxic/hypercapnic respiratory failure and was intubated, extubated 06/13/2022 to oxy mask then 6L NC. Started on empiric abx, titrated to levofloxacin for pseudomonas sputum culture. Patient feels better today, breathing improved but not back to baseline. Continues to have cough, denies fevers or chills, n/v/d, chest pain, abdominal pain, leg swelling. Review of Systems Review of Systems: All systems reviewed & are unremarkable except as noted in Subjective Physical Exam Physical Exam: GENERAL: Alert and oriented x3. NAD, on 6L O2 via NC. HEENT: No pallor, no icterus. Pupils equal, round and reactive to light. Oral mucosa moist. NECK: No JVD, no neck masses. HEART: S1 and S2 heard. Regular rate and rhythm. No murmur, no gallop. RESPIRATORY SYSTEM: Normal AP diameter. no accessory muscle use. decreased breath sounds on right and some diffuse expiratory wheezes that are mild and intermittent. ABDOMEN: Soft, bowel sounds present, nontender, no distention. CENTRAL NERVOUS SYSTEM: No facial droop. Speech is clear. Obeys simple commands. Moves extremities. EXTREMITIES: No edema, no erythema seen. Results & Data Results & Data ([facility]) Vital Signs (Past 12 Hours) Vital Signs Temp Pulse Pulse Resp BP Pulse Ox O2 Del Method 06/15/22 13:37 75 24 92 Nasal Cannula 06/15/22 11:40 36.7 C 06/15/22 11:00 75 24 129/83 96 Nasal Cannula 06/15/22 10:01 92 H 22 133/84 93 Nasal Cannula 06/15/22 08:00 36.8 C 06/15/22 09:00 88 20 108/79 94 Nasal Cannula 06/15/22 08:00 114 H 17 144/64 H 90 Nasal Cannula 06/15/22 07:00 95 H 21 145/94 H 95 Nasal Cannula 06/15/22 08:00 114 H 06/15/22 08:00 Nasal Cannula 06/15/22 07:05 81 26 H 95 Nasal Cannula 06/15/22 05:01 149/83 H 06/15/22 05:01 75 20 94 06/15/22 04:00 72 20 99 06/15/22 04:00 146/79 H 06/15/22 03:00 147/98 H 06/15/22 03:00 78 21 98 06/15/22 02:00 75 24 97 06/15/22 02:00 132/78 O2 Flow Rate 06/15/22 13:37 6 06/15/22 11:40 06/15/22 11:00 6 06/15/22 10:01 6 06/15/22 08:00 06/15/22 09:00 6 06/15/22 08:00 5 06/15/22 07:00 6 06/15/22 08:00 06/15/22 08:00 6 06/15/22 07:05 6 06/15/22 05:01 06/15/22 05:01 06/15/22 04:00 06/15/22 04:00 06/15/22 03:00 06/15/22 03:00 06/15/22 02:00 06/15/22 02:00 Laboratory Results Short CBC 06/15/22 Range/Units 06:00 WBC 12.14 H (4.8-10.8) K/ul Hgb 10.4 L (12.0-16.0) g/dl Hct 31.6 L (34.1-44.9) % Plt Count 372 (130-400) K/uL BMP 06/15/22 06:00 Sodium 136 Potassium 3.4 L Chloride 97 L Carbon Dioxide 33 H BUN 6 Creatinine 0.31 L Glucose 81 Calcium 7.8 L Medications Administered Current Inpatient Medications Albuterol (Albut/Ipratrop 3mg/0.5mg Neb 3 Ml Vial) 3 ml NEB Q6R MICAELA; Protocol Stop: 07/12/22 12:59 Last Admin: 06/15/22 13:37 Dose: 3 ml Albuterol (Albut/Ipratrop 3mg/0.5mg Neb 3 Ml Vial) 3 ml NEB Q4R PRN; Protocol PRN Reason: Wheezing Stop: 07/13/22 14:59 Last Admin: 06/13/22 13:29 Dose: 3 ml Atenolol (Atenolol 50 Mg Tablet) 50 mg PO QAM [facility] Stop: 07/14/22 08:59 Last Admin: 06/15/22 09:22 Dose: 50 mg Benzonatate (Benzonatate 100 Mg Capsule) 100 mg PO TID PRN PRN Reason: Cough Stop: 07/14/22 23:23 Last Admin: 06/15/22 07:31 Dose: 100 mg Diltiazem HCl (Diltiazem Hcl 300 Mg Capcr) 300 mg PO QAM [facility] Stop: 07/15/22 08:59 Last Admin: 06/15/22 09:23 Dose: 300 mg Fluticasone/Vilanterol (Fluticasone/Vilanterol 200/25mcg 14 Puffs/Inhaler) 1 puffs INH DAILY [facility] Stop: 07/14/22 11:29 Last Admin: 06/15/22 09:23 Dose: 1 puffs Guaifenesin/Dextromethorphan (Guaifenesin/Dextrom Syrup 100mg/10mg 5ml Udc) 5 ml PO Q6H PRN PRN Reason: Cough Stop: 07/14/22 01:58 Last Admin: 06/14/22 11:14 Dose: 5 ml Heparin Sodium (Porcine) (Heparin Sod 5,000 Unit/0.5 Ml Vial) 5,000 units SQ Q8 [facility] Stop: 07/12/22 14:31 Last Admin: 06/15/22 13:39 Dose: 5,000 units Hydroxyzine HCl (Hydroxyzine Hcl 10 Mg Tab) 10 mg PO Q6 PRN PRN Reason: anxiety Stop: 06/18/22 07:36 Last Admin: 06/15/22 08:24 Dose: 10 mg Levofloxacin (Levofloxacin 750 Mg Tab) 750 mg PO DAILY@1100 [facility] Stop: 06/21/22 10:59 Last Admin: 06/15/22 11:34 Dose: 750 mg Levothyroxine Sodium (Levothyroxine Sodium 75 Mcg Tablet) 75 mcg PO DAILYBB [facility] Stop: 07/15/22 06:29 Last Admin: 06/15/22 06:20 Dose: 75 mcg Melatonin (Melatonin 3 Mg Tab) 3 mg PO HS PRN PRN Reason: Sleep Stop: 07/13/22 23:55 Last Admin: 06/14/22 00:13 Dose: 3 mg Montelukast Sodium (Montelukast Sodium 10 Mg Tablet) 10 mg PO HS [facility] Stop: 07/14/22 20:59 Last Admin: 06/14/22 20:38 Dose: 10 mg Pantoprazole Sodium (Pantoprazole 40 Mg Tab) 40 mg PO DAILY [facility] Stop: 07/15/22 08:59 Last Admin: 06/15/22 09:24 Dose: 40 mg Prednisone (Prednisone 20 Mg Tab) 40 mg PO DAILY [facility] Stop: 06/17/22 09:01 Last Admin: 06/15/22 09:24 Dose: 40 mg Sertraline HCl (Sertraline Hcl 50 Mg Tablet) 25 mg PO [facility] Stop: 07/15/22 08:59 Last Admin: 06/15/22 09:24 Dose: 25 mg
[2022-06-15] MEDS: MONTELUKAST SODIUM 10 MG TABLET PO SCH (20:23)
[2022-06-16] MEDS: ALBUT/IPRATROP 3MG/0.5MG NEB 3 ML VIAL NEB SCH ×4 (01:13→19:30)
[2022-06-16] MEDS: BENZONATATE 100 MG CAPSULE PO PRN (01:24)
[2022-06-16] MEDS: HEPARIN SOD 5,000 UNIT/0.5 ML VIAL SQ SCH ×3 (05:58→20:21)
[2022-06-16] MEDS: LEVOTHYROXINE SODIUM 75 MCG TABLET PO SCH (05:58)
[2022-06-16 06:41] LABS: Basophils # (auto) 0.02 K/uL (0-0.2); Basophils % (auto) 0.2 %; Eosinophils # (auto) 0.01 K/uL (0-0.50); Eosinophils % (auto) 0.1 %; Hematocrit (blood only) 30.8 % (34.1-44.9); Hemoglobin 10.7 g/dl (12.0-16.0); Immature Granulocytes % (auto) 1.5 %; Lymphocytes # (auto) 1.84 K/uL (1.2-3.4); Lymphocytes % (auto) 14.1 %; Mean Corpuscular Hemoglobin 33.3 pg (25.0-34.0); Mean Corpuscular Hgb Conc 34.7 g/dL (32.0-36.0); Monocytes # (auto) 1.31 K/uL (0.24-0.82); Neutrophils # (auto) 9.69 K/uL (1.4-6.5); Neutrophils % (auto) 74.1 %; Platelet Count 438 K/uL (130-400); RDW Coefficient of Variation 15.3 % (11.5-14.5); RDW Standard Deviation 52.9 fL (36.4-46.3); Red Blood Count 3.21 M/uL (3.93-5.22); White Blood Count 13.07 K/ul (4.8-10.8)
[2022-06-16 07:12] LABS: BUN Creatinine Ratio 42.9 (10-20); Calcium 8.2 mg/dl (8.5-10.1); Creatinine Clr Calc Pharmacy 95.2 ml/min; Est GFR (African American) 120.8 ml/min; Est GFR (Non-African American) 104.2 ml/min; Magnesium 1.8 mg/dl (1.7-2.4); Phosphorus 1.7 mg/dl (2.5-4.9)
--- NOTE | 2022-06-16 08:04 | Hospitalist Progress Note ---
Date of Service June 16, 2022 Assessment & Plan (1) Acute exacerbation of chronic obstructive pulmonary disease: Plan 77-year-old female with PMH of chronic hypoxic respiratory failure on 4 L oxygen, hypothyroidism, IPMN, bronchiectasis, severe persistent asthma, pulmonary hypertension, HTN, GERD, osteoporosis, anxiety, depression presented to our ED 06/12 with complaint of shortness of breath and received BiPAP treatment while in route, patient was restless with BiPAP/didn't tolerate it and was intubated in the ED. She is being managed for the following: #. Acute and chronic respiratory failure with hypoxia and hypercapnia requiring intubation: extubated 06/13 around 10:40 am to OM 6L. #. Pneumonia of bother lower lobes/ Sepsis #. Ac Exacerbation of COPD-astham overlap syndrome #. h/o Idiopathic bronchiectasis Patient presenting from home with reports of worsening shortness of breath and cough. Recently admitted ([facility]) 05/10-05/18 for Ac on Chr RF d/t Pneumonia/asthma-copd exacerbation on the background of brochiectasis. S/p antbiotic and DC'd on prednisone taper. Admitted to ICU, intubated 06/12 in ED (see above) and extubated 06/13 to OM 6L. Received IV cefepime and Vanco in the ED 06/12---->levaquin 06/13. 06/12 sputum Cx w/ Ps. aeruginosa. 06/12 Bl Cx no growth so far. Follow final C/S. continue O2 by NC - titrate as tolerated - continue prednisone x5 days - continue levaquin x14 days - palliative care consult for GOC discussion per family request #. Elevated trop at presentation: likely demand ischemia. Pt w/ no chest pain. #. Hypertension: On atenolol and diltiazem, resume as able #. Acquired hypothyroidism: resume home med. #. GERD (gastroesophageal reflux disease): PO PPI daily #. Anxiety and depression: Controlled with sertraline. #. Other conditions: resume home meds as able. #. DVT prophylaxis: SQ heparin #. DNR/DNI Palliative care consult placed for GOC discussion. Jamin Bartholomew MD [facility] Medicine Admission and Anticipated Discharge Date Admission Date: June 12, 2022 Subjective The patient is a 77 year old woman with pmh COPD/Asthma with chronic hypoxic respiratory failure on 4L home O2 NC, hypothyroidism, IPMN, bronchiectasis, pHTN, GERD, HTN, osteoporosis, anxiety, depression who presented for shortness of breath found ot have hypoxic/hypercapnic respiratory failure and was intubated, extubated 06/13/2022 to oxy mask then 6L NC. Started on empiric abx, titrated to levofloxacin for pseudomonas sputum culture. Oxygen weaning to baseline 4L NC. Palliative care consulted and PT/OT evaluation. Patient feels a little anxious and nauseous this morning after breakfast but is feeling ok from breathing standpoint.. Continues to have cough, denies fevers or chills, n/v/d, chest pain, abdominal pain, leg swelling. Review of Systems Review of Systems: All systems reviewed & are unremarkable except as noted in Subjective Physical Exam Physical Exam: GENERAL: Alert and oriented x3. NAD, on 6L O2 via NC. HEENT: No pallor, no icterus. Pupils equal, round and reactive to light. Oral mucosa moist. NECK: No JVD, no neck masses. HEART: S1 and S2 heard. Regular rate and rhythm. No murmur, no gallop. RESPIRATORY SYSTEM: Normal AP diameter. no accessory muscle use. improved air movement and wheezing on exam today while getting breathing treatment ABDOMEN: Soft, bowel sounds present, nontender, no distention. CENTRAL NERVOUS SYSTEM: No facial droop. Speech is clear. Obeys simple commands. Moves extremities. EXTREMITIES: No edema, no erythema seen. Results & Data Results & Data ([facility]) Vital Signs (Past 12 Hours) Vital Signs Temp Pulse Pulse Resp BP BP Pulse Ox 06/16/22 07:14 70 20 94 06/16/22 04:00 66 19 153/79 H 96 06/16/22 06:00 64 28 H 96 06/16/22 05:00 165/68 H 06/16/22 05:00 76 21 86 L 06/16/22 04:00 67 19 95 06/16/22 04:00 36.7 C 153/79 H 06/16/22 00:00 72 06/16/22 00:00 36.6 C 76 20 139/84 95 06/16/22 01:13 69 18 95 06/15/22 20:43 O2 Del Method O2 Flow Rate 06/16/22 07:14 Nasal Cannula 4 06/16/22 04:00 Nasal Cannula 6 06/16/22 06:00 06/16/22 05:00 06/16/22 05:00 06/16/22 04:00 06/16/22 04:00 06/16/22 00:00 06/16/22 00:00 Nasal Cannula 5 06/16/22 01:13 Nasal Cannula 6 06/15/22 20:43 Nasal Cannula 6 Laboratory Results Short CBC 06/16/22 Range/Units 06:14 WBC 13.07 H (4.8-10.8) K/ul Hgb 10.7 L (12.0-16.0) g/dl Hct 30.8 L (34.1-44.9) % Plt Count 438 H (130-400) K/uL BMP 06/16/22 06:14 Sodium 136 Potassium 4.0 Chloride 98 Carbon Dioxide 34 H BUN 15 Creatinine 0.35 L Glucose 81 Calcium 8.2 L Medications Administered Current Inpatient Medications Albuterol (Albut/Ipratrop 3mg/0.5mg Neb 3 Ml Vial) 3 ml NEB Q6R MICAELA; Protocol Stop: 07/12/22 12:59 Last Admin: 06/16/22 07:11 Dose: 3 ml Albuterol (Albut/Ipratrop 3mg/0.5mg Neb 3 Ml Vial) 3 ml NEB Q4R PRN; Protocol PRN Reason: Wheezing Stop: 07/13/22 14:59 Last Admin: 06/13/22 13:29 Dose: 3 ml Atenolol (Atenolol 50 Mg Tablet) 50 mg PO QAM [facility] Stop: 07/14/22 08:59 Last Admin: 06/15/22 09:22 Dose: 50 mg Benzonatate (Benzonatate 100 Mg Capsule) 100 mg PO TID PRN PRN Reason: Cough Stop: 07/14/22 23:23 Last Admin: 06/16/22 01:24 Dose: 100 mg Diltiazem HCl (Diltiazem Hcl 300 Mg Capcr) 300 mg PO QAM [facility] Stop: 07/15/22 08:59 Last Admin: 06/15/22 09:23 Dose: 300 mg Fluticasone/Vilanterol (Fluticasone/Vilanterol 200/25mcg 14 Puffs/Inhaler) 1 puffs INH DAILY [facility] Stop: 07/14/22 11:29 Last Admin: 06/15/22 09:23 Dose: 1 puffs Guaifenesin/Dextromethorphan (Guaifenesin/Dextrom Syrup 100mg/10mg 5ml Udc) 5 ml PO Q6H PRN PRN Reason: Cough Stop: 07/14/22 01:58 Last Admin: 06/14/22 11:14 Dose: 5 ml Heparin Sodium (Porcine) (Heparin Sod 5,000 Unit/0.5 Ml Vial) 5,000 units SQ Q8 [facility] Stop: 07/12/22 14:31 Last Admin: 06/16/22 05:58 Dose: 5,000 units Hydroxyzine HCl (Hydroxyzine Hcl 10 Mg Tab) 10 mg PO Q6 PRN PRN Reason: anxiety Stop: 06/18/22 07:36 Last Admin: 06/15/22 21:02 Dose: 10 mg Levofloxacin (Levofloxacin 750 Mg Tab) 750 mg PO DAILY@1100 [facility] Stop: 06/21/22 10:59 Last Admin: 06/15/22 11:34 Dose: 750 mg Levothyroxine Sodium (Levothyroxine Sodium 75 Mcg Tablet) 75 mcg PO DAILYBB [facility] Stop: 07/15/22 06:29 Last Admin: 06/16/22 05:58 Dose: 75 mcg Melatonin (Melatonin 3 Mg Tab) 3 mg PO HS PRN PRN Reason: Sleep Stop: 07/13/22 23:55 Last Admin: 06/14/22 00:13 Dose: 3 mg Montelukast Sodium (Montelukast Sodium 10 Mg Tablet) 10 mg PO HS [facility] Stop: 07/14/22 20:59 Last Admin: 06/15/22 20:23 Dose: 10 mg Pantoprazole Sodium (Pantoprazole 40 Mg Tab) 40 mg PO DAILY [facility] Stop: 07/15/22 08:59 Last Admin: 06/15/22 09:24 Dose: 40 mg Prednisone (Prednisone 20 Mg Tab) 40 mg PO DAILY [facility] Stop: 06/17/22 09:01 Last Admin: 06/15/22 09:24 Dose: 40 mg Sertraline HCl (Sertraline Hcl 50 Mg Tablet) 25 mg PO QAM [facility] Stop: 07/15/22 08:59 Last Admin: 06/15/22 09:24 Dose: 25 mg
[2022-06-16] MEDS: SERTRALINE HCL 50 MG TABLET PO SCH (08:17)
[2022-06-16] MEDS: dilTIAZem HCL 300 MG CAPCR PO SCH (08:17)
[2022-06-16] MEDS: PANTOprazole 40 MG TAB PO SCH (08:18)
[2022-06-16] MEDS: predniSONE 20 MG TAB PO SCH (08:18)
[2022-06-16] MEDS: FLUTICASONE/VILANTEROL 200/25MCG 14 PUFFS/INHALER INH SCH (08:19)
[2022-06-16] MEDS: ATENOLOL 50 MG TABLET PO SCH (08:19)
[2022-06-16] MEDS: levoFLOXacin 750 MG TAB PO SCH (11:30)
[2022-06-16] MEDS ORDERED: ONDANSETRON INJ 2 MG/ML 2 ML VIAL IV PRN (12:48)
[2022-06-16] MEDS ORDERED: ONDANSETRON INJ 2 MG/ML 2 ML VIAL ONE (13:02)
--- NOTE | 2022-06-16 13:19 | Palliative Care Consultation ---
Date of Consultation June 16, 2022 Assessment & Plan (1) Dyspnea: Has had some improvement. She is on steroid, duonebs, Breo elipta, singulair and high flow O2 (2) Palliative care encounter: I talked with Farzaneh about her goals for care. She knows that her illness is progressing and will not likely improve significantly. She and her have talked and recently made a living will. She tells me that she would not want her life to be prolonged if there was no hope of recovery. She has thought about her dying time and hopes that it would be peaceful. She has strong miguel which has helped her through her illness and relieves fears of her dying time. Her hope would be to return home and be at home for her dying time. We talked about the discrepancy with her recent intubation and her wish for peaceful, not prolonged, . She felt that if she were able to be easily weaned, as occurred on this hospitalization, it was worth doing. She also states that she was scared and very short of breath at the time. She does know that it is likely that she would not be successfully weaned and if that occurred, her family would be faced with a very difficult decision. We discussed medications that could help relieve any air hunger or anxiety that she was having if she were having respiratory failure without vent support. She is currently DNR/DNI which is consistent with her living will. She does want to continue current level of care and would not rule out return to hospital if she had another episode. History of Present Illness Reason for Consultation: goals of care Requesting Physician: Dr. Guerra Attending Physician: Jamin Bartholomew MD History of Present Illness 77 yo lady with acute on chronic hypoxic respiratory failure who as admitted on 06/12 with severe respiratory distress. She was intubated on admission and subsequently extubated the following day. She is currently on 10L via oxymask. She has a history of bronchiectasis, severe asthma and pulmonary hypertension. She also has IPMN. She had previous hospitalization in late April for the same. She is awake and alert and complains of shortness of breath with minimal exertion, even conversation. She reports that her baseline is dyspnea with exertion, such as light housework. Allergies Allergy/AdvReac Type Severity Reaction Status Date / Time lisinopril AdvReac Intermediate Cough Verified 05/10/22 16:20 levofloxacin [From [facility]] AdvReac Unknown numbness Verified 05/12/22 22:26 in hands and arms Home Medications Medication Instructions Recorded Confirmed Type albuterol sulfate 90 mcg/actuation 2 puff inhalation Q4H PRN 06/02/20 06/12/22 History aerosol inhaler (Ventolin HFA) Shortness Of Breath Or Wheezing alendronate 70 mg tablet 70 mg PO WK 06/02/20 06/12/22 History atenolol 100 mg tablet 100 mg PO QAM 06/02/20 06/12/22 History atorvastatin 10 mg tablet 10 mg PO QAM 06/02/20 06/12/22 History calcium carbonate 600 mg-vitamin 1 tab PO BID 06/02/20 06/12/22 History D3 20 mcg (800 unit) chewable tablet (Caltrate 600 plus D) cetirizine 10 mg tablet 10 mg PO QAM 06/02/20 06/12/22 History diltiazem HCl 300 mg 300 mg PO QAM 06/02/20 06/12/22 History capsule,extended release 24 hr fluticasone 500 mcg-salmeterol 50 1 inh inhalation BID 06/02/20 06/12/22 History mcg/dose blistr powdr for inhalation (Wixela Inhub) guaifenesin 600 mg tablet, 600 mg PO BID 06/02/20 06/12/22 History extended release 12 hr (Mucinex) levothyroxine 75 mcg tablet 75 mcg PO DAILYBB 06/02/20 06/12/22 History montelukast 10 mg tablet 10 mg PO QPM 06/02/20 06/12/22 History sertraline 25 mg tablet 25 mg PO QAM 06/02/20 06/12/22 History albuterol sulfate 1.25 mg/3 mL 1.25 mg continuous nebulization Q4 05/10/22 06/12/22 History solution for nebulization PRN Wheezing cimetidine 400 mg tablet 400 mg PO HS 05/10/22 06/12/22 History furosemide 20 mg tablet 20 mg PO Q OTHER DAY 05/10/22 06/12/22 History tiotropium bromide 2.5 2 puff inhalation DAILY 05/10/22 06/12/22 History mcg/actuation mist for inhalation (Spiriva Respimat) Patient History Medical History Acquired hypothyroidism Acute and chronic respiratory failure with hypoxia Anxiety and depression Dyslipidemia GERD (gastroesophageal reflux disease) History of tobacco abuse 5-pack-year history Quit smoking in 1972 Hypertension Idiopathic bronchiectasis Osteoporosis Pulmonary nodule, left Severe persistent asthma Surgical History H/O cataract removal with insertion of prosthetic lens Bilateral H/O colonoscopy H/O pulmonary function tests S/P tonsillectomy and adenoidectomy Family History Father Heart disease Social History Smoking Status: Former smoker packs per day: 0.5; Years Smoked: 10; Hx Alcohol Use: No Hx Substance Use: No Preferred Language: Danish Communication Ability: Unable Selector Packer Required: No Beliefs That Will Affect Care: None marital status: Current Living Situation: Spouse Feels Safe at Home: Yes Assistive Devices: Cane, Oxygen - Continuous and Walker Physical Exam Constitutional: + thin and + frail appearing ENMT: Mouth: + dry oral mucous membranes Respiratory: + labored breathing and + uses accessory muscles Musculoskeletal: Extremities: + muscle atrophy Neurologic: Speech / Cognition: normal cognition Psychiatric: Orientation: oriented x 3 Results & Data ([facility]) Vital Signs (Past 12 Hours) Vital Signs Temp Pulse Pulse Resp BP BP Pulse Ox 06/16/22 08:00 80 06/16/22 12:39 06/16/22 12:34 64 20 97 06/16/22 11:21 97.5 F L 62 32 H 142/79 H 95 06/16/22 11:00 142/79 H 06/16/22 11:00 68 26 H 95 06/16/22 10:00 65 24 97 06/16/22 10:00 135/68 06/16/22 09:00 140/78 06/16/22 09:00 76 19 92 06/16/22 08:00 90 26 H 92 06/16/22 08:00 128/79 06/16/22 07:01 137/65 06/16/22 07:01 68 26 H 94 06/16/22 08:00 98.2 F 06/16/22 07:14 70 20 94 06/16/22 04:00 66 19 153/79 H 96 06/16/22 06:00 64 28 H 96 06/16/22 05:00 165/68 H 06/16/22 05:00 76 21 86 L 06/16/22 04:00 67 19 95 06/16/22 04:00 98.1 F 153/79 H O2 Del Method O2 Flow Rate 06/16/22 08:00 06/16/22 12:39 Oxymask 10 06/16/22 12:34 Oxymask 10 06/16/22 11:21 Oxymask 10 06/16/22 11:00 06/16/22 11:00 06/16/22 10:00 06/16/22 10:00 06/16/22 09:00 06/16/22 09:00 06/16/22 08:00 06/16/22 08:00 06/16/22 07:01 06/16/22 07:01 06/16/22 08:00 06/16/22 07:14 Nasal Cannula 4 06/16/22 04:00 Nasal Cannula 6 06/16/22 06:00 06/16/22 05:00 06/16/22 05:00 06/16/22 04:00 06/16/22 04:00 PG Care Time/CCT Total # of Minutes Spent Total Time Spent: 55 Total Time Spent with Patient: Total time spent is greater than 50% in coordination of care (as documented) at patient's floor/unit and/or counseling patient: symptom management, goals of care, patient education and support Coding Level of Care Code 20507 Initial Inpt Care Lvl 2 Diagnoses Dyspnea R06.00 Palliative care encounter Z51.5
[2022-06-16] MEDS: guaiFENesin/DEXTROM SYRUP 100MG/10MG 5ML UDC PO PRN (15:07)
[2022-06-16] MEDS ORDERED: SODIUM PHOSPHATE 3 MMOL/1 ML 5 ML VIAL IV ONE (15:22)
[2022-06-16] MEDS ORDERED: SODIUM PHOSPHATE 30 MMOL in SODIUM CHLORIDE 0.9% 500 ML IV ONE (15:45)
[2022-06-16] MEDS: MONTELUKAST SODIUM 10 MG TABLET PO SCH (20:20)
[2022-06-17] MEDS: ALBUT/IPRATROP 3MG/0.5MG NEB 3 ML VIAL NEB SCH ×4 (00:21→19:41)
[2022-06-17 06:16] LABS: Basophils # (auto) 0.03 K/uL (0-0.2); Basophils % (auto) 0.3 %; Eosinophils # (auto) 0.01 K/uL (0-0.50); Eosinophils % (auto) 0.1 %; Hematocrit (blood only) 28.4 % (34.1-44.9); Hemoglobin 10.1 g/dl (12.0-16.0); Immature Granulocytes # (auto) 0.26 K/uL (0.00-0.02); Lymphocytes # (auto) 1.76 K/uL (1.2-3.4); Lymphocytes % (auto) 20.5 %; Mean Corpuscular Hemoglobin 33.9 pg (25.0-34.0); Mean Corpuscular Hgb Conc 35.6 g/dL (32.0-36.0); Mean Corpuscular Volume 95.3 fL (80.0-100.0); Mean Platelet Volume 9.1 fL (9.4-12.3); Monocytes # (auto) 1.03 K/uL (0.24-0.82); Neutrophils # (auto) 5.49 K/uL (1.4-6.5); Neutrophils % (auto) 64.1 %; Platelet Count 441 K/uL (130-400); RDW Coefficient of Variation 15.3 % (11.5-14.5); RDW Standard Deviation 51.6 fL (36.4-46.3); Red Blood Count 2.98 M/uL (3.93-5.22); White Blood Count 8.58 K/ul (4.8-10.8)
[2022-06-17] MEDS: LEVOTHYROXINE SODIUM 75 MCG TABLET PO SCH (06:20)
[2022-06-17] MEDS: HEPARIN SOD 5,000 UNIT/0.5 ML VIAL SQ SCH ×3 (06:20→22:00)
[2022-06-17 06:46] LABS: Calcium 8.3 mg/dl (8.5-10.1); Creatinine Clr Calc Pharmacy 83.3 ml/min; Est GFR (African American) 115.6 ml/min; Est GFR (Non-African American) 99.8 ml/min; Magnesium 1.6 mg/dl (1.7-2.4); Phosphorus 2.9 mg/dl (2.5-4.9)
[2022-06-17] MEDS ORDERED: LACTATED RINGER'S 500 ML IV ONE (07:25)
--- NOTE | 2022-06-17 07:30 | Hospitalist Progress Note ---
Date of Service June 17, 2022 Assessment & Plan (1) Acute exacerbation of chronic obstructive pulmonary disease: Plan 77-year-old female with PMH of chronic hypoxic respiratory failure on 4 L oxygen, hypothyroidism, IPMN, bronchiectasis, severe persistent asthma, pulmonary hypertension, HTN, GERD, osteoporosis, anxiety, depression presented to our ED 06/12 with complaint of shortness of breath and received BiPAP treatment while in route, patient was restless with BiPAP/didn't tolerate it and was intubated in the ED. She is being managed for the following: #. Acute and chronic respiratory failure with hypoxia and hypercapnia requiring intubation: extubated 06/13 around 10:40 am to OM 6L. #. Pneumonia of bother lower lobes/ Sepsis #. Ac Exacerbation of COPD-astham overlap syndrome #. h/o Idiopathic bronchiectasis Patient presenting from home with reports of worsening shortness of breath and cough. Recently admitted ([facility]) 05/10-05/18 for Ac on Chr RF d/t Pneumonia/asthma-copd exacerbation on the background of brochiectasis. S/p antbiotic and DC'd on prednisone taper. Admitted to ICU, intubated 06/12 in ED (see above) and extubated 06/13 to OM 6L. Received IV cefepime and Vanco in the ED 06/12---->levaquin 06/13. 06/12 sputum Cx w/ Ps. aeruginosa. 06/12 Bl Cx no growth so far. Follow final C/S. continue O2 by NC - titrate as tolerated - continue prednisone x5 days - continue levaquin x14 days - palliative care consult for GOC discussion per family request - patient is DNR/DNI but would like to continue current level of care and is NOT "do not hospitalize" at this point. - PT/OT to see patient #. Elevated trop at presentation: likely demand ischemia. Pt w/ no chest pain. #. Hypertension: On atenolol and diltiazem, resume as able #. Acquired hypothyroidism: resume home med. #. GERD (gastroesophageal reflux disease): PO PPI daily #. Anxiety and depression: Controlled with sertraline. #. Other conditions: resume home meds as able. #. DVT prophylaxis: SQ heparin #. DNR/DNI Palliative care consult placed for GOC discussion. Jamin Bartholomew MD [facility] Medicine Admission and Anticipated Discharge Date Admission Date: June 12, 2022 Subjective The patient is a 77 year old woman with pmh COPD/Asthma with chronic hypoxic respiratory failure on 4L home O2 NC, hypothyroidism, IPMN, bronchiectasis, pHTN, GERD, HTN, osteoporosis, anxiety, depression who presented for shortness of breath found ot have hypoxic/hypercapnic respiratory failure and was intubated, extubated 06/13/2022 to oxy mask then 6L NC. Started on empiric abx, titrated to levofloxacin for pseudomonas sputum culture. Oxygen weaning to baseline 4L NC. Palliative care consulted and PT/OT evaluation. Patient feels much better today. Breathing is somewhat improved and anxiety and nausea much improved. Feels she might be able to work with PT today. Denies fevers or chills, n/v/d, chest pain, abdominal pain, leg swelling. Review of Systems Review of Systems: All systems reviewed & are unremarkable except as noted in Subjective Physical Exam Physical Exam: GENERAL: Alert and oriented x3. NAD, on 6L O2 via NC. HEENT: No pallor, no icterus. Pupils equal, round and reactive to light. Oral mucosa moist. NECK: No JVD, no neck masses. HEART: S1 and S2 heard. Regular rate and rhythm. No murmur, no gallop. RESPIRATORY SYSTEM: Normal AP diameter. no accessory muscle use. improved air movement and wheezing on exam today while getting breathing treatment ABDOMEN: Soft, bowel sounds present, nontender, no distention. CENTRAL NERVOUS SYSTEM: No facial droop. Speech is clear. Obeys simple commands. Moves extremities. EXTREMITIES: No edema, no erythema seen. Results & Data Results & Data ([facility]) Vital Signs (Past 12 Hours) Vital Signs Temp Pulse Pulse Resp BP Pulse Ox O2 Del Method 06/17/22 07:15 81 16 97 Oxymask 06/17/22 05:00 96 Oxymask 06/17/22 03:00 36.9 C 73 16 119/63 94 Oxymask 06/17/22 00:21 81 24 99 Oxymask 06/16/22 23:00 36.5 C 73 20 133/71 98 06/16/22 21:40 Oxymask 06/16/22 20:00 Oxymask 06/16/22 20:00 36.8 C 70 26 H 120/65 95 Oxymask 06/16/22 19:33 73 18 95 Oxymask O2 Flow Rate 06/17/22 07:15 6 06/17/22 05:00 6 06/17/22 03:00 06/17/22 00:21 7 06/16/22 23:00 06/16/22 21:40 8 06/16/22 20:00 8 06/16/22 20:00 8 06/16/22 19:33 9 Laboratory Results Short CBC 06/17/22 Range/Units 05:27 WBC 8.58 (4.8-10.8) K/ul Hgb 10.1 L (12.0-16.0) g/dl Hct 28.4 L (34.1-44.9) % Plt Count 441 H (130-400) K/uL BMP 06/17/22 05:27 Sodium 136 Potassium 4.0 Chloride 97 L Carbon Dioxide 35 H BUN 20 Creatinine 0.40 L Glucose 83 Calcium 8.3 L Medications Administered Current Inpatient Medications Albuterol (Albut/Ipratrop 3mg/0.5mg Neb 3 Ml Vial) 3 ml NEB Q6R MICAELA; Protocol Stop: 07/12/22 12:59 Last Admin: 06/17/22 07:15 Dose: 3 ml Albuterol (Albut/Ipratrop 3mg/0.5mg Neb 3 Ml Vial) 3 ml NEB Q4R PRN; Protocol PRN Reason: Wheezing Stop: 07/13/22 14:59 Last Admin: 06/13/22 13:29 Dose: 3 ml Atenolol (Atenolol 50 Mg Tablet) [facility] Stop: 07/14/22 08:59 Last Admin: 06/16/22 08:19 Dose: 50 mg Benzonatate (Benzonatate 100 Mg Capsule) 100 mg PO TID PRN PRN Reason: Cough Stop: 07/14/22 23:23 Last Admin: 06/16/22 01:24 Dose: 100 mg Diltiazem HCl (Diltiazem Hcl 300 Mg Capcr) 300 mg PO QAM [facility] Stop: 07/15/22 08:59 Last Admin: 06/16/22 08:17 Dose: 300 mg Fluticasone/Vilanterol (Fluticasone/Vilanterol 200/25mcg 14 Puffs/Inhaler) 1 puffs INH DAILY [facility] Stop: 07/14/22 11:29 Last Admin: 06/16/22 08:19 Dose: 1 puffs Guaifenesin/Dextromethorphan (Guaifenesin/Dextrom Syrup 100mg/10mg 5ml Udc) 5 ml PO Q6H PRN PRN Reason: Cough Stop: 07/14/22 01:58 Last Admin: 06/16/22 15:07 Dose: 5 ml Heparin Sodium (Porcine) (Heparin Sod 5,000 Unit/0.5 Ml Vial) 5,000 units SQ Q8 [facility] Stop: 07/12/22 14:31 Last Admin: 06/17/22 06:20 Dose: 5,000 units Hydroxyzine HCl (Hydroxyzine Hcl 10 Mg Tab) 10 mg PO Q6 PRN PRN Reason: anxiety Stop: 06/18/22 07:36 Last Admin: 06/15/22 21:02 Dose: 10 mg Magnesium Sulfate/Dextrose (Magnesium Sulfate / D5w) 1 gm in 100 mls @ 50 mls/hr IV Q2H MICAELA Stop: 06/17/22 11:29 Lactated Ringer's (Lr) 500 mls @ 125 mls/hr IV .Q4H ONE Stop: 06/17/22 11:24 Levofloxacin (Levofloxacin 750 Mg Tab) 750 mg PO DAILY@1100 [facility] Stop: 06/21/22 10:59 Last Admin: 06/16/22 11:30 Dose: 750 mg Levothyroxine Sodium (Levothyroxine Sodium 75 Mcg Tablet) 75 mcg PO DAILYBB [facility] Stop: 07/15/22 06:29 Last Admin: 06/17/22 06:20 Dose: 75 mcg Melatonin (Melatonin 3 Mg Tab) 3 mg PO HS PRN PRN Reason: Sleep Stop: 07/13/22 23:55 Last Admin: 06/14/22 00:13 Dose: 3 mg Montelukast Sodium (Montelukast Sodium 10 Mg Tablet) 10 mg PO HS [facility] Stop: 07/14/22 20:59 Last Admin: 06/16/22 20:20 Dose: 10 mg Ondansetron HCl (Ondansetron Inj 2 Mg/Ml 2 Ml Vial) 4 mg IV Q6H PRN PRN Reason: Nausea And Vomiting Stop: 06/20/22 12:47 Last Admin: 06/16/22 13:04 Dose: 4 mg Pantoprazole Sodium (Pantoprazole 40 Mg Tab) 40 mg PO DAILY MICA[facility]A Stop: 07/15/22 08:59 Last Admin: 06/16/22 08:18 Dose: 40 mg Prednisone (Prednisone 20 Mg Tab) 40 mg PO DAILY [facility]ICAEL[facility] Stop: 06/17/22 09:01 Last Admin: 06/16/22 08:18 Dose: 40 mg Sertraline HCl (Sertraline Hcl 50 Mg Tablet) 25 mg PO QA [facility]ICAELA Stop: 07/15/22 08:59 Last Admin: 06/16/22 08:17 Dose: 25 mg
[2022-06-17] MEDS: FLUTICASONE/VILANTEROL 200/25MCG 14 PUFFS/INHALER INH SCH (08:48)
[2022-06-17] MEDS: dilTIAZem HCL 300 MG CAPCR PO SCH (08:52)
[2022-06-17] MEDS: MAGNESIUM SULFATE / D5W 1 GM/100 ML BAG IV SCH ×2 (08:52→12:05)
[2022-06-17] MEDS: ATENOLOL 50 MG TABLET PO SCH (08:53)
[2022-06-17] MEDS: predniSONE 20 MG TAB PO SCH (08:53)
[2022-06-17] MEDS: PANTOprazole 40 MG TAB PO SCH (08:53)
[2022-06-17] MEDS: SERTRALINE HCL 50 MG TABLET PO SCH (08:54)
[2022-06-17] MEDS: levoFLOXacin 750 MG TAB PO SCH (12:19)
[2022-06-17] MEDS: MONTELUKAST SODIUM 10 MG TABLET PO SCH (20:36)
[2022-06-17] MEDS: BENZONATATE 100 MG CAPSULE PO PRN (22:00)
[2022-06-18] MEDS: guaiFENesin/DEXTROM SYRUP 100MG/10MG 5ML UDC PO PRN (00:10)
[2022-06-18] MEDS: ALBUT/IPRATROP 3MG/0.5MG NEB 3 ML VIAL NEB SCH ×3 (00:13→12:45)
[2022-06-18] MEDS: HEPARIN SOD 5,000 UNIT/0.5 ML VIAL SQ SCH ×2 (05:52→13:10)
[2022-06-18] MEDS: LEVOTHYROXINE SODIUM 75 MCG TABLET PO SCH (05:53)
[2022-06-18] MEDS ORDERED: ACETAMINOPHEN 325 MG TAB PO PRN (06:14)
--- NOTE | 2022-06-18 08:00 | Hospitalist Progress Note ---
Date of Service June 18, 2022 Assessment & Plan (1) Acute exacerbation of chronic obstructive pulmonary disease: Plan 77-year-old female with PMH of chronic hypoxic respiratory failure on 4 L oxygen, hypothyroidism, IPMN, bronchiectasis, severe persistent asthma, pulmonary hypertension, HTN, GERD, osteoporosis, anxiety, depression presented to our ED 06/12 with complaint of shortness of breath and received BiPAP treatment while in route, patient was restless with BiPAP/didn't tolerate it and was intubated in the ED. She is being managed for the following: #. Acute and chronic respiratory failure with hypoxia and hypercapnia requiring intubation: extubated 06/13 around 10:40 am to OM 6L. #. Pneumonia of bother lower lobes/ Sepsis #. Ac Exacerbation of COPD-astham overlap syndrome #. h/o Idiopathic bronchiectasis Patient presenting from home with reports of worsening shortness of breath and cough. Recently admitted ([facility]) 05/10-05/18 for Ac on Chr RF d/t Pneumonia/asthma-copd exacerbation on the background of brochiectasis. S/p antbiotic and DC'd on prednisone taper. Admitted to ICU, intubated 06/12 in ED (see above) and extubated 06/13 to OM 6L. Received IV cefepime and Vanco in the ED 06/12---->levaquin 06/13. 06/12 sputum Cx w/ Ps. aeruginosa. 06/12 Bl Cx no growth so far. Follow final C/S. continue O2 by NC - titrate as tolerated - continue prednisone x5 days - course completed - continue levaquin x14 days - palliative care consult for GOC discussion per family request - patient is DNR/DNI but would like to continue current level of care and is NOT "do not hospitalize" at this point. - PT/OT to see patient - recommend rehab - if patient stable from respiratory standpoint today, can be discharged to [facility] for rehab #. Elevated trop at presentation: likely demand ischemia. Pt w/ no chest pain. #. Hypertension: On atenolol and diltiazem, resume as able #. Acquired hypothyroidism: resume home med. #. GERD (gastroesophageal reflux disease): PO PPI daily #. Anxiety and depression: Controlled with sertraline. #. Other conditions: resume home meds as able. #. DVT prophylaxis: SQ heparin #. DNR/DNI Jamin Bartholomew MD [facility] Medicine Admission and Anticipated Discharge Date Admission Date: June 12, 2022 Subjective The patient is a 77 year old woman with pmh COPD/Asthma with chronic hypoxic respiratory failure on 4L home O2 NC, hypothyroidism, IPMN, bronchiectasis, pHTN, GERD, HTN, osteoporosis, anxiety, depression who presented for shortness of breath found ot have hypoxic/hypercapnic respiratory failure and was intubated, extubated 06/13/2022 to oxy mask then 6L NC. Started on empiric abx, titrated to levofloxacin for pseudomonas sputum culture. Oxygen weaning to baseline 4L NC. Palliative care consulted and PT/OT evaluation who recommend rehab - accepted at [facility]. Patient feels much better today. Breathing is somewhat improved and anxiety and nausea much improved. Feels she might be able to work with PT today. Denies fevers or chills, n/v/d, chest pain, abdominal pain, leg swelling. Review of Systems Review of Systems: All systems reviewed & are unremarkable except as noted in Subjective Physical Exam Physical Exam: GENERAL: Alert and oriented x3. NAD, on 6L O2 via NC. HEENT: No pallor, no icterus. Pupils equal, round and reactive to light. Oral mucosa moist. NECK: No JVD, no neck masses. HEART: S1 and S2 heard. Regular rate and rhythm. No murmur, no gallop. RESPIRATORY SYSTEM: Normal AP diameter. no accessory muscle use. improved air movement and wheezing on exam today while getting breathing treatment ABDOMEN: Soft, bowel sounds present, nontender, no distention. CENTRAL NERVOUS SYSTEM: No facial droop. Speech is clear. Obeys simple commands. Moves extremities. EXTREMITIES: No edema, no erythema seen. Results & Data Results & Data ([facility]) Vital Signs (Past 12 Hours) Vital Signs Temp Pulse Pulse Resp BP Pulse Ox O2 Del Method 06/18/22 07:34 36.9 C 67 15 146/69 H 96 Nasal Cannula 06/18/22 07:14 67 17 96 Nasal Cannula 06/18/22 00:13 80 20 91 Nasal Cannula 06/18/22 02:28 36.5 C 75 18 128/79 94 Nasal Cannula 06/17/22 22:19 68 06/17/22 23:00 36.6 C 79 20 119/78 92 Oxymask O2 Flow Rate 06/18/22 07:34 4 06/18/22 07:14 4 06/18/22 00:13 4 06/18/22 02:28 4 06/17/22 22:19 06/17/22 23:00 6 Medications Administered Current Inpatient Medications Acetaminophen (Acetaminophen 325 Mg Tab) 650 mg PO Q4H PRN PRN Reason: Pain Stop: 07/18/22 06:13 Albuterol (Albut/Ipratrop 3mg/0.5mg Neb 3 Ml Vial) 3 ml NEB Q6R MICAELA; Protocol Stop: 07/12/22 12:59 Last Admin: 06/18/22 07:14 Dose: 3 ml Albuterol (Albut/Ipratrop 3mg/0.5mg Neb 3 Ml Vial) 3 ml NEB Q4R PRN; Protocol PRN Reason: Wheezing Stop: 07/13/22 14:59 Last Admin: 06/13/22 13:29 Dose: 3 ml Atenolol (Atenolol 50 Mg Tablet) 50 mg PO QAM [facility] Stop: 07/14/22 08:59 Last Admin: 06/17/22 08:53 Dose: 50 mg Benzonatate (Benzonatate 100 Mg Capsule) 100 mg PO TID PRN PRN Reason: Cough Stop: 07/14/22 23:23 Last Admin: 06/17/22 22:00 Dose: 100 mg Diltiazem HCl (Diltiazem Hcl 300 Mg Capcr) 300 mg PO QAM [facility] Stop: 07/15/22 08:59 Last Admin: 06/17/22 08:52 Dose: 300 mg Fluticasone/Vilanterol (Fluticasone/Vilanterol 200/25mcg 14 Puffs/Inhaler) 1 puffs INH DAILY MICAELA Stop: 07/14/22 11:29 Last Admin: 06/17/22 08:48 Dose: 1 puffs Guaifenesin/Dextromethorphan (Guaifenesin/Dextrom Syrup 100mg/10mg 5ml Udc) 5 ml PO Q6H PRN PRN Reason: Cough Stop: 07/14/22 01:58 Last Admin: 06/18/22 00:10 Dose: 5 ml Heparin Sodium (Porcine) (Heparin Sod 5,000 Unit/0.5 Ml Vial) 5,000 units SQ Q8 [facility] Stop: 07/12/22 14:31 Last Admin: 06/18/22 05:52 Dose: 5,000 units Levofloxacin (Levofloxacin 750 Mg Tab) 750 mg PO DAILY@1100 [facility] Stop: 06/21/22 10:59 Last Admin: 06/17/22 12:19 Dose: 750 mg Levothyroxine Sodium (Levothyroxine Sodium 75 Mcg Tablet) 75 mcg PO DAILYBB [facility] Stop: 07/15/22 06:29 Last Admin: 06/18/22 05:53 Dose: 75 mcg Melatonin (Melatonin 3 Mg Tab) 3 mg PO HS PRN PRN Reason: Sleep Stop: 07/13/22 23:55 Last Admin: 06/14/22 00:13 Dose: 3 mg Montelukast Sodium (Montelukast Sodium 10 Mg Tablet) 10 mg PO HS [facility] Stop: 07/14/22 20:59 Last Admin: 06/17/22 20:36 Dose: 10 mg Ondansetron HCl (Ondansetron Inj 2 Mg/Ml 2 Ml Vial) 4 mg IV Q6H PRN PRN Reason: Nausea And Vomiting Stop: 06/20/22 12:47 Last Admin: 06/16/22 13:04 Dose: 4 mg Pantoprazole Sodium (Pantoprazole 40 Mg Tab) 40 mg PO DAILY [facility] Stop: 07/15/22 08:59 Last Admin: 06/17/22 08:53 Dose: 40 mg Sertraline HCl (Sertraline Hcl 50 Mg Tablet) 25 mg PO QAM [facility] Stop: 07/15/22 08:59 Last Admin: 06/17/22 08:54 Dose: 25 mg
[2022-06-18] MEDS: ATENOLOL 50 MG TABLET PO SCH (08:25)
[2022-06-18] MEDS: dilTIAZem HCL 300 MG CAPCR PO SCH (08:25)
[2022-06-18] MEDS: FLUTICASONE/VILANTEROL 200/25MCG 14 PUFFS/INHALER INH SCH (08:25)
[2022-06-18] MEDS: PANTOprazole 40 MG TAB PO SCH (08:26)
[2022-06-18] MEDS: SERTRALINE HCL 50 MG TABLET PO SCH (08:26)
[2022-06-18] MEDS: levoFLOXacin 750 MG TAB PO SCH (11:26)
[2022-06-18] MEDS ORDERED: MAGNESIUM OXIDE 400 MG TAB PO STA (12:27)
--- NOTE | 2022-06-18 14:48 | Discharge Summary ---
Date of Service June 18, 2022 Admission HPI Per Admitting Provider 77-year-old female with PMH chronic hypoxic respiratory failure on 4 L of oxygen, hypothyroidism, IPMN, bronchiectasis, severe persistent asthma, pulmonary hypertension, HTN, GERD, osteoporosis, anxiety, depression, and other problems listed below who presents to the ED for evaluation of cough and shortness of breath. Patient recently admitted to [facility] 05/10 through 05/18 for acute on chronic hypoxic respiratory failure due to pneumonia and asthma and bronchiectasis exacerbation. Patient completed antibiotic course while admitted. Patient was discharged on prednisone taper. History obtained from family. They report that patient completed her prednisone taper about 6 days ago. Shortly after stopping prednisone, patient developed worsening cough and shortness of breath. Patient typically wears 4 L of oxygen at all times however this morning patient was requiring 8 L of oxygen at home. reports the patient had a very poor appetite yesterday. No reports of abdominal pain, vomiting, diarrhea. No fevers. Cough has been productive for a thick, dark diaz sputum. EMS was called and patient was brought to the ED for further evaluation. While in the ED, patient was placed on BiPAP however due to worsening respiratory distress, patient did not tolerate and was subsequently intubated. Patient received IV cefepime and IV Vanco for suspected pneumonia. Patient developed hypotension after intubation and use of propofol, BP improved with IVF. Admission Exam Per Admitting Provider Constitutional: WD/WN, vitals as above + ill appearing and + mechanically ventilated ENMT: external ear and nose normal, oropharynx normal Respiratory: Auscultation: + diminished lung sounds, + rhonchi (Bilateral) and + wheezes (Bilateral, expiratory) Cardiovascular: Rate/Rhythm: regular rate and regular rhythm Vessels: normal peripheral pulses Extremities: no edema Gastrointestinal (Abdomen): normal bowel sounds, soft, nontender, no hepatosplenomegaly Musculoskeletal: Extremities: no cyanosis and no clubbing Sedated, unable to assess strength Skin: no rashes, warm and dry Neurologic: Sedated Psychiatric: Sedated Principal Diagnosis pseudomonas pneumonia, acute on chronic hypoxic respiratory failure, exacerbation of COPD Discharge Exam GENERAL: Alert and oriented x3. NAD, on 6L O2 via NC. HEENT: No pallor, no icterus. Pupils equal, round and reactive to light. Oral mucosa moist. NECK: No JVD, no neck masses. HEART: S1 and S2 heard. Regular rate and rhythm. No murmur, no gallop. RESPIRATORY SYSTEM: Normal AP diameter. no accessory muscle use. improved air movement and wheezing. on 4L NC, without labored breathing ABDOMEN: Soft, bowel sounds present, nontender, no distention. CENTRAL NERVOUS SYSTEM: No facial droop. Speech is clear. Obeys simple commands. Moves extremities. EXTREMITIES: No edema, no erythema seen. Discharge Data Allergies Allergy/AdvReac Type Severity Reaction Status Date / Time lisinopril AdvReac Intermediate Cough Verified 05/10/22 16:20 levofloxacin [From Levaquin] AdvReac Unknown numbness Verified 05/12/22 22:26 in hands and arms Consultations 06/12/22 12:06 ED Decision to Admit Stat 06/12/22 14:32 Consult Service Unit Operator Routine 06/14/22 16:03 Consult Palliative Care Routine Hospital Course (1) Acute exacerbation of chronic obstructive pulmonary disease: Plan 77-year-old female with PMH of chronic hypoxic respiratory failure on 4 L oxygen, hypothyroidism, IPMN, bronchiectasis, severe persistent asthma, pulmonary hypertension, HTN, GERD, osteoporosis, anxiety, depression presented to our ED 06/12 with complaint of shortness of breath and received BiPAP treatment while in route, patient was restless with BiPAP/didn't tolerate it and was intubated in the ED. She is being managed for the following: #. Acute and chronic respiratory failure with hypoxia and hypercapnia requiring intubation: extubated 06/13 around 10:40 am to OM 6L. #. Pneumonia of bother lower lobes/ Sepsis #. Ac Exacerbation of COPD-astham overlap syndrome #. h/o Idiopathic bronchiectasis Patient presenting from home with reports of worsening shortness of breath and cough. Recently admitted ([facility]) 05/10-05/18 for Ac on Chr RF d/t Pneumonia/asthma-copd exacerbation on the background of brochiectasis. S/p antbiotic and DC'd on prednisone taper. Admitted to ICU, intubated 06/12 in ED (see above) and extubated 06/13 to OM 6L. Received IV cefepime and Vanco in the ED 06/12---->levaquin 06/13. 06/12 sputum Cx w/ Ps. aeruginosa. 06/12 Bl Cx no growth so far. Follow final C/S. continue O2 by NC - titrate as tolerated - continue prednisone x5 days - course completed - continue levaquin x14 days - palliative care consult for GOC discussion per family request - patient is DNR/DNI but would like to continue current level of care and is NOT "do not hospitalize" at this point. - PT/OT to see patient - recommend rehab - if patient stable from respiratory standpoint today, can be discharged to [facility] for rehab #. Elevated trop at presentation: likely demand ischemia. Pt w/ no chest pain. #. Hypertension: On atenolol and diltiazem, resume as able #. Acquired hypothyroidism: resume home med. #. GERD (gastroesophageal reflux disease): PO PPI daily #. Anxiety and depression: Controlled with sertraline. #. Other conditions: resume home meds as able. #. DVT prophylaxis: SQ heparin #. DNR/DNI Jamin Bartholomew MD [facility] Medicine Total Time Total Time Spent Total Time Spent (In Minutes): 20 Total Time Includes: Examination of the Patient, Discharge Planning and Medication Reconciliation Discharge Plan Discharge Items Patient Disposition: Transfer Inpatient Rehab Fac Reason For Visit: RESPIRATORY FAILURE Discharge Diagnosis: COPD exacerbation, acute on chronic hypoxic respiratory failure Activity: As commented below Activity Comment: graded physical therapy rehabilitation Non-emergency contact: Primary Care Provider and Dining Car Conductor Call non-emergency contact if: you have any medication questions, your symptoms worsen and you have a fever Follow-up/Referrals: Sanjana Reyes DO [Primary Care Provider] - Diet: Heart Healthy Addtl Attending Provider Instructions: You were admitted for severe exacerbation on of you COPD/Asthma requiring ICU admission with mechanical intubation. You were eventually removed from the ventialtory and slowly recovered to your baseline respiratory status. You were started on steroids, which you finished, and antibiotics with Levofloxacin for a total of 14 days. Plesae follow up with your primary care doctor and your pulmonlogist. You should speak to your camp head counselor about starting azithromycin to help prevent further exacerbations of your COPD. Pending Studies at Discharge: No Stand-Alone Forms: My [facility] Skilled Items Patient informed of condition?: Yes DNR: Yes Discharge Level of Care: Acute rehab Communicable Disease: No Discharge Prognosis: Stable Lines: None Urinary Catheter: No Medications and DC Order Prescriptions: New levofloxacin 750 mg Tablet 750 mg PO DAILY@1100 Qty: 8 0RF melatonin 3 mg Tablet 3 mg PO HS PRN (Reason: sleep) Qty: 20 0RF magnesium oxide 400 mg magnesium capsule 400 mg PO DAILY Qty: 14 0RF Continued cetirizine 10 mg Tablet 10 mg PO QAM atorvastatin 10 mg tablet 10 mg PO QAM alendronate 70 mg tablet 70 mg PO WK Rx Instructions: TAKES ON MONDAY. levothyroxine 75 mcg tablet 75 mcg PO DAILYBB diltiazem HCl 300 mg capsule,extended release 24hr 300 mg PO QAM fluticasone propion-salmeterol [Wixela Inhub] 500-50 mcg/dose blister with device 1 inh INHALATION BID sertraline 25 mg tablet 25 mg PO QAM montelukast 10 mg tablet 10 mg PO QPM albuterol sulfate [Ventolin HFA] 90 mcg/actuation Hfa Aerosol Inhaler 2 puff INHALATION Q4H PRN (Reason: Shortness Of Breath Or Wheezing) Caltrate 600 plus D 600 mg (1,500 mg)-800 unit Tablet,Chewable 1 tab PO BID guaifenesin [Mucinex] 600 mg Tablet Extended Release 12hr 600 mg PO BID cimetidine 400 mg tablet 400 mg PO HS albuterol sulfate 1.25 mg/3 mL solution for nebulization 1.25 mg continuous nebulization Q4 PRN (Reason: Wheezing) furosemide 20 mg tablet 20 mg PO Q OTHER DAY Spiriva Respimat 2.5 mcg/actuation mist 2 puff INHALATION DAILY Changed atenolol 100 mg tablet 50 mg PO QAM Qty: 30 0RF Discharge Orders: Discharge Order (Routine); Ordered 06/18/22 Ordered By: Jamin García/Other Patient Handouts: Pulmonary Rehabilitation, Pulmonary Rehab Admission Data Admit Date/Time: 06/12/22 12:23 Attending Provider: Jamin Bartholomew Admit Provider: Symone Espinoza Primary Care Provider: Sanjana Reyes Other Providers: Symone Espinoza ; Mirna Garces ; Sandra Rucker ; [facility] Other Interventions: Discharge Summary Assessment (RN) Last Done: 06/18/22 12:40
--- NOTE | 2022-06-19 08:57 | Electrocardiogram Report ---
Test Reason : Blood Pressure : / mmHG Vent. Rate : 061 BPM Atrial Rate : 061 BPM P-R Int : 142 ms QRS Dur : 088 ms QT Int : 382 ms P-R-T Axes : -02 116 005 degrees QTc Int : 384 ms Poor data quality, interpretation may be adversely affected Sinus rhythm with frequent Premature ventricular complexes Abnormal ECG When compared with ECG of 12-JUN-2022 10:21, HR has decreased by 44 bpm Left anterior fascicular block no longer present Confirmed by Aleksander Mendes ([id number]) on 06/19/2022 8:56:45 AM Referred By: REFERRED SELF Confirmed By:Aleksander Mendes
== END 2022-06-18 14:38 | DRG 871 ==
LOC: ED 10:15 → 1E 12:23 → SUATTDRO 12:23 → 1E 14:00 → 2S 06-16 21:25
DX: I24.8 Other forms of acute ischemic heart disease; M81.0 Age-related osteoporosis without current pathological fracture; Z79.899 Other long term (current) drug therapy; Z79.890 Hormone replacement therapy; F32.A Depression, unspecified; I10 Essential (primary) hypertension; Z88.8 Allergy status to other drugs, medicaments and biological substances; I95.2 Hypotension due to drugs; J47.0 Bronchiectasis with acute lower respiratory infection; J96.22 Acute and chronic respiratory failure with hypercapnia; J44.1 Chronic obstructive pulmonary disease with (acute) exacerbation; K21.9 Gastro-esophageal reflux disease without esophagitis; Z66 Do not resuscitate; J15.1 Pneumonia due to Pseudomonas; J45.51 Severe persistent asthma with (acute) exacerbation; E83.39 Other disorders of phosphorus metabolism; Z79.51 Long term (current) use of inhaled steroids; A41.9 Sepsis, unspecified organism; Z99.81 Dependence on supplemental oxygen; J44.0 Chronic obstructive pulmonary disease with (acute) lower respiratory infection; T41.295A Adverse effect of other general anesthetics, initial encounter; F41.9 Anxiety disorder, unspecified; E78.5 Hyperlipidemia, unspecified; Z79.83 Long term (current) use of bisphosphonates; Z88.1 Allergy status to other antibiotic agents; J96.21 Acute and chronic respiratory failure with hypoxia; I27.20 Pulmonary hypertension, unspecified; Z87.01 Personal history of pneumonia (recurrent); E03.9 Hypothyroidism, unspecified; Z87.891 Personal history of nicotine dependence